=== PATIENT | male | born 1945 | race Caucasian/White ===

== ENCOUNTER 2017-01-28 08:27 | Emergency (ER) | payer MEDICARE ==
--- NOTE | 2017-01-28 09:44 | ER Document Report ---
HPI - HPI Pain Level: 4 Notes: Patient is a 71-year-old male who presents the ED complaining of left foot and left ankle pain 1 day without known injury. Patient states that he does have a history of gout and that this pain resembles that kind of feeling. He does take naproxen daily to help try to prevent his gout. He is allergic to allopurinol and colchicine as noted in his allergies. Patient states that the pain does not radiate. The pain is an ache and throb combined with an occasional sharp. Patient states that he does continue to have normal feeling and sensation in his feet. Patient states he still able to ambulate but does have to favor that left foot and ankle because of the pain. Patient has a history of hypertension, hypercholesterolemia, hypothyroidism, and is a former smoker. Patient states that he does have lower extremity edema which she is on a fluid pill for. Denies any diabetic history. Patient states his immunizations are up-to-date and that he does not do any other illicit drugs. Denies any fever, headache, URI, sore throat, chest pain, palpitations, syncope , cough, hemoptysis, wheeze, shortness of breath, dyspnea, abdominal pain, nausea/vomiting/diarrhea, dysuria, hematuria, calf pain, or rash. - ROS Notes: REVIEW OF SYSTEMS: CONSTITUTIONAL : Denies fever, chills, or sweats. Denies recent illness. EENT: Denies eye, ear, throat, or mouth pain or symptoms. Denies nasal or sinus congestion or discharge. Denies throat, tongue, or mouth swelling or difficulty swallowing. CARDIOVASCULAR: Denies chest pain. Denies palpitations or racing or irregular heart beat. Denies ankle edema. RESPIRATORY: Denies cough, cold, or chest congestion. Denies shortness of breath, difficulty breathing, or wheezing. GASTROINTESTINAL: Denies abdominal pain or distention. Denies nausea, vomiting , or diarrhea. Denies blood in vomitus, stools, or per rectum. Denies black, tarry stools. Denies constipation. GENITOURINARY: Denies difficulty urinating, painful urination, burning, frequency, blood in urine, or discharge. MUSCULOSKELETAL: see hpi SKIN: Denies rash, lesions or sores. NEUROLOGICAL: Denies confusion or altered mental status. Denies passing out or loss of consciousness. Denies dizziness or lightheadedness. Denies headache. Denies weakness or paralysis or loss of use of either side. Denies problems with gait or speech. Denies sensory loss, numbness, or tingling. Denies seizures. ALL OTHER SYSTEMS REVIEWED AND NEGATIVE. Dictation was performed using [employer] voice recognition software - DERM Skin Color: Normal Past Medical History - Social History Smoking Status: Never Smoker Chew tobacco use (# tins/day): No Frequency of alcohol use: Social Drug Abuse: None Family History: Reviewed & Not Pertinent - Past Medical History Cardiac Medical History: Reports: Hx Hypercholesterolemia, Hx Hypertension Endocrine Medical History: Reports: Hx Hypothyroidism Renal/ Medical History: Denies: Hx Peritoneal Dialysis GI Medical History: Reports: Hx Diverticulitis, Hx Gastroesophageal Reflux Disease, Hx Hiatal Hernia Musculoskeltal Medical History: Reports Hx Arthritis Psychiatric Medical History: Reports: Hx Depression Past Surgical History: Reports: Hx Abdominal Surgery - bowel resection, Hx Herniorrhaphy, Hx Orthopedic Surgery - right and left hand surgeries - Immunizations Immunizations up to date: Yes Hx Diphtheria, Pertussis, Tetanus Vaccination: Yes Vertical Provider Document - CONSTITUTIONAL Agree With Documented VS: Yes Notes: PHYSICAL EXAMINATION: GENERAL: Well-appearing, well-nourished and in no acute distress. HEAD: Atraumatic, normocephalic. EYES: Pupils equal round and reactive to light, extraocular movements intact, sclera anicteric, conjunctiva are normal. ENT: EAC clear b/l. TM's intact b/l without erythema, fluid, or perforation. Nares patent and without discharge. oropharynx clear without exudates. No tonsilar hypertrophy or erythema. Moist mucous membranes. No sinus tenderness. NECK: Normal range of motion, supple without lymphadenopathy LUNGS: Breath sounds clear to auscultation bilaterally and equal. No wheezes rales or rhonchi. HEART: Regular rate and rhythm without murmurs, rubs, gallops. ABDOMEN: Soft, nontender, nondistended abdomen. No guarding, no rebound. No masses appreciated. Normal bowel sounds present. No CVA tenderness bilaterally. Musculoskeletal: Lt foot: No ecchymosis, abrasion, laceration noted. No erythema when comparing to the rt foot/ankle. No obvious swelling noted. FROM to passive/active. Strength 5+/5. N/V intact. Trace-1+ pitting edema b/l. Pt has tenderness to palp to the anterior ankle/lat malleolus, MTP joint, and mild to the plantar foot to palpation. No abscess, discharge, streaks, or induration noted. Angel negative b/l. Extremities: No cyanosis, clubbing. Peripheral pulses 2+. Capillary refill less than 2 seconds. NEUROLOGICAL: Cranial nerves grossly intact. Normal speech, normal gait. Normal sensory, motor exams PSYCH: Normal mood, normal affect. SKIN: Warm, Dry, normal turgor, no rashes or lesions noted. See MSK exam as well. - INFECTION CONTROL TRAVEL OUTSIDE OF THE [place] IN LAST 30 DAYS: No - RESPIRATORY O2 Sat by Pulse Oximetry: 96 Course - Re-evaluation Re-evalutation: 01/28/17 10:55 Patient is an afebrile, well-hydrated, 71-year-old male who presents the ED complaining of left foot and ankle pain, suspect possible exacerbation of gout based on H&P today. X-ray was unremarkable for any acute fracture dislocation. Vitals are stable. PE otherwise unremarkable. Low suspicion for any septic arthritis, DVT, severe PAD, or systemic infection. I will give him a steroid tapering dose and he may begin as directed. I will give him a few tablets of tramadol to help with his discomfort. Conservative measures otherwise for symptoms. Advised close follow-up and recheck with his PCM in the next 2-3 days. Return to the ED with any worsening/concerning symptoms otherwise as reviewed in the discharge. Patient is in agreement. - Vital Signs Vital signs: Temp Pulse Resp BP Pulse Ox 98.0 F 71 16 124/67 96 01/28/17 08:35 01/28/17 08:35 01/28/17 08:35 01/28/17 08:35 01/28/17 08:35 Discharge - Discharge Clinical Impression: Foot pain, left Ankle pain, left Qualifiers: Chronicity: acute Qualified Code(s): M25.572 - Pain in left ankle and joints of left foot Condition: Stable Instructions: Ice & Elevation ([facility]) Additional Instructions: Rest, Ice, Compression, Elevation Take medications as directed Tylenol/ibuprofen as needed Light stretches daily Strength exercises as able Moist heat and massage may help F/u with your PCP in 2-3 days for a recheck* Consider consult(s) with Orthopedics for ongoing/worsening symptoms Return to the ED with any worsening symptoms and/or development of fever, headache, chest pain, palpitations, syncope, shortness of breath, trouble breathing, abdominal pain, n/v/d, calf pain, muscle weakness/paralysis, numbness /tingling, abscess, purulent discharge, red streaks, or other worsening symptoms that are concerning to you. Prescriptions: Prednisone [Deltasone 10 mg Tablet] 10 mg PO ASDIR PRN #21 tablet PRN Reason: Tramadol HCl 50 mg PO BID PRN #10 tablet PRN Reason: Referrals: BRITTANY CROSS MD [Primary Care Provider] - 01/30/17 [facility] [Provider Group] - Follow up as needed
--- NOTE | 2017-01-28 10:19 | RADIOLOGY REPORT (SQ) ---
EXAM DESCRIPTION: FOOT LEFT COMPLETE COMPLETED DATE/TIME: 01/28/2017 10:06 am REASON FOR STUDY: ankle and foot pain, h/o gout COMPARISON: 06/26/2015. NUMBER OF VIEWS: Three views. TECHNIQUE: AP, lateral and oblique without weight bearing radiographic images acquired of the left f oot. LIMITATIONS: None. FINDINGS: MINERALIZATION: Normal. BONES: No acute fracture or dislocation. No worrisome bone lesions. Plantar calcaneal spur. JOINTS: No erosions. No yanci-articular osteopenia. No chondrocalcinosis. SOFT TISSUES: No swelling. No calcifications. OTHER: No other significant finding. IMPRESSION: HEEL SPUR. NO OTHER SIGNIFICANT FINDING. TECHNICAL DOCUMENTATION: JOB ID: [id number] [employer]- All Rights Reserved
--- NOTE | 2017-01-28 10:20 | RADIOLOGY REPORT (SQ) ---
EXAM DESCRIPTION: ANKLE LEFT COMPLETE COMPLETED DATE/TIME: 01/28/2017 10:06 am REASON FOR STUDY: ankle and foot pain, h/o gout COMPARISON: None. NUMBER OF VIEWS: Three views. TECHNIQUE: AP, lateral, and oblique without weight bearing radiographic images acquired of the left ankle. LIMITATIONS: None. FINDINGS: MINERALIZATION: Normal. BONES: No acute fracture or dislocation. No worrisome bone lesions. No significant osteophytes. JOINTS: No effusions. SOFT TISSUES: Mild soft tissue swelling. No foreign body. OTHER: No other significant finding. IMPRESSION: MILD SOFT TISSUE SWELLING. NO SIGNIFICANT BONY FINDINGS. TECHNICAL DOCUMENTATION: JOB ID: [id number] [employer]- All Rights Reserved
[2017-01-28] MEDS ORDERED: OXYCODONE HCL IR 5 MG TABLET PO ONE (11:00)
[2017-01-28 11:43] VITALS: BP 125/59
== END 2017-01-28 11:42 | disposition home or self-care (01) ==
LOC: ER 08:27
DX: M25.572 Pain in left ankle and joints of left foot (principal)
CPT/HCPCS: 99283; 73610; 73630; A9270; 88305

== ENCOUNTER 2017-04-29 17:58 | Inpatient (IN) | payer MEDICARE ==
--- NOTE | 2017-04-29 20:12 | RADIOLOGY REPORT (SQ) ---
EXAM DESCRIPTION: CHEST SINGLE VIEW COMPLETED DATE/TIME: 04/29/2017 8:04 pm REASON FOR STUDY: resp difficulty COMPARISON: 03/26/2015 EXAM PARAMETERS: NUMBER OF VIEWS: One view. TECHNIQUE: Single frontal radiographic view of the chest acquired. RADIATION DOSE: NA LIMITATIONS: None. FINDINGS: LUNGS AND PLEURA: Mild chronic interstitial changes. No acute opacities. No effusions. MEDIASTINUM AND HILAR STRUCTURES: No masses. Contour normal. HEART AND VASCULAR STRUCTURES: Heart normal in size. Normal vasculature. BONES: No acute findings. HARDWARE: None in the chest. OTHER: No other significant finding. IMPRESSION: NO ACUTE RADIOGRAPHIC FINDING IN THE CHEST. TECHNICAL DOCUMENTATION: JOB ID: [id number]
[2017-04-29 20:18] LABS: APPEARANCE,URINE CLEAR; BILIRUBIN,URINE NEGATIVE (NEGATIVE); GLUCOSE, URINE NEGATIVE (NEGATIVE); KETONES,URINE NEGATIVE (NEGATIVE); LEUKOCYTE ESTERASE,URINE NEGATIVE (NEGATIVE); NITRITE,URINE NEGATIVE (NEGATIVE); PROTEIN,URINE NEGATIVE (NEGATIVE); URINE SPECIFIC GRAVITY 1.004; UROBILINOGEN,URINE NEGATIVE mg/dL (<2.0)
[2017-04-29 20:22] LABS: ABSOLUTE BASOPHILS # (AUTO) 0.1 10^3/uL (0.0-0.2); ABSOLUTE EOSINOPHILS # (AUTO) 0.3 10^3/uL (0.0-0.6); ABSOLUTE LYMPHOCYTES (AUTO) 1.2 10^3/uL (0.5-4.7); ABSOLUTE MONOCYTES (AUTO) 1.1 10^3/uL (0.1-1.4); ABSOLUTE NEUT (AUTO) 6.7 10^3/uL (1.7-8.2); BASOPHILS % (AUTO) 0.5 % (0-2); EOSINOPHILS % (AUTO) 3.1 % (0-6); HEMATOCRIT 35.9 % (37.9-51.0); HEMOGLOBIN 12.4 g/dL (13.5-17.0); HGB HCT DIFFERENCE 1.3; LYMPHOCYTES % (AUTO) 12.9 % (13-45); MEAN CORPUSCULAR HGB CONC 34.6 g/dL (32.0-36.0); MEAN CORPUSCULAR VOLUME 116 fl (80-97); MONOCYTES % (AUTO) 11.5 % (3-13); RED CELL DISTRIBUTION WIDTH 14.2 % (11.5-14.0); WHITE BLOOD COUNT 9.2 10^3/uL (4.0-10.5)
[2017-04-29 20:45] LABS: ALANINE AMINOTRANSFERASE 26 U/L (21-72); ALBUMIN 4.4 g/dL (3.5-5.0); ALKALINE PHOSPHATASE 106 U/L (38-126); ANION GAP 19 (5-19); ASPARTATE AMINO TRANSFERASE 33 U/L (17-59); BILIRUBIN,DIRECT 0.6 mg/dL (0.0-0.4); BILIRUBIN,TOTAL 0.7 mg/dL (0.2-1.3); BLOOD UREA NITROGEN 32 mg/dL (7-20); CALCIUM 9.6 mg/dL (8.4-10.2); CARBON DIOXIDE 28 mmol/L (22-30); CHLORIDE 96 mmol/L (98-107); CREATININE RESULT 1.77 mg/dL (0.52-1.25); GLUCOSE 90 mg/dL (75-110); POTASSIUM 3.2 mmol/L (3.6-5.0); SODIUM 142.5 mmol/L (137-145); TOTAL PROTEIN 8.2 g/dL (6.3-8.2)
[2017-04-29 20:54] LABS: TOXIC GRANULATION SLIGHT
[2017-04-29 20:55] LABS: ANISOCYTOSIS SLIGHT; POIKILOCYTOSIS SLIGHT; TEAR DROP CELLS SLIGHT
[2017-04-29 20:56] LABS: PLATELET CLUMPS PRESENT
--- NOTE | 2017-04-29 21:36 | ER Document Report ---
ED Medical Screen (RME) - General Chief Complaint: Shortness Of Breath Stated Complaint: SHORTNESS OF BREATH Time Seen by Provider: 04/29/17 21:31 Notes: 71-year-old male, chief complaint of worsening dyspnea on exertion, he states he was doing okay but today he can barely walk without getting short of breath. He denies cough, fever, chest pain. He states he is also now for the first time having trouble lying flat. He is on Lasix 40 mg twice a day for lower extremity swelling and he states he is compliant with this. He denies any knowledge of congestive heart failure history. He denies any other symptoms. TRAVEL OUTSIDE OF THE [place] IN LAST 30 DAYS: No - Related Data Allergies/Adverse Reactions: allopurinol Allergy (Verified 01/28/17 08:44) colchicine Allergy (Verified 01/28/17 08:49) Sulfa (Sulfonamide Antibiotics) Allergy (Verified 01/28/17 08:44) valdecoxib [From Bextra] Allergy (Verified 01/28/17 08:44) Past Medical History - Past Medical History Cardiac Medical History: Reports: Hx Hypercholesterolemia, Hx Hypertension Endocrine Medical History: Reports: Hx Hypothyroidism Renal/ Medical History: Denies: Hx Peritoneal Dialysis GI Medical History: Reports: Hx Diverticulitis, Hx Gastroesophageal Reflux Disease, Hx Hiatal Hernia Musculoskeltal Medical History: Reports Hx Arthritis Psychiatric Medical History: Reports: Hx Depression Past Surgical History: Reports: Hx Abdominal Surgery - bowel resection, Hx Herniorrhaphy, Hx Orthopedic Surgery - right and left hand surgeries - Immunizations Immunizations up to date: Yes Hx Diphtheria, Pertussis, Tetanus Vaccination: Yes Physical Exam - Vital signs Vitals: Temp Pulse BP Pulse Ox 97.7 F 64 134/78 H 95 04/29/17 09:04 04/29/17 09:04 04/29/17 09:04 04/29/17 09:04 - Respiratory Respiratory status: No: Respiratory distress, Labored, Tachypnea Breath sounds: Other - Soft rales heard in the mid to lower right lung, otherwise lungs clear Course - Re-evaluation Re-evalutation: Reported symptoms suggestive of developing orthopnea and dyspnea on exertion secondary to undiagnosed congestive heart failure. Workup pending. Patient is in no distress at this time and while he is sitting up he does not have tachypnea or any signs of distress. - Vital Signs Vital signs: Temp Pulse Resp BP Pulse Ox 97.7 F 64 134/78 H 95 04/29/17 09:04 04/29/17 09:04 04/29/17 09:04 04/29/17 09:04 - Laboratory Result Diagrams: 04/29/17 19:45 04/29/17 19:45 Laboratory results interpreted by me: 04/29/17 04/29/17 19:45 19:45 RBC 3.10 L Hgb 12.4 L Hct 35.9 L MCV 116 H MCH 40.0 H RDW 14.2 H Lymphocytes % 12.9 L Potassium 3.2 L Chloride 96 L BUN 32 H Creatinine 1.77 H Est GFR ( Amer) 46 L Est GFR (Non-Af Amer) 38 L Direct Bilirubin 0.6 H
[2017-04-29] MEDS ORDERED: POTASSIUM CHLORIDE 10 MEQ TABLET.SA PO ONE (22:14)
[2017-04-29] MEDS ORDERED: ASPIRIN 325 MG TABLET PO ONE (22:14)
[2017-04-29 22:33] LABS: MAGNESIUM 1.9 mg/dL (1.6-2.3)
[2017-04-29 22:47] LABS: CREATINE KINASE MB 3.32 ng/mL (<4.55); TROPONIN I 0.021 ng/mL
--- NOTE | 2017-04-29 23:17 | ER Document Report ---
ED General - General Chief Complaint: Shortness Of Breath Stated Complaint: SHORTNESS OF BREATH Time Seen by Provider: 04/29/17 21:31 Notes: 71-year-old male with heavy alcohol history presents with 3 weeks of shortness of breath worse when lying flat and exerting himself now severe and associated with leg swelling. No chest pressure palpitations or chest pain. No history of this. Stress test 5 years ago. No history of atrial fibrillation. TRAVEL OUTSIDE OF THE [place] IN LAST 30 DAYS: No - Related Data Allergies/Adverse Reactions: allopurinol Allergy (Verified 01/28/17 08:44) colchicine Allergy (Verified 01/28/17 08:49) Sulfa (Sulfonamide Antibiotics) Allergy (Verified 01/28/17 08:44) valdecoxib [From Bextra] Allergy (Verified 01/28/17 08:44) Past Medical History - Social History Smoking Status: Former Smoker Family History: Reviewed & Not Pertinent Patient has suicidal ideation: No Patient has homicidal ideation: No - Past Medical History Cardiac Medical History: Reports: Hx Hypercholesterolemia, Hx Hypertension Endocrine Medical History: Reports: Hx Hypothyroidism Renal/ Medical History: Denies: Hx Peritoneal Dialysis GI Medical History: Reports: Hx Diverticulitis, Hx Gastroesophageal Reflux Disease, Hx Hiatal Hernia Musculoskeltal Medical History: Reports Hx Arthritis Psychiatric Medical History: Reports: Hx Depression Past Surgical History: Reports: Hx Abdominal Surgery - bowel resection, Hx Herniorrhaphy, Hx Orthopedic Surgery - right and left hand surgeries - Immunizations Immunizations up to date: Yes Hx Diphtheria, Pertussis, Tetanus Vaccination: Yes Review of Systems - Review of Systems Notes: REVIEW OF SYSTEMS GEN: Denies fever, chills, weight loss ENT: Denies sore throat, nasal discharge, ear pain EYES: Denies blurry vision, eye pain, discharge CV: Denies chest pain, palpitations, edema RESP: Shortness of breath dyspnea on exertion orthopnea GI: Denies abdominal pain, nausea, vomiting, diarrhea MSK: Denies joint pain/swelling, e lateral leg edema SKIN: Denies rash, skin lesions LYMPH: Denies swollen glands/lymph nodes NEURO: Denies headache, focal weakness or numbness, dizziness PSYCH: Denies depression, suicidal or homicidal ideation PHYSICAL EXAMINATION General: No acute distress, well-nourished Head: Atraumatic, normocephalic ENT: Mouth normal, oropharynx moist, no exudates or tonsillar enlargement Eyes: Conjunctiva normal, pupils equal, lids normal Neck: No JVD, supple, no guarding CVS: Normal rate, regular rhythm, no murmurs Resp: No resp distress, equal and normal breath sounds bilaterally GI: Nondistended, soft, no tenderness to palpation, no rebound or guarding. Rectus diastases without tenderness.. Ext: No deformities, symmetric 2+ lower leg edema, normal range of motion in upper and lower ext Back: No CVA or midline TTP Skin: No rash, warm Lymphatic: No lymphadeopathy noted Neuro: Awake, alert. Face symmetric. GCS 15. Physical Exam - Vital signs Vitals: Temp Pulse BP Pulse Ox 97.7 F 64 134/78 H 95 04/29/17 09:04 04/29/17 09:04 04/29/17 09:04 04/29/17 09:04 Course - Re-evaluation Re-evalutation: 04/29/17 23:16 Patient presents with signs and symptoms of new onset congestive heart failure possibly in the setting of atrial fibrillation. Saturation and lung exam are normal the patient has edema. ECG shows either abnormal pacemaker versus atrial fib relation, very difficult to tell including with repeat ECG. Chest x-ray is read as normal, chronic interstitial changes but I think it looks samuel than before and this would fit with his clinical picture. His BNP is elevated but troponin is normal. I added on a TSH and will admit him. He was given aspirin but he refused 04/30/17 01:[address] Schmitz at about 12:45 AM. He would like a repeat troponin before admitting the patient. - Vital Signs Vital signs: Temp Pulse Resp BP Pulse Ox 97.7 F 64 13 126/84 H 97 04/29/17 09:04 04/29/17 09:04 04/30/17 02:15 04/30/17 02:01 04/30/17 02:15 - Laboratory Result Diagrams: 04/29/17 19:45 04/29/17 19:45 Laboratory results interpreted by me: 04/29/17 04/29/17 04/29/17 19:45 19:45 19:45 RBC 3.10 L Hgb 12.4 L Hct 35.9 L MCV 116 H MCH 40.0 H RDW 14.2 H Lymphocytes % 12.9 L Potassium 3.2 L Chloride 96 L BUN 32 H Creatinine 1.77 H Est GFR ( Amer) 46 L Est GFR (Non-Af Amer) 38 L Direct Bilirubin 0.6 H Creatine Kinase 214 H NT-Pro-B Natriuret Pep TSH 04/29/17 04/29/17 19:45 19:45 RBC Hgb Hct MCV MCH RDW Lymphocytes % Potassium Chloride BUN Creatinine Est GFR ( Amer) Est GFR (Non-Af Amer) Direct Bilirubin Creatine Kinase NT-Pro-B Natriuret Pep 1850 H TSH 17.10 H - Diagnostic Test Radiology reviewed: Image reviewed, Reports reviewed - EKG Interpretation by Me EKG shows normal: Sinus rhythm When compared to previous EKG there are: No significant change - Questionable atrial fibrillation versus abnormal pacemaker. Discharge - Discharge Clinical Impression: Congestive heart failure Qualifiers: Congestive heart failure type: combined Congestive heart failure chronicity: acute Qualified Code(s): I50.41 - Acute combined systolic (congestive) and diastolic (congestive) heart failure Condition: Good Disposition: ADMITTED INPATIENT Admitting Provider: Hospitalist Unit Admitted: Telemetry Referrals: BRITTANY CROSS MD [Primary Care Provider] - Follow up as needed
[2017-04-30] MEDS ORDERED: ACETAMINOPHEN 325 MG TABLET PO PRN (04:54)
[2017-04-30] MEDS ORDERED: PROMETHAZINE HCL 25 MG TABLET PO PRN (04:54)
[2017-04-30] MEDS ORDERED: THIAMINE HCL 100 MG TABLET PO ONE (06:15)
[2017-04-30] MEDS ORDERED: LORAZEPAM 1 MG TABLET PO PRN (07:36)
[2017-04-30] MEDS ORDERED: FUROSEMIDE INJ/PF 20 MG/2 ML SDV IV ONE (07:43)
[2017-04-30 07:52] LABS: ABSOLUTE BASOPHILS # (AUTO) 0.1 10^3/uL (0.0-0.2); ABSOLUTE EOSINOPHILS # (AUTO) 0.2 10^3/uL (0.0-0.6); ABSOLUTE NEUT (AUTO) 7.1 10^3/uL (1.7-8.2); BASOPHILS % (AUTO) 0.6 % (0-2); EOSINOPHILS % (AUTO) 2.2 % (0-6); HEMATOCRIT 33.9 % (37.9-51.0); HEMOGLOBIN 11.7 g/dL (13.5-17.0); HGB HCT DIFFERENCE 1.2; LYMPHOCYTES % (AUTO) 10.4 % (13-45); MEAN CORPUSCULAR HEMOGLOBIN 39.8 pg (27.0-33.4); MEAN CORPUSCULAR HGB CONC 34.5 g/dL (32.0-36.0); MEAN CORPUSCULAR VOLUME 115 fl (80-97); MONOCYTES % (AUTO) 10.9 % (3-13); RED BLOOD COUNT 2.95 10^6/uL (4.35-5.55); RED CELL DISTRIBUTION WIDTH 14.3 % (11.5-14.0); SEGMENTED NEUTROPHILS % (AUTO) 75.9 % (42-78); WHITE BLOOD COUNT 9.3 10^3/uL (4.0-10.5)
[2017-04-30 08:07] LABS: ALANINE AMINOTRANSFERASE 27 U/L (21-72); ALBUMIN 4.1 g/dL (3.5-5.0); ALKALINE PHOSPHATASE 107 U/L (38-126); ANION GAP 15 (5-19); ASPARTATE AMINO TRANSFERASE 30 U/L (17-59); BILIRUBIN,DIRECT 0.6 mg/dL (0.0-0.4); BILIRUBIN,TOTAL 1.1 mg/dL (0.2-1.3); BLOOD UREA NITROGEN 32 mg/dL (7-20); CALCIUM 9.7 mg/dL (8.4-10.2); CARBON DIOXIDE 31 mmol/L (22-30); CHLORIDE 98 mmol/L (98-107); CREATININE RESULT 1.66 mg/dL (0.52-1.25); GLUCOSE 112 mg/dL (75-110); POTASSIUM 3.4 mmol/L (3.6-5.0); SODIUM 144.3 mmol/L (137-145); TOTAL PROTEIN 7.6 g/dL (6.3-8.2)
[2017-04-30 08:08] LABS: CHOLESTEROL 135.04 mg/dL (0-200); Direct HDL 35 mg/dL (>40); TRIGLYCERIDES 113 mg/dL (<150)
[2017-04-30 08:13] LABS: ANISOCYTOSIS SLIGHT
--- NOTE | 2017-04-30 08:13 | EKG REPORT ---
SEVERITY:- ABNORMAL ECG - SINUS RHYTHM NONSPECIFIC INTRAVENTRICULAR CONDUCTION DELAY BORDERLINE LATERAL Q WAVES MINIMAL ST DEPRESSION, LATERAL LEADS : Confirmed by: Emiliano Guerrero MD 30-Apr-2017 08:12:14
--- NOTE | 2017-04-30 08:13 | EKG REPORT ---
SEVERITY:- ABNORMAL ECG - ATRIAL FIBRILLATION, V-RATE 67-71 NONSPECIFIC T ABNORMALITIES, LATERAL LEADS : Confirmed by: Emiliano Guerrero MD 30-Apr-2017 08:12:24
[2017-04-30 08:19] LABS: DIRECT LDL 85 mg/dL (<100)
--- NOTE | 2017-04-30 09:13 | PDOC H&P ---
History of Present Illness Admission Date/PCP: 04/30/17 07:36 BRITTANY CROSS MD Patient complains of: Short of breath History of Present Illness: ELEANOR STODDARD is a 71 year old male with underlying hypertension, hyperlipidemia, hypothyroidism, partial hearing loss, obstructive sleep apnea, and arthritis, who presents to the emergency room for evaluation of above complaint. Patient has been discussed with emergency room physician who evaluated the patient. He describes a 3 week history of intermittent slowly worsening shortness of breath, in particular much of any exertion. Worsens also with lying flat. Associated leg swelling, with the leg swelling actually having been present intermittently for the past several months. There is been no chest pain, fever or chills, nausea or vomiting. No history of myocardial infarction, congestive heart failure, atrial fibrillation, or atrial flutter. No history of pulmonary embolus or DVT. No recent long trip with prolonged inactivity, or unusual lower extremity swelling or tenderness. Negative nuclear stress study approximately 5 years ago. Dictation via voice recognition software. Laboratory results are listed in [employer] and are reviewed. X-ray summary results are listed below, with full report(s) reviewed. EKG 2reviewed and compared to prior tracing from October 19 of last year. Social history/personal habits: . Has children. 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 No tobacco use since 1978. No illicit drug use. A bottle of wine per day. Allergies/adverse reactions are listed in [employer] and are reviewed. Home medications initially autopopulated into [employer] may not accurately reflect patient's true medications, dosages, and/or frequencies. nuclear fuel enrichment technician to reconcile medications. Unfortunately, patient not certain of all medications/dosages/frequencies. REVIEW OF SYSTEMS: Constitutional: No fever or chills. Eyes: Wears glasses. ENT: No swallowing problems or complaints. Partial hearing loss. Pulmonary: See history and present illness. Cardiovascular: See history and present illness. Gastrointestinal: No current complaints, including nausea or vomiting. Skin: No current complaints, including rashes. Hematologic: Easy bruising. Neurologic: No current complaints, including numbness or tingling. Musculoskeletal: Joint pain from arthritis. Psychiatric: Denies anxiety or depression. Endocrine: No current complaints, including polyuria. Genitourinary: No current complaints, including dysuria. PHYSICAL EXAMINATION: Female printing press operator is present at his side; patient approves. 5 feet 10-1/2 inches tall. 118 kg. BMI 36.8 kg/m. Blood pressure 132/76. Pulse 66 and regular. 97% saturation on room air. Respirations are 13 and unlabored. Temperature 97.7. Somewhat obese otherwise well-developed male appearing perhaps a bit younger than his stated age. Pleasant awake alert and cooperative. No obvious distress other than somewhat anxious. Skin is warm and dry. No grossly obvious evidence of rash in areas of skin examined. No subcutaneous nodules palpated. ENT: Somewhat hard of hearing to normal conversation. Tongue midline on protrusion pink and slightly tacky. Eyes: No scleral icterus. Pupils equal and reactive to light at 4 mm. [place] conjunctivae. Neck is supple and nontender to gentle active range of motion and palpation. Midline trachea. No palpable thyroid nodule mass enlargement or tenderness. Lymphatic: No palpable cervical or clavicular nodes. Neck and lymphatic exams limited by patient body habitus. Psychiatric: Reasonable insight into acute and chronic medical issues. Oriented to time location and why here. Lungs: Auscultation reveals clear and equal breath sounds bilaterally. No use of accessory respiratory muscles. Cardiovascular: Heart regular rate and rhythm, without gallop murmur or rub. No carotid or abdominal aortic bruits. Moderate bilateral symmetric slightly pitting calf and ankle and pedal edema. Palpable dorsalis pedis pulses. Abdomen:soft obese nontender with positive bowel sounds. Unable to adequately evaluate abdomen for masses or organomegaly due to body habitus. Extremities: Feet are warm and dry. No calf tenderness to compression. Gentle manipulation of lower extremities fails to reveal any obvious evidence of injury or instability to knees hips or ankles. Neurologic: Moves upper extremities grossly normally. Patellar reflexes absent. Absent Babinski. Light touch is intact at feet. Dorsiflexion and plantarflexion of feet 5 / 5 and symmetric. Past Medical History Cardiac Medical History: Reports: Hyperlipidema, Hypertension Denies: Atrial Fibrillation, Congestive Heart Failure, Coronary Artery Disease, DVT, Myocardial Infarction, Pulmonary Embolism Pulmonary Medical History: Reports: Sleep Apnea - Uncertain settings on home CPAP Denies: Asthma, Chronic Obstructive Pulmonary Disease (COPD) EENT Medical History: Reports: Eyes - Glasses, Ears - Partial hearing loss Denies: Throat Neurological Medical History: Denies: Hemorrhagic CVA, Ischemic CVA, Multiple Sclerosis, Seizures Endocrine Medical History: Reports: Hypothyroidism Denies: Diabetes Mellitus Type 1, Diabetes Mellitus Type 2, Hyperthyroidism Renal/ Medical History: Reports: None GI Medical History: Reports: Diverticulitis - Status post segmental colectomy for same, Gastroesophageal Reflux Disease, Hiatal Hernia Denies: Cirrhosis, Peptic Ulcer Disease Musculoskeltal Medical History: Reports: Arthritis Skin Medical History: Reports: None Psychiatric Medical History: Reports: Alcohol Dependency Denies: Depression, General Anxiety Disorder, Substance Abuse, Tobacco Dependency Hematology: Reports: Other - Easy bruising Infectious Medical History: Denies: Hepatitis B, Hepatitis C Past Surgical History Past Surgical History: Reports: Herniorrhaphy, Orthopedic Surgery - right and left hand surgeries, Other - Segmental colectomy for diverticulitis Social History Information Source: Patient, Emergency Med Personnel, [facility] Records Lives with: Spouse/Significant other Smoking Status: Former Smoker Frequency of Alcohol Use: Heavy Hx Recreational Drug Use: No Drugs: None Hx Prescription Drug Abuse: No - Advance Directive Resuscitation Status: Full Code Surrogate healthcare decision maker:: Long-term female printing press operator Naomi Barrios Family History Family History: Reviewed & Not Pertinent Parental Family History Reviewed: Yes - Father of [place] at 49; mother of lung cancer Children Family History Reviewed: Yes - Healthy Sibling(s) Family History Reviewed.: Yes - Brother of lung cancer Medication/Allergy Home Medications: RX: Atorvastatin Calcium [Lipitor 20 mg Tablet] 20 mg PO DAILY 04/30/17 RX: Magnesium Oxide [Mag-Ox 400 mg Tablet] 400 mg PO BID 04/30/17 Aspirin [Aspirin 325 mg Tablet] 325 mg PO DAILY #30 tablet 05/01/17 RX: Atenolol [Tenormin 50 mg Tablet] 100 mg PO DAILY #60 tablet 05/01/17 RX: Folic Acid [Folvite 1 mg Tablet] 1 mg PO DAILY tablet 05/01/17 RX: Furosemide [Lasix 40 mg Tablet] 20 mg PO ASDIR #90 tablet 05/01/17 RX: Hydrocodone/Acetaminophen [[place] 7.5-325 mg Tablet] 1 tab PO Q6HP PRN tablet 05/01/17 RX: Levothyroxine Sodium [Synthroid 0.088 mg Tablet] 0.088 mg PO DAILY #30 tablet 05/01/17 RX: Levothyroxine Sodium [Synthroid 0.1 mg Tablet] 0.1 mg PO DAILY #30 tablet RX: Multivitamin [Tab-A-Lucy (Multiple Vitamin) Tablet] 1 tab PO DAILY tablet 05/01/17 RX: Potassium Chloride [Klor-Con 10 Meq Tablet.sa] 10 meq PO DAILY #30 tablet.sa 05/01/17 RX: Thiamine HCl [Thiamine 100 mg Tablet] 100 mg PO DAILY tablet 05/01/17 Allergies/Adverse Reactions: allopurinol Allergy (Verified 01/28/17 08:44) colchicine Allergy (Verified 01/28/17 08:49) Sulfa (Sulfonamide Antibiotics) Allergy (Verified 01/28/17 08:44) valdecoxib [From Bextra] Allergy (Verified 01/28/17 08:44) Physical Exam Vital Signs: Temp Pulse Resp BP Pulse Ox 98.1 F 59 L 18 130/73 H 97 04/30/17 08:18 04/30/17 08:18 04/30/17 08:18 04/30/17 08:18 04/30/17 08:18 Results Impressions: Chest X-Ray 04/29/17 19:20 IMPRESSION: NO ACUTE RADIOGRAPHIC FINDING IN THE CHEST. Assessment & Plan - Diagnosis (1) ARF (acute renal failure) Qualifiers: Acute renal failure type: unspecified Qualified Code(s): N17.9 - Acute kidney failure, unspecified Is this a current diagnosis for this admission?: Yes Plan: Follow-up chemistry. (2) Congestive heart failure Qualifiers: Congestive heart failure type: unspecified congestive heart failure type Congestive heart failure chronicity: unspecified congestive heart failure chronicity Qualified Code(s): I50.9 - Heart failure, unspecified Is this a current diagnosis for this admission?: Yes Plan: Suspect has been present for some time now with his history of intermittent leg swelling for several months. Patient will be admitted under CHF protocol. Serial troponins. Repeat EKG. Lipid panel. Cardiology consult. Echocardiogram. Patient is a full code. I have strongly encouraged patient not to get out of bed without notifying staff , to avoid a fall with injury. Knee high SCDs for DVT prophylaxis, along with subcutaneous heparin. Impression and plans were discussed with patient and female printing press operator, both of whom concur Time spent in evaluation and management of patient: 74 minutes (3) Hypokalemia Is this a current diagnosis for this admission?: Yes Plan: Potassium replacement with follow-up chemistry. (4) New onset a-fib Is this a current diagnosis for this admission?: Yes Plan: D-dimer. (5) Alcohol dependence Qualifiers: Substance use status: uncomplicated Qualified Code(s): F10.20 - Alcohol dependence, uncomplicated Is this a current diagnosis for this admission?: Yes Plan: Daily multivitamin, thiamine, and folic acid. Observe closely for signs of alcohol withdrawal; none at present. (6) HLD (hyperlipidemia) Qualifiers: Hyperlipidemia type: unspecified Qualified Code(s): E78.5 - Hyperlipidemia , unspecified Is this a current diagnosis for this admission?: Yes Plan: Resume home medications as appropriate once these have been determined and reviewed. (7) Hypothyroid Qualifiers: Hypothyroidism type: unspecified Qualified Code(s): E03.9 - Hypothyroidism , unspecified Is this a current diagnosis for this admission?: Yes Plan: Resume home medications as appropriate once these have been determined and reviewed. May need adjustment of dosage, or confirm that patient taking medication on empty stomach. (8) HEAVEN (obstructive sleep apnea) Is this a current diagnosis for this admission?: Yes Plan: Nightly CPAP - Time Time Spent: 50 to 70 Minutes Medications reviewed and adjusted accordingly: No - Patient uncertain medications. Anticipated discharge: Home Within: within 72 hours - Inpatient Certification Based on my medical assessment, after consideration of the patient's comorbidities, presenting symptoms, or acuity I expect that the services needed warrant INPATIENT care.: Yes I certify that my determination is in accordance with my understanding of Medicare's requirements for reasonable and necessary INPATIENT services [42 CFR 412.3e].: Yes Medical Necessity: Need Close Monitoring Due to Risk of Patient Decompensation, Need For Continuous Telemetry Monitoring, Risk of Complication if Not Cared For in Hospital Post Hospital Care: D/C or Transfer Summary
[2017-04-30] MEDS: DOCUSATE SODIUM 100 MG CAPSULE PO SCH (09:32)
[2017-04-30] MEDS: LEVOTHYROXINE SODIUM 0.1 MG TABLET PO SCH (09:33)
[2017-04-30] MEDS: FOLIC ACID 1 MG TABLET PO SCH (09:33)
[2017-04-30] MEDS: MULTIVITAMIN TABLET PO SCH (09:33)
[2017-04-30] MEDS: THIAMINE HCL 100 MG TABLET PO SCH (09:33)
[2017-04-30] MEDS: LEVOTHYROXINE SODIUM 0.088 MG TABLET PO SCH (09:34)
[2017-04-30] MEDS ORDERED: IPRATROPIUM/ALBUTEROL 0.5-2.5 MG/3 ML AMPUL NEB PRN (10:55)
--- NOTE | 2017-04-30 12:40 | XCELERA REPORT ---
[address] [address] Transthoracic Echocardiogram Report Name: ELEANOR STODDARD Age: 71 yrs Gender: Male : 1945 Patient Status: Inpatient Patient Location: [address] [place] [address] Study Date: 04/30/2017 10:04 AM Height: 70 in Weight: 260 lb BSA: 2.3 m2 Procedure: A complete two-dimensional transthoracic echocardiogram was performed (2D, M-mode, spectral and color flow Doppler). The study was technically difficult with many images being suboptimal in quality. Reason For Study: new afib/chf Ordering Physician: ORLANDO DIAZ Performed By: Edwin Rodrigues Interpretation Summary The left ventricular ejection fraction is normal. There is mild concentric left ventricular hypertrophy. LV diastolic function could not be adequately assessed. The left ventricle is grossly normal size. Wall motion cannot be accurately commented on, but no definite regional wall motion abnormalities noted. The right ventricle is mildly dilated. The right ventricular systolic function is normal. The left atrium is moderately dilated. The right atrium is mildly dilated. There is a mild to moderate amount of mitral regurgitation There is no mitral valve stenosis. There is no aortic valve stenosis No aortic regurgitation is present. There is a mild to moderate amount of tricuspid regurgitation There is mild to moderate pulmonary hypertension by echo Right ventricular systolic pressure is estimated to be elevated at 40- 50mmHg. The aortic root is not well visualized but is probably normal size. The inferior vena cava appeared normal and decreased > 50% with respiration (RAP 5-10 mmHg) There is no pericardial effusion. MMode/2D Measurements & Calculations RVDd: 3.1 cm LVIDd: 5.5 cm FS: 39.4 % Ao root diam: 3.6 cm IVSd: 1.2 cm LVIDs: 3.3 cm EDV(Teich): 147.6 ml LVPWd: 1.2 cm ESV(Teich): 45.3 ml Ao root area: 10.1 cm2 EF(Teich): 69.3 % Doppler Measurements & Calculations Ao V2 max: LV V1 max PG: PA V2 max: PI end-d sara: 169.6 cm/sec 4.5 mmHg 72.3 cm/sec 84.3 cm/sec Ao max PG: LV V1 max: PA max P.5 mmHg 106.0 cm/sec 2.1 mmHg TR max sara: 358.0 cm/sec TR max P.2 mmHg Left Ventricle The left ventricle is grossly normal size. There is mild concentric left ventricular hypertrophy. The left ventricular ejection fraction is normal. LV diastolic function could not be adequately assessed. Wall motion cannot be accurately commented on, but no definite regional wall motion abnormalities noted. Right Ventricle The right ventricle is mildly dilated. The right ventricular systolic function is normal. Atria The right atrium is mildly dilated. The left atrium is moderately dilated. Interarterial septum not well visualized and not well dopplered. Cannot comment on ASD/PFO presence. Mitral Valve The mitral valve is grossly normal. There is no mitral valve stenosis. There is a mild to moderate amount of mitral regurgitation. Aortic Valve The aortic valve is grossly normal. There is no aortic valve stenosis. No aortic regurgitation is present. Tricuspid Valve The tricuspid valve is not well visualized, but is grossly normal. There is no tricuspid stenosis. There is a mild to moderate amount of tricuspid regurgitation. There is mild to moderate pulmonary hypertension by echo. Right ventricular systolic pressure is estimated to be elevated at 40- 50mmHg. Pulmonic Valve The pulmonic valve is not well visualized. Great Vessels The aortic root is not well visualized but is probably normal size. The inferior vena cava appeared normal and decreased > 50% with respiration (RAP 5-10 mmHg). Effusions There is no pericardial effusion. : ORLANDO DIAZ > Vick Zavala
[2017-04-30] MEDS ORDERED: FUROSEMIDE 40 MG TABLET PO PRN (13:19)
[2017-04-30] MEDS ORDERED: HYDROCODONE/ACETAMINOPHEN 7.5-325 MG TABLET PO PRN (13:19)
[2017-04-30] MEDS ORDERED: CHLORTHALIDONE 25 MG TABLET PO ONE (14:00)
[2017-04-30] MEDS ORDERED: ATENOLOL 50 MG TABLET PO ONE (14:00)
[2017-04-30] MEDS ORDERED: MAGNESIUM OXIDE 400 MG TABLET PO ONE (14:00)
[2017-04-30] MEDS ORDERED: ATORVASTATIN CALCIUM 20 MG TABLET PO ONE (14:00)
[2017-04-30] MEDS ORDERED: NAPROXEN 250 MG TABLET PO ONE (14:00)
[2017-04-30] MEDS: HYDROCODONE/ACETAMINOPHEN 7.5-325 MG TABLET PO PRN (15:07)
[2017-04-30 15:20] LABS: PROTHROMBIN TIME 14.7 SEC (11.4-15.4)
[2017-04-30 15:21] LABS: PARTIAL THROMBOPLASTIN TIME 34.7 SEC (23.5-35.8)
--- NOTE | 2017-04-30 15:26 | RADIOLOGY REPORT (SQ) ---
EXAM DESCRIPTION: NM LUNG VENT/PERF SCAN COMPLETED DATE/TIME: 04/30/2017 3:03 pm REASON FOR STUDY: Dyspnea. elevated d-dimer COMPARISON: Chest radiograph RADIONUCLIDE AND DOSE: 5.34 millicuries TC-99m MAA Intravenous 32.2 millicuries TC-99m DTPA Inhaled aerosol TECHNIQUE: 2 views of the lungs acquired post ventilation of DTPA aerosol. Eight matching views of the lungs acquired following injection of MAA. LIMITATIONS: None. FINDINGS: VENTILATION: Symmetric and homogeneous distribution of DTPA aerosol during ventilatory pha se. No significant areas of photopenia. PERFUSION: Perfusion images with normal homogenous activity and no wedge-shaped or segmental defects. No ventilation-perfusion mismatches. OTHER: No other significant finding. IMPRESSION: NORMAL VENTILATION-PERFUSION LUNG SCAN. NEGATIVE FOR PULMONARY EMBOLI. TECHNICAL DOCUMENTATION: JOB ID: [id number] [employer]- All Rights Reserved
--- NOTE | 2017-04-30 16:03 | PDOC PROGRESS REPORT ---
Subjective Progress Note for:: 04/30/17 Subjective:: Pt is seen on morning rounds shortly after arrival to his room from the ED. He is resting in bed comfortably with family present. He reports that he has had a gradual increase in dyspnea over the last 4-5 months with a sharp increase in severity of symptoms approximately three weeks ago. He reports that he decided to be seen in the ED last night due to not being able to lye flat r/t orthopnea. He does report an increase in BLE edema. He spoke with his PCM yesterday and was instructed to increase his lasix to BID dosing. He denies MARQUEZ, dizziness, CP, abd pain, n/v/d. Review of symptoms is otherwise negative. Physical Exam Vital Signs: Temp Pulse Resp BP Pulse Ox 98.1 F 59 L 18 130/73 H 97 04/30/17 08:18 04/30/17 08:18 04/30/17 08:18 04/30/17 08:18 04/30/17 08:18 General appearance: PRESENT: no acute distress, obese, well-developed, well- nourished Head exam: PRESENT: atraumatic, normocephalic Eye exam: PRESENT: conjunctiva pink, EOMI, PERRLA. ABSENT: scleral icterus Ear exam: PRESENT: normal external ear exam Mouth exam: PRESENT: moist, tongue midline Neck exam: ABSENT: carotid bruit, JVD, lymphadenopathy, thyromegaly Respiratory exam: PRESENT: clear to auscultation sigifredo, symmetrical, unlabored, wheezes - Slight expiratory wheeze to LLL.. ABSENT: rales, rhonchi Cardiovascular exam: PRESENT: RRR, +S1, +S2. ABSENT: diastolic murmur, rubs, systolic murmur Pulses: PRESENT: normal dorsalis pedis pul Vascular exam: PRESENT: normal capillary refill GI/Abdominal exam: PRESENT: normal bowel sounds, soft. ABSENT: distended, guarding, mass, organolmegaly, rebound, tenderness Rectal exam: PRESENT: deferred Extremities exam: PRESENT: full ROM, +2 edema - Pitting edema BLE. ABSENT: calf tenderness, clubbing Musculoskeletal exam: PRESENT: ambulatory Neurological exam: PRESENT: alert, awake, oriented to person, oriented to place , oriented to time, oriented to situation, CN II-XII grossly intact. ABSENT: motor sensory deficit Psychiatric exam: PRESENT: appropriate affect, normal mood. ABSENT: homicidal ideation, suicidal ideation Skin exam: PRESENT: dry, intact, warm. ABSENT: cyanosis, rash Results Impressions: Chest X-Ray 04/29/17 19:20 IMPRESSION: NO ACUTE RADIOGRAPHIC FINDING IN THE CHEST. Assessment & Plan - Diagnosis (1) ARF (acute renal failure) Qualifiers: Acute renal failure type: unspecified Qualified Code(s): N17.9 - Acute kidney failure, unspecified Is this a current diagnosis for this admission?: Yes Plan: Creatinin 1.66, no previous results available. ARF vs CKD; will monitor. 1- Encourage PO fluids. 2- Hold nephrotoxic medications 3- Monitor labs (2) Congestive heart failure Qualifiers: Congestive heart failure type: unspecified congestive heart failure type Congestive heart failure chronicity: unspecified congestive heart failure chronicity Qualified Code(s): I50.9 - Heart failure, unspecified Is this a current diagnosis for this admission?: Yes Plan: Heart failure with preserved function. Echo complete, serial troponin reassuring. Will continue with diuresis. 1- Appreciate Cardiology consultation 2- Continue IV lasix BID 3- Continue BB (atenolol) (3) Hypothyroid Qualifiers: Hypothyroidism type: unspecified Qualified Code(s): E03.9 - Hypothyroidism , unspecified Is this a current diagnosis for this admission?: Yes Plan: Pt unaware of previous hypothyroid diagnosis. Will start on levothyroxine. (4) Alcohol dependence Qualifiers: Substance use status: uncomplicated Qualified Code(s): F10.20 - Alcohol dependence, uncomplicated Is this a current diagnosis for this admission?: Yes Plan: Pt reports 1 bottle of wine daily. 1- Daily multivitamin, thiamine, and folic acid 2- Monitor closely for s/sx of withdrawal; prn ativan (5) HLD (hyperlipidemia) Qualifiers: Hyperlipidemia type: unspecified Qualified Code(s): E78.5 - Hyperlipidemia , unspecified Is this a current diagnosis for this admission?: Yes Plan: Continue Atorvastatin (6) HEAVEN (obstructive sleep apnea) Is this a current diagnosis for this admission?: Yes Plan: CPAP qHS (7) Hypokalemia Is this a current diagnosis for this admission?: Yes Plan: Potassium replacement provided; will follow. (8) New onset a-fib Is this a current diagnosis for this admission?: Yes Plan: Pt rhythm unaware; does not recall having been told he has a-fib. Chronic vs new -onset a.fib 1- Appreciate Cardiology consultation 2- Echocardiogram completed 3- Rate controlled at present; continue atenolol - Time Time Spent with patient: 25-34 minutes Medications reviewed and adjusted accordingly: Yes Anticipated discharge: Home Within: within 72 hours
[2017-04-30] MEDS: MAGNESIUM OXIDE 400 MG TABLET PO SCH (17:18)
[2017-04-30] MEDS ORDERED: NAPROXEN PO SCH (18:00)
[2017-04-30] MEDS ORDERED: NAPROXEN 250 MG TABLET PO SCH (18:00)
--- NOTE | 2017-04-30 20:26 | PDOC CONSULTATION ---
Consultation Consult Date: 04/30/17 Attending physician:: ORLANDO DIAZ Consult reason:: Atrial fibrillation History of Present Illness Admission Date/PCP: 04/30/17 07:36 BRITTANY CROSS MD Patient complains of: Fatigue and shortness of breath History of Present Illness: ELEANOR STODDARD is a 71 year old male with underlying hypertension, hyperlipidemia, hypothyroidism, partial hearing loss, obstructive sleep apnea, and arthritis, who presents to the emergency room for evaluation of above complaint. Patient has been discussed with emergency room physician who evaluated the patient. He describes a 3 week history of intermittent slowly worsening shortness of breath, in particular much of any exertion. Worsens also with lying flat. Associated leg swelling, with the leg swelling actually having been present intermittently for the past several months. There is been no chest pain, fever or chills, nausea or vomiting. No history of myocardial infarction, congestive heart failure, atrial fibrillation, or atrial flutter. No history of pulmonary embolus or DVT. No recent long trip with prolonged inactivity, or unusual lower extremity swelling or tenderness. Negative nuclear stress study approximately 5 years ago. This history was confirmed and supplemented. On questioning patient denied any chest pain. He denied any prior history of strokes or myocardial infarction or congestive heart failure. Patient's symptoms have been gradually progressive over the last 3 weeks. Past Medical History Cardiac Medical History: Reports: Hyperlipidema, Hypertension Denies: Atrial Fibrillation, Congestive Heart Failure, Coronary Artery Disease, DVT, Myocardial Infarction, Pulmonary Embolism Pulmonary Medical History: Reports: Sleep Apnea - Uncertain settings on home CPAP Denies: Asthma, Chronic Obstructive Pulmonary Disease (COPD) EENT Medical History: Reports: Eyes - Glasses, Ears - Partial hearing loss, Other - Easy bruising Denies: Throat Neurological Medical History: Denies: Hemorrhagic CVA, Ischemic CVA, Multiple Sclerosis, Seizures Endocrine Medical History: Reports: Hypothyroidism Denies: Diabetes Mellitus Type 1, Diabetes Mellitus Type 2, Hyperthyroidism Renal/ Medical History: Reports: None GI Medical History: Reports: Diverticulitis - Status post segmental colectomy for same, Gastroesophageal Reflux Disease, Hiatal Hernia Denies: Cirrhosis, Peptic Ulcer Disease Musculoskeltal Medical History: Reports: Arthritis Skin Medical History: Reports: None Psychiatric Medical History: Reports: Alcohol Dependency Denies: Depression, General Anxiety Disorder, Substance Abuse, Tobacco Dependency Hematology: Reports: Other - Easy bruising Infectious Medical History: Denies: Hepatitis B, Hepatitis C Past Surgical History Past Surgical History: Reports: Herniorrhaphy, Orthopedic Surgery - right and left hand surgeries, Other - Segmental colectomy for diverticulitis Social History Information Source: Patient Lives with: Spouse/Significant other Smoking Status: Former Smoker Frequency of Alcohol Use: Heavy Hx Recreational Drug Use: No Drugs: None Hx Prescription Drug Abuse: No - Advance Directive Resuscitation Status: Full Code Family History Family History: Hypertension Parental Family History Reviewed: Yes Children Family History Reviewed: Yes Sibling(s) Family History Reviewed.: Yes Medication/Allergy Home Medications: RX: Atorvastatin Calcium [Lipitor 20 mg Tablet] 20 mg PO DAILY 04/30/17 RX: Magnesium Oxide [Mag-Ox 400 mg Tablet] 400 mg PO BID 04/30/17 Aspirin [Aspirin 325 mg Tablet] 325 mg PO DAILY #30 tablet 05/01/17 RX: Atenolol [Tenormin 50 mg Tablet] 100 mg PO DAILY #60 tablet 05/01/17 RX: Folic Acid [Folvite 1 mg Tablet] 1 mg PO DAILY tablet 05/01/17 RX: Furosemide [Lasix 40 mg Tablet] 20 mg PO ASDIR #90 tablet 05/01/17 RX: Hydrocodone/Acetaminophen [Brent 7.5-325 mg Tablet] 1 tab PO Q6HP PRN tablet 05/01/17 RX: Levothyroxine Sodium [Synthroid 0.088 mg Tablet] 0.088 mg PO DAILY #30 tablet 05/01/17 RX: Levothyroxine Sodium [Synthroid 0.1 mg Tablet] 0.1 mg PO DAILY #30 tablet RX: Multivitamin [Tab-A-Lucy (Multiple Vitamin) Tablet] 1 tab PO DAILY tablet 05/01/17 RX: Potassium Chloride [Klor-Con 10 Meq Tablet.sa] 10 meq PO DAILY #30 tablet.sa 05/01/17 RX: Thiamine HCl [Thiamine 100 mg Tablet] 100 mg PO DAILY tablet 05/01/17 RX: Prednisone [Deltasone 20 mg Tablet] 3 tab PO DAILY 7 Days tablet 05/05/17 Allergies/Adverse Reactions: allopurinol Allergy (Verified 01/28/17 08:44) colchicine Allergy (Verified 01/28/17 08:49) Sulfa (Sulfonamide Antibiotics) Allergy (Verified 01/28/17 08:44) valdecoxib [From Bextra] Allergy (Verified 01/28/17 08:44) Review of Systems Review of Systems: Please see history of present illness and past medical history as wall. Constitutional: No fever or chills reported. Head : No recent chronic headaches, recent head injury. Eyes: No recent eye pain, diplopia, redness, discharge, acute visual changes. Partial hearing loss noted Ears: No recent chronic ear pain, partial chronic hearing loss, no ear discharge. Oral cavity: No recent ulcerations, bleeding, oral cavity discomfort. Neck: No recent acute neck pain reported. Hematologic: No recent easy bruising or bleeding or hematologic malignancy reported. Lymphatic: No recent lymphatic malignancy, chronic lymphadenopathy reported yet Cardiovascular system review: See history of present illness. Respiratory system review: No recent chronic cough, hemoptysis, blood clots in the lungs reported. Mild Shortness of breath on exertion Gastrointestinal system review: Negative for any recent acute or chronic abdominal pain, hematemesis, melena, recent change in bowel habits. Genitourinary system review: No recent acute or chronic hematuria, flank pain, UTI etc. reported. Skin system review: Negative for any recent abnormal bruising, no rash, no pruritus reported. Neurologic: No prior history of strokes, mini strokes, seizure disorder. Psychologic: No history of major psychosis or major depression reported. Musculoskeletal: Minor aches and pains reported. No acute joint swelling reported. Some arthritis reported Endocrine: No recent polyuria, polydipsia, recent heat or cold intolerance. Physical Exam Vital Signs: Temp Pulse Resp BP Pulse Ox 98 F 63 16 128/76 H 96 04/30/17 13:58 04/30/17 16:05 04/30/17 16:05 04/30/17 13:58 04/30/17 16:05 Intake & Output 04/29/17 04/30/17 05/01/17 06:59 06:59 06:59 Intake Total 363 Balance 363 Exam: GENERAL: well-nourished and in no acute distress. Alert and oriented x3 HEAD: Atraumatic, normocephalic. EYES: Pupils equal round and reactive to light, extraocular movements intact, sclera anicteric, conjunctiva are normal. ENT: TMs normal, nares patent, oropharynx clear without exudates. Moist mucous membranes. No oral ulcerations or bleeding gums noted NECK: supple without lymphadenopathy. Trachea is central. No cervical or axillary lymphadenopathy noted. Carotids are 2+, JVD WNL LUNGS: Respiration seems nonlabored, no significant accessory muscle action noted. Breath sounds clear to auscultation bilaterally and equal noted. No wheezes rales or rhonchi noted. No significant dullness noted on percussion. CHEST: Palpation of the chest wall shows no significant chest wall tenderness. No other significant abnormalities noted. 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 ABDOMEN: Soft, no significant tenderness appreciated, normoactive bowel sounds. No guarding, no rebound. No rigidity noted . No masses appreciated. EXTREMITIES: Pedal pulses are 1-2+, no calf tenderness noted. No clubbing or cyanosis.1+ pedal edema noted NEUROLOGICAL: Focused neurological exam showed no significant neurologic deficit. Normal speech, no focal weakness appreciated. PSYCH: Normal mood, normal affect. Judgment and insight within normal limits. SKIN: No significant ecchymosis, rash, ulcerations or signs of pruritus noted. MUSCULOSKELETAL EXAM: No significant joint swelling noted. Results Laboratory Results: 04/30/17 13:54 Troponin I 0.026 EKG Comments: Atrial fibrillation heart rate seems reasonably well controlled, minor nonspecific ST segment changes noted. Impressions: Chest X-Ray 04/29/17 19:20 IMPRESSION: NO ACUTE RADIOGRAPHIC FINDING IN THE CHEST. Lung Scan-VQ NM 04/30/17 00:00 IMPRESSION: NORMAL VENTILATION-PERFUSION LUNG SCAN. NEGATIVE FOR PULMONARY EMBOLI. Assessment & Plan - Diagnosis (1) New onset a-fib Is this a current diagnosis for this admission?: Yes (2) Congestive heart failure Qualifiers: Congestive heart failure type: unspecified congestive heart failure type Congestive heart failure chronicity: unspecified congestive heart failure chronicity Qualified Code(s): I50.9 - Heart failure, unspecified Is this a current diagnosis for this admission?: Yes (3) HLD (hyperlipidemia) Qualifiers: Hyperlipidemia type: unspecified Qualified Code(s): E78.5 - Hyperlipidemia , unspecified Is this a current diagnosis for this admission?: Yes (4) HEAVEN (obstructive sleep apnea) Is this a current diagnosis for this admission?: Yes (5) Kidney disease Is this a current diagnosis for this admission?: Yes - Notes Notes: Atrial fibrillation: Exact duration not clear. At this point will recommend rate control and chronic anticoagulation. Congestive heart failure: Currently unspecified. Possibly precipitated by fluid overload in setting of atrial fibrillation. Recommend diuretic therapy. Further adjustment of medical regimen after 2D echo results. Hyperlipidemia: Recommend statin therapy. Obstructive sleep apnea: Recommend nightly's positive pressure airway therapy. Kidney disease: Unspecified. Continue to monitor patient. - Time Time Spent: 30 to 50 Minutes - CODE STATUS was discussed, patient remains full code. Surrogate decision-maker not identified by the patient. Multiple medical problems were addressed. More than 50% of the time spent coordinating care, discussing management plans with involved caregivers. Management plans discussed with involved personnels. Medical decision making was of moderate to high complexity, patient's has multiple comorbidities. Medications reviewed and adjusted accordingly: Yes
[2017-04-30] MEDS: FUROSEMIDE INJ/PF 40 MG/4 ML SDV IV SCH (21:04)
[2017-05-01] MEDS: HYDROCODONE/ACETAMINOPHEN 7.5-325 MG TABLET PO PRN (06:32)
[2017-05-01 07:38] LABS: ANION GAP 15 (5-19); BLOOD UREA NITROGEN 30 mg/dL (7-20); CALCIUM 9.8 mg/dL (8.4-10.2); CARBON DIOXIDE 31 mmol/L (22-30); CHLORIDE 97 mmol/L (98-107); CREATININE RESULT 1.59 mg/dL (0.52-1.25); GLUCOSE 104 mg/dL (75-110); POTASSIUM 3.2 mmol/L (3.6-5.0); SODIUM 142.9 mmol/L (137-145)
[2017-05-01] MEDS ORDERED: ENOXAPARIN SODIUM INJ 40 MG/0.4 ML DISP.SYRIN SUBCUT SCH (10:00)
[2017-05-01] MEDS ORDERED: ATENOLOL 50 MG TABLET PO SCH (10:00)
[2017-05-01] MEDS ORDERED: ATENOLOL PO SCH (10:00)
[2017-05-01] MEDS ORDERED: CHLORTHALIDONE PO SCH (10:00)
[2017-05-01] MEDS ORDERED: POTASSIUM CHLORIDE 10 MEQ TABLET.SA PO SCH (10:00)
[2017-05-01] MEDS ORDERED: ATORVASTATIN CALCIUM 20 MG TABLET PO SCH ×2 (10:00)
[2017-05-01] MEDS ORDERED: [UNRECOGNIZED DRUG - OTHER] PO SCH (10:00)
[2017-05-01] MEDS ORDERED: CHLORTHALIDONE 25 MG TABLET PO SCH (10:00)
[2017-05-01] MEDS: LEVOTHYROXINE SODIUM 0.1 MG TABLET PO SCH (10:40)
[2017-05-01] MEDS: THIAMINE HCL 100 MG TABLET PO SCH (10:40)
[2017-05-01] MEDS: DOCUSATE SODIUM 100 MG CAPSULE PO SCH (10:40)
[2017-05-01] MEDS: FOLIC ACID 1 MG TABLET PO SCH (10:42)
[2017-05-01] MEDS: LEVOTHYROXINE SODIUM 0.088 MG TABLET PO SCH (10:42)
[2017-05-01] MEDS: MAGNESIUM OXIDE 400 MG TABLET PO SCH (10:42)
[2017-05-01] MEDS: MULTIVITAMIN TABLET PO SCH (10:42)
[2017-05-01] MEDS: FUROSEMIDE INJ/PF 40 MG/4 ML SDV IV SCH (10:43)
--- NOTE | 2017-05-01 11:55 | PDOC DISCHARGE SUMMARY ---
General - Admit/Disc Date/PCP Admission Date/Primary Care Provider: 04/30/17 07:36 BRITTANY CROSS MD Discharge Date: 05/01/17 - Discharge Diagnosis (1) ARF (acute renal failure) Is this a current diagnosis for this admission?: Yes Summary: Improved; likely a component of chronic renal deficiency. Creatinine did trend down with management of CHF exacerbation. Discussed kidney function with pt and s/o; should be monitored as outpatient. (2) Congestive heart failure Is this a current diagnosis for this admission?: Yes Summary: Pt with CHF exacerbation; successfully diuresed with IV Lasix. Wt down 4 kg. Serial troponins were reassuring. D-dimer was elevated; follow up V/Q scan negative for PE. Echocardiogram demonstrated mild left ventricle hypertrophy, mild RV dilation, moderate LA dilation, mild RA dilation, and mild to moderate pulmonary hypertension. Preserved ejection fraction. Symptomatically, the pt is much improved with resolution of his orthopnea and BLE edema. (3) Hypothyroid Is this a current diagnosis for this admission?: Yes Summary: TSH 17.1 Pt's family member believes that he has been off of his levothyroxin for nearly a year, stating that it was discontinued following discharge for OSH. Medication resumed. (4) Alcohol dependence Is this a current diagnosis for this admission?: Yes Summary: Patient admitted to heavy alcohol use; stating that he has decreased over the past year to 1 bottle of wine nightly. Extensive discussion had with patient and his significant other with regard to alcohol complicating his medical conditions and potentially leading to worsening liver and kidney function. Emphasized continued EtOH reduction with goal of complete sobriety. Patient did not experience any withdrawal symptoms while admitted. (5) HLD (hyperlipidemia) Is this a current diagnosis for this admission?: Yes (6) HEAVEN (obstructive sleep apnea) Is this a current diagnosis for this admission?: Yes (7) Hypokalemia Is this a current diagnosis for this admission?: Yes Summary: Replete. Likely secondary to furosemide diuresis; will discharge home on p.o. potassium supplementation. (8) New onset a-fib Is this a current diagnosis for this admission?: Yes Summary: Patient with atrial fibrillation of an unknown duration. Cardiac workup as above with cardiology consultation and recommendations for rate control and chronic anticoagulation. Patient is currently prescribed atenolol 100 mg daily. His heart rate has is in the 50s-60s. Will recommend to continue beta-julián therapy. As patient has a recent history of a life-threatening GI bleed in December 2015; DOACs were not started at this time. He will be sent home with a recommendation for a daily aspirin. - Additional Information Resuscitation Status: Full Code Discharge Diet: Cardiac Discharge Activity: Activity As Tolerated, Balance Activity w/Rest, Weigh Daily Home Medications: Atorvastatin Calcium [Lipitor 20 mg Tablet] 20 mg PO DAILY 04/30/17 Magnesium Oxide [Mag-Ox 400 mg Tablet] 400 mg PO BID 04/30/17 Aspirin [Aspirin 325 mg Tablet] 325 mg PO DAILY #30 tablet 05/01/17 Atenolol [Tenormin 50 mg Tablet] 100 mg PO DAILY #60 tablet 05/01/17 Folic Acid [Folvite 1 mg Tablet] 1 mg PO DAILY tablet 05/01/17 Furosemide [Lasix 40 mg Tablet] 20 mg PO ASDIR #90 tablet 05/01/17 Hydrocodone/Acetaminophen [Gleason 7.5-325 mg Tablet] 1 tab PO Q6HP PRN tablet Levothyroxine Sodium [Synthroid 0.088 mg Tablet] 0.088 mg PO DAILY #30 tablet Levothyroxine Sodium [Synthroid 0.1 mg Tablet] 0.1 mg PO DAILY #30 tablet Multivitamin [Tab-A-Lucy (Multiple Vitamin) Tablet] 1 tab PO DAILY tablet 05/01 Potassium Chloride [Klor-Con 10 Meq Tablet.sa] 10 meq PO DAILY #30 tablet.sa 06/07 Thiamine HCl [Thiamine 100 mg Tablet] 100 mg PO DAILY tablet 05/01/17 History of Present Illness History of Present Illness: ELEANOR STODDARD is a 71 year old male with underlying hypertension, hyperlipidemia, hypothyroidism, partial hearing loss, obstructive sleep apnea, and arthritis, who presents to the emergency room for evaluation of above complaint. Patient describes a three-week history of intermittent slowly worsening shortness of breath, in particular much of any exertion. Worsens also with lying flat. Associated leg swelling, with the leg swelling actually having been present intermittently for the past several months. There is no chest pain, fevers or chills, nausea or vomiting. No history of myocardial infarction, congestive heart failure, atrial fibrillation, or atrial flutter. No history of pulmonary embolus or DVT. No recent long trip with prolonged inactivity, or unusual lower extremity swelling or tenderness. Hospital Course Hospital Course: Patient was admitted to the [facility] under CHF protocol. Serial troponins. Repeat EKG. Lipid panel. Cardiology consult. Echocardiogram. D-dimer was elevated, however, subsequent VQ scan was negative for pulmonary embolism. He was diuresed with IV furosemide; demonstrating a 4 kg weight loss over 2 days and resolution of his dyspnea on exertion, orthopnea, and bilateral lower extremity edema. Kidney function improved (Creat 1.77-->1.59) with resolution of CHF exacerbation ; there is likely a component of underlying chronic kidney disease. On day of discharge, patient states that he is symptom-free, and anxious to be discharged home. Physical Exam Vital Signs: Temp Pulse Resp BP Pulse Ox 98.1 F 60 17 136/74 H 98 05/01/17 07:28 05/01/17 07:28 05/01/17 07:28 05/01/17 07:28 05/01/17 07:28 Intake & Output 04/30/17 05/01/17 05/02/17 06:59 06:59 06:59 Intake Total 838 Balance 838 Weight 114.8 kg General appearance: PRESENT: no acute distress, hard of hearing, obese, well- developed, well-nourished Head exam: PRESENT: atraumatic, normocephalic Eye exam: PRESENT: conjunctiva pink, EOMI, PERRLA. ABSENT: scleral icterus Ear exam: PRESENT: normal external ear exam Mouth exam: PRESENT: moist, tongue midline Neck exam: ABSENT: carotid bruit, JVD, lymphadenopathy, thyromegaly Respiratory exam: PRESENT: clear to auscultation sigifredo, symmetrical, unlabored. ABSENT: rales, rhonchi, wheezes Cardiovascular exam: PRESENT: irregular rhythm. ABSENT: diastolic murmur, rubs , systolic murmur, tachycardia Pulses: PRESENT: normal dorsalis pedis pul Vascular exam: PRESENT: normal capillary refill GI/Abdominal exam: PRESENT: normal bowel sounds, soft. ABSENT: distended, guarding, mass, organolmegaly, rebound, tenderness Rectal exam: PRESENT: deferred Extremities exam: PRESENT: full ROM, other - BLE trace, non-pitting, edema. ABSENT: calf tenderness, clubbing, pedal edema Musculoskeletal exam: PRESENT: ambulatory, full ROM Neurological exam: PRESENT: alert, awake, oriented to person, oriented to place , oriented to time, oriented to situation, CN II-XII grossly intact. ABSENT: motor sensory deficit Psychiatric exam: PRESENT: appropriate affect, normal mood. ABSENT: homicidal ideation, suicidal ideation Skin exam: PRESENT: dry, intact, warm. ABSENT: cyanosis, rash Results Laboratory Results: 05/01/17 06:38 05/01/17 06:38 Sodium 142.9 Potassium 3.2 L Chloride 97 L Carbon Dioxide 31 H Anion Gap 15 BUN 30 H Creatinine 1.59 H Est GFR ( Amer) 52 L Est GFR (Non-Af Amer) 43 L Glucose 104 Calcium 9.8 04/30/17 05/01/17 13:54 06:38 Troponin I 0.026 NT-Pro-B Natriuret Pep 1450 H Impressions: Chest X-Ray 04/29/17 19:20 IMPRESSION: NO ACUTE RADIOGRAPHIC FINDING IN THE CHEST. Lung Scan-VQ NM 04/30/17 00:00 IMPRESSION: NORMAL VENTILATION-PERFUSION LUNG SCAN. NEGATIVE FOR PULMONARY EMBOLI. Qualifiers PATEINT BEING DISCHARGED WITH ANY OF THE FOLLOWING DIAGNOSIS?: Heart Failure HF Pt being discharged on ACEI for LVEF less than 40%?: No Reason(s) for not prescribing ACEI:: Medical Contraindication, Not indicated - Preserved EF HF Pt being discharged on ARBS for LVEF less than 40%?: No Reason(s) for not prescribing ARBS:: Not indicated - Preserved EF HF Pt with Afib discharged with Warfarin?: No Reason(s) for not prescribing Warfarin:: Medical Contraindication - Recent life- threatening GI bleed HF Pt discharged on evidence-based Beta Julián:: Yes
[2017-05-01 12:22] VITALS: BP 128/76
[2017-05-01] MEDS ORDERED: POTASSIUM CHLORIDE 10 MEQ TABLET.SA PO ONE (12:30)
[2017-05-01] MEDS ORDERED: NYSTATIN TOPICAL POWDER 15 GM TP SCH (18:00)
--- NOTE | 2017-05-01 19:41 | PDOC PROGRESS REPORT ---
Subjective Progress Note for:: 05/01/17 Subjective:: Patient seems to be doing better with significant improvement. Dyspnea and pedal edema has improved. Patient is actually asking to be discharged. Patient was seen on morning rounds. Pt is denying any chest arm or neck discomfort. Patient denying any PND, orthopnea. Patient denied any sustained palpitations, dizziness, syncope, near syncope. Patient denying any fever chills. Patient denying any other significant discomfort. Patient is maintaining atrial fibrillation with controlled ventricular response. Review of systems: Rest review of systems negative. Medications: Medications have been reviewed. Physical Exam Vital Signs: Temp Pulse Resp BP Pulse Ox 98.1 F 60 16 128/76 H 95 05/01/17 12:19 05/01/17 12:19 05/01/17 12:19 05/01/17 12:19 05/01/17 12:19 Intake & Output 04/30/17 05/01/17 05/02/17 06:59 06:59 06:59 Intake Total 838 Balance 838 Weight 114.8 kg Exam: GENERAL: well-nourished and in no acute distress. Alert and oriented x3 HEAD: Atraumatic, normocephalic. EYES: Pupils equal round and reactive to light, extraocular movements intact, sclera anicteric, conjunctiva are normal. ENT: TMs normal, nares patent, oropharynx clear without exudates. Moist mucous membranes. No oral ulcerations or bleeding gums noted NECK: supple without lymphadenopathy. Trachea is central. No cervical or axillary lymphadenopathy noted. Carotids are 2+, JVD WNL LUNGS: Respiration seems nonlabored, no significant accessory muscle action noted. Breath sounds clear to auscultation bilaterally and equal noted. No wheezes rales or rhonchi noted. No significant dullness noted on percussion. CHEST: Palpation of the chest wall shows no significant chest wall tenderness. No other significant abnormalities noted. 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 ABDOMEN: Soft, no significant tenderness appreciated, normoactive bowel sounds. No guarding, no rebound. No rigidity noted . No masses appreciated. EXTREMITIES: Pedal pulses are 1-2+, no calf tenderness noted. No clubbing or cyanosis.1+ pedal edema noted NEUROLOGICAL: Focused neurological exam showed no significant neurologic deficit. Normal speech, no focal weakness appreciated. PSYCH: Normal mood, normal affect. Judgment and insight within normal limits. SKIN: No significant ecchymosis, rash, ulcerations or signs of pruritus noted. MUSCULOSKELETAL EXAM: No significant joint swelling noted. Results Laboratory Results: 05/01/17 06:38 05/01/17 06:38 Sodium 142.9 Potassium 3.2 L Chloride 97 L Carbon Dioxide 31 H Anion Gap 15 BUN 30 H Creatinine 1.59 H Est GFR ( Amer) 52 L Est GFR (Non-Af Amer) 43 L Glucose 104 Calcium 9.8 04/30/17 05/01/17 13:54 06:38 Troponin I 0.026 NT-Pro-B Natriuret Pep 1450 H EKG Comments: Telemetry strips reviewed. It shows atrial fibrillation with controlled ventricular response. Impressions: Chest X-Ray 04/29/17 19:20 IMPRESSION: NO ACUTE RADIOGRAPHIC FINDING IN THE CHEST. Lung Scan-VQ NM 04/30/17 00:00 IMPRESSION: NORMAL VENTILATION-PERFUSION LUNG SCAN. NEGATIVE FOR PULMONARY EMBOLI. Assessment & Plan - Diagnosis (1) New onset a-fib Is this a current diagnosis for this admission?: Yes (2) Congestive heart failure Qualifiers: Congestive heart failure type: unspecified congestive heart failure type Congestive heart failure chronicity: unspecified congestive heart failure chronicity Qualified Code(s): I50.9 - Heart failure, unspecified Is this a current diagnosis for this admission?: Yes (3) HLD (hyperlipidemia) Qualifiers: Hyperlipidemia type: unspecified Qualified Code(s): E78.5 - Hyperlipidemia , unspecified Is this a current diagnosis for this admission?: Yes (4) HEAVEN (obstructive sleep apnea) Is this a current diagnosis for this admission?: Yes (5) Kidney disease Is this a current diagnosis for this admission?: Yes - Notes Notes: Atrial fibrillation: Exact duration not clear. At this point will recommend rate control and chronic anticoagulation. Patient can follow-up with me for this condition if he wishes. Congestive heart failure: Currently unspecified. Possibly precipitated by fluid overload in setting of atrial fibrillation. Recommend diuretic therapy. 2D echo results were reviewed with the patient. It shows normal LVEF with diastolic dysfunction, no significant stenotic or valvular regurgitations noted. Hyperlipidemia: Recommend statin therapy. Obstructive sleep apnea: Recommend nightly's positive pressure airway therapy. Kidney disease: Unspecified. Continue to monitor patient. Discussed importance of management of sleep apnea, weight loss etc. Patient's in the room. Will be happy to follow patients in the office. - Time Time with patient: 15-25 minutes - CODE STATUS was discussed, patient remains full code. Surrogate decision-maker unchanged. Multiple medical problems were addressed. More than 50% of the time spent coordinating care, discussing management plans with involved caregivers. Management plans discussed with involved personnels. Medical decision making was of moderate to high complexity , patient's has multiple comorbidities. Medications reviewed and adjusted accordingly: Yes
== END 2017-05-01 12:55 | disposition home or self-care (01) | DRG 292 ==
LOC: ER 17:58 → EH 04-30 02:46 → UNDOADMIN 04-30 02:46 → EH 04-30 06:52 → 4W 04-30 06:52
PROVIDERS: ADMIT Family Medicine; ATTEND Family Medicine
DX: I11.0 Hypertensive heart disease with heart failure (principal); N17.9 Acute kidney failure, unspecified; I50.9 Heart failure, unspecified; I48.91 Unspecified atrial fibrillation; E87.6 Hypokalemia; E78.00 Pure hypercholesterolemia, unspecified; E03.9 Hypothyroidism, unspecified; G47.33 Obstructive sleep apnea (adult) (pediatric); F10.20 Alcohol dependence, uncomplicated; T50.1X1A Poisoning by loop [high-ceiling] diuretics, accidental (unintentional), initial encounter; Y92.009 Unspecified place in unspecified non-institutional (private) residence as the place of occurrence of the external cause; Y90.9 Presence of alcohol in blood, level not specified
CPT/HCPCS: 36415; 71010; 78582; 80048; 80053; 80061; 81001; 82550; 82553; 83735; 83880; 84443; 84484; 85025; 85379; 85610; 85730; 93005; 93010; 93306; 99285; A9540; A9567; J1650; J1940; J3490; Q9969

== ENCOUNTER 2017-05-05 05:18 | Emergency (ER) | payer MEDICARE ==
[2017-05-05 05:26] VITALS: BP 145/56
[2017-05-05] MEDS ORDERED: HYDROCODONE/ACETAMINOPHEN 5-325 MG 6 TAB/DSPK PO PRN (05:53)
[2017-05-05] MEDS ORDERED: PREDNISONE 20 MG TABLET PO ONE (05:53)
--- NOTE | 2017-05-05 05:59 | ER Document Report ---
ED General - General Chief Complaint: Hand Swelling Stated Complaint: RIGHT HAND SWOLLEN Time Seen by Provider: 05/05/17 05:43 Notes: Patient presents with 2 days of right hand with associated severe, constant, throbbing pain. Patient denies any trauma to the area. Moving the hand worsens the pain. Nothing improves the pain. States this feels similar to when he had gout in the past although he has not had his hand on prior occasions. Patient does continue to use alcohol heavily. He has not seen his primary care doctor regarding today's concerns. He denies any spreading redness from the area, fever or constitutional symptoms. Symptoms have been worsening since onset. TRAVEL OUTSIDE OF THE [place] IN LAST 30 DAYS: No - Related Data Allergies/Adverse Reactions: allopurinol Allergy (Verified 01/28/17 08:44) colchicine Allergy (Verified 01/28/17 08:49) Sulfa (Sulfonamide Antibiotics) Allergy (Verified 01/28/17 08:44) valdecoxib [From Bextra] Allergy (Verified 01/28/17 08:44) Past Medical History - General Information source: Patient - Social History Smoking Status: Former Smoker Frequency of alcohol use: Heavy Drug Abuse: None Family History: Reviewed & Not Pertinent Patient has suicidal ideation: No Patient has homicidal ideation: No - Past Medical History Cardiac Medical History: Reports: Hx Hypercholesterolemia, Hx Hypertension Denies: Hx Atrial Fibrillation, Hx Congestive Heart Failure, Hx Coronary Artery Disease, Hx DVT, Hx Heart Attack, Hx Pulmonary Embolism Pulmonary Medical History: Reports: Hx Sleep Apnea - Uncertain settings on home CPAP Denies: Hx Asthma, Hx COPD Neurological Medical History: Denies: Hx Seizures Endocrine Medical History: Reports: Hx Hypothyroidism. Denies: Hx Diabetes Mellitus Type 1, Hx Diabetes Mellitus Type 2, Hx Hyperthyroidism Renal/ Medical History: Denies: Hx Peritoneal Dialysis GI Medical History: Reports: Hx Diverticulitis - Status post segmental colectomy for same, Hx Gastroesophageal Reflux Disease, Hx Hiatal Hernia. Denies: Hx Cirrhosis Musculoskeltal Medical History: Reports Hx Arthritis Psychiatric Medical History: Denies: Hx Depression Past Surgical History: Reports: Hx Abdominal Surgery - bowel resection, Hx Herniorrhaphy, Hx Orthopedic Surgery - right and left hand surgeries, Other - Segmental colectomy for diverticulitis - Immunizations Immunizations up to date: Yes Hx Diphtheria, Pertussis, Tetanus Vaccination: Yes Hx Pneumococcal Vaccination: 01/01/17 Review of Systems - Review of Systems Notes: Constitutional: Negative for fever. HENT: Negative for sore throat. Eyes: Negative for visual changes. Cardiovascular: Negative for chest pain. Respiratory: Negative for shortness of breath. Gastrointestinal: Negative for abdominal pain, vomiting or diarrhea. Genitourinary: Negative for dysuria. Musculoskeletal: Positive for right hand pain Skin: Negative for rash. Neurological: Negative for headaches, weakness or numbness. 10 point ROS negative except as marked above and in HPI. Physical Exam - Vital signs Vitals: Temp Pulse Resp BP Pulse Ox 98.3 F 69 16 145/56 H 98 05/05/17 05:24 05/05/17 05:24 05/05/17 05:24 05/05/17 05:24 05/05/17 05:24 Interpretation: Normal Notes: PHYSICAL EXAMINATION: GENERAL: Well-appearing, well-nourished and in no acute distress. HEAD: Atraumatic, normocephalic. EYES: sclera anicteric, conjunctiva are normal. ENT: Moist mucous membranes. NECK: Normal range of motion LUNGS: Normal work of breathing HEART: 2+ radial pulses bilaterally EXTREMITIES: Diffuse right hand swelling, exquisite pain on palpation of any area of the right hand. Mild warmth to palpation. NEUROLOGICAL: No focal neurological deficits. Moves all extremities spontaneously and on command. PSYCH: Normal mood, normal affect. SKIN: Warm, Dry, normal turgor, no rashes or lesions noted. Course - Re-evaluation Re-evalutation: 05/05/17 05:57 Presentation is most consistent with an acute gout arthritis of the right hand. X-ray without any evidence of acute injury. Patient denies any trauma to the area. Given patient's extensive allergies, he will be started on prednisone for 7 days. History and exam is not consistent with an acute cellulitis, abscess, or traumatic injury. At this time will discharge with return precautions and follow-up recommendations. Verbal discharge instructions given a the bedside and opportunity for questions given. Medication warnings reviewed. Patient is in agreement with this plan and has verbalized understanding of return precautions and the need for primary care follow-up in the next 24-72 hours. - Vital Signs Vital signs: Temp Pulse Resp BP Pulse Ox 98.3 F 69 16 145/56 H 98 05/05/17 05:24 05/05/17 05:24 05/05/17 05:24 05/05/17 05:24 05/05/17 05:24 - Diagnostic Test Radiology reviewed: Image reviewed, Reports reviewed Discharge - Discharge Clinical Impression: Gout, arthritis Condition: Good Disposition: HOME, SELF-CARE Additional Instructions: Please take the steroids as prescribed. Take the [place] to been sent home with as needed for pain. Follow-up with your primary care doctor at your earliest ability. Return for worsening pain, fever, spreading redness from the hand, or any other symptoms that are worrisome to you. Prescriptions: Prednisone [Deltasone 20 mg Tablet] 3 tab PO DAILY 7 Days tablet
--- NOTE | 2017-05-05 06:04 | RADIOLOGY REPORT (SQ) ---
EXAM DESCRIPTION: HAND RIGHT 3 VIEWS COMPLETED DATE/TIME: 05/05/2017 5:40 am REASON FOR STUDY: right hand swelling COMPARISON: None. EXAM PARAMETERS: NUMBER OF VIEWS: Three views. TECHNIQUE: AP, lateral and oblique radiographic images acquired of the right hand. LIMITATIONS: None. FINDINGS: MINERALIZATION: Normal. BONES: Postsurgical changes PIP joint seconds digit DIP joint 5th digit. Extensive degenerative hdz ges of the PIP and DIP joints. JOINTS: No effusions. SOFT TISSUES: No soft tissue swelling. No foreign body. OTHER: No other significant finding. IMPRESSION: Degenerative and postsurgical changes. No acute fracture appear TECHNICAL DOCUMENTATION: JOB ID: [id number] 1987 [employer]- All Rights Reserved
== END 2017-05-05 06:18 | disposition home or self-care (01) ==
LOC: ER 05:18
DX: M10.9 Gout, unspecified (principal); M19.90 Unspecified osteoarthritis, unspecified site; M79.89 Other specified soft tissue disorders; Z87.891 Personal history of nicotine dependence
CPT/HCPCS: 99283; 73130; A9270 ×2; J7512

== ENCOUNTER 2017-05-18 09:15 | Emergency (ER) | payer MEDICARE ==
--- NOTE | 2017-05-18 09:25 | ER Document Report ---
ED Medical Screen (RME) - General Chief Complaint: Foot Pain Stated Complaint: RIGHT FOOT PAIN Time Seen by Provider: 05/18/17 09:21 Mode of Arrival: Ambulatory Information source: Patient TRAVEL OUTSIDE OF THE [place] IN LAST 30 DAYS: No - HPI Patient complains to provider of: Right foot pain Notes: 05/18/17 09:24 Patient is a 71-year-old male presenting to the emergency room today complaining of pain in his right foot that has been going on for the past 2 weeks he denies any specific injury or trauma, he does report a history of gout but states the symptoms are different he does not believe it could be gout, he has been on steroids for the past 2 weeks as he was previously seen here for possible gout of the right hand, prednisone is not helping his symptoms at all - Related Data Allergies/Adverse Reactions: allopurinol Allergy (Verified 01/28/17 08:44) colchicine Allergy (Verified 01/28/17 08:49) Sulfa (Sulfonamide Antibiotics) Allergy (Verified 01/28/17 08:44) valdecoxib [From Bextra] Allergy (Verified 01/28/17 08:44) Past Medical History - Past Medical History Cardiac Medical History: Reports: Hx Hypercholesterolemia, Hx Hypertension Denies: Hx Atrial Fibrillation, Hx Congestive Heart Failure, Hx Coronary Artery Disease, Hx DVT, Hx Heart Attack, Hx Pulmonary Embolism Pulmonary Medical History: Reports: Hx Sleep Apnea - Uncertain settings on home CPAP Denies: Hx Asthma, Hx COPD Neurological Medical History: Denies: Hx Seizures Endocrine Medical History: Reports: Hx Hypothyroidism. Denies: Hx Diabetes Mellitus Type 1, Hx Diabetes Mellitus Type 2, Hx Hyperthyroidism Renal/ Medical History: Denies: Hx Peritoneal Dialysis GI Medical History: Reports: Hx Diverticulitis - Status post segmental colectomy for same, Hx Gastroesophageal Reflux Disease, Hx Hiatal Hernia. Denies: Hx Cirrhosis Musculoskeltal Medical History: Reports Hx Arthritis Psychiatric Medical History: Denies: Hx Depression Past Surgical History: Reports: Hx Abdominal Surgery - bowel resection, Hx Herniorrhaphy, Hx Orthopedic Surgery - right and left hand surgeries, Other - Segmental colectomy for diverticulitis - Immunizations Immunizations up to date: Yes Hx Diphtheria, Pertussis, Tetanus Vaccination: Yes History of Influenza Vaccine for 04/2017 - 09/2017 Season: Yes Influenza Administration Date for 04/2017 - 09/2017 Season: 04/21/17
--- NOTE | 2017-05-18 10:04 | ER Document Report ---
ED Extremity Problem, Lower - General Chief Complaint: Foot Pain Stated Complaint: RIGHT FOOT PAIN Time Seen by Provider: 05/18/17 09:21 Mode of Arrival: Ambulatory Information source: Patient TRAVEL OUTSIDE OF THE [place] IN LAST 30 DAYS: No - HPI Patient complains to provider of: Pain Location: Foot - RIGHT Occurred: Other - 2 WEEKS Onset/Duration: Gradual Quality of pain: Sharp Severity: Moderate Context: Other - NO INJURY OR INCIDENT - Related Data Allergies/Adverse Reactions: allopurinol Allergy (Verified 05/18/17 09:25) colchicine Allergy (Verified 05/18/17 09:25) Sulfa (Sulfonamide Antibiotics) Allergy (Verified 05/18/17 09:25) valdecoxib [From Bextra] Allergy (Verified 05/18/17 09:25) Past Medical History - General Information source: Patient - Social History Smoking Status: Former Smoker Chew tobacco use (# tins/day): No Frequency of alcohol use: None Drug Abuse: None Lives with: Family Family History: Reviewed & Not Pertinent Patient has suicidal ideation: No Patient has homicidal ideation: No - Past Medical History Cardiac Medical History: Reports: Hx Hypercholesterolemia, Hx Hypertension Denies: Hx Atrial Fibrillation, Hx Congestive Heart Failure, Hx Coronary Artery Disease, Hx DVT, Hx Heart Attack, Hx Pulmonary Embolism Pulmonary Medical History: Reports: Hx Sleep Apnea - Uncertain settings on home CPAP Denies: Hx Asthma, Hx COPD Neurological Medical History: Denies: Hx Seizures Endocrine Medical History: Reports: Hx Hypothyroidism. Denies: Hx Diabetes Mellitus Type 1, Hx Diabetes Mellitus Type 2, Hx Hyperthyroidism Renal/ Medical History: Denies: Hx Peritoneal Dialysis GI Medical History: Reports: Hx Diverticulitis - Status post segmental colectomy for same, Hx Gastroesophageal Reflux Disease, Hx Hiatal Hernia. Denies: Hx Cirrhosis Musculoskeltal Medical History: Reports Hx Arthritis, Reports Hx Gout Psychiatric Medical History: Denies: Hx Depression Past Surgical History: Reports: Hx Abdominal Surgery - bowel resection, Hx Herniorrhaphy, Hx Orthopedic Surgery - right and left hand surgeries, Other - Segmental colectomy for diverticulitis - Immunizations Immunizations up to date: Yes Hx Diphtheria, Pertussis, Tetanus Vaccination: Yes Hx Pneumococcal Vaccination: 07/22/16 Physical Exam - Vital signs Vitals: Temp Pulse Resp BP Pulse Ox 98.7 F 67 16 150/68 H 98 05/18/17 09:17 05/18/17 09:17 05/18/17 09:17 05/18/17 09:17 05/18/17 09:17 Interpretation: Hypertensive. No: Tachycardic, Tachypneic, Febrile - General General appearance: Appears well, Alert In distress: None - HEENT Head: Normocephalic Eyes: Normal Conjunctiva: Normal Ears: Normal Nasal: Normal Mouth/Lips: Normal Mucous membranes: Normal - Respiratory Respiratory status: No respiratory distress - Cardiovascular Rhythm: Irregularly irregular Heart sounds: Normal auscultation Murmur: No - Abdominal Inspection: Normal Distension: No distension Bowel sounds: Normal - Extremities General upper extremity: Normal inspection General lower extremity: Normal inspection Foot: Tender - 1st MTP JOINT, NO UNUSUAL REDNESS OR WARMTH - Neurological Neuro grossly intact: Yes Cognition: Normal Orientation: AAOx4 - Psychological Associated symptoms: Normal affect, Normal mood - Skin Skin Temperature: Warm Skin Moisture: Dry Skin Color: Normal Skin Turgor: Elastic Course - Vital Signs Vital signs: Temp Pulse Resp BP Pulse Ox 98.7 F 67 16 150/68 H 98 05/18/17 09:17 05/18/17 09:17 05/18/17 09:17 05/18/17 09:17 05/18/17 09:17 - Laboratory Result Diagrams: 05/18/17 09:45 05/18/17 09:45 Laboratory results interpreted by me: 05/18/17 05/18/17 05/18/17 09:45 09:45 09:45 WBC 12.6 H RBC 3.20 L Hgb 12.6 L Hct 36.6 L MCV 115 H MCH 39.5 H RDW 14.2 H Seg Neutrophils % 80.6 H Lymphocytes % 8.4 L Absolute Neutrophils 10.2 H ESR 96 H BUN 26 H Creatinine 1.35 H Est GFR (Non-Af Amer) 52 L Glucose 112 H Uric Acid 9.7 H Discharge - Discharge Clinical Impression: Acute gouty arthritis Condition: Stable Disposition: HOME, SELF-CARE Instructions: Gout Diet ([facility]), Gout ([facility]), Oral Narcotic Medication ([facility]), Corticosteroid Medication ([facility]) Additional Instructions: REST, DRINK PLENTY OF FLUIDS. KEEP RIGHT FOOT ELEVATED MUCH POSSIBLE. MEDS DIRECTED. FOLLOW DIETARY RESTRICTIONS FOR PREVENTION OF GOUT. IN ADDITION, TRY TO AVOID HIGH-FRUCTOSE CORN SYRUP MUCH POSSIBLE. FOLLOW UP WITH DR. CROSS, CALL SATURDAY FOR APPOINTMENT. RETURN TO E.R. IF PROBLEMS, ANY TIME. Prescriptions: Hydrocodone/Acetaminophen [[place] 5-325 mg Tablet] 1 tab PO Q4HP PRN #10 tablet PRN Reason: For Pain Febuxostat [Uloric 40 mg Tablet] 40 mg PO DAILY #10 tablet Prednisone 20 mg PO TID #14 tablet Referrals: BRITTANY CROSS MD [Primary Care Provider] - Follow up in 3-5 days
[2017-05-18 10:07] LABS: ABSOLUTE BASOPHILS # (AUTO) 0.1 10^3/uL (0.0-0.2); ABSOLUTE EOSINOPHILS # (AUTO) 0.1 10^3/uL (0.0-0.6); ABSOLUTE LYMPHOCYTES (AUTO) 1.1 10^3/uL (0.5-4.7); ABSOLUTE MONOCYTES (AUTO) 1.2 10^3/uL (0.1-1.4); ABSOLUTE NEUT (AUTO) 10.2 10^3/uL (1.7-8.2); BASOPHILS % (AUTO) 0.5 % (0-2); EOSINOPHILS % (AUTO) 0.8 % (0-6); HEMATOCRIT 36.6 % (37.9-51.0); HEMOGLOBIN 12.6 g/dL (13.5-17.0); HGB HCT DIFFERENCE 1.2; LYMPHOCYTES % (AUTO) 8.4 % (13-45); MEAN CORPUSCULAR HEMOGLOBIN 39.5 pg (27.0-33.4); MEAN CORPUSCULAR HGB CONC 34.5 g/dL (32.0-36.0); MEAN CORPUSCULAR VOLUME 115 fl (80-97); MONOCYTES % (AUTO) 9.7 % (3-13); RED CELL DISTRIBUTION WIDTH 14.2 % (11.5-14.0); SEGMENTED NEUTROPHILS % (AUTO) 80.6 % (42-78); WHITE BLOOD COUNT 12.6 10^3/uL (4.0-10.5)
[2017-05-18 10:19] LABS: ANION GAP 15 (5-19); BLOOD UREA NITROGEN 26 mg/dL (7-20); CALCIUM 9.5 mg/dL (8.4-10.2); CARBON DIOXIDE 28 mmol/L (22-30); CHLORIDE 99 mmol/L (98-107); CREATININE RESULT 1.35 mg/dL (0.52-1.25); GLUCOSE 112 mg/dL (75-110); POTASSIUM 3.9 mmol/L (3.6-5.0); SODIUM 141.9 mmol/L (137-145); URIC ACID 9.7 mg/dL (3.5-8.5)
[2017-05-18 10:23] LABS: ANISOCYTOSIS SLIGHT; TOXIC GRANULATION SLIGHT
[2017-05-18 10:25] LABS: PLATELET CLUMPS PRESENT
--- NOTE | 2017-05-18 10:34 | RADIOLOGY REPORT (SQ) ---
EXAM DESCRIPTION: FOOT RIGHT COMPLETE COMPLETED DATE/TIME: 05/18/2017 10:08 am REASON FOR STUDY: pain COMPARISON: None. NUMBER OF VIEWS: Three views. TECHNIQUE: AP, lateral and oblique radiographic images acquired of the right foot. LIMITATIONS: None. FINDINGS: MINERALIZATION: Normal. BONES: No acute fracture or dislocation. No worrisome bone lesions. JOINTS: No effusions. SOFT TISSUES: No soft tissue swelling. No foreign body. OTHER: No other significant finding. IMPRESSION: NEGATIVE STUDY OF THE RIGHT FOOT. NO RADIOGRAPHIC EVIDENCE OF ACUTE INJURY. TECHNICAL DOCUMENTATION: JOB ID: [id number] [employer]- All Rights Reserved
[2017-05-18 12:25] VITALS: BP 130/82
--- NOTE | 2017-05-18 13:39 | EKG REPORT ---
SEVERITY:- ABNORMAL ECG - SINUS RHYTHM MULTIFORM VENTRICULAR PREMATURE COMPLEXES MINIMAL ST DEPRESSION, LATERAL LEADS BORDERLINE PROLONGED QT INTERVAL : Confirmed by: Vick Zavala 18-May-2017 13:39:21
== END 2017-05-18 12:22 | disposition home or self-care (01) ==
LOC: ER 09:15
DX: M10.9 Gout, unspecified (principal); M79.671 Pain in right foot; Z87.891 Personal history of nicotine dependence
CPT/HCPCS: 36415; 80048; 84550; 85025; 85652; 93005; 93010; 99284

== ENCOUNTER 2017-06-01 13:47 | Emergency (ER) | payer MEDICARE ==
[2017-06-01 13:54] VITALS: BP 158/72
[2017-06-01] MEDS ORDERED: METHYLPREDNISOLONE INJ 125 MG/2 ML SDV IM ONE (14:09)
[2017-06-01] MEDS ORDERED: KETOROLAC TROMETHAMINE INJ/PF 30 MG/1 ML SDV IM ONE (14:09)
--- NOTE | 2017-06-01 14:16 | ER Document Report ---
HPI - HPI Pain Level: 4 Notes: Patient is a 71-year-old male who presents ED complaining of bilateral foot pain 3 days. Patient states that he was evaluated a couple weeks ago for a gouty flare and was sent home on prednisone. Patient states that he is not sure if it fully went away with the treatment. Patient states that he has pain in the plantar aspect of each foot during first morning step and throughout the day. Patient states that he also has pain near his MTP joints bilaterally. He has not noticed any obvious redness, red streaks, infection, or abscess. Patient has not been evaluated by orthopedics or podiatry or physical therapy. Patient denies any recent illness. No other concerns or complaints at this time. Patient denies any injury. Denies any headache, fever, URI, sore throat , chest pain, palpitations, syncope, cough, shortness of breath, wheeze, dyspnea , abdominal pain, nausea/vomiting/diarrhea, urinary retention, dysuria, hematuria, back pain, loss of control of bowel or bladder, numbness/tingling, saddle anesthesia, muscle paralysis/weakness, or rash. - ROS Notes: REVIEW OF SYSTEMS: CONSTITUTIONAL : Denies fever, chills, or sweats. Denies recent illness. EENT: Denies eye, ear, throat, or mouth pain or symptoms. Denies nasal or sinus congestion or discharge. Denies throat, tongue, or mouth swelling or difficulty swallowing. CARDIOVASCULAR: Denies chest pain. Denies palpitations or racing or irregular heart beat. Denies ankle edema. RESPIRATORY: Denies cough, cold, or chest congestion. Denies shortness of breath, difficulty breathing, or wheezing. GASTROINTESTINAL: Denies abdominal pain or distention. Denies nausea, vomiting , or diarrhea. Denies blood in vomitus, stools, or per rectum. Denies black, tarry stools. Denies constipation. GENITOURINARY: Denies difficulty urinating, painful urination, burning, frequency, blood in urine, or discharge. MUSCULOSKELETAL: see hpi SKIN: Denies rash, lesions or sores. NEUROLOGICAL: Denies confusion or altered mental status. Denies passing out or loss of consciousness. Denies dizziness or lightheadedness. Denies headache. Denies weakness or paralysis or loss of use of either side. Denies problems with gait or speech. Denies sensory loss, numbness, or tingling. ALL OTHER SYSTEMS REVIEWED AND NEGATIVE. Dictation was performed using [employer] voice recognition software - DERM Skin Color: Normal Past Medical History - Social History Smoking Status: Never Smoker Family History: Reviewed & Not Pertinent Patient has suicidal ideation: No Patient has homicidal ideation: No - Past Medical History Cardiac Medical History: Reports: Hx Hypercholesterolemia, Hx Hypertension Denies: Hx Atrial Fibrillation, Hx Congestive Heart Failure, Hx Coronary Artery Disease, Hx DVT, Hx Heart Attack, Hx Pulmonary Embolism Pulmonary Medical History: Reports: Hx Sleep Apnea - Uncertain settings on home CPAP Denies: Hx Asthma, Hx COPD Neurological Medical History: Denies: Hx Seizures Endocrine Medical History: Reports: Hx Hypothyroidism. Denies: Hx Diabetes Mellitus Type 1, Hx Diabetes Mellitus Type 2, Hx Hyperthyroidism Renal/ Medical History: Denies: Hx Peritoneal Dialysis GI Medical History: Reports: Hx Diverticulitis - Status post segmental colectomy for same, Hx Gastroesophageal Reflux Disease, Hx Hiatal Hernia. Denies: Hx Cirrhosis Musculoskeltal Medical History: Reports Hx Arthritis, Reports Hx Gout Psychiatric Medical History: Denies: Hx Depression Past Surgical History: Reports: Hx Abdominal Surgery - bowel resection, Hx Herniorrhaphy, Hx Orthopedic Surgery - right and left hand surgeries, Other - Segmental colectomy for diverticulitis - Immunizations Immunizations up to date: Yes Hx Diphtheria, Pertussis, Tetanus Vaccination: Yes Hx Pneumococcal Vaccination: 07/22/16 Vertical Provider Document - CONSTITUTIONAL Agree With Documented VS: Yes Notes: PHYSICAL EXAMINATION: GENERAL: Well-appearing, well-nourished and in no acute distress. LUNGS: Breath sounds clear to auscultation bilaterally and equal. No wheezes rales or rhonchi. HEART: Regular rate and rhythm without murmurs, rubs, gallops. ABDOMEN: Soft, nontender, nondistended abdomen. No guarding, no rebound. No masses appreciated. Normal bowel sounds present. No CVA tenderness bilaterally. Musculoskeletal: Feet b/l: FROM to passive/active. Strength 5+/5. N/V intact. + tenderness to the plantar fascia b/l and the rt MTP joint. No obvious erythema, red streaks, ecchymosis, or deformity. Pt is able to ambulate >4 steps. No calf tenderness or malleolar tenderness. No other bony tenderness appreciated. Extremities: 1+ pitting edema b/l. Peripheral pulses 2+. Capillary refill less than 3 seconds. NEUROLOGICAL: Normal speech, ataxic gait. Normal sensory, motor exams PSYCH: Normal mood, normal affect. SKIN: Warm, Dry, normal turgor, no rashes or lesions noted. - INFECTION CONTROL TRAVEL OUTSIDE OF THE [place] IN LAST 30 DAYS: No - RESPIRATORY O2 Sat by Pulse Oximetry: 98 Course - Re-evaluation Re-evalutation: 06/01/17 14:15 Patient is an afebrile, well-hydrated, 71-year-old male who presents the ED with bilateral foot pain, suspect plantar fasciitis and possible gouty flare. Vitals are stable. PE is otherwise unremarkable for any neurovascular compromise, obvious tendon/ligament rupture, obvious fracture or dislocation. No imaging warranted today based on H&P and [place] ankle rules. I will give him Solu-Medrol 125 mg IM today along with Toradol 30 mg IM. I will send him home with a prescription for a steroid taper. Conservative measures for symptoms. Exercises reviewed for plantar fasciitis. Advised patient to call orthopedics on Saturday and schedule follow-up for further evaluation and management. Consider physical therapy. Recheck with your PCM next week as well. Return to the ED with any worsening/concerning symptoms otherwise as reviewed in discharge. Patient is in agreement. - Vital Signs Vital signs: Temp Pulse Resp BP Pulse Ox 97.8 F 64 16 158/72 H 98 06/01/17 13:51 06/01/17 13:51 06/01/17 13:51 06/01/17 13:51 06/01/17 13:51 Discharge - Discharge Clinical Impression: Plantar fasciitis, bilateral Gout flare Qualifiers: Gout site: foot Gout etiology: unspecified cause Laterality: unspecified laterality Qualified Code(s): M10.9 - Gout, unspecified Condition: Stable Disposition: HOME, SELF-CARE Instructions: Gout ([facility]), Gout Diet ([facility]), Plantar Fasciitis or Heel Spur ([facility]) , Steroid Medication, Steroid Medication Injection, Exercises for the Foot Muscles ([facility]) Additional Instructions: Healthy gout diet Rest, Ice, Compression, Elevation Tylenol/ibuprofen as needed Light stretches daily Strength exercises as able Moist heat and massage may help F/u with your PCP in 3-5 days for a recheck Call orthopedics and set up an appointment for further evaluation and management Consider consult(s) with podiatry/physical therapy for ongoing/worsening symptoms Return to the ED with any worsening symptoms and/or development of fever, headache, chest pain, palpitations, syncope, shortness of breath, trouble breathing, abdominal pain, n/v/d, muscle weakness/paralysis, numbness/tingling, swelling, redness, or other worsening symptoms that are concerning to you. Prescriptions: Diclofenac Sodium [Voltaren] 4 gm TP QID PRN #100 gel..gm. PRN Reason: Prednisone [Deltasone 10 mg Tablet] 10 mg PO ASDIR PRN #21 tablet PRN Reason: Forms: Elevated Blood Pressure Referrals: [facility] [Provider Group] - Follow up in 1 week BRITTANY CROSS MD [[facility]] - Follow up in 3-5 days
== END 2017-06-01 14:39 | disposition home or self-care (01) ==
LOC: ER 13:47
DX: M72.2 Plantar fascial fibromatosis (principal); M10.9 Gout, unspecified; M79.671 Pain in right foot; M79.672 Pain in left foot; R26.0 Ataxic gait; I10 Essential (primary) hypertension
CPT/HCPCS: 99283; 96372; J2930; J1885

== ENCOUNTER 2017-06-12 06:02 | Emergency (ER) | payer MEDICARE ==
[2017-06-12 06:27] VITALS: BP 139/66
--- NOTE | 2017-06-12 07:48 | ER Document Report ---
ED Extremity Problem, Lower - General Mode of Arrival: Ambulatory Information source: Patient TRAVEL OUTSIDE OF THE [place] IN LAST 30 DAYS: No <MINNA FONG - Last Filed: 06/12/17 08:08> <DELISA SZYMANSKI - Last Filed: 06/12/17 09:41> - General Chief Complaint: Foot Pain Stated Complaint: FOOT PAIN Time Seen by Provider: 06/12/17 07:34 Notes: Patient is a 71-year-old male that presents to the emergency department today with complaints of right foot pain. Patient states he "cannot walk" because of pain which began last night. Patient has a history of gout and plantar fasciitis. Patient was put in a plantar fascia boot by ortho, Dr. Eastman recently. Patient is on Uloric for gout. (MINNA FONG) - Related Data Allergies/Adverse Reactions: allopurinol Allergy (Verified 06/01/17 13:51) colchicine Allergy (Verified 06/01/17 13:51) Sulfa (Sulfonamide Antibiotics) Allergy (Verified 06/01/17 13:51) valdecoxib [From Bextra] Allergy (Verified 06/01/17 13:51) Past Medical History - General Information source: Patient - Social History Smoking Status: Former Smoker Cigarette use (# per day): No Chew tobacco use (# tins/day): No Frequency of alcohol use: Heavy Drug Abuse: None Lives with: Family Family History: Reviewed & Not Pertinent Patient has suicidal ideation: No Patient has homicidal ideation: No - Past Medical History Cardiac Medical History: Reports: Hx Atrial Fibrillation - Blood thinners stopped secondary to "bleeding through bowel", Hx Hypercholesterolemia, Hx Hypertension Pulmonary Medical History: Reports: Hx Sleep Apnea - Uncertain settings on home CPAP Endocrine Medical History: Reports: Hx Hypothyroidism GI Medical History: Reports: Hx Diverticulitis - Status post segmental colectomy for same., Hx Gastroesophageal Reflux Disease, Hx Hiatal Hernia Musculoskeltal Medical History: Reports Hx Arthritis, Reports Hx Gout Past Surgical History: Reports: Hx Abdominal Surgery - bowel resection, Hx Herniorrhaphy, Hx Orthopedic Surgery - right and left hand surgeries, Other - Segmental colectomy for diverticulitis - Immunizations Immunizations up to date: Yes Hx Diphtheria, Pertussis, Tetanus Vaccination: Yes Hx Pneumococcal Vaccination: 07/22/16 <MINNA FONG - Last Filed: 06/12/17 08:08> Review of Systems - Review of Systems Constitutional: No symptoms reported EENT: No symptoms reported Cardiovascular: No symptoms reported Respiratory: No symptoms reported Gastrointestinal: No symptoms reported Genitourinary: No symptoms reported Male Genitourinary: No symptoms reported Musculoskeletal: See HPI, Other - right foot pain Skin: No symptoms reported Hematologic/Lymphatic: No symptoms reported Neurological/Psychological: No symptoms reported -: Yes All other systems reviewed and negative <HETALMINNA - Last Filed: 06/12/17 08:08> Physical Exam <HETALMINNA - Last Filed: 06/12/17 08:08> <DELISA SZYMANSKI - Last Filed: 06/12/17 09:41> - Vital signs Vitals: Temp Pulse Resp BP Pulse Ox 98 F 70 16 139/66 H 95 06/12/17 06:26 06/12/17 06:26 06/12/17 06:26 06/12/17 06:26 06/12/17 06:26 - Notes Notes: Physical Exam: General: Alert, appears well. HEENT: Normocephalic. Atraumatic. PERRL. Extraocular movements intact. Oropharynx clear. Neck: Supple. Non-tender. Respiratory: No respiratory distress. Clear and equal breath sounds bilaterally. Cardiovascular: Irregularly irregular, normal rate. Abdominal: Obese. Non-tender. No distension. Normal Bowel Sounds. Back: Non-tender. No deformity or step off. Extremities: Moves all four extremities. Upper extremities: Normal inspection. Normal ROM. Lower extremities: Tenderness with palpation over lateral plantar surface on the right foot, toes were hyper extended and patient had pain with palpation of the plantar fascia on the right. No MTP tenderness with palpation. Right ankle is larger than right consistent with arthritic changes, ankle is non-tender. Neurological: Normal cognition. AAOx4. Normal speech. Psychological: Normal affect. Normal Mood. Skin: Warm. Dry. Normal color. (MINNA FONG) Course - Laboratory Result Diagrams: 06/12/17 08:23 06/12/17 08:05 <DELISA SZYMANSKI - Last Filed: 06/12/17 09:41> - Vital Signs Vital signs: Temp Pulse Resp BP Pulse Ox 98 F 70 16 139/66 H 95 06/12/17 06:26 06/12/17 06:26 06/12/17 06:26 06/12/17 06:26 06/12/17 06:26 - Laboratory Laboratory results interpreted by me: 06/12/17 06/12/17 08:05 08:23 RBC 3.45 L Hgb 13.4 L MCV 111 H D MCH 39.0 H Plt Count 133 L Seg Neutrophils % 84.2 H Lymphocytes % 6.1 L Absolute Neutrophils 8.7 H Potassium 3.4 L Creatinine 1.29 H Est GFR (Non-Af Amer) 55 L Total Bilirubin 2.0 H Direct Bilirubin 0.6 H C-Reactive Protein 27.4 H Discharge <MINNA FONG - Last Filed: 06/12/17 08:08> <DELISA SZYMANSKI - Last Filed: 06/12/17 09:41> - Discharge Clinical Impression: Plantar fasciitis of right foot Condition: Stable Disposition: HOME, SELF-CARE Additional Instructions: Plantar Fasciitis or Heel Spur Plantar fasciitis is an inflammation of a ligament on the underside of the foot. It can be caused by injury, overuse such as running, or poorly fitting shoes. There may be a bone spur on the heel if inflammation has persisted a long time. Plantar fasciitis is treated with stretching exercises and antiinflammatory medicine. More severe cases may require injection of cortisone. It may take several weeks to get better. If nothing gives relief, an operation to remove the heel spur may help. Call or return if there is redness, increasing pain, swelling, fever, or any other new symptoms. //////////////////////////////////////////////////////////////////////////////// //////////////////////////////////////////////////////////////////////////////// ///////////////// You seem to be experiencing a flareup of your plantar fasciitis. Take the pain medications as prescribed if needed. Stay off of the foot for a few days and stop using the nighttime plantar fasciitis brace for a few days. Follow-up with your primary care doctor or with your orthopedic surgeon if not improving enough to use the brace to stretch the plantar fascia in a few days. RETURN TO THE EMERGENCY ROOM IF ANY NEW OR WORSENING SYMPTOMS. Prescriptions: Hydrocodone/Acetaminophen [Hydrocodon-Acetaminophen 5-325] 1 each PO ASDIR PRN # 15 tablet PRN Reason: Referrals: BRITTANY CROSS MD [Primary Care Provider] - Follow up as needed Scribe Attestation: 06/12/17 09:41 I personally performed the services described in the documentation, reviewed and edited the documentation which was dictated to the scribe in my presence, and it accurately records my words and actions. (DELISA SZYMANSKI) Scribe Documentation - Scribe Written by Art:: Art Bazan, 06/12/2017 0811 acting as scribe for :: Mindy <MINNA FONG - Last Filed: 06/12/17 08:08>
[2017-06-12] MEDS ORDERED: OXYCODONE-ACETAMINOPHEN 5-325 MG TABLET PO ONE (07:51)
[2017-06-12 08:39] LABS: ABSOLUTE LYMPHOCYTES (AUTO) 0.6 10^3/uL (0.5-4.7); ABSOLUTE NEUT (AUTO) 8.7 10^3/uL (1.7-8.2); BASOPHILS % (AUTO) 0.2 % (0-2); EOSINOPHILS % (AUTO) 0.2 % (0-6); HEMATOCRIT 38.3 % (37.9-51.0); HEMOGLOBIN 13.4 g/dL (13.5-17.0); HGB HCT DIFFERENCE 1.9; LYMPHOCYTES % (AUTO) 6.1 % (13-45); MONOCYTES % (AUTO) 9.3 % (3-13); RED BLOOD COUNT 3.45 10^6/uL (4.35-5.55); RED CELL DISTRIBUTION WIDTH 13.4 % (11.5-14.0); SEGMENTED NEUTROPHILS % (AUTO) 84.2 % (42-78); WHITE BLOOD COUNT 10.3 10^3/uL (4.0-10.5)
[2017-06-12 08:42] LABS: MEAN CORPUSCULAR VOLUME 111 fl (80-97)
[2017-06-12 08:44] LABS: ALANINE AMINOTRANSFERASE 48 U/L (21-72); ALBUMIN 4.3 g/dL (3.5-5.0); ALKALINE PHOSPHATASE 93 U/L (38-126); ANION GAP 13 (5-19); ASPARTATE AMINO TRANSFERASE 27 U/L (17-59); BILIRUBIN,DIRECT 0.6 mg/dL (0.0-0.4); BLOOD UREA NITROGEN 19 mg/dL (7-20); C-REACTIVE PROTEIN 27.4 mg/L (<10.0); CALCIUM 9.1 mg/dL (8.4-10.2); CARBON DIOXIDE 28 mmol/L (22-30); CHLORIDE 99 mmol/L (98-107); CREATININE RESULT 1.29 mg/dL (0.52-1.25); GLUCOSE 100 mg/dL (75-110); POTASSIUM 3.4 mmol/L (3.6-5.0); SODIUM 139.6 mmol/L (137-145); TOTAL PROTEIN 7.7 g/dL (6.3-8.2); URIC ACID 6.5 mg/dL (3.5-8.5)
[2017-06-12 09:09] LABS: TOXIC GRANULATION 1+
[2017-06-12 10:13] LABS: PROTHROMBIN TIME 14.9 SEC (11.4-15.4)
== END 2017-06-12 10:10 | disposition home or self-care (01) ==
LOC: ER 06:02
DX: M72.2 Plantar fascial fibromatosis (principal); M79.671 Pain in right foot
CPT/HCPCS: 99283; 36415; 84550; 85025; 85610; 86140; 80053; A9270

== ENCOUNTER → 2017-09-24 | Outpatient (CLI) | payer MEDICARE ==
[2017-09-24 09:44] LABS: ABSOLUTE EOSINOPHILS # (AUTO) 0.1 10^3/uL (0.0-0.6); ABSOLUTE LYMPHOCYTES (AUTO) 0.8 10^3/uL (0.5-4.7); ABSOLUTE MONOCYTES (AUTO) 0.9 10^3/uL (0.1-1.4); ABSOLUTE NEUT (AUTO) 5.9 10^3/uL (1.7-8.2); BASOPHILS % (AUTO) 0.6 % (0-2); EOSINOPHILS % (AUTO) 1.8 % (0-6); HEMATOCRIT 33.1 % (37.9-51.0); HEMOGLOBIN 11.1 g/dL (13.5-17.0); LYMPHOCYTES % (AUTO) 10.3 % (13-45); MEAN CORPUSCULAR HEMOGLOBIN 34.2 pg (27.0-33.4); MEAN CORPUSCULAR HGB CONC 33.6 g/dL (32.0-36.0); MEAN CORPUSCULAR VOLUME 102 fl (80-97); MONOCYTES % (AUTO) 11.5 % (3-13); PLATELET COUNT 291 10^3/uL (150-450); RED BLOOD COUNT 3.25 10^6/uL (4.35-5.55); RED CELL DISTRIBUTION WIDTH 14.3 % (11.5-14.0); SEGMENTED NEUTROPHILS % (AUTO) 75.8 % (42-78); TOTAL CELLS COUNTED % (AUTO) 100 %; WHITE BLOOD COUNT 7.8 10^3/uL (4.0-10.5)
[2017-09-24 10:21] LABS: ANION GAP 13 (5-19); BLOOD UREA NITROGEN 17 mg/dL (7-20); CARBON DIOXIDE 24 mmol/L (22-30); CHLORIDE 107 mmol/L (98-107); GLUCOSE 105 mg/dL (75-110); POTASSIUM 4.8 mmol/L (3.6-5.0); SODIUM 143.7 mmol/L (137-145)
[2017-09-24 10:31] LABS: CALCIUM 9.6 mg/dL (8.4-10.2)
== END ==
LOC: LAB 09:26
PROVIDERS: ATTEND Internal Medicine Cardiovascular Disease
DX: R06.00 Dyspnea, unspecified (principal)
CPT/HCPCS: 36415; 80048; 85025

== ENCOUNTER 2018-03-23 12:24 | Emergency (ER) | payer OTHER, MEDICARE ==
[2018-03-23 14:27] LABS: ABSOLUTE EOSINOPHILS # (AUTO) 0.1 10^3/uL (0.0-0.6); ABSOLUTE LYMPHOCYTES (AUTO) 1.2 10^3/uL (0.5-4.7); ABSOLUTE NEUT (AUTO) 8.1 10^3/uL (1.7-8.2); BASOPHILS % (AUTO) 0.4 % (0-2); HEMATOCRIT 30.1 % (37.9-51.0); HEMOGLOBIN 10.1 g/dL (13.5-17.0); LYMPHOCYTES % (AUTO) 11.4 % (13-45); MEAN CORPUSCULAR HEMOGLOBIN 35.4 pg (27.0-33.4); MEAN CORPUSCULAR HGB CONC 33.7 g/dL (32.0-36.0); MEAN CORPUSCULAR VOLUME 105 fl (80-97); MONOCYTES % (AUTO) 9.4 % (3-13); PLATELET COUNT 280 10^3/uL (150-450); RED BLOOD COUNT 2.86 10^6/uL (4.35-5.55); RED CELL DISTRIBUTION WIDTH 15.8 % (11.5-14.0); SEGMENTED NEUTROPHILS % (AUTO) 77.8 % (42-78); TOTAL CELLS COUNTED % (AUTO) 100 %; WHITE BLOOD COUNT 10.4 10^3/uL (4.0-10.5)
[2018-03-23 14:34] LABS: PROTHROMBIN TIME 26.4 SEC (11.4-15.4)
[2018-03-23 14:35] LABS: PARTIAL THROMBOPLASTIN TIME 42.1 SEC (23.5-35.8)
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
[2018-03-23 14:44] LABS: ANION GAP 14 (5-19); BLOOD UREA NITROGEN 12 mg/dL (7-20); CALCIUM 8.4 mg/dL (8.4-10.2); CARBON DIOXIDE 27 mmol/L (22-30); CHLORIDE 103 mmol/L (98-107); GLUCOSE 92 mg/dL (75-110); POTASSIUM 3.9 mmol/L (3.6-5.0); SODIUM 143.7 mmol/L (137-145)
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
[2018-03-23] MEDS ORDERED: LIDOCAINE 5% (700 MG) TRANSDERMAL ADH..PATCH TP ONE (15:08)
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
[2018-03-23 15:21] VITALS: BP 135/71
== END 2018-03-23 15:19 | disposition home or self-care (01) ==
LOC: ER 12:24
DX: S16.1XXA Strain of muscle, fascia and tendon at neck level, initial encounter (principal); M54.2 Cervicalgia; M25.512 Pain in left shoulder; V43.52XA Car driver injured in collision with other type car in traffic accident, initial encounter; I48.91 Unspecified atrial fibrillation; Z79.01 Long term (current) use of anticoagulants; I10 Essential (primary) hypertension; Z87.891 Personal history of nicotine dependence; Z88.8 Allergy status to other drugs, medicaments and biological substances; Z88.2 Allergy status to sulfonamides
CPT/HCPCS: 36415; 70450; 72125; 80048; 85025; 85610; 85730; 99285

== ENCOUNTER 2018-03-28 11:50 | Emergency (ER) | payer OTHER, MEDICARE ==
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
[2018-03-28 14:24] VITALS: BP 138/71
== END 2018-03-28 14:42 | disposition home or self-care (01) ==
LOC: ER 11:50
DX: S16.1XXA Strain of muscle, fascia and tendon at neck level, initial encounter (principal); M54.2 Cervicalgia; M25.512 Pain in left shoulder; V49.9XXA Car occupant (driver) (passenger) injured in unspecified traffic accident, initial encounter; I10 Essential (primary) hypertension; Z88.8 Allergy status to other drugs, medicaments and biological substances; Z88.2 Allergy status to sulfonamides; Z87.891 Personal history of nicotine dependence
CPT/HCPCS: 99283

== ENCOUNTER 2018-05-05 05:14 | Emergency (ER) | payer MEDICARE ==
--- NOTE | 2018-05-05 07:16 | ER Document Report ---
ED Neck/Back Problem - General Chief Complaint: Back Pain Stated Complaint: BACK PAIN Time Seen by Provider: 05/05/18 06:08 Notes: 72-year-old male with a 40-year history of chronic back pain presents to the ER complaining of back pain. The patient denies any groin numbness. Denies any bowel or bladder problems. Denies lower extremity weakness or numbness. Denies any inability to walk he is seeing a neurosurgeon on and off for this over the years. They state that he will likely need fusion that his discs are very degenerative. The patient has episodes where his pain comes and goes. He is not in pain management. The patient denies any other complaints no chest pain or shortness of breath no abdominal pain. No nausea vomiting diarrhea. He denies any falls or trauma. Describes pain as aching similar to a character of prior pain rates it as severe TRAVEL OUTSIDE OF THE [place] IN LAST 30 DAYS: No - Related Data Allergies/Adverse Reactions: allopurinol Allergy (Verified 05/05/18 06:14) colchicine Allergy (Verified 05/05/18 06:14) Sulfa (Sulfonamide Antibiotics) Allergy (Verified 05/05/18 06:14) valdecoxib [From Bextra] Allergy (Verified 05/05/18 06:14) Past Medical History - Social History Smoking Status: Unknown if Ever Smoked Family History: Reviewed & Not Pertinent Patient has suicidal ideation: No Patient has homicidal ideation: No - Past Medical History Cardiac Medical History: Reports: Hx Atrial Fibrillation - Blood thinners stopped secondary to "bleeding through bowel", Hx Hypercholesterolemia, Hx Hypertension Denies: Hx Congestive Heart Failure, Hx Coronary Artery Disease, Hx DVT, Hx Heart Attack, Hx Pulmonary Embolism Pulmonary Medical History: Reports: Hx Sleep Apnea - Uncertain settings on home CPAP Denies: Hx Asthma, Hx COPD Neurological Medical History: Denies: Hx Seizures Endocrine Medical History: Reports: Hx Hypothyroidism. Denies: Hx Diabetes Mellitus Type 1, Hx Diabetes Mellitus Type 2, Hx Hyperthyroidism Renal/ Medical History: Denies: Hx Peritoneal Dialysis GI Medical History: Reports: Hx Diverticulitis - Status post segmental colectomy for same., Hx Gastroesophageal Reflux Disease, Hx Hiatal Hernia. Denies: Hx Cirrhosis Musculoskeletal Medical History: Reports Hx Arthritis, Reports Hx Gout Psychiatric Medical History: Denies: Hx Depression Past Surgical History: Reports: Hx Abdominal Surgery - bowel resection, Hx Herniorrhaphy, Hx Orthopedic Surgery - right and left hand surgeries, Other - Segmental colectomy for diverticulitis - Immunizations Immunizations up to date: Yes Hx Diphtheria, Pertussis, Tetanus Vaccination: Yes Hx Pneumococcal Vaccination: 07/22/16 Review of Systems - Review of Systems Musculoskeletal: Back pain. denies: Gout, Joint pain Neurological/Psychological: denies: Headaches -: Yes All other systems reviewed and negative Physical Exam - Vital signs Vitals: Temp Pulse Resp BP Pulse Ox 98.3 F 84 19 121/69 96 05/05/18 05:22 05/05/18 05:22 05/05/18 05:22 05/05/18 05:22 05/05/18 05:22 - Notes Notes: GENERAL_APPEARANCE: well_nourished, alert, cooperative, no_acute_distress, no_ obvious_discomfort. VITALS: reviewed, see vital signs table. HEAD: no_swelling\\tenderness on the head. EYES: PERRL, EOMI, conjunctiva_clear. NOSE: no_nasal_discharge. MOUTH: (-)decreased moisture. THROAT: no_tonsilar_inflammation, no_airway_obstruction. no_lymphadenopathy NECK: supple, no_neck_tenderness, (-)thyromegaly. BACK: L4-L5 right paraspinal_back_tenderness. CHEST_WALL: no_chest_tenderness. LUNGS: no_wheezing, no_rales, no_rhonchi, (-)accessory muscle use, good air exchange bilateral. HEART: normal_rate, normal_rhythm, normal_S1, normal_S2, (-)S3, (-)S4, no_ murmur, no_rub. ABDOMEN: normal_BS, soft, no_abd_tenderness, (-)guarding, (-)rebound, no_ organomegaly, no_abd_masses. EXTREMITIES: strength 5/5 in all_extremities, good pulses in all_extremities, no_swelling\\tenderness in the extremities, no_edema. SKIN: warm, dry, good_color, no_rash. MENTAL_STATUS: speech_clear, oriented_X_3, normal_affect, responds_ appropriately to questions. NEURO: Neg Motor or Sensory Deficits on exam, CN 2-12 intact, DTR 2+ symmetric x 4, No cerbellar signs Course - Re-evaluation Re-evalutation: 05/05/18 07:14 The patient has no saddle paresthesias, no bowel bladder dysfunction. No weakness no foot drop. My suspicion for cauda equina syndrome is low he has been having this over the last 40 years this is his typical exacerbation. I explained to him that as he gets older he will likely have more more of these exacerbations. He should look into pain management or coming up with a plan for this. Otherwise he is neurologically intact I will prescribe him some Henry for home and have him follow-up with his neurosurgeon. We will give him a steroid taper also. - Vital Signs Vital signs: Temp Pulse Resp BP Pulse Ox 98.3 F 84 19 121/69 96 05/05/18 05:22 05/05/18 05:22 05/05/18 05:22 05/05/18 05:22 05/05/18 05:22 Discharge - Discharge Clinical Impression: Back pain Qualifiers: Back pain location: low back pain Chronicity: acute Back pain laterality: right Sciatica presence: without sciatica Qualified Code(s): M54.5 - Low back pain Condition: Good Disposition: HOME, SELF-CARE Instructions: Low Back Pain ([facility]) Additional Instructions: Please follow-up with your neurosurgeon for further care Prescriptions: Hydrocodone/Acetaminophen [Henry 5-325 mg Tablet] 1 tab PO Q6H PRN #20 tablet PRN Reason: Pain Scale Of 5 Methylprednisolone [Medrol 4 Mg Tablet] See Protocol PO DAILY #1 pkg
[2018-05-05 07:43] VITALS: BP 115/74
== END 2018-05-05 07:43 | disposition home or self-care (01) ==
LOC: ER 05:14
DX: G89.29 Other chronic pain (principal); M54.5 Low back pain; I48.91 Unspecified atrial fibrillation; E78.00 Pure hypercholesterolemia, unspecified; I10 Essential (primary) hypertension; E03.9 Hypothyroidism, unspecified; Z88.2 Allergy status to sulfonamides
CPT/HCPCS: 99283

== ENCOUNTER → 2018-05-09 | Outpatient (CLI) | payer MEDICARE ==
--- NOTE | 2018-05-09 15:39 | RADIOLOGY REPORT (SQ) ---
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 TECHNIQUE: Sagittal and Axial imaging includes T1, T2, STIR and gradient echo sequences. Coronal T2/ HASTE imaging. LIMITATIONS: Motion. FINDINGS: VISUALIZED UPPER ABDOMEN: Large cyst lower pole left kidney. SEGMENTATION: No transitional anatomy. The lowest well-developed disc space is labeled L5-S1. ALIGNMENT: Anatomic. VERTEBRAE: Intact. BONE MARROW: Normal. No marrow replacement or reactive changes. DISC SIGNAL: Desiccation multiple levels. POSTERIOR ELEMENTS: Generally intact. No pars defect evident. HARDWARE: None in the spine. CORD AND CONUS: Normal in size and signal intensity. Conus at the appropriate level. SOFT TISSUES: No aortic aneurysm seen. No bulky retroperitoneal adenopathy or mass. No paraspinal mas s or fluid. L1-L2: Posterior disc bulge. No significant stenosis. L2-L3: Mild spinal stenosis due to disc osteophyte complex. Mild neural foraminal narrowing bilatera lly. L3-L4: Mild spinal stenosis due to disc osteophyte complex and facet arthropathy. Mild neural forami nal narrowing bilaterally. L4-L5: Mild spinal stenosis. Moderate neural foraminal narrowing bilaterally. L5-S1: Disc bulge and facet arthropathy. Moderate right and mild left neural foraminal narrowing. LOWER THORACIC: Incompletely imaged. No stenosis seen. SACRUM: Visualized upper sacrum intact. OTHER: No other significant findings. IMPRESSION: Spondylosis and facet arthropathy. Mild spinal stenosis at multiple levels. TECHNICAL DOCUMENTATION: JOB ID: [id number] 1,2,3 [employer]- All Rights Reserved Reading location - IP/workstation name: [email or web address]
== END ==
LOC: RAD 12:20
PROVIDERS: ATTEND Internal Medicine
DX: M51.06 Intervertebral disc disorders with myelopathy, lumbar region (principal)
CPT/HCPCS: 72148

== ENCOUNTER → 2018-07-21 | Outpatient (CLI) | payer MEDICARE ==
--- NOTE | 2018-07-21 15:46 | RADIOLOGY REPORT (SQ) ---
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 TECHNIQUE: CT scan of the abdomen performed without intravenous contrast and with oral contrast. Im ages reviewed with lung, soft tissue, and bone windows. Reconstructed coronal and sagittal MPR image s reviewed. All images stored on PACS. All CT scanners at this facility use dose modulation, iterative reconstruction, and/or weight based d osing when appropriate to reduce radiation dose to as low as reasonably achievable (ALARA). [facility]: Dose Right [facility]: CareDose [facility]: Dose Right [facility]: Teradose 4D [facility]: Smart [employer] Medical RADIATION DOSE: CT Rad equipment meets quality standard of care and radiation dose reduction techniq ues were employed. CTDIvol: 17.2 mGy. DLP: 694 mGy-cm.mGy. LIMITATIONS: None. FINDINGS: LOWER CHEST: No significant findings. No nodules or infiltrates. LIVER: Evaluation limited by lack of IV contrast. Overall length 19.6 cm. Minimal nodular contour. No identified significant masses. SPLEEN: Evaluation limited by lack of IV contrast. Normal size with maximum length of 11 cm. No cris ntified significant masses. ADRENAL GLANDS: No identified significant masses. PANCREAS: No masses. No peripancreatic inflammatory changes. GALLBLADDER: No identified stones by CT criteria. No inflammatory changes to suggest cholecystitis. RIGHT KIDNEY AND URETER: Stable cortical cysts. No suspicious masses. Assessment limited by lack of IV contrast. No significant calcifications. No hydronephrosis or hydroureter. LEFT KIDNEY AND URETER: Stable cortical cysts. No suspicious masses. Assessment limited by lack of I V contrast. No significant calcifications. No hydronephrosis or hydroureter. AORTA AND RETROPERITONEUM: No aneurysm. No retroperitoneal masses or adenopathy. BOWEL AND PERITONEAL CAVITY: No obvious masses or inflammatory changes. No free fluid. APPENDIX: Not visualized. ABDOMINAL WALL: No abdominal wall hernias. BONES: No significant findings. OTHER: No other significant finding. IMPRESSION: 1. MILD HEPATOMEGALY. MINIMAL NODULAR CONTOUR. NO FOCAL LESIONS. 2. STABLE CORTICAL CYSTS IN THE KIDNEYS. 3. NO OTHER SIGNIFICANT OR ACUTE ABDOMINAL PROCESS. TECHNICAL DOCUMENTATION: JOB ID: [id number] Quality ID # [id number]: Final reports with documentation of one or more dose reduction techniques (e.g., Au tomated exposure control, adjustment of the mA and/or kV according to patient size, use of iterative reconstruction technique) 2010 [employer]- All Rights Reserved Reading location - IP/workstation name: [email or web address]
== END ==
LOC: RAD 13:30
PROVIDERS: ATTEND Internal Medicine Gastroenterology
DX: I86.4 Gastric varices (principal); N28.1 Cyst of kidney, acquired; R94.5 Abnormal results of liver function studies; R16.0 Hepatomegaly, not elsewhere classified
CPT/HCPCS: 74150; 82565

== ENCOUNTER 2018-08-19 17:25 | Inpatient (IN) | payer MEDICARE ==
--- NOTE | 2018-08-19 19:15 | ER Document Report ---
ED Medical Screen (RME) - General Chief Complaint: Shortness Of Breath Stated Complaint: SHORTNESS OF BREATH,LEG SWELLING Time Seen by Provider: 08/19/18 18:34 Primary Care Provider: DANIKA DEE MD [Primary Care Provider] - Follow up as needed TRAVEL OUTSIDE OF THE [place] IN LAST 30 DAYS: No - HPI Patient complains to provider of: Shortness of breath, dyspnea on exertion, lower extremity - Related Data Allergies/Adverse Reactions: allopurinol Allergy (Verified 05/05/18 06:14) colchicine Allergy (Verified 05/05/18 06:14) Sulfa (Sulfonamide Antibiotics) Allergy (Verified 05/05/18 06:14) valdecoxib [From Bextra] Allergy (Verified 05/05/18 06:14) Past Medical History - Social History Chew tobacco use (# tins/day): No Frequency of alcohol use: None Drug Abuse: None - Past Medical History Cardiac Medical History: Reports: Hx Atrial Fibrillation, Hx Congestive Heart Failure, Hx Hypercholesterolemia, Hx Hypertension Denies: Hx Coronary Artery Disease, Hx DVT, Hx Heart Attack, Hx Pulmonary Embolism Pulmonary Medical History: Reports: Hx Sleep Apnea - Uncertain settings on home CPAP Denies: Hx Asthma, Hx COPD Neurological Medical History: Denies: Hx Seizures Endocrine Medical History: Reports: Hx Hypothyroidism. Denies: Hx Diabetes Mellitus Type 1, Hx Diabetes Mellitus Type 2, Hx Hyperthyroidism Renal/ Medical History: Denies: Hx Peritoneal Dialysis GI Medical History: Reports: Hx Diverticulitis - Status post segmental colectomy for same., Hx Gastroesophageal Reflux Disease, Hx Hiatal Hernia. Denies: Hx Cirrhosis Musculoskeltal Medical History: Reports Hx Arthritis, Reports Hx Gout Psychiatric Medical History: Denies: Hx Depression Past Surgical History: Reports: Hx Abdominal Surgery - bowel resection, Hx Herniorrhaphy, Hx Orthopedic Surgery - right and left hand surgeries, Other - Segmental colectomy for diverticulitis - Immunizations Immunizations up to date: Yes Hx Diphtheria, Pertussis, Tetanus Vaccination: Yes History of Influenza Vaccine for 04/2017 - 09/2017 Season: Yes Influenza Administration Date for 04/2017 - 09/2017 Season: 04/21/17 Physical Exam - Vital signs Vitals: Temp Pulse Resp BP Pulse Ox 97.7 F 62 18 103/52 L 96 08/19/18 17:32 08/19/18 17:32 08/19/18 17:32 08/19/18 17:32 08/19/18 17:32 Course - Vital Signs Vital signs: Temp Pulse Resp BP Pulse Ox 97.7 F 62 18 103/52 L 96 08/19/18 17:32 08/19/18 17:32 08/19/18 17:32 08/19/18 17:32 08/19/18 17:32 Doctor's Discharge - Discharge Referrals: DANIKA DEE MD [Primary Care Provider] - Follow up as needed
[2018-08-19] MEDS ORDERED: FUROSEMIDE INJ/PF 40 MG/4 ML SDV IV ONE (20:38)
--- NOTE | 2018-08-19 21:25 | RADIOLOGY REPORT (SQ) ---
XR CHEST 1 VIEW HISTORY: Cough. Shortness of breath. COMPARISON: 04/29/2017 FINDINGS: There is mildly enlarged heart size. No large pleural effusions or pneumothorax. There is atelectasis at the left lung base. No acute osseous findings identified. IMPRESSION: No evidence of acute cardiopulmonary disease.
[2018-08-19 21:27] LABS: ABSOLUTE BASOPHILS # (AUTO) 0.1 10^3/uL (0.0-0.2); ABSOLUTE EOSINOPHILS # (AUTO) 0.1 10^3/uL (0.0-0.6); ABSOLUTE LYMPHOCYTES (AUTO) 1.2 10^3/uL (0.5-4.7); ABSOLUTE MONOCYTES (AUTO) 0.9 10^3/uL (0.1-1.4); ABSOLUTE NEUT (AUTO) 7.2 10^3/uL (1.7-8.2); BASOPHILS % (AUTO) 0.7 % (0-2); EOSINOPHILS % (AUTO) 1.2 % (0-6); LYMPHOCYTES % (AUTO) 12.6 % (13-45); MEAN CORPUSCULAR HEMOGLOBIN 30.6 pg (27.0-33.4); MEAN CORPUSCULAR HGB CONC 32.9 g/dL (32.0-36.0); MEAN CORPUSCULAR VOLUME 93 fl (80-97); MONOCYTES % (AUTO) 9.7 % (3-13); PLATELET COUNT 283 10^3/uL (150-450); RED BLOOD COUNT 2.58 10^6/uL (4.35-5.55); RED CELL DISTRIBUTION WIDTH 19.9 % (11.5-14.0); SEGMENTED NEUTROPHILS % (AUTO) 75.8 % (42-78); TOTAL CELLS COUNTED % (AUTO) 100 %; WHITE BLOOD COUNT 9.5 10^3/uL (4.0-10.5)
[2018-08-19 21:28] LABS: BLOOD UREA NITROGEN 40 mg/dL (7-20); CALCIUM 8.9 mg/dL (8.4-10.2); GLUCOSE 87 mg/dL (75-110)
[2018-08-19 21:29] LABS: ANION GAP 15 (5-19); CARBON DIOXIDE 25 mmol/L (22-30); CHLORIDE 96 mmol/L (98-107); POTASSIUM 4.4 mmol/L (3.6-5.0)
[2018-08-19 21:38] LABS: HEMOGLOBIN 7.9 g/dL (13.5-17.0)
[2018-08-19 21:54] LABS: TROPONIN I 0.013 ng/mL
--- NOTE | 2018-08-19 23:20 | ER Document Report ---
ED General - General Chief Complaint: Shortness Of Breath Stated Complaint: SHORTNESS OF BREATH,LEG SWELLING Time Seen by Provider: 08/19/18 18:34 TRAVEL OUTSIDE OF THE [place] IN LAST 30 DAYS: No - HPI Patient complains to provider of: Shortness of breath Onset: Other - 73-year-old gentleman the presents for evaluation of worsening fatigue and shortness of breath over the last 3 days as well as 3 episodes of syncope in today with a near syncopal episode, he is noted to have heart failure by his and is currently on T consent as well as Lasix 80 mg twice daily but he has had worsening swelling over the last week it is now unable to move any reasonable distance without becoming very very short of breath. Has never had anything like this in the past this bad, nothing makes it better, movement makes it worse. He underwent a colonoscopy 2 weeks prior which was normal. - Related Data Allergies/Adverse Reactions: allopurinol Allergy (Verified 05/05/18 06:14) colchicine Allergy (Verified 05/05/18 06:14) Sulfa (Sulfonamide Antibiotics) Allergy (Verified 05/05/18 06:14) valdecoxib [From Bextra] Allergy (Verified 05/05/18 06:14) Past Medical History - General Information source: Patient, Relative - Social History Smoking Status: Former Smoker Chew tobacco use (# tins/day): No Frequency of alcohol use: None Drug Abuse: None Family History: Reviewed & Not Pertinent Patient has suicidal ideation: No Patient has homicidal ideation: No - Past Medical History Cardiac Medical History: Reports: Hx Atrial Fibrillation, Hx Congestive Heart Failure, Hx Hypercholesterolemia, Hx Hypertension Denies: Hx Coronary Artery Disease, Hx DVT, Hx Heart Attack, Hx Pulmonary Embolism Pulmonary Medical History: Reports: Hx Sleep Apnea - Uncertain settings on home CPAP Denies: Hx Asthma, Hx COPD Neurological Medical History: Denies: Hx Seizures Endocrine Medical History: Reports: Hx Hypothyroidism. Denies: Hx Diabetes Mellitus Type 1, Hx Diabetes Mellitus Type 2, Hx Hyperthyroidism Renal/ Medical History: Denies: Hx Peritoneal Dialysis GI Medical History: Reports: Hx Diverticulitis - Status post segmental colectomy for same., Hx Gastroesophageal Reflux Disease, Hx Hiatal Hernia. Denies: Hx Cirrhosis Musculoskeletal Medical History: Reports Hx Arthritis, Reports Hx Gout Psychiatric Medical History: Denies: Hx Depression Past Surgical History: Reports: Hx Abdominal Surgery - bowel resection, Hx Herniorrhaphy, Hx Orthopedic Surgery - right and left hand surgeries, Other - Segmental colectomy for diverticulitis - Immunizations Immunizations up to date: Yes Hx Diphtheria, Pertussis, Tetanus Vaccination: Yes Hx Pneumococcal Vaccination: 07/22/16 Review of Systems - Review of Systems -: Yes All other systems reviewed and negative Physical Exam - Vital signs Vitals: Temp Pulse Resp BP Pulse Ox 97.7 F 62 18 103/52 L 96 08/19/18 17:32 08/19/18 17:32 08/19/18 17:32 08/19/18 17:32 08/19/18 17:32 - General General appearance: Alert In distress: Mild - HEENT Head: Normocephalic, Atraumatic Eyes: Normal Pupils: PERRL - Respiratory Respiratory status: No respiratory distress Chest status: Nontender Breath sounds: Normal Chest palpation: Normal - Cardiovascular Rhythm: Regular Heart sounds: Normal auscultation Murmur: No - Abdominal Inspection: Normal Distension: No distension Bowel sounds: Normal Tenderness: Nontender Organomegaly: No organomegaly - Back Back: Normal, Nontender - Extremities General upper extremity: Normal inspection, Nontender, Normal color, Normal ROM, Normal temperature General lower extremity: Edema - +3 pitting edema. No: Angel's sign - Neurological Neuro grossly intact: Yes Cognition: Normal Orientation: AAOx4 [place] Coma Scale Eye Opening: Spontaneous [place] Coma Scale Verbal: Oriented [place] Coma Scale Motor: Obeys Commands [place] Coma Scale Total: 15 Speech: Normal Motor strength normal: LUE, RUE, LLE, RLE Sensory: Normal - Psychological Associated symptoms: Normal affect, Normal mood Course - Re-evaluation Re-evalutation: 73-year-old gentleman who has heart failure presenting for leg swelling and fatigue over the last several days as well as episodes of syncope. On exam he is got profound edema in the lower extremities. We will obtain broad workup including troponin EKG cardiac monitoring BNP CBC CMP. Patient's troponin is unremarkable his BNP is in conjunction with his clinical fluid overloaded markedly elevated. His CBC shows a diminished H&H from previous likely a delusional issue, his CMP is notable for new onset renal failure. He was given 40 mg of IV Lasix in an attempt to initiate diuresis of his swollen extremities, he was able to produce only a small volume of urine. I am concerned that this gentleman now is a new onset renal failure failing his diuresis with decompensated heart failure underlying his episodes of syncope. This gentleman will likely require admission to the hospital, spoke to the on- call hospitalist Dr. Cecil Diamond who agrees to admit this patient to the [facility]. - Vital Signs Vital signs: Temp Pulse Resp BP Pulse Ox 97.7 F 108 H 20 124/59 L 98 08/20/18 01:27 08/20/18 02:00 08/20/18 01:27 08/20/18 01:27 08/20/18 01:27 - Laboratory Result Diagrams: 08/19/18 19:52 08/19/18 19:52 Laboratory results interpreted by me: 08/19/18 08/19/18 08/19/18 19:52 19:52 19:52 RBC 2.58 L Hgb 7.9 L Hct 24.0 L RDW 19.9 H Lymphocytes % 12.6 L Absolute Retic PT Sodium 136.0 L Chloride 96 L BUN 40 H Creatinine 2.94 H Est GFR ( Amer) 26 L Est GFR (Non-Af Amer) 21 L Iron Ferritin NT-Pro-B Natriuret Pep 4460 H 08/19/18 08/19/18 08/19/18 19:52 19:52 19:52 RBC Hgb Hct RDW Lymphocytes % Absolute Retic 0.027 L PT 24.2 H Sodium Chloride BUN Creatinine Est GFR ( Amer) Est GFR (Non-Af Amer) Iron 27.8 L Ferritin 15.20 L NT-Pro-B Natriuret Pep Discharge - Discharge Clinical Impression: Congestive heart failure Qualifiers: Heart failure type: unspecified Heart failure chronicity: unspecified Qualified Code(s): I50.9 - Heart failure, unspecified Anemia Qualifiers: Anemia type: unspecified type Qualified Code(s): D64.9 - Anemia, unspecified Edema Qualifiers: Edema type: unspecified Qualified Code(s): R60.9 - Edema, unspecified Renal failure Qualifiers: Renal failure chronicity: unspecified chronicity Qualified Code(s): N19 - Unspecified kidney failure Condition: Stable Disposition: ADMITTED INPATIENT Admitting Provider: Hospitalist Unit Admitted: [facility]
[2018-08-19 23:29] LABS: INTERNATIONAL RATION (INR) 2.06; PROTHROMBIN TIME 24.2 SEC (11.4-15.4)
[2018-08-19] MEDS ORDERED: MAGNESIUM HYDROXIDE SUSP 30 ML UDCUP PO PRN (23:55)
[2018-08-20 00:19] LABS: ABSOLUTE RETICS # 0.027 10^6/uL (0.028-0.122); RETICULOCYTE COUNT (AUTO) 1.06 % (0.66-2.85)
[2018-08-20 00:30] LABS: CREATINE KINASE 70 U/L (55-170); IRON(TIBC) 27.8 ug/dL (49-181)
[2018-08-20 00:46] LABS: APPEARANCE,URINE CLOUDY; BILIRUBIN,URINE NEGATIVE (NEGATIVE); COLOR,URINE YELLOW; GLUCOSE, URINE NEGATIVE (NEGATIVE); KETONES,URINE NEGATIVE (NEGATIVE); LEUKOCYTE ESTERASE,URINE MODERATE (NEGATIVE); NITRITE,URINE NEGATIVE (NEGATIVE); PROTEIN,URINE 30 mg/dL (NEGATIVE); URINE SPECIFIC GRAVITY 1.015; UROBILINOGEN,URINE NEGATIVE mg/dL (<2.0)
[2018-08-20] MEDS ORDERED: POTASSIUM CHLORIDE 10 MEQ CAPSULE.ER PO ONE (01:00)
[2018-08-20 01:39] LABS: FOLATE > 20.00 ng/mL (>2.76)
[2018-08-20 03:04] LABS: CREATINE KINASE MB 0.8 ng/mL (<4.55); TROPONIN I 0.015 ng/mL
--- NOTE | 2018-08-20 06:32 | PDOC H&P ---
History of Present Illness Admission Date/PCP: 08/19/18 23:28 DANIKA DEE MD Patient complains of: Leg swelling History of Present Illness: ELEANOR STODDARD is a 73 year old male with a past medical history of atrial fibrillation, sleep apnea, congestive heart failure, hypothyroidism, diverticulitis status post segmental colectomy and alcohol dependence. He pre sents with 3 episodes of syncope over the last 3 days occurring upon standing. He denies palpitations, shortness of breath or chest pain. He denies recent changes medication regiment in the emergency room he is found to have hypotension, presumed acute renal failure, microcytic anemia, prolonged QT interval and referred to the hospitalist for admission. Past Medical History Cardiac Medical History: Reports: Atrial Fibrillation, Congestive Heart Failure, Hyperlipidema, Hypertension Denies: Coronary Artery Disease, DVT, Myocardial Infarction, Pulmonary Embolism Pulmonary Medical History: Reports: Sleep Apnea - Uncertain settings on home CPAP Denies: Asthma, Chronic Obstructive Pulmonary Disease (COPD) Neurological Medical History: Denies: Seizures Endocrine Medical History: Reports: Hypothyroidism Denies: Diabetes Mellitus Type 1, Diabetes Mellitus Type 2, Hyperthyroidism GI Medical History: Reports: Diverticulitis - Status post segmental colectomy for same., Gastroesophageal Reflux Disease, Hiatal Hernia Denies: Cirrhosis Musculoskeltal Medical History: Reports: Arthritis, Gout Psychiatric Medical History: Denies: Depression Past Surgical History Past Surgical History: Reports: Herniorrhaphy, Orthopedic Surgery - right and left hand surgeries, Other - Segmental colectomy for diverticulitis Social History Information Source: Patient, Relative Lives with: Spouse/Significant other Smoking Status: Former Smoker Frequency of Alcohol Use: Heavy Amount of Alcoholic Beverages Per Day: 1 bottle of wine per day Hx Recreational Drug Use: No Drugs: None Hx Prescription Drug Abuse: No - Advance Directive Resuscitation Status: Full Code Family History Family History: Hypertension Parental Family History Reviewed: Yes Children Family History Reviewed: Yes Sibling(s) Family History Reviewed.: Yes Medication/Allergy Home Medications: Atorvastatin Calcium [Lipitor 20 mg Tablet] 20 mg PO DAILY 04/30/17 Magnesium Oxide [Mag-Ox 400 mg Tablet] 400 mg PO BID 04/30/17 Aspirin [Aspirin 325 mg Tablet] 325 mg PO DAILY #30 tablet 05/01/17 Atenolol [Tenormin 50 mg Tablet] 100 mg PO DAILY #60 tablet 05/01/17 Folic Acid [Folvite 1 mg Tablet] 1 mg PO DAILY tablet 05/01/17 Furosemide [Lasix 40 mg Tablet] 20 mg PO ASDIR #90 tablet 05/01/17 Hydrocodone/Acetaminophen [[place] 7.5-325 mg Tablet] 1 tab PO Q6HP PRN tablet 05/01/17 Levothyroxine Sodium [Synthroid 0.088 mg Tablet] 0.088 mg PO DAILY #30 tablet 05/01/17 Levothyroxine Sodium [Synthroid 0.1 mg Tablet] 0.1 mg PO DAILY #30 tablet 05/01/17 Multivitamin [Tab-A-Lucy (Multiple Vitamin) Tablet] 1 tab PO DAILY tablet 05/01/17 Potassium Chloride [Klor-Con 10 Meq Capsule ER] 10 meq PO DAILY #30 tablet.sa 05/01/17 Thiamine HCl [Thiamine 100 mg Tablet] 100 mg PO DAILY tablet 05/01/17 Prednisone [Deltasone 20 mg Tablet] 3 tab PO DAILY 7 Days tablet 05/05/17 Febuxostat [Uloric 40 mg Tablet] 40 mg PO DAILY #10 tablet 05/18/17 Hydrocodone/Acetaminophen [[place] 5-325 mg Tablet] 1 tab PO Q4HP PRN #10 tablet 05/18/17 Prednisone 20 mg PO TID #14 tablet 05/18/17 Diclofenac Sodium [Voltaren] 4 gm TP QID PRN #100 gel..gm. 06/01/17 Prednisone [Deltasone 10 mg Tablet] 10 mg PO ASDIR PRN #21 tablet 06/01/17 Hydrocodone/Acetaminophen [Hydrocodon-Acetaminophen 5-325] 1 each PO ASDIR PRN #15 tablet 06/12/17 Cyclobenzaprine HCl [Flexeril 5 mg Tablet] 5 mg PO TID #15 tablet 03/28/18 Hydrocodone/Acetaminophen [[place] 5-325 mg Tablet] 1 tab PO Q6H PRN #20 tablet 05/05/18 Methylprednisolone [Medrol 4 Mg Tablet] See Protocol PO DAILY #1 pkg 05/05/18 Allergies/Adverse Reactions: allopurinol Allergy (Verified 05/05/18 06:14) colchicine Allergy (Verified 05/05/18 06:14) Sulfa (Sulfonamide Antibiotics) Allergy (Verified 05/05/18 06:14) valdecoxib [From Bextra] Allergy (Verified 05/05/18 06:14) Review of Systems Constitutional: PRESENT: as per HPI, fatigue, weakness, weight gain Eyes: ABSENT: visual disturbances Ears: ABSENT: hearing changes Cardiovascular: PRESENT: as per HPI, edema, orthropnea. ABSENT: chest pain, dyspnea on exertion, palpitations Respiratory: PRESENT: as per HPI, cough - Clear sputum. ABSENT: hemoptysis Gastrointestinal: ABSENT: abdominal pain, constipation, diarrhea, hematemesis, hematochezia, nausea, vomiting Genitourinary: ABSENT: dysuria, hematuria Musculoskeletal: ABSENT: joint swelling Integumentary: ABSENT: rash, wounds Neurological: ABSENT: abnormal gait, abnormal speech, confusion, dizziness, focal weakness, syncope Psychiatric: ABSENT: anxiety, depression, homidical ideation, suicidal ideation Endocrine: ABSENT: cold intolerance, heat intolerance, polydipsia, polyuria Hematologic/Lymphatic: ABSENT: easy bleeding, easy bruising Physical Exam Vital Signs: Temp Pulse Resp BP Pulse Ox 97.9 F 56 L 18 120/55 L 96 08/20/18 04:28 08/20/18 04:28 08/20/18 04:28 08/20/18 04:28 08/20/18 04:28 Intake & Output 08/18/18 08/19/18 08/20/18 11:59 11:59 11:59 Output Total 100 Balance -100 Weight 112 kg General appearance: PRESENT: mild distress, morbidly obese Head exam: PRESENT: atraumatic, normocephalic Eye exam: PRESENT: conjunctiva pink, EOMI, PERRLA. ABSENT: scleral icterus Ear exam: PRESENT: normal external ear exam Mouth exam: PRESENT: moist, tongue midline Neck exam: ABSENT: carotid bruit, JVD, lymphadenopathy, thyromegaly Respiratory exam: PRESENT: clear to auscultation sigifredo, crackles. ABSENT: rales, rhonchi, wheezes Cardiovascular exam: PRESENT: RRR, +S2. ABSENT: diastolic murmur, rubs, systolic murmur Pulses: PRESENT: normal dorsalis pedis pul Vascular exam: PRESENT: normal capillary refill GI/Abdominal exam: PRESENT: normal bowel sounds, soft. ABSENT: distended, guarding, mass, organolmegaly, rebound, tenderness Rectal exam: PRESENT: deferred Extremities exam: PRESENT: pedal edema, +2 edema. ABSENT: calf tenderness, clubbing Neurological exam: PRESENT: alert, awake, oriented to person, oriented to place, oriented to time, oriented to situation, CN II-XII grossly intact. ABSENT: motor sensory deficit Psychiatric exam: PRESENT: appropriate affect, normal mood. ABSENT: homicidal ideation, suicidal ideation Skin exam: PRESENT: dry, intact, warm. ABSENT: cyanosis, rash Results Laboratory Results: 08/19/18 19:52 08/19/18 19:52 08/19/18 08/19/18 08/19/18 19:52 19:52 19:52 WBC 9.5 RBC 2.58 L Hgb 7.9 L Hct 24.0 L MCV 93 MCH 30.6 MCHC 32.9 RDW 19.9 H Plt Count 283 Seg Neutrophils % 75.8 Lymphocytes % 12.6 L Monocytes % 9.7 Eosinophils % 1.2 Basophils % 0.7 Absolute Neutrophils 7.2 Absolute Lymphocytes 1.2 Absolute Monocytes 0.9 Absolute Eosinophils 0.1 Absolute Basophils 0.1 Retic Count (auto) Absolute Retic Sodium 136.0 L Potassium 4.4 Chloride 96 L Carbon Dioxide 25 Anion Gap 15 BUN 40 H Creatinine 2.94 H Est GFR ( Amer) 26 L Est GFR (Non-Af Amer) 21 L Glucose 87 Calcium 8.9 Iron 27.8 L TIBC 413 % Saturation 7 Ferritin 15.20 L Vitamin B12 294.0 Folate > 20.00 TSH Urine Color Urine Appearance Urine pH Ur Specific [place] Urine Protein Urine Glucose (UA) Urine Ketones Urine Blood Urine Nitrite Ur Leukocyte Esterase Urine WBC (Auto) Urine RBC (Auto) 08/19/18 08/19/18 08/20/18 19:52 19:52 00:26 WBC RBC Hgb Hct MCV MCH MCHC RDW Plt Count Seg Neutrophils % Lymphocytes % Monocytes % Eosinophils % Basophils % Absolute Neutrophils Absolute Lymphocytes Absolute Monocytes Absolute Eosinophils Absolute Basophils Retic Count (auto) 1.06 Absolute Retic 0.027 L Sodium Potassium Chloride Carbon Dioxide Anion Gap BUN Creatinine Est GFR ( Amer) Est GFR (Non-Af Amer) Glucose Calcium Iron TIBC % Saturation Ferritin Vitamin B12 Folate TSH 3.67 Urine Color YELLOW Urine Appearance CLOUDY Urine pH 5.0 Ur Specific [place] 1.015 Urine Protein 30 H Urine Glucose (UA) NEGATIVE Urine Ketones NEGATIVE Urine Blood NEGATIVE Urine Nitrite NEGATIVE Ur Leukocyte Esterase MODERATE H Urine WBC (Auto) >182 Urine RBC (Auto) 1 08/19/18 08/19/18 08/20/18 19:52 19:52 02:18 Creatine Kinase 70 CK-MB (CK-2) 0.80 Troponin I 0.013 0.015 NT-Pro-B Natriuret Pep 4460 H Impressions: Chest X-Ray 08/19/18 20:38 IMPRESSION: No evidence of acute cardiopulmonary disease. Assessment & Plan - Diagnosis (1) Anemia Qualifiers: Anemia type: iron deficiency Qualified Code(s): D64.9 - Anemia, unspecified Is this a current diagnosis for this admission?: Yes Plan: Undoubtedly contributing to his presentation, 2 units of packed red blood cells, follow-up CBC and occult stool (2) Congestive heart failure Qualifiers: Heart failure type: unspecified Heart failure chronicity: unspecified Qualified Code(s): I50.9 - Heart failure, unspecified Is this a current diagnosis for this admission?: Yes Plan: Suspected new significant reduced cardiac output, obtain prior echo with Dr. Sorto, BiPAP initiated, follow-up cardiac enzymes and TSH (3) Renal failure Qualifiers: Renal failure chronicity: unspecified chronicity Qualified Code(s): N19 - Unspecified kidney failure Is this a current diagnosis for this admission?: Yes Plan: Appears prerenal with reduced cardiac output. Avoid nephrotoxic meds and doses follow-up chemistry - Time Time Spent: 50 to 70 Minutes - Inpatient Certification Medical Necessity: Need Close Monitoring Due to Risk of Patient Decompensation
[2018-08-20] MEDS ORDERED: NORMAL SALINE 250 ML IV PRN ×2 (06:33)
[2018-08-20 07:37] LABS: ABSOLUTE BASOPHILS # (AUTO) 0.1 10^3/uL (0.0-0.2); ABSOLUTE EOSINOPHILS # (AUTO) 0.1 10^3/uL (0.0-0.6); ABSOLUTE LYMPHOCYTES (AUTO) 0.9 10^3/uL (0.5-4.7); ABSOLUTE MONOCYTES (AUTO) 0.8 10^3/uL (0.1-1.4); ABSOLUTE NEUT (AUTO) 5.7 10^3/uL (1.7-8.2); BASOPHILS % (AUTO) 0.7 % (0-2); HEMATOCRIT 22.9 % (37.9-51.0); LYMPHOCYTES % (AUTO) 11.5 % (13-45); MEAN CORPUSCULAR HEMOGLOBIN 29.3 pg (27.0-33.4); MEAN CORPUSCULAR HGB CONC 32.2 g/dL (32.0-36.0); MEAN CORPUSCULAR VOLUME 91 fl (80-97); PLATELET COUNT 241 10^3/uL (150-450); RED BLOOD COUNT 2.51 10^6/uL (4.35-5.55); RED CELL DISTRIBUTION WIDTH 19.9 % (11.5-14.0); SEGMENTED NEUTROPHILS % (AUTO) 75.8 % (42-78); TOTAL CELLS COUNTED % (AUTO) 100 %; WHITE BLOOD COUNT 7.5 10^3/uL (4.0-10.5)
[2018-08-20 07:45] LABS: ANION GAP 12 (5-19); BLOOD UREA NITROGEN 42 mg/dL (7-20); CALCIUM 9.1 mg/dL (8.4-10.2); CARBON DIOXIDE 26 mmol/L (22-30); CHLORIDE 98 mmol/L (98-107); CREATINE KINASE 56 U/L (55-170); GLUCOSE 104 mg/dL (75-110); HEMOGLOBIN 7.4 g/dL (13.5-17.0); POTASSIUM 4.5 mmol/L (3.6-5.0); SODIUM 136.4 mmol/L (137-145)
[2018-08-20 07:57] LABS: CREATINE KINASE MB 0.77 ng/mL (<4.55); TROPONIN I 0.013 ng/mL
--- NOTE | 2018-08-20 07:59 | EKG REPORT ---
SEVERITY:- ABNORMAL ECG - ATRIAL FIBRILLATION LOW VOLTAGE IN FRONTAL LEADS BORDERLINE PROLONGED QT INTERVAL : Confirmed by: Emiliano Guerrero MD 20-Aug-2018 07:58:48
--- NOTE | 2018-08-20 07:59 | EKG REPORT ---
SEVERITY:- ABNORMAL ECG - ATRIAL FIBRILLATION, V-RATE 59-68 PROLONGED QT INTERVAL : Confirmed by: Emiliano Guerrero MD 20-Aug-2018 07:59:00
[2018-08-20] MEDS ORDERED: FUROSEMIDE INJ/PF 40 MG/4 ML SDV IV SCH (10:00)
[2018-08-20] MEDS: POTASSIUM CHLORIDE 10 MEQ CAPSULE.ER PO SCH ×2 (10:22→22:22)
[2018-08-20] MEDS: THIAMINE HCL 100 MG TABLET PO SCH (10:25)
[2018-08-20] MEDS: DOCUSATE SODIUM 100 MG CAPSULE PO SCH (10:27)
[2018-08-20] MEDS: FOLIC ACID 1 MG TABLET PO SCH (10:27)
[2018-08-20] MEDS: NITROGLYCERIN 5 MG (0.2 MG/HR) PATCH.TD24 TD SCH (11:53)
[2018-08-20] MEDS: IRON POLYSACCHARIDES COMPLEX 150 MG CAPSULE PO SCH (13:40)
[2018-08-20] MEDS ORDERED: LORAZEPAM INJ 2 MG/1 ML VIAL IV PRN (14:42)
[2018-08-20] MEDS ORDERED: FUROSEMIDE INJ/PF 20 MG/2 ML SDV IV ONE (15:00)
[2018-08-20 15:54] LABS: CREATINE KINASE MB 0.74 ng/mL (<4.55); TROPONIN I 0.013 ng/mL
[2018-08-20] MEDS ORDERED: PEG 3350/NA SULF,BICARB,CL/KCL 4000 ML PO ONE (20:30)
[2018-08-20 22:53] LABS: HEMATOCRIT 29.6 % (37.9-51.0); MEAN CORPUSCULAR HEMOGLOBIN 30.3 pg (27.0-33.4); MEAN CORPUSCULAR HGB CONC 32.8 g/dL (32.0-36.0); MEAN CORPUSCULAR VOLUME 93 fl (80-97); PLATELET COUNT 249 10^3/uL (150-450); RED CELL DISTRIBUTION WIDTH 18.4 % (11.5-14.0); WHITE BLOOD COUNT 8.4 10^3/uL (4.0-10.5)
[2018-08-20 22:55] LABS: HEMOGLOBIN 9.7 g/dL (13.5-17.0)
--- NOTE | 2018-08-20 22:58 | XCELERA REPORT ---
[address] [address] Transthoracic Echocardiogram Report Name: ELEANOR STODDARD Age: 73 yrs Gender: Male : 1945 Patient Status: Inpatient Patient Location: [facility]^A Study Date: 08/20/2018 09:21 AM Height: 71 in Weight: 240 lb BSA: 2.3 m2 Procedure: A two-dimensional transthoracic echocardiogram with color flow and Doppler was performed. Study Quality: Fair. Reason For Study: s4 History: CHF /EDEMA / MURMUR. Ordering Physician: CHENG MARTINEZ Performed By: Nika Roman Interpretation Summary The left ventricle is normal in size. There is mild concentric left ventricular hypertrophy. LV EF is > than 65% The left ventricular ejection fraction is preserved. The left ventricular wall motion is normal. There is no thrombus. There is no ventricular septal defect visualized. The right atrium is mild to moderately dilated. The left atrium is moderately dilated. The interatrial septum is intact with no evidence for an atrial septal defect. There is no evidence of mitral valve prolapse. There is no vegetation seen on the mitral valve. There is no mitral valve stenosis. There is a mild amount of mitral regurgitation There is no aortic valvular vegetation. There is no aortic valve stenosis There is no LVOT obstruction. No aortic regurgitation is present. There is no tricuspid stenosis. There is a moderate amount of tricuspid regurgitation There is servere pulmonary hypertension by echo RVSP is 72 to 77 mm of Hg , with RA mean of 15 to 20. There is no pulmonic valvular regurgitation. There is no pulmonic valvular stenosis. The aortic root is normal size. The inferior vena cava appeared dilated and decreased < 50% with respiration (RAP 15-20 mmHg) There is no pericardial effusion. MMode/2D Measurements & Calculations RVDd: 3.6 cm LVIDd: 5.9 cm FS: 39.2 % Ao root diam: 3.2 cm IVSd: 1.2 cm LVIDs: 3.6 cm EDV(Teich): 176.0 ml Ao root area: 8.3 cm2 LVPWd: 1.2 cm ESV(Teich): 54.9 ml LA dimension: 5.4 cm EF(Teich): 68.8 % Doppler Measurements & Calculations MV E max sara: MV P1/2t max sara: Ao V2 max: LV V1 max P.1 cm/sec 105.1 cm/sec 139.1 cm/sec 5.1 mmHg MV A max sara: MV P1/2t: 57.8 msec Ao max P.7 mmHgLV V1 max: 30.1 cm/sec MVA(P1/2t): 3.8 cm2 112.5 cm/sec MV E/A: 3.5 MV dec slope: 532.7 cm/sec2 MV dec time: 0.21 sec PA V2 max: TR max sara: MV P1/2t-pr_phl: 81.9 cm/sec 374.6 cm/sec 57.8 msec PA max P.7 mmHgTR max P.1 mmHg Left Ventricle The left ventricle is normal in size. There is mild concentric left ventricular hypertrophy. LV EF is > than 65%. The left ventricular ejection fraction is preserved. LV diastolic function could not be adequately assessed due to atrial fibrilation. The left ventricular wall motion is normal. There is no thrombus. There is no ventricular septal defect visualized. Right Ventricle The right ventricle is mildly dilated. The right ventricular systolic function is normal. Atria The right atrium is mild to moderately dilated. The left atrium is moderately dilated. The interatrial septum is intact with no evidence for an atrial septal defect. There is no Doppler evidence for an interatrial shunt. Mitral Valve There is mild mitral annular calcification. There is no evidence of mitral valve prolapse. There is no vegetation seen on the mitral valve. There is no mitral valve stenosis. There is a mild amount of mitral regurgitation. Aortic Valve There is no aortic valvular vegetation. There is no aortic valve stenosis. There is no LVOT obstruction. No aortic regurgitation is present. Tricuspid Valve There is no tricuspid stenosis. There is a moderate amount of tricuspid regurgitation. There is servere pulmonary hypertension by echo. RVSP is 72 to 77 mm of Hg , with RA mean of 15 to 20. Pulmonic Valve There is no pulmonic valvular stenosis. There is no pulmonic valvular regurgitation. Great Vessels The aortic root is normal size. The inferior vena cava appeared dilated and decreased < 50% with respiration (RAP 15-20 mmHg). Effusions There is no pericardial effusion. : CHENG MARTINEZ > Dasha Saravia
--- NOTE | 2018-08-21 | PDOC CONSULTATION ---
Consultation Consult Date: 08/20/18 Consult reason:: LOWER GI BLEED History of Present Illness Admission Date/PCP: 08/19/18 23:28 DANIKA DEE MD Patient complains of: syncopal episodes History of Present Illness: ELEANOR STODDARD is a 73 year old male with history of A Fib on coumadin was noted to have passing spells. Hb noted 7.4 and being transfused right now. Just noted to have + stool hemoccult. Last dose of coumadin 2 days ago and Pt is 24 sec and INR 2.06 today. Will schedule colonoscopy with Dr Almaguer tomorrow. Past Medical History Cardiac Medical History: Reports: Atrial Fibrillation, Congestive Heart Failure, Hyperlipidema, Hypertension Denies: Coronary Artery Disease, DVT, Myocardial Infarction, Pulmonary Embolism Pulmonary Medical History: Reports: Sleep Apnea - Uncertain settings on home CPAP Denies: Asthma, Chronic Obstructive Pulmonary Disease (COPD) Neurological Medical History: Denies: Seizures Endocrine Medical History: Reports: Hypothyroidism Denies: Diabetes Mellitus Type 1, Diabetes Mellitus Type 2, Hyperthyroidism GI Medical History: Reports: Diverticulitis - Status post segmental colectomy for same., Gastroesophageal Reflux Disease, Hiatal Hernia Denies: Cirrhosis Musculoskeltal Medical History: Reports: Arthritis, Gout Psychiatric Medical History: Denies: Depression Past Surgical History Past Surgical History: Reports: Herniorrhaphy, Orthopedic Surgery - right and left hand surgeries, Other - Segmental colectomy for diverticulitis Social History Lives with: Spouse/Significant other Smoking Status: Former Smoker Frequency of Alcohol Use: Heavy Hx Recreational Drug Use: No Drugs: None Hx Prescription Drug Abuse: No - Advance Directive Resuscitation Status: Full Code Family History Family History: Hypertension Parental Family History Reviewed: Yes Children Family History Reviewed: No Sibling(s) Family History Reviewed.: No Medication/Allergy Home Medications: Atenolol [Tenormin 50 mg Tablet] 100 mg PO DAILY 08/20/18 Atorvastatin Calcium [Lipitor 20 mg Tablet] 20 mg PO DAILY 08/20/18 Diphenoxylate HCl/Atropine [Lomotil Tablet] 1 each PO TIDP PRN 08/20/18 Dofetilide [Tikosyn] 250 mcg PO BID 08/20/18 Folic Acid [Folvite 1 mg Tablet] 1 mg PO DAILY 08/20/18 Furosemide [Lasix 40 mg Tablet] 80 mg PO BID 08/20/18 Hydrocodone/Acetaminophen [[place] 5-325 mg Tablet] 1 tab PO Q6HP PRN 08/20/18 Levothyroxine Sodium [Synthroid] 125 mcg PO Q6AM 08/20/18 Magnesium Oxide [Magnesium] 400 mg PO DAILY 08/20/18 Methocarbamol [Robaxin 750 mg Tablet] 750 mg PO TID 08/20/18 Metolazone [Zaroxolyn 2.5 Mg Tablet] 2.5 mg PO DAILY 08/20/18 Omeprazole Magnesium [Prilosec Otc] 20 mg PO DAILY 08/20/18 Potassium Chloride 20 meq PO DAILY 08/20/18 Vitamin B Complex [Vitamin B-100 Complex] 100 mg PO DAILY 08/20/18 Warfarin Sodium [Coumadin 1 mg Tablet] 3.5 mg PO DAILY 08/20/18 Allergies/Adverse Reactions: allopurinol Allergy (Verified 05/05/18 06:14) colchicine Allergy (Verified 05/05/18 06:14) Sulfa (Sulfonamide Antibiotics) Allergy (Verified 05/05/18 06:14) valdecoxib [From Bextra] Allergy (Verified 05/05/18 06:14) Review of Systems Constitutional: PRESENT: other - no fever/chills Eyes: PRESENT: other - no visual/hearing changes Cardiovascular: PRESENT: other - no chest pains/cough Gastrointestinal: PRESENT: diarrhea, other - no abdominal pains Genitourinary: PRESENT: other - no dysuria Neurological: PRESENT: syncope Physical Exam Vital Signs: Temp Pulse Resp BP Pulse Ox 97.5 F 63 16 129/59 H 97 08/20/18 20:45 08/20/18 20:45 08/20/18 20:45 08/20/18 20:45 08/20/18 20:45 Intake & Output 08/19/18 08/20/18 08/21/18 06:59 06:59 06:59 Intake Total 1068 Output Total 100 200 Balance -100 868 Weight 112 kg General appearance: PRESENT: no acute distress Head exam: PRESENT: atraumatic Eye exam: PRESENT: conjunctiva pink Mouth exam: PRESENT: moist Neck exam: PRESENT: full ROM Respiratory exam: PRESENT: clear to auscultation sigifredo Cardiovascular exam: PRESENT: RRR Pulses: PRESENT: normal radial pulses Vascular exam: PRESENT: normal capillary refill GI/Abdominal exam: PRESENT: soft - non tender Rectal exam: PRESENT: deferred Extremities exam: PRESENT: full ROM, pedal edema Musculoskeletal exam: PRESENT: ambulatory Neurological exam: PRESENT: alert, oriented to person, oriented to place, oriented to time, oriented to situation Skin exam: PRESENT: normal color, warm Results Laboratory Results: 08/20/18 22:35 08/20/18 07:10 08/19/18 08/19/18 08/19/18 19:52 19:52 19:52 WBC RBC Hgb Hct MCV MCH MCHC RDW Plt Count Seg Neutrophils % Lymphocytes % Monocytes % Eosinophils % Basophils % Absolute Neutrophils Absolute Lymphocytes Absolute Monocytes Absolute Eosinophils Absolute Basophils Retic Count (auto) 1.06 Absolute Retic 0.027 L Sodium Potassium Chloride Carbon Dioxide Anion Gap BUN Creatinine Est GFR ( Amer) Est GFR (Non-Af Amer) Glucose Calcium Iron 27.8 L TIBC 413 % Saturation 7 Ferritin 15.20 L Vitamin B12 294.0 Folate > 20.00 TSH 3.67 Urine Color Urine Appearance Urine pH Ur Specific [place] Urine Protein Urine Glucose (UA) Urine Ketones Urine Blood Urine Nitrite Ur Leukocyte Esterase Urine WBC (Auto) Urine RBC (Auto) Stool Occult Blood Blood Type Antibody Screen 08/20/18 08/20/18 08/20/18 00:26 06:50 07:10 WBC RBC Hgb Hct MCV MCH MCHC RDW Plt Count Seg Neutrophils % Lymphocytes % Monocytes % Eosinophils % Basophils % Absolute Neutrophils Absolute Lymphocytes Absolute Monocytes Absolute Eosinophils Absolute Basophils Retic Count (auto) Absolute Retic Sodium 136.4 L Potassium 4.5 Chloride 98 Carbon Dioxide 26 Anion Gap 12 BUN 42 H Creatinine 2.86 H Est GFR ( Amer) 26 L Est GFR (Non-Af Amer) 22 L Glucose 104 Calcium 9.1 Iron TIBC % Saturation Ferritin Vitamin B12 Folate TSH Urine Color YELLOW Urine Appearance CLOUDY Urine pH 5.0 Ur Specific [place] 1.015 Urine Protein 30 H Urine Glucose (UA) NEGATIVE Urine Ketones NEGATIVE Urine Blood NEGATIVE Urine Nitrite NEGATIVE Ur Leukocyte Esterase MODERATE H Urine WBC (Auto) >182 Urine RBC (Auto) 1 Stool Occult Blood POSITIVE Blood Type Antibody Screen 08/20/18 08/20/18 08/20/18 07:10 07:10 22:35 WBC 7.5 8.4 RBC 2.51 L 3.20 L Hgb 7.4 L 9.7 L D Hct 22.9 L 29.6 L MCV 91 93 MCH 29.3 30.3 MCHC 32.2 32.8 RDW 19.9 H 18.4 H Plt Count 241 249 Seg Neutrophils % 75.8 Lymphocytes % 11.5 L Monocytes % 11.0 Eosinophils % 1.0 Basophils % 0.7 Absolute Neutrophils 5.7 Absolute Lymphocytes 0.9 Absolute Monocytes 0.8 Absolute Eosinophils 0.1 Absolute Basophils 0.1 Retic Count (auto) Absolute Retic Sodium Potassium Chloride Carbon Dioxide Anion Gap BUN Creatinine Est GFR ( Amer) Est GFR (Non-Af Amer) Glucose Calcium Iron TIBC % Saturation Ferritin Vitamin B12 Folate TSH Urine Color Urine Appearance Urine pH Ur Specific [place] Urine Protein Urine Glucose (UA) Urine Ketones Urine Blood Urine Nitrite Ur Leukocyte Esterase Urine WBC (Auto) Urine RBC (Auto) Stool Occult Blood Blood Type O POSITIVE Antibody Screen NEGATIVE 08/19/18 08/19/18 08/20/18 19:52 19:52 02:18 Creatine Kinase 70 CK-MB (CK-2) 0.80 Troponin I 0.013 0.015 NT-Pro-B Natriuret Pep 4460 H 08/20/18 08/20/18 08/20/18 07:10 07:10 14:50 Creatine Kinase 56 62 CK-MB (CK-2) 0.77 Troponin I 0.013 NT-Pro-B Natriuret Pep 08/20/18 14:50 Creatine Kinase CK-MB (CK-2) 0.74 Troponin I 0.013 NT-Pro-B Natriuret Pep Impressions: Chest X-Ray 08/19/18 20:38 IMPRESSION: No evidence of acute cardiopulmonary disease. Assessment & Plan - Diagnosis (1) Lower GI bleed Is this a current diagnosis for this admission?: Yes (2) Warfarin-induced coagulopathy Is this a current diagnosis for this admission?: Yes - Time Time Spent: 30 to 50 Minutes - Inpatient Certification Medical Necessity: Need Close Monitoring Due to Risk of Patient Decompensation, Need For IV Fluids, Need for Surgery, Risk of Complication if Not Cared For in Hospital - Plan Summary Plan Summary: Bowel prep for colonoscopy y Dr Almaguer tomorrow Recheck PT/INR in am and if INR >1.5 may need FFP
[2018-08-21 05:30] LABS: ABSOLUTE BASOPHILS # (AUTO) 0.1 10^3/uL (0.0-0.2); ABSOLUTE EOSINOPHILS # (AUTO) 0.1 10^3/uL (0.0-0.6); ABSOLUTE LYMPHOCYTES (AUTO) 0.8 10^3/uL (0.5-4.7); ABSOLUTE MONOCYTES (AUTO) 0.8 10^3/uL (0.1-1.4); BASOPHILS % (AUTO) 0.8 % (0-2); EOSINOPHILS % (AUTO) 0.8 % (0-6); HEMATOCRIT 28.9 % (37.9-51.0); HEMOGLOBIN 9.6 g/dL (13.5-17.0); LYMPHOCYTES % (AUTO) 10.4 % (13-45); MEAN CORPUSCULAR HEMOGLOBIN 30.3 pg (27.0-33.4); MEAN CORPUSCULAR HGB CONC 33.1 g/dL (32.0-36.0); MEAN CORPUSCULAR VOLUME 91 fl (80-97); MONOCYTES % (AUTO) 10.3 % (3-13); PLATELET COUNT 219 10^3/uL (150-450); RED BLOOD COUNT 3.16 10^6/uL (4.35-5.55); RED CELL DISTRIBUTION WIDTH 18.3 % (11.5-14.0); SEGMENTED NEUTROPHILS % (AUTO) 77.7 % (42-78); TOTAL CELLS COUNTED % (AUTO) 100 %; WHITE BLOOD COUNT 7.7 10^3/uL (4.0-10.5)
[2018-08-21 05:34] LABS: INTERNATIONAL RATION (INR) 1.55; PROTHROMBIN TIME 19.3 SEC (11.4-15.4)
[2018-08-21 06:02] LABS: ALANINE AMINOTRANSFERASE 16 U/L (21-72); ALBUMIN 3.9 g/dL (3.5-5.0); ALKALINE PHOSPHATASE 143 U/L (38-126); ANION GAP 13 (5-19); ASPARTATE AMINO TRANSFERASE 25 U/L (17-59); BILIRUBIN,DIRECT 0.6 mg/dL (0.0-0.4); BILIRUBIN,TOTAL 1.5 mg/dL (0.2-1.3); BLOOD UREA NITROGEN 41 mg/dL (7-20); CALCIUM 9.1 mg/dL (8.4-10.2); CARBON DIOXIDE 26 mmol/L (22-30); CHLORIDE 100 mmol/L (98-107); GLUCOSE 87 mg/dL (75-110); POTASSIUM 4.5 mmol/L (3.6-5.0); SODIUM 139.4 mmol/L (137-145); TOTAL PROTEIN 7.4 g/dL (6.3-8.2)
[2018-08-21] MEDS ORDERED: NORMAL SALINE 250 ML IV PRN (08:15)
[2018-08-21] MEDS ORDERED: FUROSEMIDE INJ/PF 40 MG/4 ML SDV IV ONE (08:17)
[2018-08-21] MEDS ORDERED: ONDANSETRON HCL INJ/PF 4 MG/2 ML SDV ONE (09:29)
[2018-08-21] MEDS ORDERED: DIPHENHYDRAMINE HCL 50 MG/ML VIAL ONE (09:29)
[2018-08-21] MEDS ORDERED: FLUMAZENIL INJ 0.5 MG/5 ML VIAL ONE (09:30)
[2018-08-21] MEDS ORDERED: GLUCAGON,HUMAN RECOMB 1 MG INJ ONE (09:30)
[2018-08-21] MEDS ORDERED: NALOXONE HCL INJ/PF 0.4 MG/1 ML SDV ONE (09:30)
[2018-08-21] MEDS ORDERED: EPINEPHRINE INJ 1 MG/10 ML DISP.SYRIN ONE (09:30)
[2018-08-21] MEDS ORDERED: FUROSEMIDE INJ/PF 40 MG/4 ML SDV ONE (10:14)
--- NOTE | 2018-08-21 10:38 | PDOC PROGRESS REPORT ---
Subjective Progress Note for:: 08/21/18 Subjective:: No acute events overnight. Patient is complaining of chronic patient is complaining of chronic persistent cough and dyspnea on exertion. He denies any chest pain, any bright blood per rectum. Denies any fever, vomiting, abdominal pain or any urinary symptoms. Patient is scheduled to have an upper and lower GI endoscopy by surgery today. Status post 2 PRBC transfusion since admission hemoglobin today is 9.6 up from 7.9 on admission. Coumadin was held and his INR is 1.55 today. WBC 7.7, creatinine 2.48 down from 2.86 from admission. Troponins less than 0.015. Normotensive, afebrile, saturating 99% on room air. Reason For Visit: LEG SWELLING,HEART FAILURE,ARF,LONG QT,ANEMIA Physical Exam Vital Signs: Temp Pulse Resp BP Pulse Ox 97.2 F 62 16 116/69 99 08/21/18 10:05 08/21/18 10:05 08/21/18 10:05 08/21/18 10:05 08/21/18 10:05 Intake & Output 08/20/18 08/21/18 08/22/18 06:59 06:59 06:59 Intake Total 1968 0 Output Total 100 200 Balance -100 1768 0 Weight 112 kg 113.5 kg General appearance: PRESENT: no acute distress, well-developed, well-nourished Head exam: PRESENT: atraumatic, normocephalic Neck exam: ABSENT: carotid bruit, JVD, lymphadenopathy, thyromegaly Respiratory exam: PRESENT: clear to auscultation sigifredo. ABSENT: rales, rhonchi, wheezes Cardiovascular exam: PRESENT: irregular rhythm. ABSENT: diastolic murmur, rubs, systolic murmur GI/Abdominal exam: PRESENT: normal bowel sounds, soft. ABSENT: distended, guarding, mass, organolmegaly, rebound, tenderness Extremities exam: PRESENT: +1 edema Neurological exam: PRESENT: alert, awake, oriented to person, oriented to place, oriented to time, oriented to situation, CN II-XII grossly intact. ABSENT: motor sensory deficit Skin exam: PRESENT: dry, intact, warm. ABSENT: cyanosis, rash Results Laboratory Results: 08/21/18 04:07 08/21/18 04:07 08/20/18 08/20/18 08/21/18 07:10 22:35 04:07 WBC 8.4 7.7 RBC 3.20 L 3.16 L Hgb 9.7 L D 9.6 L Hct 29.6 L 28.9 L MCV 93 91 MCH 30.3 30.3 MCHC 32.8 33.1 RDW 18.4 H 18.3 H Plt Count 249 219 Seg Neutrophils % 77.7 Lymphocytes % 10.4 L Monocytes % 10.3 Eosinophils % 0.8 Basophils % 0.8 Absolute Neutrophils 6.0 Absolute Lymphocytes 0.8 Absolute Monocytes 0.8 Absolute Eosinophils 0.1 Absolute Basophils 0.1 Sodium Potassium Chloride Carbon Dioxide Anion Gap BUN Creatinine Est GFR ( Amer) Est GFR (Non-Af Amer) Glucose Calcium Magnesium Total Bilirubin AST ALT Alkaline Phosphatase Total Protein Albumin Blood Type O POSITIVE Antibody Screen NEGATIVE 08/21/18 04:07 WBC RBC Hgb Hct MCV MCH MCHC RDW Plt Count Seg Neutrophils % Lymphocytes % Monocytes % Eosinophils % Basophils % Absolute Neutrophils Absolute Lymphocytes Absolute Monocytes Absolute Eosinophils Absolute Basophils Sodium 139.4 Potassium 4.5 Chloride 100 Carbon Dioxide 26 Anion Gap 13 BUN 41 H Creatinine 2.48 H Est GFR ( Amer) 31 L Est GFR (Non-Af Amer) 26 L Glucose 87 Calcium 9.1 Magnesium 2.0 Total Bilirubin 1.5 H AST 25 ALT 16 L Alkaline Phosphatase 143 H Total Protein 7.4 Albumin 3.9 Blood Type Antibody Screen 08/19/18 08/19/18 08/20/18 19:52 19:52 02:18 Creatine Kinase 70 CK-MB (CK-2) 0.80 Troponin I 0.013 0.015 NT-Pro-B Natriuret Pep 4460 H 08/20/18 08/20/18 08/20/18 07:10 07:10 14:50 Creatine Kinase 56 62 CK-MB (CK-2) 0.77 Troponin I 0.013 NT-Pro-B Natriuret Pep 08/20/18 14:50 Creatine Kinase CK-MB (CK-2) 0.74 Troponin I 0.013 NT-Pro-B Natriuret Pep Impressions: Chest X-Ray 08/19/18 20:38 IMPRESSION: No evidence of acute cardiopulmonary disease. Assessment & Plan - Diagnosis (1) GI bleed Is this a current diagnosis for this admission?: Yes Plan: History of diverticulitis status post segmental colectomy. Reports are normal colonoscopy several weeks ago as outpatient. His GI bleed could be secondary to history of diverticulitis coupled with coagulopathy caused by Coumadin that he is taking for his A. fib. Status post 2 PRBC transfusion since admission. H&H is stable. Scheduled for upper and lower GI endoscopy. Hold Coumadin. Avoid NSAIDs. Monitor H&H. Follow-up upper and lower GI endoscopy results. (2) Anemia Qualifiers: Anemia type: iron deficiency Is this a current diagnosis for this admission?: Yes Plan: Most likely due to GI bleed. Vitamin B12 folic acid within normal limits. Restart home meds. Continue iron supplements. (3) Acute on chronic kidney failure Qualifiers: Acute renal failure type: with acute renal cortical necrosis Is this a current diagnosis for this admission?: Yes Plan: Likely prerenal. Improving. Her volume status and electrolytes. Avoid nephrotoxic meds. Repeat CMP tomorrow. If does not improve will consult n ephrology. (4) Congestive heart failure Qualifiers: Heart failure type: unspecified Heart failure chronicity: unspecified Qualified Code(s): I50.9 - Heart failure, unspecified Is this a current diagnosis for this admission?: No Plan: Monitor volume status, cardiac diet. Restart home meds once appropriate. 2D echo on 08/20/2018 left ejection fraction more than 65%, severe pulmonary hypertension. (5) Atrial fibrillation Is this a current diagnosis for this admission?: Yes Plan: Hold atenolol and dofetilide owing to the QT prolongation and several episodes of syncope prior to admission. Hold Coumadin due to GI bleed. Risk and benefit of continuing anticoagulation was discussed with family and patient. Likely due to dofetilide cardiology consulted. Continue telemetry if not rate controlled will start on Cardizem drip. Follow-up cardiology recommendations. (6) Prolonged QT interval Is this a current diagnosis for this admission?: Yes Plan: Likely due to dofetilide for A. fib. Cardiology consulted. Follow recommendations. (7) Alcohol dependence Qualifiers: Substance use status: uncomplicated Qualified Code(s): F10.20 - Alcohol dependence, uncomplicated Is this a current diagnosis for this admission?: No Plan: Started on as needed benzos. Continue p.o. thiamine and folic acid. Monitor for signs of withdrawal. (8) Hypothyroid Qualifiers: Hypothyroidism type: unspecified Qualified Code(s): E03.9 - Hypothyroidism, unspecified Is this a current diagnosis for this admission?: No Plan: Hypothyroidism. TSH 3.67. Start home meds. (9) HEAVEN (obstructive sleep apnea) Is this a current diagnosis for this admission?: No Plan: Nocturnal CPAP. (10) UTI (urinary tract infection) Is this a current diagnosis for this admission?: Yes Plan: Likely E. coli. Will start on levofloxacin. Follow-up urine culture.
[2018-08-21] MEDS: MIDAZOLAM 2 MG/2 ML INJ ONE ×3 (11:05→11:24)
[2018-08-21] MEDS: FENTANYL CITRATE INJ/PF 100 MCG/2 ML AMPUL ONE ×2 (11:07→11:13)
[2018-08-21] MEDS ORDERED: LEVOFLOXACIN 500 MG TABLET PO SCH (11:15)
--- NOTE | 2018-08-21 11:46 | Operative Report ---
Operative Report DATE OF SURGERY: 08/21/18 PREOPERATIVE DIAGNOSIS: 1. Blood loss anemia. 2. History of alcohol abuse. 3. History of segmental colon resection POSTOPERATIVE DIAGNOSIS: Same with. 1. Residual left-sided colonic diverticulum. 2. Internal hemorrhoids. 3. Postoperative evidence of right colectomy. 4. No evidence of bleeding or clot identified. OPERATION: Total colonoscopy to cecum with photodocumentation SURGEON: CECELIA ALCANTARA ANESTHESIA: Moderate Sedation TISSUE REMOVED OR ALTERED: None COMPLICATIONS: None ESTIMATED BLOOD LOSS: Scant INTRAOPERATIVE FINDINGS: See below PROCEDURE: Obtaining informed consent the patient was taken from the preoperative holding area to the main endoscopy suite where monitoring devices were attached to the patient. Plan and surgical timeout were conducted The patient was placed in the left lateral decubitus position with knees to chest. A perianal examination was performed. There was no visible or palpable anorectal pathology. Sphincter tone was felt to be normal. Internal hemorrhoids appreciated The flexible adult colonoscope was advanced through the anal rectal canal, all the way to the cecum. There were scattered diverticulosis of the left colon. Visualization of the terminal portion of the colon suggested an anastomotic connection between the ileum and the colon. Multiple photos taken. There was no true cecal anatomy and no appendiceal orifice. This was a fair study on fair [place] prepped bowel. There was a significant amount of residual green and yellow stool particulate ; The colonoscope was withdrawn slowly and methodically checked and the mucosa carefully. There was no evidence of obvious tumor, stricture, bleeding or polyp. Again mucosal evaluation limited due to residual stool. The scope was slowly withdrawn through the anal rectal canal. Complete visualization of the rectum was achieved with photodocumentation. Internal hemorrhoids noted. The scope was withdrawn to the patient's anus. The patient tolerated the procedure well and was taken to the recovery area in stable condition. Per surveillance guidelines, patient be appropriate candidate for follow-up colonoscopy in 5-7 years.
[2018-08-21] MEDS ORDERED: POTASSIUM CHLORIDE 10 MEQ CAPSULE.ER PO ONE (15:12)
[2018-08-21] MEDS: POTASSIUM CHLORIDE 10 MEQ CAPSULE.ER PO SCH (15:14)
[2018-08-21] MEDS: NITROGLYCERIN 5 MG (0.2 MG/HR) PATCH.TD24 TD SCH (15:14)
[2018-08-21] MEDS: THIAMINE HCL 100 MG TABLET PO SCH (15:14)
[2018-08-21] MEDS: IRON POLYSACCHARIDES COMPLEX 150 MG CAPSULE PO SCH (15:14)
[2018-08-21] MEDS: FOLIC ACID 1 MG TABLET PO SCH (15:14)
[2018-08-21] MEDS: GUAIFENESIN/CODEINE PHOS 100-10 MG/ 5 ML UDC PO SCH ×3 (15:14→18:21)
[2018-08-21] MEDS: DOCUSATE SODIUM 100 MG CAPSULE PO SCH (15:15)
[2018-08-21] MEDS: CEFTRIAXONE 1 GM/D5W RTU 1 GM/50 ML RTUPB IV SCH (16:46)
[2018-08-22 05:36] LABS: ABSOLUTE EOSINOPHILS # (AUTO) 0.1 10^3/uL (0.0-0.6); ABSOLUTE LYMPHOCYTES (AUTO) 0.9 10^3/uL (0.5-4.7); ABSOLUTE MONOCYTES (AUTO) 0.8 10^3/uL (0.1-1.4); ABSOLUTE NEUT (AUTO) 5.7 10^3/uL (1.7-8.2); BASOPHILS % (AUTO) 0.6 % (0-2); EOSINOPHILS % (AUTO) 1.5 % (0-6); HEMATOCRIT 26.6 % (37.9-51.0); HEMOGLOBIN 8.7 g/dL (13.5-17.0); LYMPHOCYTES % (AUTO) 12.1 % (13-45); MEAN CORPUSCULAR HEMOGLOBIN 30.3 pg (27.0-33.4); MEAN CORPUSCULAR HGB CONC 32.5 g/dL (32.0-36.0); MEAN CORPUSCULAR VOLUME 93 fl (80-97); MONOCYTES % (AUTO) 10.4 % (3-13); PLATELET COUNT 203 10^3/uL (150-450); RED BLOOD COUNT 2.86 10^6/uL (4.35-5.55); RED CELL DISTRIBUTION WIDTH 18.3 % (11.5-14.0); SEGMENTED NEUTROPHILS % (AUTO) 75.4 % (42-78); TOTAL CELLS COUNTED % (AUTO) 100 %; WHITE BLOOD COUNT 7.6 10^3/uL (4.0-10.5)
[2018-08-22 05:37] LABS: INTERNATIONAL RATION (INR) 1.33; PROTHROMBIN TIME 17.1 SEC (11.4-15.4)
[2018-08-22 05:57] LABS: ALANINE AMINOTRANSFERASE 25 U/L (21-72); ALBUMIN 3.5 g/dL (3.5-5.0); ALKALINE PHOSPHATASE 129 U/L (38-126); ANION GAP 10 (5-19); ASPARTATE AMINO TRANSFERASE 22 U/L (17-59); BILIRUBIN,DIRECT 0.3 mg/dL (0.0-0.4); BILIRUBIN,TOTAL 0.8 mg/dL (0.2-1.3); BLOOD UREA NITROGEN 38 mg/dL (7-20); CARBON DIOXIDE 28 mmol/L (22-30); CHLORIDE 101 mmol/L (98-107); GLUCOSE 91 mg/dL (75-110); POTASSIUM 4.2 mmol/L (3.6-5.0); SODIUM 139.1 mmol/L (137-145); TOTAL PROTEIN 6.8 g/dL (6.3-8.2)
--- NOTE | 2018-08-22 07:59 | EKG REPORT ---
SEVERITY:- ABNORMAL ECG - ATRIAL FIB. BORDERLINE LEFT AXIS DEVIATION PVC VS ABERRENT CONDUCTION : Confirmed by: Emiliano Guerrero MD 22-Aug-2018 07:58:57
[2018-08-22] MEDS: IRON POLYSACCHARIDES COMPLEX 150 MG CAPSULE PO SCH (10:10)
[2018-08-22] MEDS: GUAIFENESIN/CODEINE PHOS 100-10 MG/ 5 ML UDC PO SCH ×3 (10:10→17:14)
[2018-08-22] MEDS: FOLIC ACID 1 MG TABLET PO SCH (10:10)
[2018-08-22] MEDS: THIAMINE HCL 100 MG TABLET PO SCH (10:10)
[2018-08-22] MEDS: DOCUSATE SODIUM 100 MG CAPSULE PO SCH (10:16)
[2018-08-22] MEDS: CEFTRIAXONE 1 GM/D5W RTU 1 GM/50 ML RTUPB IV SCH (10:20)
[2018-08-22] MEDS: NITROGLYCERIN 5 MG (0.2 MG/HR) PATCH.TD24 TD SCH ×2 (10:32→22:16)
--- NOTE | 2018-08-22 10:58 | PDOC PROGRESS REPORT ---
Subjective Progress Note for:: 08/22/18 Subjective:: states he was not happy with his colonoscopy- states he was awake and it hurt. states he will never had another colonoscopy again. denies chest pain, SOB, abdominal pain, n/v or dizziness at this time. spoke with family in room- tells me he had EGD/ colonoscopy 3 weeks ago- outside the hospital with GI- states showed esophageal varices and diverticulosis. he did not get EGD today today. Reason For Visit: LEG SWELLING,HEART FAILURE,ARF,LONG QT,ANEMIA Physical Exam Vital Signs: Temp Pulse Resp BP Pulse Ox 97.7 F 78 12 115/68 93 08/22/18 07:29 08/22/18 07:29 08/22/18 07:29 08/22/18 07:29 08/22/18 07:29 Intake & Output 08/21/18 08/22/18 08/23/18 06:59 06:59 06:59 Intake Total 1968 2085 Output Total 200 1200 Balance 1768 885 Weight 250 lb 3.594 oz 251 lb 8.759 oz General appearance: PRESENT: no acute distress Head exam: PRESENT: atraumatic, normocephalic Eye exam: PRESENT: EOMI. ABSENT: conjunctival injection, scleral icterus Ear exam: PRESENT: normal external ear exam Mouth exam: PRESENT: moist, tongue midline Neck exam: ABSENT: tracheal deviation Respiratory exam: PRESENT: decreased breath sounds - bilaterally at the bases, symmetrical Cardiovascular exam: PRESENT: +S1, +S2 Pulses: PRESENT: +1 pedal pulses bilateral GI/Abdominal exam: PRESENT: normal bowel sounds, soft. ABSENT: tenderness Extremities exam: PRESENT: other - 3+ pedal edema with 2+ at the paz bilaterally Neurological exam: PRESENT: alert, awake, oriented to person, oriented to place, oriented to time, oriented to situation, CN II-XII grossly intact Skin exam: PRESENT: dry, warm Results Laboratory Results: 08/22/18 04:19 08/22/18 04:19 08/20/18 08/22/18 08/22/18 07:10 04: 04:19 WBC 7.6 RBC 2.86 L Hgb 8.7 L Hct 26.6 L MCV 93 MCH 30.3 MCHC 32.5 RDW 18.3 H Plt Count 203 Seg Neutrophils % 75.4 Lymphocytes % 12.1 L Monocytes % 10.4 Eosinophils % 1.5 Basophils % 0.6 Absolute Neutrophils 5.7 Absolute Lymphocytes 0.9 Absolute Monocytes 0.8 Absolute Eosinophils 0.1 Absolute Basophils 0.0 Sodium 139.1 Potassium 4.2 Chloride 101 Carbon Dioxide 28 Anion Gap 10 BUN 38 H Creatinine 2.14 H Est GFR ( Amer) 37 L Est GFR (Non-Af Amer) 30 L Glucose 91 Calcium 9.0 Magnesium 1.9 Total Bilirubin 0.8 AST 22 ALT 25 Alkaline Phosphatase 129 H Total Protein 6.8 Albumin 3.5 Blood Type O POSITIVE Antibody Screen NEGATIVE 08/19/18 08/19/18 08/20/18 19:52 19:52 02:18 Creatine Kinase 70 CK-MB (CK-2) 0.80 Troponin I 0.013 0.015 NT-Pro-B Natriuret Pep 4460 H 08/20/18 08/20/18 08/20/18 07:10 07:10 14:50 Creatine Kinase 56 62 CK-MB (CK-2) 0.77 Troponin I 0.013 NT-Pro-B Natriuret Pep 08/20/18 14:50 Creatine Kinase CK-MB (CK-2) 0.74 Troponin I 0.013 NT-Pro-B Natriuret Pep Impressions: Chest X-Ray 08/19/18 20:38 IMPRESSION: No evidence of acute cardiopulmonary disease. Assessment & Plan - Diagnosis (1) Diastolic CHF Is this a current diagnosis for this admission?: Yes (2) Acute on chronic kidney failure Qualifiers: Acute renal failure type: with acute renal cortical necrosis Is this a current diagnosis for this admission?: Yes (3) Atrial fibrillation Is this a current diagnosis for this admission?: Yes (4) GI bleed Is this a current diagnosis for this admission?: Yes (5) Prolonged QT interval Is this a current diagnosis for this admission?: Yes (6) UTI (urinary tract infection) Is this a current diagnosis for this admission?: Yes (7) Alcohol dependence Qualifiers: Substance use status: uncomplicated Qualified Code(s): F10.20 - Alcohol dependence, uncomplicated Is this a current diagnosis for this admission?: No (8) Hypothyroid Qualifiers: Hypothyroidism type: unspecified Qualified Code(s): E03.9 - Hypothyroidism, unspecified Is this a current diagnosis for this admission?: No (9) HEAVEN (obstructive sleep apnea) Is this a current diagnosis for this admission?: No - Plan Summary Plan Summary: UTI- on rocephin- UCx pending Diastolic HF- on lasix 80mg BID at home- was held- will restart lasix as he has 3+ LE edema GI bleed- s/p 2u pRBCs- Hb >8. repeat serial H/H and trend. Colonoscopy done shows no acute bleed. EGD not done today. he had EGD/Colonoscopy 3 weeks ago per family/patient- on EGD found to have esophageal varices- likely the cause of his anemia and GI bleed. long history of alcohol dependence- drinks 1liter wine daily- i have counseled him on cessation. last drink 5 days ago. not in withdrawl at this time. HTN- anti- HTN meds on hold since BP appropriate- will restart when necessary. Hypothyroid- restarted thyroid med HLD- restarted statin alcohol dependence- ?cirrhosis- not sure- family/patient states he has cirrhosis- mild elevation of ALK phos. will check ammonia in AM and LFTS. will get RUQ. c/w lasix- may need aldactone. c/w folic acid and thiamine.
--- NOTE | 2018-08-22 12:21 | RADIOLOGY REPORT (SQ) ---
EXAM DESCRIPTION: U/S ABDOMEN LIMITED W/O DOP COMPLETED DATE/TIME: 08/22/2018 12:02 pm REASON FOR STUDY: r/o cirrhosis COMPARISON: CT abdomen pelvis dated 07/21/2018 TECHNIQUE: Dynamic and static grayscale images acquired of the abdomen and recorded on PACS. Edieo grazyna selected color Doppler and spectral images recorded. LIMITATIONS: None. FINDINGS: PANCREAS: Obscured by overlying bowel gas. LIVER: The liver demonstrates heterogeneous echotexture. The liver is nodular in contour. LIVER VASCULATURE: Normal directional flow of the main portal vein and hepatic veins. GALLBLADDER: There is a small amount of pericholecystic fluid. No stones. ULTRASOUND-DETECTED MARROQUIN'S SIGN: Negative. INTRAHEPATIC DUCTS AND COMMON DUCT: CBD and intrahepatic ducts normal caliber. No filling defects. INFERIOR VENA CAVA: Not visualized. AORTA: Proximal aorta is normal in caliber. Mid and distal aorta are obscured by overlying bowel gas . Recent CT of the abdomen demonstrates atherosclerotic change no aneurysmal dilatation. RIGHT KIDNEY: Normal size. Normal echogenicity. No solid or suspicious masses. No hydronephrosis. No calcifications. PERITONEAL AND RIGHT PLEURAL SPACE: No ascites or effusions. OTHER: No other significant findings. IMPRESSION: Limited study due to overlying bowel gas. Liver demonstrates heterogeneous echogenicity with nodular contour. No focal masses. There is a small amount of pericholecystic fluid which is n onspecific. Negative sonographic Marroquin's sign. TECHNICAL DOCUMENTATION: JOB ID: [id number] [employer]- All Rights Reserved Reading location - IP/workstation name: [email or web address]
[2018-08-22 16:05] LABS: ABSOLUTE EOSINOPHILS # (AUTO) 0.1 10^3/uL (0.0-0.6); ABSOLUTE LYMPHOCYTES (AUTO) 0.7 10^3/uL (0.5-4.7); ABSOLUTE MONOCYTES (AUTO) 0.9 10^3/uL (0.1-1.4); BASOPHILS % (AUTO) 0.4 % (0-2); EOSINOPHILS % (AUTO) 0.8 % (0-6); HEMATOCRIT 27.9 % (37.9-51.0); HEMOGLOBIN 9.1 g/dL (13.5-17.0); LYMPHOCYTES % (AUTO) 8.5 % (13-45); MEAN CORPUSCULAR HEMOGLOBIN 30.5 pg (27.0-33.4); MEAN CORPUSCULAR HGB CONC 32.7 g/dL (32.0-36.0); MEAN CORPUSCULAR VOLUME 93 fl (80-97); MONOCYTES % (AUTO) 9.7 % (3-13); PLATELET COUNT 214 10^3/uL (150-450); RED CELL DISTRIBUTION WIDTH 18.6 % (11.5-14.0); SEGMENTED NEUTROPHILS % (AUTO) 80.6 % (42-78); TOTAL CELLS COUNTED % (AUTO) 100 %; WHITE BLOOD COUNT 8.7 10^3/uL (4.0-10.5)
[2018-08-22] MEDS: FUROSEMIDE 40 MG TABLET PO SCH (17:14)
[2018-08-22] MEDS: ATORVASTATIN CALCIUM 20 MG TABLET PO SCH (21:33)
[2018-08-23] MEDS: ACETAMINOPHEN 325 MG TABLET PO PRN (04:57)
[2018-08-23 05:18] LABS: INTERNATIONAL RATION (INR) 1.18; PROTHROMBIN TIME 15.6 SEC (11.4-15.4)
[2018-08-23] MEDS ORDERED: (PENDING PHARMACY ID) (Levothyroxine Sodium [Synthroid] 125 MCG) PO SCH (06:00)
[2018-08-23] MEDS: LEVOTHYROXINE SODIUM 0.1 MG TABLET PO SCH (06:17)
[2018-08-23] MEDS: LEVOTHYROXINE SODIUM 0.025 MG TABLET PO SCH (06:17)
[2018-08-23] MEDS: LANSOPRAZOLE 15 MG TAB.RAP.DR PO SCH (06:17)
[2018-08-23 08:32] LABS: ANION GAP 9 (5-19); BLOOD UREA NITROGEN 33 mg/dL (7-20); CALCIUM 9.1 mg/dL (8.4-10.2); CARBON DIOXIDE 29 mmol/L (22-30); CHLORIDE 101 mmol/L (98-107); GLUCOSE 107 mg/dL (75-110); POTASSIUM 4.2 mmol/L (3.6-5.0); SODIUM 138.8 mmol/L (137-145)
[2018-08-23] MEDS: POTASSIUM CHLORIDE 10 MEQ CAPSULE.ER PO SCH (09:59)
[2018-08-23] MEDS ORDERED: (PENDING PHARMACY ID) (Magnesium Oxide [Magnesium] 400 MG) PO SCH (10:00)
[2018-08-23] MEDS: MAGNESIUM OXIDE 400 MG TABLET PO SCH (10:00)
[2018-08-23] MEDS: FUROSEMIDE 40 MG TABLET PO SCH ×2 (10:00→17:07)
[2018-08-23] MEDS: FOLIC ACID 1 MG TABLET PO SCH (10:00)
[2018-08-23] MEDS: IRON POLYSACCHARIDES COMPLEX 150 MG CAPSULE PO SCH (10:00)
[2018-08-23] MEDS: THIAMINE HCL 100 MG TABLET PO SCH (10:00)
[2018-08-23] MEDS: DOCUSATE SODIUM 100 MG CAPSULE PO SCH (10:04)
[2018-08-23] MEDS: CEFTRIAXONE 1 GM/D5W RTU 1 GM/50 ML RTUPB IV SCH (10:06)
[2018-08-23] MEDS: GUAIFENESIN/CODEINE PHOS 100-10 MG/ 5 ML UDC PO SCH ×3 (10:49→17:07)
--- NOTE | 2018-08-23 12:03 | PDOC PROGRESS REPORT ---
Subjective Progress Note for:: 08/23/18 Subjective:: c/o right shoulder pain- no trauma or injury- states it started last night- states his arm is swollen - he has pain of the right shoulder when he moves his shoulder. denies chest pain, sob, abdominal pain, n/v or dizziness. Reason For Visit: LEG SWELLING,HEART FAILURE,ARF,LONG QT,ANEMIA Physical Exam Vital Signs: Temp Pulse Resp BP Pulse Ox 97.8 F 69 16 118/69 96 08/23/18 07:17 08/23/18 07:17 08/23/18 11:05 08/23/18 07:17 08/23/18 11:05 Intake & Output 08/22/18 08/23/18 08/24/18 06:59 06:59 06:59 Intake Total 2085 1137 50 Output Total 1200 1145 Balance 885 -8 50 Weight 251 lb 8.759 oz 257 lb 0.944 oz General appearance: PRESENT: no acute distress Head exam: PRESENT: atraumatic, normocephalic Eye exam: PRESENT: EOMI. ABSENT: conjunctival injection, scleral icterus Ear exam: PRESENT: normal external ear exam Mouth exam: PRESENT: moist, tongue midline Neck exam: ABSENT: tracheal deviation Respiratory exam: PRESENT: decreased breath sounds - at the bases mostly, symmetrical Cardiovascular exam: PRESENT: +S1, +S2 Pulses: PRESENT: +2 pedal pulses bilateral GI/Abdominal exam: PRESENT: normal bowel sounds, soft. ABSENT: tenderness Extremities exam: PRESENT: pedal edema - improving Musculoskeletal exam: PRESENT: tenderness - right shoulder- bicep tendon TTP- decreased ROM Neurological exam: PRESENT: alert, awake, oriented to person, oriented to place, oriented to time, CN II-XII grossly intact Skin exam: PRESENT: dry, warm Results Laboratory Results: 08/22/18 15:50 08/23/18 05:01 08/22/18 08/23/18 08/23/18 15:50 05:01 05:01 WBC 8.7 RBC 3.00 L Hgb 9.1 L Hct 27.9 L MCV 93 MCH 30.5 MCHC 32.7 RDW 18.6 H Plt Count 214 Seg Neutrophils % 80.6 H Lymphocytes % 8.5 L Monocytes % 9.7 Eosinophils % 0.8 Basophils % 0.4 Absolute Neutrophils 7.0 Absolute Lymphocytes 0.7 Absolute Monocytes 0.9 Absolute Eosinophils 0.1 Absolute Basophils 0.0 Sodium 138.8 Potassium 4.2 Chloride 101 Carbon Dioxide 29 Anion Gap 9 BUN 33 H Creatinine 1.85 H Est GFR ( Amer) 44 L Est GFR (Non-Af Amer) 36 L Glucose 107 Calcium 9.1 Magnesium 1.8 Ammonia 11.9 08/19/18 08/19/18 08/20/18 19:52 19:52 02:18 Creatine Kinase 70 CK-MB (CK-2) 0.80 Troponin I 0.013 0.015 NT-Pro-B Natriuret Pep 4460 H 08/20/18 08/20/18 08/20/18 07:10 07:10 14:50 Creatine Kinase 56 62 CK-MB (CK-2) 0.77 Troponin I 0.013 NT-Pro-B Natriuret Pep 08/20/18 14:50 Creatine Kinase CK-MB (CK-2) 0.74 Troponin I 0.013 NT-Pro-B Natriuret Pep Impressions: Chest X-Ray 08/19/18 20:38 IMPRESSION: No evidence of acute cardiopulmonary disease. Abdomen Ultrasound 08/22/18 00:00 IMPRESSION: Limited study due to overlying bowel gas. Liver demonstrates heterogeneous echogenicity with nodular contour. No focal masses. There is a small amount of pericholecystic fluid which is nonspecific. Negative sonographic Marroquin's sign. Assessment & Plan - Diagnosis (1) Diastolic CHF Is this a current diagnosis for this admission?: Yes (2) Acute on chronic kidney failure Qualifiers: Acute renal failure type: with acute renal cortical necrosis Is this a current diagnosis for this admission?: Yes (3) Atrial fibrillation Is this a current diagnosis for this admission?: Yes (4) GI bleed Is this a current diagnosis for this admission?: Yes (5) Prolonged QT interval Is this a current diagnosis for this admission?: Yes (6) UTI (urinary tract infection) Is this a current diagnosis for this admission?: Yes (7) Alcohol dependence Qualifiers: Substance use status: uncomplicated Qualified Code(s): F10.20 - Alcohol dependence, uncomplicated Is this a current diagnosis for this admission?: No (8) Hypothyroid Qualifiers: Hypothyroidism type: unspecified Qualified Code(s): E03.9 - Hypothyroidism, unspecified Is this a current diagnosis for this admission?: No (9) HEAVEN (obstructive sleep apnea) Is this a current diagnosis for this admission?: No (10) Shoulder pain, right Qualifiers: Chronicity: acute Qualified Code(s): M25.511 - Pain in right shoulder Is this a current diagnosis for this admission?: Yes - Plan Summary Plan Summary: UTI- on rocephin day 3- UCx still pending. will d/c abx when cultures available. right shoulder pain- started last night- no falls but per nursing he has fallen at home a few times prior to admission. overnight he also had swelling of R arm - better this morning. will get xray and U/S right UE to r/o DVT Diastolic HF- on lasix 80mg BID - edema is improving. EF >60% so likely diastolic failure. also combination of cirrhosis. Acute on CKD- likely pre renal- Cr now 1.8- improving- baseline difficult to tell but likely ~1.4. GI bleed- s/p 2u pRBCs and 2u plasma- stable- will check CBC this morning- no signs of active bleeding at this time. Colonoscopy done during this admission shows no acute bleed. EGD not done. he had EGD/Colonoscopy 3 weeks ago per family/patient- on EGD found to have esophageal varices- likely the cause of his anemia and GI bleed. long history of alcohol dependence- drinks 1liter wine daily- i have counseled him on cessation. last drink a week ago. not in wi thdrawl at this time. HTN- anti- HTN meds on hold since BP appropriate- will restart when necessary. Hypothyroid- restarted thyroid med HLD- restarted statin alcohol dependence- ?cirrhosis- not sure- family/patient states he has cirrhosis- mild elevation of ALK phos. Ammonia WNL. RUQ shows nodular liver heterogenous echogenecity. c/w lasix- may need aldactone. c/w folic acid and thiamine.
[2018-08-23 12:28] LABS: ABSOLUTE BASOPHILS # (AUTO) 0.1 10^3/uL (0.0-0.2); ABSOLUTE EOSINOPHILS # (AUTO) 0.1 10^3/uL (0.0-0.6); ABSOLUTE LYMPHOCYTES (AUTO) 0.8 10^3/uL (0.5-4.7); ABSOLUTE MONOCYTES (AUTO) 0.9 10^3/uL (0.1-1.4); ABSOLUTE NEUT (AUTO) 6.3 10^3/uL (1.7-8.2); BASOPHILS % (AUTO) 0.7 % (0-2); EOSINOPHILS % (AUTO) 0.8 % (0-6); HEMATOCRIT 28.2 % (37.9-51.0); LYMPHOCYTES % (AUTO) 9.6 % (13-45); MEAN CORPUSCULAR HEMOGLOBIN 29.9 pg (27.0-33.4); MEAN CORPUSCULAR VOLUME 93 fl (80-97); MONOCYTES % (AUTO) 11.4 % (3-13); PLATELET COUNT 218 10^3/uL (150-450); RED BLOOD COUNT 3.03 10^6/uL (4.35-5.55); RED CELL DISTRIBUTION WIDTH 18.8 % (11.5-14.0); SEGMENTED NEUTROPHILS % (AUTO) 77.5 % (42-78); TOTAL CELLS COUNTED % (AUTO) 100 %; WHITE BLOOD COUNT 8.1 10^3/uL (4.0-10.5)
--- NOTE | 2018-08-23 14:31 | RADIOLOGY REPORT (SQ) ---
EXAM DESCRIPTION: SHOULDER RIGHT 2 OR MORE VIEWS COMPLETED DATE/TIME: 08/23/2018 1:19 pm REASON FOR STUDY: right shoulder pain- h/o falls COMPARISON: None. NUMBER OF VIEWS: Three views. TECHNIQUE: Internal rotation, external rotation, and Y view images acquired of the right shoulder. LIMITATIONS: None. FINDINGS: MINERALIZATION: Normal. BONES: No acute fracture or dislocation. No worrisome bone lesions. JOINTS: No dislocation. VISUALIZED LUNGS AND RIBS: No pneumothorax. No rib fracture. SOFT TISSUES: No radiopaque foreign body. OTHER: No other significant finding. IMPRESSION: NEGATIVE STUDY OF THE RIGHT SHOULDER. NO RADIOGRAPHIC EVIDENCE OF ACUTE INJURY. TECHNICAL DOCUMENTATION: JOB ID: [id number] [employer]- All Rights Reserved Reading location - IP/workstation name: [email or web address]
--- NOTE | 2018-08-23 18:06 | XCELERA REPORT ---
[address] [address] Upper Extremity Venous Evaluation Name: ELEANOR STODDARD Age: 73 yrs Gender: Male : 1945 Patient Status: Inpatient Patient Location: [address] [place], [place] [id number] Study Date: 08/23/2018 01:25 PM Procedure: Unilateral duplex scan of the right upper extremity veins was performed, including responses to compression and other maneuvers. Reason For Study: right uppper arm swelling Ordering Physician: SARAH BETH VILLASEÑOR Performed By: Lukas Boothe Right Side Venous Evaluation Normal vessel filling wall to wall, compression and augmentation as well as Colour flow down to the forearm veins. Interpretation Summary No duplex evidence of DVT or obstruction in the right upper extremity. : SARAH BETH VILLASEÑOR > Velasquez Fletcher
[2018-08-23] MEDS: ATORVASTATIN CALCIUM 20 MG TABLET PO SCH (21:40)
[2018-08-23] MEDS: NITROGLYCERIN 5 MG (0.2 MG/HR) PATCH.TD24 TD SCH (21:40)
[2018-08-24] MEDS: LANSOPRAZOLE 15 MG TAB.RAP.DR PO SCH (05:38)
[2018-08-24] MEDS: LEVOTHYROXINE SODIUM 0.025 MG TABLET PO SCH (05:38)
[2018-08-24] MEDS: LEVOTHYROXINE SODIUM 0.1 MG TABLET PO SCH (05:38)
[2018-08-24] MEDS: MAGNESIUM OXIDE 400 MG TABLET PO SCH (10:14)
[2018-08-24] MEDS: DOCUSATE SODIUM 100 MG CAPSULE PO SCH (10:14)
[2018-08-24] MEDS: GUAIFENESIN/CODEINE PHOS 100-10 MG/ 5 ML UDC PO SCH ×3 (10:14→17:37)
[2018-08-24] MEDS: THIAMINE HCL 100 MG TABLET PO SCH (10:14)
[2018-08-24] MEDS: POTASSIUM CHLORIDE 10 MEQ CAPSULE.ER PO SCH (10:14)
[2018-08-24] MEDS: FOLIC ACID 1 MG TABLET PO SCH (10:14)
[2018-08-24] MEDS: IRON POLYSACCHARIDES COMPLEX 150 MG CAPSULE PO SCH (10:14)
[2018-08-24] MEDS: FUROSEMIDE 40 MG TABLET PO SCH ×2 (10:15→17:37)
[2018-08-24] MEDS: CEFTRIAXONE 1 GM/D5W RTU 1 GM/50 ML RTUPB IV SCH (10:23)
[2018-08-24] MEDS ORDERED: ATENOLOL 50 MG TABLET PO SCH (11:00)
[2018-08-24 11:51] LABS: INTERNATIONAL RATION (INR) 1.23; PROTHROMBIN TIME 16.1 SEC (11.4-15.4)
--- NOTE | 2018-08-24 17:51 | EKG REPORT ---
SEVERITY:- ABNORMAL ECG - ATRIAL FIBRILLATION MULTIPLE PREMATURE COMPLEXES, VENT NONSPECIFIC ST-T CHANGES : Confirmed by: Emiliano Guerrero MD 24-Aug-2018 17:50:24
--- NOTE | 2018-08-24 17:56 | PDOC PROGRESS REPORT ---
Subjective Progress Note for:: 08/24/18 Subjective:: Saw patient this morning on rounds. He wants to know what the plan is for him to discharge. I had a long discussion with him and his significant other in the room regarding anticoagulation and his GI bleed. Please see assessment and plan for further discussion. he also tells me that his shoulder pain has improved is no longer hurting as much. Reason For Visit: LEG SWELLING,HEART FAILURE,ARF,LONG QT,ANEMIA Physical Exam Vital Signs: Temp Pulse Resp BP Pulse Ox 97.7 F 64 18 140/77 H 100 08/24/18 16:36 08/24/18 16:36 08/24/18 16:37 08/24/18 16:36 08/24/18 16:37 Intake & Output 08/23/18 08/24/18 08/25/18 06:59 06:59 06:59 Intake Total 1137 1003 914 Output Total 1145 2050 200 Balance -8 -1047 714 Weight 257 lb 0.944 oz 257 lb 11.526 oz General appearance: PRESENT: no acute distress Head exam: PRESENT: atraumatic, normocephalic Eye exam: PRESENT: EOMI. ABSENT: conjunctival injection, scleral icterus Ear exam: PRESENT: normal external ear exam Mouth exam: PRESENT: moist, tongue midline Neck exam: ABSENT: tracheal deviation Respiratory exam: PRESENT: clear to auscultation sigifredo, symmetrical Cardiovascular exam: PRESENT: +S1, +S2 Pulses: PRESENT: +2 pedal pulses bilateral Extremities exam: PRESENT: +1 edema - Up to his paz and mostly pedal Neurological exam: PRESENT: alert, awake, oriented to person, oriented to place, oriented to time, oriented to situation, CN II-XII grossly intact Skin exam: PRESENT: dry, warm Results Laboratory Results: 08/23/18 05:01 08/23/18 05:01 08/22/18 01:35 Clean Catch Midstream Urine Culture - Final Group B Beta Streptococcus 08/19/18 08/19/18 08/20/18 19:52 19:52 02:18 Creatine Kinase 70 CK-MB (CK-2) 0.80 Troponin I 0.013 0.015 NT-Pro-B Natriuret Pep 4460 H 08/20/18 08/20/18 08/20/18 07:10 07:10 14:50 Creatine Kinase 56 62 CK-MB (CK-2) 0.77 Troponin I 0.013 NT-Pro-B Natriuret Pep 08/20/18 14:50 Creatine Kinase CK-MB (CK-2) 0.74 Troponin I 0.013 NT-Pro-B Natriuret Pep Impressions: Chest X-Ray 08/19/18 20:38 IMPRESSION: No evidence of acute cardiopulmonary disease. Abdomen Ultrasound 08/22/18 00:00 IMPRESSION: Limited study due to overlying bowel gas. Liver demonstrates heterogeneous echogenicity with nodular contour. No focal masses. There is a small amount of pericholecystic fluid which is nonspecific. Negative sonographic Marroquin's sign. Shoulder X-Ray 08/23/18 00:00 IMPRESSION: NEGATIVE STUDY OF THE RIGHT SHOULDER. NO RADIOGRAPHIC EVIDENCE OF ACUTE INJURY. Assessment & Plan - Diagnosis (1) Diastolic CHF Is this a current diagnosis for this admission?: Yes (2) Acute on chronic kidney failure Qualifiers: Acute renal failure type: with acute renal cortical necrosis Is this a current diagnosis for this admission?: Yes (3) Atrial fibrillation Is this a current diagnosis for this admission?: Yes (4) GI bleed Is this a current diagnosis for this admission?: Yes (5) Prolonged QT interval Is this a current diagnosis for this admission?: Yes (6) UTI (urinary tract infection) Is this a current diagnosis for this admission?: Yes (7) Alcohol dependence Qualifiers: Substance use status: uncomplicated Qualified Code(s): F10.20 - Alcohol dependence, uncomplicated Is this a current diagnosis for this admission?: No (8) Hypothyroid Qualifiers: Hypothyroidism type: unspecified Qualified Code(s): E03.9 - Hypothyroidism, unspecified Is this a current diagnosis for this admission?: No (9) HEAVEN (obstructive sleep apnea) Is this a current diagnosis for this admission?: No (10) Shoulder pain, right Qualifiers: Chronicity: acute Qualified Code(s): M25.511 - Pain in right shoulder Is this a current diagnosis for this admission?: Yes - Plan Summary Plan Summary: UTI--UCx shows group B strep -will d/c abx -he had 3 days of Rocephin right shoulder pain-resolved - no falls but per nursing he has fallen at home a few times prior to admission. overnight he also had swelling of R arm - X-ray and ultrasounds negative Diastolic HF- on lasix 80mg BID - edema is improving. EF >60% so likely diastolic failure. also combination of cirrhosis. Acute on CKD- likely pre renal- Cr - improving- baseline difficult to tell but likely ~1.4. GI bleed- s/p 2u pRBCs and 2u plasma- stable- will check CBC this morning- no signs of active bleeding at this time. Colonoscopy done during this admission shows no acute bleed. EGD not done. he had EGD/Colonoscopy 3 weeks ago per family/patient- on EGD found to have esophageal varices- likely the cause of his anemia and GI bleed. long history of alcohol dependence- drinks 1liter wine daily- i have counseled him on cessation. last drink a week ago. not in withdrawl at this time. Atrial fibrillation-his home meds were held upon admission due to low blood pressure and GI bleed. I have restarted his atenolol but only at 50 mg instead of 100 mg that he is at home. At home he is on Coumadin and here we have held due to GI bleed and he is received transfusions. I had a long long discussion with patient and significant other in the room regarding atrial fibrillation and the risk of stroke versus esophageal varices and GI bleed. After long discussi on patient would like to talk to cardiology and hence I have consulted to come speak with the patient about anticoagulation. 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 He is subtherapeutic as his INR yesterday was 1.1. He understands that he is running a risk of stroke and he accepts and verbalizes that. His Tigas and is still on hold due to prolonged QTC and I have asked for his recommendation regarding this. HTN-see plan above for atrial fibrillation-I started him on atenolol 50 mg. Hypothyroid- restarted thyroid med HLD- restarted statin alcohol dependence- ?cirrhosis- not sure- family/patient states he has cirrhosis- mild elevation of ALK phos. Ammonia WNL. RUQ shows nodular liver heterogenous echogenecity. c/w lasix- may need aldactone. c/w folic acid and thiamine.
[2018-08-24] MEDS: ATORVASTATIN CALCIUM 20 MG TABLET PO SCH (21:39)
[2018-08-24] MEDS: NITROGLYCERIN 5 MG (0.2 MG/HR) PATCH.TD24 TD SCH (21:39)
[2018-08-25] MEDS: ACETAMINOPHEN 325 MG TABLET PO PRN ×3 (00:15→15:39)
[2018-08-25] MEDS: LANSOPRAZOLE 15 MG TAB.RAP.DR PO SCH (05:31)
[2018-08-25] MEDS: LEVOTHYROXINE SODIUM 0.1 MG TABLET PO SCH (05:31)
[2018-08-25] MEDS: LEVOTHYROXINE SODIUM 0.025 MG TABLET PO SCH (05:31)
[2018-08-25] MEDS: THIAMINE HCL 100 MG TABLET PO SCH (10:12)
[2018-08-25] MEDS: FUROSEMIDE 40 MG TABLET PO SCH ×2 (10:12→17:23)
[2018-08-25] MEDS: MAGNESIUM OXIDE 400 MG TABLET PO SCH (10:13)
[2018-08-25] MEDS: DOCUSATE SODIUM 100 MG CAPSULE PO SCH (10:33)
[2018-08-25] MEDS: POTASSIUM CHLORIDE 10 MEQ CAPSULE.ER PO SCH (10:33)
[2018-08-25] MEDS: IRON POLYSACCHARIDES COMPLEX 150 MG CAPSULE PO SCH (10:34)
[2018-08-25] MEDS: FOLIC ACID 1 MG TABLET PO SCH (10:34)
[2018-08-25] MEDS: GUAIFENESIN/CODEINE PHOS 100-10 MG/ 5 ML UDC PO SCH ×3 (10:36→17:23)
--- NOTE | 2018-08-25 11:45 | PDOC PROGRESS REPORT ---
Subjective Progress Note for:: 08/25/18 Subjective:: saw patient this morning- he's feeling fine but states his right feet is hurting- states its near his Achilles that is hurting. denies trauma. wants to check if he has gout. otherwise he feels fine- he spoke with Dr Melendez and warfarin will be held Reason For Visit: LEG SWELLING,HEART FAILURE,ARF,LONG QT,ANEMIA Physical Exam Vital Signs: Temp Pulse Resp BP Pulse Ox 97.2 F 49 L 15 118/60 98 08/25/18 07:24 08/25/18 07:24 08/25/18 07:24 08/25/18 07:24 08/25/18 08:00 Intake & Output 08/24/18 08/25/18 08/26/18 06:59 06:59 06:59 Intake Total 1003 1154 Output Total 2050 725 Balance -1047 429 Weight 257 lb 11.526 oz 257 lb 0.944 oz General appearance: PRESENT: no acute distress Head exam: PRESENT: atraumatic, normocephalic Eye exam: PRESENT: EOMI. ABSENT: conjunctival injection, scleral icterus Ear exam: PRESENT: normal external ear exam Mouth exam: PRESENT: moist, tongue midline Neck exam: ABSENT: tracheal deviation Respiratory exam: PRESENT: clear to auscultation sigifredo, symmetrical Cardiovascular exam: PRESENT: +S1, +S2 Pulses: PRESENT: +1 pedal pulses bilateral GI/Abdominal exam: PRESENT: normal bowel sounds, soft. ABSENT: tenderness Extremities exam: PRESENT: tenderness - right LE- tenderness of the achilles- good ROM of the ankle- nontender ankle- pulses intact, +1 edema - b/l lower extremity Neurological exam: PRESENT: alert, awake, oriented to person, oriented to place, oriented to time, CN II-XII grossly intact Skin exam: PRESENT: dry, warm Results Laboratory Results: 08/23/18 05:01 08/23/18 05:01 08/25/18 10:00 Uric Acid 12.1 H 08/19/18 08/19/18 08/20/18 19:52 19:52 02:18 Creatine Kinase 70 CK-MB (CK-2) 0.80 Troponin I 0.013 0.015 NT-Pro-B Natriuret Pep 4460 H 08/20/18 08/20/18 08/20/18 07:10 07:10 14:50 Creatine Kinase 56 62 CK-MB (CK-2) 0.77 Troponin I 0.013 NT-Pro-B Natriuret Pep 08/20/18 14:50 Creatine Kinase CK-MB (CK-2) 0.74 Troponin I 0.013 NT-Pro-B Natriuret Pep Impressions: Chest X-Ray 08/19/18 20:38 IMPRESSION: No evidence of acute cardiopulmonary disease. Abdomen Ultrasound 08/22/18 00:00 IMPRESSION: Limited study due to overlying bowel gas. Liver demonstrates heterogeneous echogenicity with nodular contour. No focal masses. There is a small amount of pericholecystic fluid which is nonspecific. Negative sonographic Marroquin's sign. Shoulder X-Ray 08/23/18 00:00 IMPRESSION: NEGATIVE STUDY OF THE RIGHT SHOULDER. NO RADIOGRAPHIC EVIDENCE OF ACUTE INJURY. Assessment & Plan - Diagnosis (1) Diastolic CHF Is this a current diagnosis for this admission?: Yes (2) Acute on chronic kidney failure Qualifiers: Acute renal failure type: with acute renal cortical necrosis Is this a current diagnosis for this admission?: Yes (3) Atrial fibrillation Is this a current diagnosis for this admission?: Yes (4) GI bleed Is this a current diagnosis for this admission?: Yes (5) Prolonged QT interval Is this a current diagnosis for this admission?: Yes (6) UTI (urinary tract infection) Is this a current diagnosis for this admission?: Yes (7) Alcohol dependence Qualifiers: Substance use status: uncomplicated Qualified Code(s): F10.20 - Alcohol dependence, uncomplicated Is this a current diagnosis for this admission?: No (8) Hypothyroid Qualifiers: Hypothyroidism type: unspecified Qualified Code(s): E03.9 - Hypothyroidism, unspecified Is this a current diagnosis for this admission?: Yes (9) HEAVEN (obstructive sleep apnea) Is this a current diagnosis for this admission?: Yes (10) Shoulder pain, right Qualifiers: Chronicity: acute Qualified Code(s): M25.511 - Pain in right shoulder Is this a current diagnosis for this admission?: Yes (11) Right Achilles tendinitis Is this a current diagnosis for this admission?: Yes - Plan Summary Plan Summary: UTI--UCx shows group B strep -completed 3 days of Rocephin right shoulder pain-resolved - no falls but per nursing he has fallen at home a few times prior to admission. overnight he also had swelling of R arm - X-ray and ultrasounds negative Diastolic HF- on lasix 80mg BID - edema is improving. EF >60% so likely diastolic failure. also combination of cirrhosis. Acute on CKD- likely pre renal- Cr - improving- baseline difficult to tell but likely ~1.4. will check BMP in AM GI bleed- s/p 2u pRBCs and 2u plasma- stable- will check CBC this morning- no signs of active bleeding at this time. Colonoscopy done during this admission shows no acute bleed. EGD not done. he had EGD/Colonoscopy 3 weeks ago per family/patient- on EGD found to have esophageal varices- likely the cause of his anemia and GI bleed. long history of alcohol dependence- drinks 1liter wine daily- i have counseled him on cessation. last drink a week ago. not in withdrawl at this time. Atrial fibrillation-his home meds were held upon admission due to low blood pressure and GI bleed. I have restarted his atenolol but only at 50 mg instead of 100 mg that he is at home- BP is better but HR is on the low side in the 50s- and some high 40s today. At home he is on Coumadin and here we have held due to GI bleed and he is received transfusions. Cardiology consulted and per patient recommends holding AC due to high risk of GI bleed . patient and family agrees to this plan. we have also held his Tikosyn here- he's to discuss with Cardiology today about that. he's back in sinus rhythm. he understands the risk of stroke and even as he's not on AC at this time. HTN-see plan above for atrial fibrillation-I started him on atenolol 50 mg. Hypothyroid- restarted thyroid med HLD- restarted statin alcohol dependence- ?cirrhosis- not sure- family/patient states he has cirrhosis- mild elevation of ALK phos. Ammonia WNL. RUQ shows nodular liver heterogenous echogenecity. c/w lasix- may need aldactone. c/w folic acid and thiamine. disposition- likely can be d/c in AM after discussion with Cardiology today
[2018-08-25 12:16] LABS: ANION GAP 11 (5-19); BLOOD UREA NITROGEN 23 mg/dL (7-20); CALCIUM 9.1 mg/dL (8.4-10.2); CARBON DIOXIDE 29 mmol/L (22-30); CHLORIDE 101 mmol/L (98-107); GLUCOSE 139 mg/dL (75-110); POTASSIUM 4.1 mmol/L (3.6-5.0); SODIUM 140.6 mmol/L (137-145)
--- NOTE | 2018-08-25 15:45 | Progress Note ---
Provider Note Provider Note: gout- uric acid elevated- will start him on prednisone 40mg daily for 5 days. other treatment options are limited due to ELROY
[2018-08-25] MEDS: DOFETILIDE 125 MCG CAPSULE PO SCH ×2 (17:23→21:23)
--- NOTE | 2018-08-25 18:22 | EKG REPORT ---
SEVERITY:- ABNORMAL ECG - ATRIAL FIBRILLATION VENTRICULAR PREMATURE COMPLEX NONSPECIFIC T ABNORMALITIES, LATERAL LEADS : Confirmed by: Vick Zavala 25-Aug-2018 18:21:42
--- NOTE | 2018-08-25 20:36 | PDOC CONSULTATION ---
Consultation-Blank Consultation: CARDIOLOGY CONSULTATION by Dr. Dasha Cox on 08/25/2018. REASON FOR CONSULTATION: To discuss with the patient risks and benefits of whether the patient needs to be in anticoagulation or not. Selected Entries 08/25/18 08/25/18 08/25/18 11:00 11:19 11:51 Temperature 97.5 F Temperature Oral Source Pulse Rate 54 L Heart Rate ( 71 Monitors) Respiratory 18 19 Rate Blood Pressure 119/62 Blood Pressure 81 Mean BP Location Left Arm BP Position Sitting O2 Sat by Pulse 96 99 Oximetry Fraction of 32 Inspired Oxygen (FIO2) Oxygen Flow 3.00 Rate Oxygen Delivery Room Air Method 08/25/18 08/25/18 10:00 12:07 Sodium 140.6 Potassium 4.1 Chloride 101 Carbon Dioxide 29 Anion Gap 11 BUN 23 H Creatinine 1.69 H Est GFR (Non-Af Amer) 40 L Glucose 139 H Uric Acid 12.1 H Calcium 9.1 Home Meds Table Atenolol [Tenormin 50 mg Tablet] 100 mg PO DAILY 08/20/18 Atorvastatin Calcium [Lipitor 20 mg Tablet] 20 mg PO DAILY 08/20/18 Diphenoxylate HCl/Atropine [Lomotil 2.5-0.025 mg Tablet] 1 each PO TIDP PRN 08/20/18 Dofetilide [Tikosyn] 250 mcg PO BID 08/20/18 Folic Acid [Folvite 1 mg Tablet] 1 mg PO DAILY 08/20/18 Furosemide [Lasix 40 mg Tablet] 80 mg PO BID 08/20/18 Hydrocodone/Acetaminophen [Hopkins 5-325 mg Tablet] 1 tab PO Q6HP PRN 08/20/18 Levothyroxine Sodium [Synthroid] 125 mcg PO Q6AM 08/20/18 Magnesium Oxide [Magnesium] 400 mg PO DAILY 08/20/18 Methocarbamol [Robaxin 750 mg Tablet] 750 mg PO TID 08/20/18 Metolazone [Zaroxolyn 2.5 mg Tablet] 2.5 mg PO DAILY 08/20/18 Omeprazole Magnesium [Prilosec Otc] 20 mg PO DAILY 08/20/18 Potassium Chloride 20 meq PO DAILY 08/20/18 Vitamin B Complex [Vitamin B-100 Complex] 100 mg PO DAILY 08/20/18 Warfarin Sodium [Coumadin 1 mg Tablet] 3.5 mg PO DAILY 08/20/18 08/19/18 23:55 Acetaminophen [Tylenol 325 mg Tablet] 650 mg PO Q4HP PRN Magnesium Hydroxide [Milk of Magnesia 30 ml Udcup] 30 ml PO HSP PRN 08/20/18 06:00 Normal Saline [Saline Flush 2.5 ml Monoject Prefil Syrin] 2.5 ml IV Q8 08/20/18 10:00 Docusate Sodium [Colace 100 mg Capsule] 100 mg PO DAILY Folic Acid [Folvite 1 mg Tablet] 1 mg PO DAILY Iron Polysaccharides Complex [Nu-Iron 150 Capsule] 150 mg PO DAILY Thiamine HCl [Thiamine 100 mg Tablet] 100 mg PO DAILY 08/20/18 14:42 Lorazepam [Ativan Inj 2 mg/1 ml Vial] 5 mg IV Q4HP PRN 08/21/18 09:29 Diphenhydramine HCl [Benadryl Inj 50 mg/1 ml Vial] 50 mg .ROUTE .STK-MED ONE Ondansetron HCl/Pf [Zofran Inj/Pf 4 mg/2 ml Sdv] 4 mg .ROUTE .STK-MED ONE 08/21/18 09:30 Epinephrine [Epinephrine Inj 1 mg/10 ml Disp.syrin] 1 mg .ROUTE .STK-MED ONE Flumazenil [Romazicon Inj 0.5 mg/5 ml Vial] 0.5 mg .ROUTE .STK-MED ONE Glucagon,Human Recombinant [Glucagen Inj 1 mg Vial] 1 mg .ROUTE .STK-MED ONE Naloxone HCl [Narcan Inj/Pf 0.4 mg/1 ml Sdv] 0.4 mg .ROUTE .STK-MED ONE 08/21/18 10:00 Guaifenesin/Codeine Phos [Robitussin-AC Liquid 5 ml Udcup] 5 ml PO TID 08/22/18 18:00 Furosemide [Lasix 40 mg Tablet] 80 mg PO BID 08/22/18 22:00 Atorvastatin Calcium [Lipitor 20 mg Tablet] 20 mg PO QHS Nitroglycerin [Nitro-Dur 5 mg (0.2 mg/Hr) Transdermal Patch] 1 each TD QHS 08/23/18 06:00 Lansoprazole [Prevacid 15 mg Odt Tablet] 15 mg PO Q6AM Levothyroxine Sodium [Synthroid 0.025 mg Tablet] 0.025 mg PO Q6AM Levothyroxine Sodium [Synthroid 0.1 mg Tablet] 0.1 mg PO Q6AM 08/23/18 10:00 Magnesium Oxide [Mag-Ox 400 mg Tablet] 400 mg PO DAILY Potassium Chloride [Klor-Con 10 Meq Capsule ER] 20 meq PO DAILY 08/25/18 18:00 Dofetilide [Tikosyn 125 Mcg Capsule] 125 mcg PO Q12
[2018-08-25] MEDS: ATORVASTATIN CALCIUM 20 MG TABLET PO SCH (21:23)
[2018-08-25] MEDS: NITROGLYCERIN 5 MG (0.2 MG/HR) PATCH.TD24 TD SCH (21:23)
[2018-08-26] MEDS: LEVOTHYROXINE SODIUM 0.1 MG TABLET PO SCH (05:16)
[2018-08-26] MEDS: LEVOTHYROXINE SODIUM 0.025 MG TABLET PO SCH (05:16)
[2018-08-26] MEDS: LANSOPRAZOLE 15 MG TAB.RAP.DR PO SCH (05:16)
[2018-08-26] MEDS: GUAIFENESIN/CODEINE PHOS 100-10 MG/ 5 ML UDC PO SCH ×3 (09:46→17:29)
[2018-08-26] MEDS: POTASSIUM CHLORIDE 10 MEQ CAPSULE.ER PO SCH (09:47)
[2018-08-26] MEDS: FUROSEMIDE 40 MG TABLET PO SCH ×2 (09:47→17:29)
[2018-08-26] MEDS: FOLIC ACID 1 MG TABLET PO SCH (09:47)
[2018-08-26] MEDS: MAGNESIUM OXIDE 400 MG TABLET PO SCH (09:48)
[2018-08-26] MEDS: DOCUSATE SODIUM 100 MG CAPSULE PO SCH (09:48)
[2018-08-26] MEDS: THIAMINE HCL 100 MG TABLET PO SCH (09:48)
[2018-08-26] MEDS: IRON POLYSACCHARIDES COMPLEX 150 MG CAPSULE PO SCH (09:48)
[2018-08-26] MEDS: DOFETILIDE 125 MCG CAPSULE PO SCH (09:49)
[2018-08-26] MEDS: ATENOLOL 50 MG TABLET PO SCH (13:24)
[2018-08-26] MEDS: ATORVASTATIN CALCIUM 20 MG TABLET PO SCH (21:16)
[2018-08-26] MEDS: PREDNISONE 20 MG TABLET PO SCH (21:16)
[2018-08-26] MEDS: NITROGLYCERIN 5 MG (0.2 MG/HR) PATCH.TD24 TD SCH (21:16)
--- NOTE | 2018-08-26 21:35 | PDOC PROGRESS REPORT ---
Subjective Progress Note for:: 08/26/18 Subjective:: Patient is having increased pain in both heels but especially the right Achilles tendon. He still reports dark stools Reason For Visit: Acute GI bleed Atrial fibrillation Acute kidney injury Acute gout Physical Exam Vital Signs: Temp Pulse Resp BP Pulse Ox 97.7 F 79 16 128/61 H 96 08/26/18 20:09 08/26/18 20:10 08/26/18 19:42 08/26/18 19:42 08/26/18 19:42 Intake & Output 08/25/18 08/26/18 08/27/18 06:59 06:59 06:59 Intake Total 1154 50 Output Total 725 1225 055 Balance 429 -1225 -425 Weight 116.6 kg 114.7 kg General appearance: PRESENT: no acute distress, obese - BMI 35.3, well-developed Head exam: PRESENT: normocephalic Eye exam: PRESENT: conjunctiva pale. ABSENT: scleral icterus Ear exam: PRESENT: normal external ear exam Mouth exam: PRESENT: moist Respiratory exam: PRESENT: clear to auscultation sigifredo, rales, rhonchi, symmetrical, unlabored, wheezes. ABSENT: accessory muscle use Cardiovascular exam: PRESENT: irregular rhythm GI/Abdominal exam: PRESENT: normal bowel sounds, soft. ABSENT: guarding, tenderness Rectal exam: PRESENT: deferred Extremities exam: PRESENT: pedal edema Neurological exam: PRESENT: alert, awake, oriented to person, oriented to place, oriented to time, oriented to situation, CN II-XII grossly intact Psychiatric exam: PRESENT: appropriate affect, normal mood. ABSENT: agitated, anxious Focused psych exam: ABSENT: restlessness Results Laboratory Results: 08/23/18 05:01 08/25/18 12:07 08/19/18 08/19/18 08/20/18 19:52 19:52 02:18 Creatine Kinase 70 CK-MB (CK-2) 0.80 Troponin I 0.013 0.015 NT-Pro-B Natriuret Pep 4460 H 08/20/18 08/20/18 08/20/18 07:10 07:10 14:50 Creatine Kinase 56 62 CK-MB (CK-2) 0.77 Troponin I 0.013 NT-Pro-B Natriuret Pep 08/20/18 14:50 Creatine Kinase CK-MB (CK-2) 0.74 Troponin I 0.013 NT-Pro-B Natriuret Pep Impressions: Chest X-Ray 08/19/18 20:38 IMPRESSION: No evidence of acute cardiopulmonary disease. Abdomen Ultrasound 08/22/18 00:00 IMPRESSION: Limited study due to overlying bowel gas. Liver demonstrates heterogeneous echogenicity with nodular contour. No focal masses. There is a small amount of pericholecystic fluid which is nonspecific. Negative sonographic Marroquin's sign. Shoulder X-Ray 08/23/18 00:00 IMPRESSION: NEGATIVE STUDY OF THE RIGHT SHOULDER. NO RADIOGRAPHIC EVIDENCE OF ACUTE INJURY. Assessment & Plan - Diagnosis (1) Esophageal varices with bleeding Qualifiers: Esophageal varices type: secondary Qualified Code(s): I85.11 - Secondary esophageal varices with bleeding Is this a current diagnosis for this admission?: Yes Plan: The patient was recently discovered to have esophageal varices during outpatient endoscopy. Evidently there is a component of cirrhosis as well. These are most likely related to history of alcohol use. There does not appear to be any active bleeding. Despite his atrial fibrillation the patient must remain off of anticoagulation at this time. He continued to check stools for occult blood. Will meld try and maintain good blood pressure control. (2) Atrial fibrillation Qualifiers: Atrial fibrillation type: unspecified Qualified Code(s): I48.91 - Unspecified atrial fibrillation Is this a current diagnosis for this admission?: Yes Plan: The patient did not receive any benefit with Tikosyn over treatment with his atenolol. He is therefore back on his atenolol. We will continue to monitor for rate control. No anticoagulation as noted above. Please also see cardiology note. (3) Acute on chronic kidney failure Qualifiers: Acute renal failure type: with acute renal cortical necrosis Chronic kidney disease stage: unspecified stage Qualified Code(s): N17.1 - Acute kidney failure with acute cortical necrosis; N18.9 - Chronic kidney disease, unspecified Is this a current diagnosis for this admission?: Yes Plan: Serum creatinine continues to improve. We will continue to monitor. (4) Diastolic CHF Qualifiers: Heart failure chronicity: acute on chronic Qualified Code(s): I50.33 - Acute on chronic diastolic (congestive) heart failure Is this a current diagnosis for this admission?: Yes Plan: Continue furosemide 80 mg twice daily. Ejection fraction is preserved at gr eater than 60%. His cirrhosis is also contributing to his edema. (5) Right Achilles tendinitis Is this a current diagnosis for this admission?: Yes Plan: His uric acid was elevated at 12.1. He does complain of pain in his heels but the most focal localization of pain is the right Achilles tendon. He has been started on prednisone. Physical therapy will be seeing him again tomorrow to see if he is able to ambulate. The family's preferences home with home health physical therapy. Because of his chronic renal failure and his allergic reaction to allopurinol and colchicine treatment options are quite limited. (6) Alcohol dependence Qualifiers: Substance use status: uncomplicated Qualified Code(s): F10.20 - Alcohol dependence, uncomplicated Is this a current diagnosis for this admission?: No Plan: Continue to encourage abstinence. (7) Hypothyroid Qualifiers: Hypothyroidism type: unspecified Qualified Code(s): E03.9 - Hypothyroidism, unspecified Is this a current diagnosis for this admission?: Yes Plan: Continue levothyroxine (8) HEAVEN (obstructive sleep apnea) Is this a current diagnosis for this admission?: Yes Plan: Continue CPAP (9) Shoulder pain, right Qualifiers: Chronicity: acute Qualified Code(s): M25.511 - Pain in right shoulder Is this a current diagnosis for this admission?: Yes Plan: Resolved (10) Acute cystitis Qualifiers: Hematuria presence: without hematuria Qualified Code(s): N30.00 - Acute cystitis without hematuria Is this a current diagnosis for this admission?: Yes Plan: Group B Streptococcus Vesely treated with antibiotic therapy. Cystitis resolved. - Time Time Spent with patient: 25-34 minutes Medications reviewed and adjusted accordingly: Yes Anticipated discharge: Home with Homehealth
--- NOTE | 2018-08-26 21:43 | EKG REPORT ---
SEVERITY:- ABNORMAL ECG - ATRIAL FIBRILLATION LOW VOLTAGE IN FRONTAL LEADS : Confirmed by: Vick Zavala 26-Aug-2018 21:42:44
--- NOTE | 2018-08-26 22:05 | Progress Note ---
Provider Note Provider Note: CARDIOLOGY PROGRESS NOTE by Dr. Dasha Saravia on 08/26/2018. SUBJECTIVE: The patient states with the steroids his ankle pain is slightly improved but he still has significant pain. Although his uric acid came up to 12.1, which is elevated. The patient seems to have more bilateral Achilles tendinitis rather than a gout flareup. He denies he denies any chest pain or discomfort. There is no PND or orthopnea. There is no recurrence of GI bleed. He remains in atrial fibrillation. There is no TIA CVA symptoms. There is no pedal edema. There is no cough or wheezing. PHYSICAL EXAMINATION: The patient is mild to moderately obese. He is in no acute distress except for pain in the Achilles tendon on both legs. He is well- groomed. Selected Entries 08/26/18 11:07 Temperature 97.6 F Temperature Oral Source Pulse Rate 74 Respiratory 20 Rate Blood Pressure 139/80 H Blood Pressure 99 Mean BP Location Left Arm BP Position Sitting O2 Sat by Pulse 100 Oximetry Oxygen Delivery Room Air Method HEAD: Is atraumatic normocephalic. EYES: Pupils equal round regular react to light accommodation. Extraocular movements are normal. There is no clinical pallor. There is no scleral icterus. EARS: External auditory canals clear. There is tympanic memories are intact. NOSE: There is no inflammation of the nasal mucous membrane. There is no nasal polyps. MOUTH: Mucous membranes of mouth are moist. Tongue is moist. There is no ulcers. There is no bleeding from the gums. THROAT: There is no redness of the oropharynx. There is no exudates. SKIN: There is no skin rashes or skin lesions. There is no particular ecchymosis. NECK: Is supple. There is no JVD. Carotids are equal there is no bruit. There is no lymphadenopathy. There is no goiter. There is no accessory muscle respiration use. Trachea is central. LUNGS: It is clear to auscultation percussion without any rhonchi rales or wheezing. HEART: S1-S2 is heard S1 is of variable intensity. There is no S3 gallop. There is no S4 gallop. There is systolic murmur left sternal border and the apex. There is no rub. ABDOMEN: Is soft. There is no hepatosplenomegaly. There is no ascites. There is no tender areas masses. Bowel sounds well heard. EXTREMITIES: Femorals are slightly diminished. There is no femoral bruits. Leg pulses are slightly diminished. There is no pedal edema.. There is no DVT or cellulitis. There is no calf tenderness. There is no sinus or clubbing. There is localized redness and tenderness in both the Achilles tendons. 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 PSYCHIATRIC: The patient judgment and insight are intact his affect is normal.: Chest X-Ray 08/19/18 20:38 IMPRESSION: No evidence of acute cardiopulmonary disease. Abdomen Ultrasound 08/22/18 00:00 IMPRESSION: Limited study due to overlying bowel gas. Liver demonstrates heterogeneous echogenicity with nodular contour. No focal masses. There is a small amount of pericholecystic fluid which is nonspecific. Negative sonographic Marroquin's sign. Shoulder X-Ray 08/23/18 00:00 IMPRESSION: NEGATIVE STUDY OF THE RIGHT SHOULDER. NO RADIOGRAPHIC EVIDENCE OF ACUTE INJURY. IMPRESSION/RECOMMENDATION: 1. Recurrence of atrial fibrillation. Note the patient was given decreasing yesterday. The patient continued to be in atrial fibrillation. Hence will discontinue the patient's Tikosyn and start the patient on atenolol 25 mg p.o. daily and increase as tolerated. As mentioned earlier the patient's HASBLED gi Dr. Glover that is Ves a risk of bleeding of the patient of greater than 10%. His risk of CVA. Is about 5%. Hence the patient's risk of bleeding outweighs the benefits of stroke prophylaxis. And the patient is not a candidate for anticoag ulation. Will discuss with Dr. Glover, and expressive music therapist, to see if the patient be a candidate for "watchman procedure". This will be done as an outpatient. This has been discussed yesterday with the patient's . I have again did rediscuss this with the patient. Also discussed with the attending physician on the case. 2. Anemia most likely secondary to GI bleed. 3. Most likely the patient has cirrhosis of liver with esophageal varices. 4. Right-sided diverticular: This is another site for bleeding complication. 5. Abnormal liver function tests. 6. Chronic kidney disease stage III 7 history of hypertension. 5. Elevated serum uric acid level in a patient with history of gout. At present the patient's bilateral ankle pain is due to bilateral Achilles tendinitis rather than gout obstructive sleep apnea intolerant to CPAP. Recommend orthopedic consult to see if the painful areas of the tendon can be injected with Xylocaine/steroids, for symptom relief. 6. Hyperlipidemia MEDICATIONS reviewed. Medications adjusted. Management plan discussed with the attending physician of case 40 minutes spent on this patient with more than 50% time spent in direct patient care. Note the patient is a full code. His is his surrogate healthcare decision maker. Medical decision making is of high complexity, due to the exploring of the benefits versus risks of the patient being on or not being on anticoagulation. Will sign off. Medical team is for the patient to see a cutter hot knife in [facility] for possible watchman procedure.
[2018-08-27] MEDS: LEVOTHYROXINE SODIUM 0.1 MG TABLET PO SCH (05:16)
[2018-08-27] MEDS: LEVOTHYROXINE SODIUM 0.025 MG TABLET PO SCH (05:16)
[2018-08-27] MEDS: LANSOPRAZOLE 15 MG TAB.RAP.DR PO SCH (05:16)
[2018-08-27] MEDS: ATENOLOL 50 MG TABLET PO SCH (09:34)
[2018-08-27] MEDS: THIAMINE HCL 100 MG TABLET PO SCH (09:34)
[2018-08-27] MEDS: DOCUSATE SODIUM 100 MG CAPSULE PO SCH (09:35)
[2018-08-27] MEDS: GUAIFENESIN/CODEINE PHOS 100-10 MG/ 5 ML UDC PO SCH ×3 (09:35→17:17)
[2018-08-27] MEDS: IRON POLYSACCHARIDES COMPLEX 150 MG CAPSULE PO SCH (09:35)
[2018-08-27] MEDS: PREDNISONE 20 MG TABLET PO SCH (09:35)
[2018-08-27] MEDS: FOLIC ACID 1 MG TABLET PO SCH (09:35)
[2018-08-27] MEDS: MAGNESIUM OXIDE 400 MG TABLET PO SCH (09:35)
[2018-08-27] MEDS: POTASSIUM CHLORIDE 10 MEQ CAPSULE.ER PO SCH (09:35)
[2018-08-27] MEDS: FUROSEMIDE 40 MG TABLET PO SCH ×2 (09:35→17:17)
--- NOTE | 2018-08-27 20:03 | PDOC PROGRESS REPORT ---
Subjective Progress Note for:: 08/27/18 Subjective:: Right Achilles tendon feels much better. He was ambulating in the hallway with physical therapy. Reason For Visit: LEG SWELLING,HEART FAILURE,ARF,LONG QT,ANEMIA, atrial fibrillation Physical Exam Vital Signs: Temp Pulse Resp BP Pulse Ox 97.6 F 51 L 16 115/79 95 08/27/18 15:24 08/27/18 15:24 08/27/18 15:24 08/27/18 15:24 08/27/18 15:24 Intake & Output 08/26/18 08/27/18 08/28/18 06:59 06:59 06:59 Intake Total 50 831 Output Total 1225 1250 450 Balance -1225 -1200 381 Weight 114.7 kg 111.1 kg General appearance: PRESENT: no acute distress, cooperative Head exam: PRESENT: normocephalic Respiratory exam: PRESENT: clear to auscultation sigifredo. ABSENT: accessory muscle use, crackles, rales, rhonchi, wheezes Cardiovascular exam: PRESENT: irregular rhythm, systolic murmur - 2/6 murmur intermittently heard GI/Abdominal exam: PRESENT: distended - Slightly, normal bowel sounds, soft. ABSENT: tenderness Extremities exam: PRESENT: +1 edema Neurological exam: PRESENT: alert, awake, oriented to person, oriented to place, oriented to situation Psychiatric exam: PRESENT: appropriate affect, normal mood. ABSENT: agitated, anxious Focused psych exam: ABSENT: restlessness Results Laboratory Results: 08/23/18 05:01 08/25/18 12:07 08/19/18 08/19/18 08/20/18 19:52 19:52 02:18 Creatine Kinase 70 CK-MB (CK-2) 0.80 Troponin I 0.013 0.015 NT-Pro-B Natriuret Pep 4460 H 08/20/18 08/20/18 08/20/18 07:10 07:10 14:50 Creatine Kinase 56 62 CK-MB (CK-2) 0.77 Troponin I 0.013 NT-Pro-B Natriuret Pep 08/20/18 14:50 Creatine Kinase CK-MB (CK-2) 0.74 Troponin I 0.013 NT-Pro-B Natriuret Pep Impressions: Chest X-Ray 08/19/18 20:38 IMPRESSION: No evidence of acute cardiopulmonary disease. Abdomen Ultrasound 08/22/18 00:00 IMPRESSION: Limited study due to overlying bowel gas. Liver demonstrates heterogeneous echogenicity with nodular contour. No focal masses. There is a small amount of pericholecystic fluid which is nonspecific. Negative sonographic Marroquin's sign. Shoulder X-Ray 08/23/18 00:00 IMPRESSION: NEGATIVE STUDY OF THE RIGHT SHOULDER. NO RADIOGRAPHIC EVIDENCE OF ACUTE INJURY. Assessment & Plan - Diagnosis (1) Esophageal varices with bleeding Qualifiers: Esophageal varices type: secondary Qualified Code(s): I85.11 - Secondary esophageal varices with bleeding Is this a current diagnosis for this admission?: Yes Plan: We will continue to monitor hemoglobin. I explained to the patient and his that keeping his blood pressure low as well as avoiding straining to try and keep the pressures in the varices low will help. There is always a risk of rebleeding. He is currently not on anticoagulation. He will follow up with his recruitment intern post discharge. (2) Atrial fibrillation Qualifiers: Atrial fibrillation type: unspecified Qualified Code(s): I48.91 - Unspecified atrial fibrillation Is this a current diagnosis for this admission?: Yes Plan: Good rate control with atenolol. If he tends toward bradycardia we may need to reduce the dose. No anticoagulation due to GI bleed. (3) Acute on chronic kidney failure Qualifiers: Acute renal failure type: with acute renal cortical necrosis Chronic kidney disease stage: unspecified stage Qualified Code(s): N17.1 - Acute kidney failure with acute cortical necrosis; N18.9 - Chronic kidney disease, unspecified Is this a current diagnosis for this admission?: Yes Plan: Continues to improve. Recheck chemistries tomorrow. (4) Diastolic CHF Qualifiers: Heart failure chronicity: acute on chronic Qualified Code(s): I50.33 - Acute on chronic diastolic (congestive) heart failure Is this a current diagnosis for this admission?: Yes (5) Right Achilles tendinitis Is this a current diagnosis for this admission?: Yes Plan: Much improved on prednisone. I will decrease the dose to 20 mg. (6) Alcohol dependence Qualifiers: Substance use status: uncomplicated Qualified Code(s): F10.20 - Alcohol dependence, uncomplicated Is this a current diagnosis for this admission?: No (7) Hypothyroid Qualifiers: Hypothyroidism type: unspecified Qualified Code(s): E03.9 - Hypothyroidism, unspecified Is this a current diagnosis for this admission?: Yes (8) HEAVEN (obstructive sleep apnea) Is this a current diagnosis for this admission?: Yes (9) Shoulder pain, right Qualifiers: Chronicity: acute Qualified Code(s): M25.511 - Pain in right shoulder Is this a current diagnosis for this admission?: Yes (10) Acute cystitis Qualifiers: Hematuria presence: without hematuria Qualified Code(s): N30.00 - Acute cystitis without hematuria Is this a current diagnosis for this admission?: Yes - Time Time Spent with patient: 25-34 minutes Medications reviewed and adjusted accordingly: Yes Anticipated discharge: Home with Homehealth
[2018-08-27] MEDS: ATORVASTATIN CALCIUM 20 MG TABLET PO SCH (21:42)
[2018-08-27] MEDS: NITROGLYCERIN 5 MG (0.2 MG/HR) PATCH.TD24 TD SCH (21:42)
[2018-08-28] MEDS: LEVOTHYROXINE SODIUM 0.025 MG TABLET PO SCH (05:14)
[2018-08-28] MEDS: LANSOPRAZOLE 15 MG TAB.RAP.DR PO SCH (05:14)
[2018-08-28] MEDS: LEVOTHYROXINE SODIUM 0.1 MG TABLET PO SCH (05:14)
[2018-08-28 06:09] LABS: HEMATOCRIT 25.6 % (37.9-51.0); HEMOGLOBIN 8.5 g/dL (13.5-17.0); MEAN CORPUSCULAR HEMOGLOBIN 30.8 pg (27.0-33.4); MEAN CORPUSCULAR HGB CONC 33.3 g/dL (32.0-36.0); MEAN CORPUSCULAR VOLUME 92 fl (80-97); PLATELET COUNT 223 10^3/uL (150-450); RED BLOOD COUNT 2.77 10^6/uL (4.35-5.55); RED CELL DISTRIBUTION WIDTH 19.4 % (11.5-14.0)
[2018-08-28 06:35] LABS: ALANINE AMINOTRANSFERASE 24 U/L (21-72); ALBUMIN 3.3 g/dL (3.5-5.0); ALKALINE PHOSPHATASE 166 U/L (38-126); ANION GAP 10 (5-19); ASPARTATE AMINO TRANSFERASE 32 U/L (17-59); BILIRUBIN,DIRECT 0.4 mg/dL (0.0-0.4); BILIRUBIN,TOTAL 0.7 mg/dL (0.2-1.3); BLOOD UREA NITROGEN 32 mg/dL (7-20); CALCIUM 9.2 mg/dL (8.4-10.2); CARBON DIOXIDE 28 mmol/L (22-30); CHLORIDE 102 mmol/L (98-107); GLUCOSE 118 mg/dL (75-110); POTASSIUM 4.2 mmol/L (3.6-5.0); SODIUM 140.4 mmol/L (137-145); TOTAL PROTEIN 6.6 g/dL (6.3-8.2)
[2018-08-28] MEDS: FUROSEMIDE 40 MG TABLET PO SCH (09:51)
[2018-08-28] MEDS: THIAMINE HCL 100 MG TABLET PO SCH (09:51)
[2018-08-28] MEDS: POTASSIUM CHLORIDE 10 MEQ CAPSULE.ER PO SCH (09:51)
[2018-08-28] MEDS: FOLIC ACID 1 MG TABLET PO SCH (09:52)
[2018-08-28] MEDS: ATENOLOL 50 MG TABLET PO SCH (09:52)
[2018-08-28] MEDS: DOCUSATE SODIUM 100 MG CAPSULE PO SCH (09:52)
[2018-08-28] MEDS: IRON POLYSACCHARIDES COMPLEX 150 MG CAPSULE PO SCH (09:52)
[2018-08-28] MEDS: MAGNESIUM OXIDE 400 MG TABLET PO SCH (09:52)
[2018-08-28] MEDS: GUAIFENESIN/CODEINE PHOS 100-10 MG/ 5 ML UDC PO SCH ×2 (09:52→13:25)
[2018-08-28] MEDS ORDERED: PREDNISONE 20 MG TABLET PO SCH (10:00)
[2018-08-28 15:01] VITALS: BP 129/74
--- NOTE | 2018-08-29 18:57 | PDOC DISCHARGE SUMMARY ---
General - Admit/Disc Date/PCP Admission Date/Primary Care Provider: 08/19/18 23:28 DANIKA DEE MD Discharge Date: 08/28/18 - Discharge Diagnosis (1) Esophageal varices with bleeding Is this a current diagnosis for this admission?: Yes Summary: No further evidence of bleeding. Follow-up with gastroenterology. Blood thinners are too high of a risk at this time. The risk of bleeding outweighs the benefits of anticoagulation with his atrial fibrillation. (2) Atrial fibrillation Is this a current diagnosis for this admission?: Yes Summary: Currently stable on this medication regimen. This is significantly less medicine than prior to this admission. Continue on the current regimen and follow-up with cardiology. (3) Acute on chronic kidney failure Is this a current diagnosis for this admission?: Yes Summary: Greatly improved. Appears to be back to his baseline. Follow-up with primary care. I will defer referral to nephrology to his primary care provider. (4) Diastolic CHF Is this a current diagnosis for this admission?: Yes Summary: Continue current medications including the furosemide 80 mg twice daily. He has no longer on Zaroxolyn due to his hypotension he is currently not on an JUNIOR inhibitor or angiotensin receptor julián. Depending on how his pressure evolves these medicines can be added by his client executive as an outpatient. (5) Right Achilles tendinitis Is this a current diagnosis for this admission?: Yes Summary: Significantly improved on prednisone. Prednisone taper as an outpatient per the prescription. (6) Alcohol dependence Is this a current diagnosis for this admission?: Yes Summary: Sustained from alcohol use considering the underlying cirrhosis and esophageal varices. (7) Hypothyroid Is this a current diagnosis for this admission?: Yes Summary: Continue current levothyroxine dose. (8) HEAVEN (obstructive sleep apnea) Is this a current diagnosis for this admission?: Yes Summary: Continue CPAP at night. (9) Shoulder pain, right Is this a current diagnosis for this admission?: Yes Summary: Resolved (10) Acute cystitis Is this a current diagnosis for this admission?: Yes Summary: Resolved with antibiotic therapy - Additional Information Resuscitation Status: Full Code Discharge Diet: Cardiac, Diabetic Discharge Activity: Activity As Tolerated, Balance Activity w/Rest, Weigh Daily, Other Prescriptions: Atenolol [Tenormin 50 mg Tablet] 25 mg PO DAILY 30 Days #15 tablet Iron Polysaccharides Complex [Nu-Iron 150 Capsule] 150 mg PO DAILY 30 Days #30 capsule Nitroglycerin [Nitro-Dur 5 mg (0.2 mg/Hr) Transdermal Patch] 1 each TD QHS 30 Days #30 patch.[email or web address] Prednisone [Deltasone 5 mg Tablet] 5 mg PO DAILY 20 Days #20 tablet Home Medications: Atorvastatin Calcium [Lipitor 20 mg Tablet] 20 mg PO DAILY 08/20/18 Folic Acid [Folvite 1 mg Tablet] 1 mg PO DAILY 08/20/18 Furosemide [Lasix 40 mg Tablet] 80 mg PO BID 08/20/18 Hydrocodone/Acetaminophen [Felton 5-325 mg Tablet] 1 tab PO Q6HP PRN 08/20/18 Levothyroxine Sodium [Synthroid] 125 mcg PO Q6AM 08/20/18 Magnesium Oxide [Magnesium] 400 mg PO DAILY 08/20/18 Methocarbamol [Robaxin 750 mg Tablet] 750 mg PO TID 08/20/18 Omeprazole Magnesium [Prilosec Otc] 20 mg PO DAILY 08/20/18 Potassium Chloride 20 meq PO DAILY 08/20/18 Vitamin B Complex [Vitamin B-100 Complex] 100 mg PO DAILY 08/20/18 Acetaminophen [Tylenol 325 mg Tablet] 650 mg PO Q4HP PRN tablet 08/28/18 Atenolol [Tenormin 50 mg Tablet] 25 mg PO DAILY 30 Days #15 tablet 08/28/18 Docusate Sodium [Colace 100 mg Capsule] 100 mg PO DAILY capsule 08/28/18 Folic Acid [Folvite 1 mg Tablet] 1 mg PO DAILY tablet 08/28/18 Iron Polysaccharides Complex [Nu-Iron 150 Capsule] 150 mg PO DAILY 30 Days #30 capsule 08/28/18 Nitroglycerin [Nitro-Dur 5 mg (0.2 mg/Hr) Transdermal Patch] 1 each TD QHS 30 Days #30 patch.td24 08/28/18 Prednisone [Deltasone 5 mg Tablet] 5 mg PO DAILY 20 Days #20 tablet 08/28/18 History of Present Illness Patient complains of: Increased shortness of breath with significant swelling in his lower extremities. History of Present Illness: ELEANOR STODDARD is a 73 year old male who presented with slowly progressive shortness of breath, lightheadedness and leg swelling. Physical Exam Vital Signs: Temp Pulse Resp BP Pulse Ox 97.3 F 65 12 132/63 H 95 08/28/18 07:37 08/28/18 07:37 08/28/18 07:37 08/28/18 07:37 08/28/18 12:14 Intake & Output 08/27/18 08/28/18 08/29/18 06:59 06:59 06:59 Intake Total 50 1318 Output Total 1250 600 Balance -1200 718 Weight 111.1 kg 114.9 kg General appearance: PRESENT: no acute distress Respiratory exam: PRESENT: clear to auscultation sigifredo, rales, rhonchi, wheezes Cardiovascular exam: PRESENT: RRR, +S1, +S2 GI/Abdominal exam: PRESENT: normal bowel sounds, soft. ABSENT: tenderness Extremities exam: PRESENT: other - No right Achilles tendon tenderness. ABSENT: calf tenderness Neurological exam: PRESENT: alert, awake, oriented to person, oriented to place, oriented to time, oriented to situation Psychiatric exam: PRESENT: normal mood Results Laboratory Results: 08/28/18 05:39 08/28/18 05:39 08/28/18 08/28/18 05:39 05:39 WBC 10.0 RBC 2.77 L Hgb 8.5 L Hct 25.6 L MCV 92 MCH 30.8 MCHC 33.3 RDW 19.4 H Plt Count 223 Sodium 140.4 Potassium 4.2 Chloride 102 Carbon Dioxide 28 Anion Gap 10 BUN 32 H Creatinine 1.68 H Est GFR ( Amer) 49 L Est GFR (Non-Af Amer) 40 L Glucose 118 H Calcium 9.2 Total Bilirubin 0.7 AST 32 ALT 24 Alkaline Phosphatase 166 H Total Protein 6.6 Albumin 3.3 L 08/19/18 08/19/18 08/20/18 19:52 19:52 02:18 Creatine Kinase 70 CK-MB (CK-2) 0.80 Troponin I 0.013 0.015 NT-Pro-B Natriuret Pep 4460 H 08/20/18 08/20/18 08/20/18 07:10 07:10 14:50 Creatine Kinase 56 62 CK-MB (CK-2) 0.77 Troponin I 0.013 NT-Pro-B Natriuret Pep 08/20/18 14:50 Creatine Kinase CK-MB (CK-2) 0.74 Troponin I 0.013 NT-Pro-B Natriuret Pep Impressions: Chest X-Ray 08/19/18 20:38 IMPRESSION: No evidence of acute cardiopulmonary disease. Abdomen Ultrasound 08/22/18 00:00 IMPRESSION: Limited study due to overlying bowel gas. Liver demonstrates heterogeneous echogenicity with nodular contour. No focal masses. There is a small amount of pericholecystic fluid which is nonspecific. Negative sonographic Marroquin's sign. Shoulder X-Ray 08/23/18 00:00 IMPRESSION: NEGATIVE STUDY OF THE RIGHT SHOULDER. NO RADIOGRAPHIC EVIDENCE OF ACUTE INJURY. Qualifiers - * PATIENT BEING DISCHARGED WITH ANY OF THE FOLLOWING DIAGNOSIS: Heart Failure HF Pt being discharged on ACEI for LVEF less than 40%?: No Reason(s) for not prescribing ACEI:: Not indicated HF Pt being discharged on ARBS for LVEF less than 40%?: No Reason(s) for not prescribing ARBS:: Medical Contraindication - Hypotension HF Pt with Afib discharged with Warfarin?: No Reason(s) for not prescribing Warfarin:: Medical Contraindication HF Pt discharged on evidence-based Beta Julián:: No Reason(s) for not prescribing evidence-based Beta Julián:: Medical Contraindication - Already on beta-julián for esophageal varices Plan Discharge Plan: Home with home health Follow-up appointments with primary care, gastroenterology and cardiology Time Spent: Greater than 30 Minutes
== END 2018-08-28 16:45 | disposition home health service (06) | DRG 432 ==
LOC: ER 17:25 → EH 23:28 → 3N 08-20 01:11
PROVIDERS: ADMIT Internal Medicine; ATTEND Internal Medicine
PROC: 30233N1 Transfusion of Nonautologous Red Blood Cells into Peripheral Vein, Percutaneous Approach (ICD-10-PCS; 2018-08-20)
PROC: 30233K1 Transfusion of Nonautologous Frozen Plasma into Peripheral Vein, Percutaneous Approach (ICD-10-PCS; 2018-08-21)
PROC: 0DJD8ZZ Inspection of Lower Intestinal Tract, Via Natural or Artificial Opening Endoscopic (ICD-10-PCS; principal; 2018-08-21 10:30)
PROC: 5A09357 Assistance with Respiratory Ventilation, Less than 24 Consecutive Hours, Continuous Positive Airway Pressure (ICD-10-PCS; 2018-08-25)
DX: K74.60 Unspecified cirrhosis of liver (principal); I85.11 Secondary esophageal varices with bleeding; N17.1 Acute kidney failure with acute cortical necrosis; I50.33 Acute on chronic diastolic (congestive) heart failure; K57.92 Diverticulitis of intestine, part unspecified, without perforation or abscess without bleeding; I13.0 Hypertensive heart and chronic kidney disease with heart failure and stage 1 through stage 4 chronic kidney disease, or unspecified chronic kidney disease; D68.32 Hemorrhagic disorder due to extrinsic circulating anticoagulants; N30.00 Acute cystitis without hematuria; I48.91 Unspecified atrial fibrillation; I45.81 Long QT syndrome; E66.01 Morbid (severe) obesity due to excess calories; N18.3 Chronic kidney disease, stage 3 (moderate); D50.0 Iron deficiency anemia secondary to blood loss (chronic); G47.30 Sleep apnea, unspecified; K57.30 Diverticulosis of large intestine without perforation or abscess without bleeding; E03.9 Hypothyroidism, unspecified; K21.9 Gastro-esophageal reflux disease without esophagitis; M19.90 Unspecified osteoarthritis, unspecified site; M10.9 Gout, unspecified; K44.9 Diaphragmatic hernia without obstruction or gangrene; K64.8 Other hemorrhoids; F10.20 Alcohol dependence, uncomplicated; M76.61 Achilles tendinitis, right leg; M25.511 Pain in right shoulder; B95.1 Streptococcus, group B, as the cause of diseases classified elsewhere; E78.5 Hyperlipidemia, unspecified; Z88.2 Allergy status to sulfonamides; Z88.8 Allergy status to other drugs, medicaments and biological substances; Z71.41 Alcohol abuse counseling and surveillance of alcoholic; Z68.35 Body mass index [BMI] 35.0-35.9, adult; Z87.891 Personal history of nicotine dependence; Z90.49 Acquired absence of other specified parts of digestive tract; Z82.49 Family history of ischemic heart disease and other diseases of the circulatory system; Z79.82 Long term (current) use of aspirin; Z79.52 Long term (current) use of systemic steroids
CPT/HCPCS: 36415; 36430; 45378; 71045; 76705; 80048; 80053; 81001; 82140; 82272; 82550; 82553; 82607; 82728; 82746; 83540; 83550; 83735; 83880; 84443; 84484; 84550; 85025; 85027; 85045; 85610; 86850; 86900; 86901; 86920; 87086; 87088; 93005; 93010; 93306; 93971; 94660; 96374; 99285; J0171; J0696; J1200; J1610; J1940; J2250; J2310; J2405; J3010; J3490; J7512; P9016; P9017

== ENCOUNTER 2018-08-31 21:02 | Emergency (ER) | payer MEDICARE ==
[2018-08-31] MEDS ORDERED: MAG HYDROX/AL HYDROX/SIMETH SUSP 30 ML UDCUP PO ONE (21:40)
[2018-08-31] MEDS ORDERED: METOCLOPRAMIDE HCL ORAL SOLN 10 MG/10 ML UDCUP PO ONE (21:40)
[2018-08-31] MEDS ORDERED: LIDOCAINE 2% VISCOUS SOLN 20 ML UDCUP PO ONE (21:41)
[2018-08-31] MEDS ORDERED: LIDOCAINE 2% INJ-PF (20 MG/ML) 10 ML AMPUL NEB ONE (21:59)
[2018-08-31] MEDS ORDERED: KETOROLAC TROMETHAMINE INJ/PF 30 MG/1 ML SDV IV ONE (22:15)
[2018-08-31] MEDS ORDERED: FENTANYL CITRATE INJ/PF 100 MCG/2 ML AMPUL IV PRN (22:15)
--- NOTE | 2018-08-31 22:19 | ER Document Report ---
ED General - General Chief Complaint: Foreign Body Stated Complaint: ESOPHAGEAL OBSTRUCTION/NAUSEA/VOMITING Time Seen by Provider: 08/31/18 21:32 Primary Care Provider: DANIKA DEE MD [Primary Care Provider] - Follow up as needed Notes: Patient is a 73-year-old male with past medical history of atrial fibrillation, hypertension, presents with complaints of throat discomfort after feeling like he choked on a turkey sandwich earlier today. To be clear the patient states that at no point was having difficulty breathing only that he felt like something was stuck in his esophagus. States that since that time he has had a throbbing, constant discomfort in the throat. Nothing has improved or worsen the discomfort. He does however state that swallowing is possible but quite uncomfortable. He is not having any trouble handling his oral secretions. Denies any breath of any kind. No history of similar in the past. Denies any hematemesis. Did have one episode of vomiting prior to arrival. TRAVEL OUTSIDE OF THE [place] IN LAST 30 DAYS: No - Related Data Allergies/Adverse Reactions: allopurinol Allergy (Verified 08/31/18 21:14) colchicine Allergy (Verified 08/31/18 21:14) Sulfa (Sulfonamide Antibiotics) Allergy (Verified 08/31/18 21:14) valdecoxib [From Bextra] Allergy (Verified 08/31/18 21:14) Past Medical History - General Information source: Patient - Social History Smoking Status: Former Smoker Frequency of alcohol use: Occasional Drug Abuse: None Family History: Hypertension Patient has suicidal ideation: No Patient has homicidal ideation: No - Past Medical History Cardiac Medical History: Reports: Hx Atrial Fibrillation, Hx Congestive Heart Failure, Hx Hypercholesterolemia, Hx Hypertension Denies: Hx Coronary Artery Disease, Hx DVT, Hx Heart Attack, Hx Pulmonary Embolism Pulmonary Medical History: Reports: Hx Sleep Apnea - Uncertain settings on home CPAP Denies: Hx Asthma, Hx COPD Neurological Medical History: Denies: Hx Seizures Endocrine Medical History: Reports: Hx Hypothyroidism. Denies: Hx Diabetes Mellitus Type 1, Hx Diabetes Mellitus Type 2, Hx Hyperthyroidism Renal/ Medical History: Denies: Hx Peritoneal Dialysis GI Medical History: Reports: Hx Diverticulitis - Status post segmental colectomy for same., Hx Gastroesophageal Reflux Disease, Hx Hiatal Hernia. Denies: Hx Cirrhosis Musculoskeletal Medical History: Reports Hx Arthritis, Reports Hx Gout Psychiatric Medical History: Denies: Hx Depression Past Surgical History: Reports: Hx Abdominal Surgery - bowel resection, Hx Herniorrhaphy, Hx Orthopedic Surgery - right and left hand surgeries, Other - Segmental colectomy for diverticulitis - Immunizations Immunizations up to date: Yes Hx Diphtheria, Pertussis, Tetanus Vaccination: Yes Hx Pneumococcal Vaccination: 07/22/16 Review of Systems - Review of Systems Notes: Constitutional: Negative for fever. HENT: Positive for throat pain Eyes: Negative for visual changes. Cardiovascular: Negative for chest pain. Respiratory: Negative for shortness of breath. Gastrointestinal: Negative for abdominal pain, vomiting or diarrhea. Genitourinary: Negative for dysuria. Musculoskeletal: Negative for back pain. Skin: Negative for rash. Neurological: Negative for headaches, weakness or numbness. 10 point ROS negative except as marked above and in HPI. Physical Exam - Vital signs Vitals: Temp Pulse Resp BP Pulse Ox 97.7 F 64 22 H 142/93 H 99 08/31/18 21:02 08/31/18 21:02 08/31/18 21:02 08/31/18 21:02 08/31/18 21:02 Interpretation: Normal Notes: PHYSICAL EXAMINATION: GENERAL: Appears moderately uncomfortable but in no acute distress HEAD: Atraumatic, normocephalic. EYES: Pupils equal round and reactive to light, extraocular movements intact, sclera anicteric, conjunctiva are normal. ENT: nares patent, oropharynx clear without exudates. Moist mucous membranes. NECK: Normal range of motion, supple without lymphadenopathy, no stridor LUNGS: Breath sounds clear to auscultation bilaterally and equal. No wheezes rales or rhonchi. HEART: Regular rate and rhythm without murmurs ABDOMEN: Soft, nontender, normoactive bowel sounds. No guarding, no rebound. No masses appreciated. EXTREMITIES: Normal range of motion, no pitting or edema. No cyanosis. NEUROLOGICAL: No focal neurological deficits. Moves all extremities spontaneously and on command. PSYCH: Normal mood, normal affect. SKIN: Warm, Dry, normal turgor, no rashes or lesions noted. Course - Re-evaluation Re-evalutation: 08/31/18 22:18 Patient presents with concerns of a possible retained esophageal foreign body although this seems quite improbable in the context of the patient is able to swallow without any real difficulty. He drank with water and a GI cocktail, no vomiting or spitting up. No suspicion for tracheal foreign body given absence of any respiratory distress, no stridor, vitals within normal limits. Will provide lidocaine nebulizer, small dose of fentanyl given ongoing discomfort after GI cocktail. Will obtain a soft tissue neck x-ray and reassess. 08/31/18 23:36 Soft tissue neck x-ray unremarkable without evidence of perforation or free air. Patient feels completely better at this time. He did drink water in front of me without any difficulty. Has had complete resolution of discomfort. At this time will discharge with return precautions and follow-up recommendations. Verbal discharge instructions given a the bedside and opportunity for questions given. Medication warnings reviewed. Patient is in agreement with this plan and has verbalized understanding of return precautions and the need for primary care follow-up in the next 24-72 hours. - Vital Signs Vital signs: Temp Pulse Resp BP Pulse Ox 98.8 F 64 17 142/93 H 100 08/31/18 21:05 08/31/18 21:02 08/31/18 21:08 08/31/18 21:08 08/31/18 21:08 Discharge - Discharge Clinical Impression: Foreign body sensation in throat, Throat pain Condition: Good Disposition: HOME, SELF-CARE Additional Instructions: Please avoid steak, chicken, pork, any firm meat which would be a high risk substance for getting stuck in your esophagus. Please do discussed with . we do when you see him next week regarding tonight's episode. I would encourage a soft diet for the next 24-48 hours including things like pudding, yogurt, Jell-O and soup. Return to the emergency department immediately if you began having persistent vomiting, vomit blood, have inability to swallow, pass out, have severe pain in your throat or neck, or have any other symptoms that are new or concerning to you. Referrals: DANIKA DEE MD [Primary Care Provider] - Follow up as needed
--- NOTE | 2018-08-31 23:01 | RADIOLOGY REPORT (SQ) ---
EXAM DESCRIPTION: XR NECK SOFT TISSUE COMPLETED DATE/TME: 08/31/2018 22:14 CLINICAL HISTORY: 73 years, Male, Foreign body sensation COMPARISON: None. NUMBER OF VIEWS: 2 TECHNIQUE: Frontal and lateral views of the neck using soft tissue technique LIMITATIONS: None. FINDINGS: Osteopenia. The epiglottis and aryepiglottic folds are normal. Negative for radiopaque foreign body. Prevertebral soft tissues are normal. Airway is patent. Vascular calcifications. IMPRESSION: Osteopenia. Vascular calcifications. The airway is patent copyright 2010 [employer]- All Rights Reserved
[2018-08-31 23:52] VITALS: BP 131/80
== END 2018-08-31 23:50 | disposition home or self-care (01) ==
LOC: ER 21:02
DX: R09.89 Other specified symptoms and signs involving the circulatory and respiratory systems (principal); R07.0 Pain in throat; R11.2 Nausea with vomiting, unspecified; I10 Essential (primary) hypertension; Z88.8 Allergy status to other drugs, medicaments and biological substances; Z88.2 Allergy status to sulfonamides; Z87.891 Personal history of nicotine dependence
CPT/HCPCS: 94640; 99283; 96374; 70360; J3490 ×2; J1885; A9270

== ENCOUNTER 2018-09-11 07:23 | Emergency (ER) | payer MEDICARE ==
[2018-09-11 10:25] LABS: HEMATOCRIT 32.6 % (37.9-51.0); HEMOGLOBIN 10.6 g/dL (13.5-17.0); MEAN CORPUSCULAR HEMOGLOBIN 30.1 pg (27.0-33.4); MEAN CORPUSCULAR HGB CONC 32.5 g/dL (32.0-36.0); MEAN CORPUSCULAR VOLUME 93 fl (80-97); PLATELET COUNT 355 10^3/uL (150-450); RED BLOOD COUNT 3.51 10^6/uL (4.35-5.55); RED CELL DISTRIBUTION WIDTH 19.7 % (11.5-14.0); WHITE BLOOD COUNT 13.5 10^3/uL (4.0-10.5)
[2018-09-11 10:39] LABS: INTERNATIONAL RATION (INR) 1.21; PROTHROMBIN TIME 15.9 SEC (11.4-15.4)
[2018-09-11 10:40] LABS: PARTIAL THROMBOPLASTIN TIME 37.9 SEC (23.5-35.8)
[2018-09-11 10:51] LABS: ABSOLUTE LYMPHOCYTES# (MANUAL) 0.8 10^3/uL (0.5-4.7); ABSOLUTE MONOCYTES # (MANUAL) 0.7 10^3/uL (0.1-1.4); BASOPHILS % (MANUAL) 0 % (0-2); EOSINOPHILS % (MANUAL) 0 % (0-6); LYMPHOCYTES % (MANUAL) 6 % (13-45); MONOCYTES % (MANUAL) 5 % (3-13); SEGMENTED NEUTROPHILS % (MAN) 89 % (42-78); TOTAL CELLS COUNTED 100
[2018-09-11 10:52] LABS: ANISOCYTOSIS 2+; HYPOCHROMASIA 1+; PLATELET COMMENT ADEQUATE; PLATELET LARGE PRESENT; TOXIC GRANULATION 2+
[2018-09-11 10:56] LABS: ALANINE AMINOTRANSFERASE 26 U/L (21-72); ALBUMIN 4.1 g/dL (3.5-5.0); ALKALINE PHOSPHATASE 161 U/L (38-126); ANION GAP 14 (5-19); ASPARTATE AMINO TRANSFERASE 26 U/L (17-59); BILIRUBIN,DIRECT 0.9 mg/dL (0.0-0.4); BILIRUBIN,TOTAL 2.6 mg/dL (0.2-1.3); BLOOD UREA NITROGEN 15 mg/dL (7-20); CALCIUM 9.5 mg/dL (8.4-10.2); CARBON DIOXIDE 24 mmol/L (22-30); CHLORIDE 100 mmol/L (98-107); GLUCOSE 108 mg/dL (75-110); POTASSIUM 4.5 mmol/L (3.6-5.0); SODIUM 137.5 mmol/L (137-145); TOTAL PROTEIN 7.5 g/dL (6.3-8.2)
[2018-09-11] MEDS ORDERED: MORPHINE SULFATE 10 MG/ML INJ IV ONE ×2 (11:40→13:45)
--- NOTE | 2018-09-11 11:44 | ER Document Report ---
ED General - General Chief Complaint: Arm Pain Stated Complaint: RIGHT ARM PAIN Time Seen by Provider: 09/11/18 08:48 Primary Care Provider: BRITTANY CROSS MD [Primary Care Provider] - Follow up as needed Notes: Patient is a 73-year-old male who presents emergency department with a chief complaint of right upper extremity pain and swelling. He states that his symptoms started yesterday and possibly gotten worse. Last month his Coumadin was discontinued. He has not seen his primary care provider in regards to this issue. He denies and denies any fever, shortness of breath, or weakness. He does state that he does have some pain to the area that is a throbbing pain. Pain does not radiate. He also does notice some redness to the area. He has an extensive history of diverticulitis, history of heart ablation, hypertension, hyperlipidemia. He does also state that he has a little bit of pain to the bot baylee of his left foot near his heel, but he has spurs to the area and sees a sailor in regards to this issue. He states that pain feels the same as normal. TRAVEL OUTSIDE OF THE [place] IN LAST 30 DAYS: No - Related Data Allergies/Adverse Reactions: allopurinol Allergy (Verified 09/11/18 07:25) colchicine Allergy (Verified 09/11/18 07:25) Sulfa (Sulfonamide Antibiotics) Allergy (Verified 09/11/18 07:25) valdecoxib [From Bextra] Allergy (Verified 09/11/18 07:25) Past Medical History - Social History Smoking Status: Former Smoker Family History: Hypertension Patient has suicidal ideation: No Patient has homicidal ideation: No - Past Medical History Cardiac Medical History: Reports: Hx Atrial Fibrillation, Hx Congestive Heart Failure, Hx Hypercholesterolemia, Hx Hypertension Denies: Hx Coronary Artery Disease, Hx DVT, Hx Heart Attack, Hx Pulmonary Embolism Pulmonary Medical History: Reports: Hx Sleep Apnea - Uncertain settings on home CPAP Denies: Hx Asthma, Hx COPD Neurological Medical History: Denies: Hx Seizures Endocrine Medical History: Reports: Hx Hypothyroidism. Denies: Hx Diabetes Mellitus Type 1, Hx Diabetes Mellitus Type 2, Hx Hyperthyroidism Renal/ Medical History: Denies: Hx Peritoneal Dialysis GI Medical History: Reports: Hx Diverticulitis - Status post segmental colectomy for same., Hx Gastroesophageal Reflux Disease, Hx Hiatal Hernia. Denies: Hx Cirrhosis Musculoskeletal Medical History: Reports Hx Arthritis, Reports Hx Gout Psychiatric Medical History: Denies: Hx Depression Past Surgical History: Reports: Hx Abdominal Surgery - bowel resection, Hx Herniorrhaphy, Hx Orthopedic Surgery - right and left hand surgeries, Other - Segmental colectomy for diverticulitis - Immunizations Immunizations up to date: Yes Hx Diphtheria, Pertussis, Tetanus Vaccination: Yes Hx Pneumococcal Vaccination: 07/22/16 Review of Systems - Review of Systems Notes: REVIEW OF SYSTEMS: CONSTITUTIONAL : Denies recent illness. Denies recent unintentional weight loss. Denies fever, chills, or sweats. EENT: Denies eye, ear, throat, or mouth pain, discharge, or symptoms. Denies nasal or sinus congestion. CARDIOVASCULAR: Denies chest pain. RESPIRATORY: Denies shortness of breath, cough, congestion, difficulty breathing, or wheezing. GASTROINTESTINAL: Denies nausea, vomiting, and diarrhea. Denies abdominal pain. Denies constipation. GENITOURINARY: Denies difficulty urinating, burning, blood in urine, urgency or frequency. MUSCULOSKELETAL: See HPI SKIN: Denies rash, itchiness, or lesions HEMATOLOGIC : Denies easy bruising or bleeding. LYMPHATIC: Denies swollen, painful, enlarged glands. NEUROLOGICAL: Denies no numbness or tingling denies weakness. Denies headache. Denies altered mental status. Denies alteration in speech. PSYCHIATRIC: Denies stress, anxiety, alteration in sleep patterns, or depression. All other systems reviewed and negative. Physical Exam - Vital signs Vitals: Temp Pulse Resp BP Pulse Ox 99.4 F 80 18 136/76 H 95 09/11/18 07:32 09/11/18 07:32 09/11/18 07:32 09/11/18 07:32 09/11/18 07:32 - Notes Notes: PHYSICAL EXAMINATION: GENERAL: Appears well, healthy, well-nourished, no acute distress. HEAD: Normocephalic, atraumatic. EYES: PERRL, conjunctiva normal, all extraocular movements intact, sclera nonicteric ENT: Moist mucous membranes. NECK: Supple, no noticeable swelling, redness, rash. Normal range of motion. LUNGS: Equal breath sounds bilaterally and clear to auscultation. No wheezes rales or rhonchi. CARDIOVASCULAR: S1-S2, regular rate, regular rhythm. Radial pulses 2+, normal. ABDOMEN: Normoactive bowel sounds. Soft, nontender, no guarding, no rebound tenderness, and no masses palpated. EXTREMITIES: Edema noted to right upper extremity. Normal pulses. NEUROLOGICAL: Moves all extremities upon command. Strength 5/5 in all extremities. PSYCH: Normal mood, normal affect. SKIN: Warm, dry. Patient's right arm is warmer than the left. Course - Re-evaluation Re-evalutation: 09/11/18 09:32 Based off the patient's physical exam and history, I am concerned for a blood clot in his right upper arm. Venous Doppler studies will be done. Differential diagnosis includes cellulitis, deep vein thrombosis, upper extremity fracture. 09/11/18 11:41 Patient's venous Doppler studies are negative per the hydraulic controls technician. Although the venous Dopplers are negative, there could be a subclavian vein thrombosis in that area, the patient will be sent for a CTA of the chest to rule out any thrombi in his subclavian vein. 09/11/18 14:41 The patient's CTA is negative. The patient's x-ray of his hand and forearm are negative for any acute processes going on at this time. Due to him having multiple negative image studies, patient's exam is most consistent with cellulitis. He will be started on Keflex. He will have strict follow-up precautions. Verbal discharge instructions were given to the patient. They verbalized understanding. They are stable for discharge. - Vital Signs Vital signs: Temp Pulse Resp BP Pulse Ox 97.6 F 79 18 154/86 H 99 09/11/18 14:57 09/11/18 14:57 09/11/18 14:57 09/11/18 14:57 09/11/18 14:57 - Laboratory Result Diagrams: 09/11/18 09:50 09/11/18 09:50 Laboratory results interpreted by me: 09/11/18 09/11/18 09/11/18 09:50 09:50 09:50 WBC 13.5 H RBC 3.51 L Hgb 10.6 L Hct 32.6 L RDW 19.7 H Seg Neuts % (Manual) 89 H Lymphocytes % (Manual) 6 L Abs Neuts (Manual) 12.0 H PT 15.9 H APTT 37.9 H Creatinine 1.52 H Est GFR ( Amer) 55 L Est GFR (Non-Af Amer) 45 L Total Bilirubin 2.6 H Direct Bilirubin 0.9 H Alkaline Phosphatase 161 H - EKG Interpretation by Me Additional EKG results interpreted by me: 09/11/18 12:46 Atrial fibrillation. Rate 75. QRS 94; QT 392; QTC 438. No ST elevations or depressions. Discharge - Discharge Clinical Impression: Cellulitis Qualifiers: Site of cellulitis: extremity Site of cellulitis of extremity: upper extremity Laterality: right Qualified Code(s): L03.113 - Cellulitis of right upper limb Condition: Stable Disposition: HOME, SELF-CARE Additional Instructions: You were seen today in the emergency department for right hand and arm pain and left foot pain. Your images are normal. There are some chronic changes in your bones. Your exam is most consistent with cellulitis. You have been given antibiotics. Make sure you take all your antibiotics as prescribed. Please follow-up with your primary care provider in 3-4 days. You may take Tylenol as needed for your pain. If you develop shortness of breath, difficulty breathing, or have any symptoms that are worrisome to you, please return to the emergency department. Prescriptions: Cephalexin Monohydrate [Keflex 500 mg Capsule] 500 mg PO Q6H 7 Days capsule Referrals: BRITTANY CROSS MD [Primary Care Provider] - Follow up as needed
--- NOTE | 2018-09-11 13:24 | RADIOLOGY REPORT (SQ) ---
EXAM DESCRIPTION: VENOUS UNILATERAL UPPER COMPLETED DATE/TIME: 09/11/2018 12:52 pm REASON FOR STUDY: RUE swelling COMPARISON: None. TECHNIQUE: Dynamic and static marie scale and color images acquired of the right arm venous system. S elected spectral images acquired with additional compression and augmentation maneuvers. The contrala teral subclavian vein and internal jugular vein were also imaged. Images stored on PACS. LIMITATIONS: None. FINDINGS: INTERNAL JUGULAR VEIN: Normal phasicity, compression, augmentation. No visualized echogeni c material on marie scale. No defects on color images. Comparison opposite side normal. SUBCLAVIAN VEIN: Normal compression, augmentation. No visualized echogenic material on marie scale. No defects on color images. AXILLARY VEIN: Normal compression, augmentation. No visualized echogenic material on marie scale. No d efects on color images. BRACHIAL VEIN: Normal compression, augmentation. No visualized echogenic material on marie scale. No d efects on color images. BASILIC VEIN: Normal compression, augmentation. No visualized echogenic material on marie scale. No de fects on color images. CEPHALIC VEIN: Normal compression, augmentation. No visualized echogenic material on marie scale. No d efects on color images. OTHER: No other significant finding. CONTRALATERAL SUBCLAVIAN VEIN AND INTERNAL JUGULAR VEIN: Normal phasicity, compression and augmentation. No visualized echogenic material on marie scale. No de fects on color images. IMPRESSION: NO EVIDENCE DVT OR SVT IN THE RIGHT ARM. TECHNICAL DOCUMENTATION: JOB ID: [id number] [employer]- All Rights Reserved Reading location - IP/workstation name: [email or web address]
--- NOTE | 2018-09-11 13:31 | RADIOLOGY REPORT (SQ) ---
EXAM DESCRIPTION: CTA CHEST COMPLETED DATE/TIME: 09/11/2018 12:40 pm REASON FOR STUDY: eval clot; swelling RUE COMPARISON: None. TECHNIQUE: CT scan of the chest performed using helical scanning technique with dynamic intravenous contrast injection. Images reviewed with lung, soft tissue and bone windows. Reconstructed coronal and sagittal MPR images reviewed. Additional 3 dimensional post-processing performed to develop Maximal Intensity Projection images (OK P). All images stored on PACS. All CT scanners at this facility use dose modulation, iterative reconstruction, and/or weight based d osing when appropriate to reduce radiation dose to as low as reasonably achievable (ALARA). [facility]: Dose Right [facility]: CareDose [facility]: Dose Right [facility]: Teradose 4D [facility]: [employer] CONTRAST TYPE AND DOSE: contrast/concentration: Isovue 350.00 mg/ml; Total Contrast Delivered: 85.0 ml; Total Saline Delivered: 80.0 ml Contrast bolus optimized for the pulmonary arteries. Not diagnostic for the aorta. RENAL FUNCTION: BUN 15 creatinine 1.5 RADIATION DOSE: CT Rad equipment meets quality standard of care and radiation dose reduction techniq ues were employed. CTDIvol: 26.0 - 39.7 mGy. DLP: 1130 mGy-cm. . LIMITATIONS: None. FINDINGS: LUNGS AND PLEURA: Diffuse interlobular septal thickening. No consolidation or effusions. AORTA AND GREAT VESSELS: No aneurysm. Contrast bolus not optimized for the aorta. HEART: Cardiomegaly. Dilated right and left atrium. No pericardial effusion. Moderate to marked cor onary artery calcifications. PULMONARY ARTERIES: No emboli visualized in the main pulmonary arteries or the segmental branches. HILAR AND MEDIASTINAL STRUCTURES: No identified masses or abnormal nodes. HARDWARE: None in the chest. UPPER ABDOMEN: No significant findings. Limited exam. THYROID AND OTHER SOFT TISSUES: No masses. No adenopathy. BONES: Nothing acute. 3D MIPS: Confirm above findings. OTHER: No other significant finding. IMPRESSION: No PE. COMMENT: Quality ID # [id number]: Final reports with documentation of one or more dose reduction techniques (e.g., Automated exposure control, adjustment of the mA and/or kV according to patient size, use of iterative reconstruction technique) TECHNICAL DOCUMENTATION: JOB ID: [id number] [employer]- All Rights Reserved Reading location - IP/workstation name: [email or web address]
--- NOTE | 2018-09-11 14:25 | RADIOLOGY REPORT (SQ) ---
EXAM DESCRIPTION: FOREARM RIGHT COMPLETED DATE/TIME: 09/11/2018 2:16 pm REASON FOR STUDY: swelling COMPARISON: None. NUMBER OF VIEWS: Two views. TECHNIQUE: Two radiographic images acquired of the right forearm, including elbow and wrist in at le ast one projection. LIMITATIONS: None. FINDINGS: MINERALIZATION: Osteopenia. BONES: No acute fracture. Small osteophyte off of the olecranon process of the ulna. SOFT TISSUES: Soft tissue swelling. OTHER: No other significant finding. IMPRESSION: 1. Soft tissue swelling. 2. No acute osseous findings. 3. Additional findings as above. TECHNICAL DOCUMENTATION: JOB ID: [id number] [employer]- All Rights Reserved Reading location - IP/workstation name: [email or web address]
--- NOTE | 2018-09-11 14:31 | RADIOLOGY REPORT (SQ) ---
EXAM DESCRIPTION: HAND RIGHT 3 VIEWS COMPLETED DATE/TIME: 09/11/2018 2:16 pm REASON FOR STUDY: swelling COMPARISON: 05/05/2017 EXAM PARAMETERS: NUMBER OF VIEWS: Three views. TECHNIQUE: AP, lateral and oblique radiographic images acquired of the right hand. LIMITATIONS: None. FINDINGS: MINERALIZATION: Mild osteopenia. BONES: Post surgical changes at the proximal interphalangeal of the second digit and distal interpha langeal joint of the fifth digit with bony fusion. No radiographic evidence of loosening or infectio n. Interval progression of extensive degenerative changes at the interphalangeal joints of the digit s with soft tissue swelling. Mild narrowing at the metacarpophalangeal joints, particularly the four th with slight interval progression. A few scattered erosive changes. JOINTS: See above disscussion. SOFT TISSUES: Soft tissue swelling. No foreign body. OTHER: No other significant finding. IMPRESSION: 1. Since the previous examination dated 05/05/2017, interval progression of degenerativ e changes involving the interphalangeal joints of the digits. Stable post surgical changes. 2. Soft tissue swelling, new finding. TECHNICAL DOCUMENTATION: JOB ID: [id number]- All Rights Reserved Reading location - IP/workstation name: [email or web address]
[2018-09-11 15:00] VITALS: BP 154/86
--- NOTE | 2018-09-11 17:52 | EKG REPORT ---
SEVERITY:- ABNORMAL ECG - ATRIAL FIBRILLATION VENTRICULAR PREMATURE COMPLEX BORDERLINE LEFT AXIS DEVIATION : Confirmed by: Emiliano Guerrero MD 11-Sep-2018 17:51:22
== END 2018-09-11 14:57 | disposition home or self-care (01) ==
LOC: ER 07:23
DX: L03.113 Cellulitis of right upper limb (principal); M79.672 Pain in left foot; M77.52 Other enthesopathy of left foot and ankle; Z87.891 Personal history of nicotine dependence; I48.91 Unspecified atrial fibrillation; Z98.890 Other specified postprocedural states
CPT/HCPCS: 93005; 96376; 99284; 96374; 36415; 85025; 85610; 85730; 80053; 93971; 73090; 73130; 71275; 93010; J2270

== ENCOUNTER 2018-09-21 08:57 | Emergency (ER) | payer MEDICARE ==
[2018-09-21 09:03] VITALS: BP 144/91
[2018-09-21] MEDS ORDERED: OXYCODONE-ACETAMINOPHEN 5-325 MG TABLET PO ONE (09:34)
[2018-09-21] MEDS ORDERED: PREDNISONE 20 MG TABLET PO ONE (09:34)
--- NOTE | 2018-09-21 09:37 | ER Document Report ---
Addendum entered and electronically signed by ODALYS CADE NP 09/21/18 10:18: Course - Re-evaluation Re-evalutation: 09/21/18 10:12 Patient in the discharge office is telling registration staff that he cannot take steroid medication because of cirrhosis of the liver. Upon inquiry as to why he cannot take steroids, patient states that he cannot take them because they do not do anything for his pain relief. Patient advised that management is limited because of his underlying medical history in addition to the fact that he is already taking narcotic medication. Patient advised that we will add on a topical pain relief instead of the steroids and patient is encouraged to follow- up with his primary doctor tomorrow morning to discuss pain relief options. - Vital Signs Vital signs: Temp Pulse Resp BP Pulse Ox 97.5 F 69 20 144/91 H 100 09/21/18 09:01 09/21/18 09:01 09/21/18 09:01 09/21/18 09:01 09/21/18 09:01 Discharge - Discharge Clinical Impression: Arthritis Hand pain Qualifiers: Laterality: bilateral Qualified Code(s): M79.641 - Pain in right hand Condition: Stable Disposition: HOME, SELF-CARE Instructions: Arthritis ([facility]) Additional Instructions: Return immediately for any new or worsening symptoms Followup with your primary care provider, call tomorrow to make a followup appointment Take your pain medication that you have as prescribed at home Prescriptions: Capsaicin [Arthritis Pain Relief] 1 applic TP TID PRN #42.5 cream..g. PRN Reason: Referrals: BRITTANY CROSS MD [Primary Care Provider] - Follow up tomorrow Original Note: HPI - HPI Patient complains to provider of: hand pain Time Seen by Provider: 09/21/18 09:28 Onset: Other - 4 days Onset/Duration: Persistent Quality of pain: Achy Pain Level: 4 Context: Patient complains of bilateral hand and wrist pain for the past 4 days. Patient denies any injury or fever. Patient reports that he has arthritis and has had numerous surgeries on bilateral hands due to the arthritis. Patient states he is taking his pain medication that he has at home without any relief of his symptoms. Associated Symptoms: Other - Bilateral hand and wrist pain. denies: Fever Exacerbated by: Movement Relieved by: Denies Similar symptoms previously: Yes Recently seen / treated by doctor: No - ROS ROS below otherwise negative: Yes Systems Reviewed and Negative: Yes All other systems reviewed and negative - CONSTITUTIONAL Constitutional: DENIES: Fever, Chills - GASTROINTESTINAL Gastrointestinal: DENIES: Nausea - MUSCULOSKELETAL Musculoskeletal: REPORTS: Extremity pain - DERM Skin Color: Normal Skin Problems: None Past Medical History - General Information source: Patient - Social History Smoking Status: Never Smoker Chew tobacco use (# tins/day): No Frequency of alcohol use: Occasional Drug Abuse: None Lives with: Spouse/Significant other Family History: Hypertension Patient has suicidal ideation: No Patient has homicidal ideation: No - Past Medical History Cardiac Medical History: Reports: Hx Atrial Fibrillation, Hx Congestive Heart Failure, Hx Hypercholesterolemia, Hx Hypertension Pulmonary Medical History: Reports: Hx Sleep Apnea - Uncertain settings on home CPAP Neurological Medical History: Denies: Hx Seizures Endocrine Medical History: Reports: Hx Hypothyroidism Renal/ Medical History: Denies: Hx Peritoneal Dialysis GI Medical History: Reports: Hx Diverticulitis - Status post segmental colectomy for same., Hx Gastroesophageal Reflux Disease, Hx Hiatal Hernia Musculoskeletal Medical History: Reports Hx Arthritis, Reports Hx Gout Psychiatric Medical History: Denies: Hx Depression Past Surgical History: Reports: Hx Abdominal Surgery - bowel resection, Hx Herniorrhaphy, Hx Orthopedic Surgery - right and left hand surgeries, Other - Segmental colectomy for diverticulitis - Immunizations Immunizations up to date: Yes Hx Diphtheria, Pertussis, Tetanus Vaccination: Yes Hx Pneumococcal Vaccination: 07/22/16 Vertical Provider Document - CONSTITUTIONAL Agree With Documented VS: Yes Exam Limitations: No Limitations General Appearance: WD/WN, No Apparent Distress - INFECTION CONTROL TRAVEL OUTSIDE OF THE [place] IN LAST 30 DAYS: No - HEENT HEENT: Atraumatic, Normocephalic - NECK Neck: Normal Inspection, Supple - RESPIRATORY Respiratory: Breath Sounds Normal, No Respiratory Distress - CARDIOVASCULAR Cardiovascular: Regular Rate, Regular Rhythm Pulses: Normal: Radial - BACK Back: Normal Inspection - MUSCULOSKELETAL/EXTREMETIES Musculoskeletal/Extremeties: Tender - Tenderness to bilateral wrists with 1+ edema, normal skin color and temperature overlying joint. Pt with chronic arthritic changes to the small joints of hands bilaterally Notes: Range of motion limited due to tenderness - NEURO Level of Consciousness: Awake, Alert, Appropriate - DERM Integumentary: Warm, Dry Course - Re-evaluation Re-evalutation: 09/21/18 09:35 Patient has current prescription for hydrocodone. Patient states that he was out and then states that he only had a few tablets left. Review of controlled substance database demonstrates that patient had prescription for 30-day supply filled on 08/29/2018 and he should still have medications left. Patient encouraged to take his pain medicine and that we will add a short course of steroids with this and that he should call his doctor first thing tomorrow morning to discuss his pain control. No concern for septic arthritis. No concern for any fracture or dislocation. Patient with good cap refill and good pulses bilaterally. - Vital Signs Vital signs: Temp Pulse Resp BP Pulse Ox 97.5 F 69 20 144/91 H 100 09/21/18 09:01 09/21/18 09:01 09/21/18 09:01 09/21/18 09:01 09/21/18 09:01 Discharge - Discharge Clinical Impression: Arthritis Hand pain Qualifiers: Laterality: bilateral Qualified Code(s): M79.641 - Pain in right hand Condition: Stable Disposition: HOME, SELF-CARE Instructions: Arthritis ([facility]), Steroid Medication Additional Instructions: Return immediately for any new or worsening symptoms Followup with your primary care provider, call tomorrow to make a followup appointment Take your pain medication that you have as prescribed at home Prescriptions: Prednisone [Deltasone 20 mg Tablet] 2 tab PO DAILY 4 Days tablet Referrals: BRITTANY CROSS MD [[facility]] - Follow up tomorrow
== END 2018-09-21 09:50 | disposition home or self-care (01) ==
LOC: ER 08:57
DX: M19.041 Primary osteoarthritis, right hand (principal); M19.042 Primary osteoarthritis, left hand; M79.641 Pain in right hand; M79.642 Pain in left hand; M25.531 Pain in right wrist; M25.532 Pain in left wrist; I10 Essential (primary) hypertension; Z79.891 Long term (current) use of opiate analgesic
CPT/HCPCS: 99283; A9270 ×2; J7512

== ENCOUNTER 2018-12-11 11:15 | Emergency (ER) | payer MEDICARE ==
--- NOTE | 2018-12-11 11:37 | ER Document Report ---
ED Medical Screen (RME) - General Chief Complaint: Post Surgical Bleeding Stated Complaint: PAIN AT IMPLANT SITE/GROIN AREA Time Seen by Provider: 12/11/18 11:31 Mode of Arrival: Ambulatory Information source: Patient Notes: Patient presents status post placement of a watchman device on 12/09/2018. Patient has some swelling and ecchymosis to the right groin area at the site of the insertion. No active bleeding. Patient's states that this has started to change in appearance and get worse notably today. Patient denies any abdominal pain chest pain lightheadedness or dizziness. Patient does have a significant history of cirrhosis esophageal varices, hypertension hyperlipidemia, CHF. Patient was converted from taking Coumadin and is presently on Eliquis twice a day in addition to baby aspirin. I have greeted and performed a rapid initial assessment of this patient. A comprehensive ED assessment and evaluation of the patient, analysis of test results and completion of the medical decision making process will be conducted by additional ED providers. TRAVEL OUTSIDE OF THE [place] IN LAST 30 DAYS: No - Related Data Allergies/Adverse Reactions: allopurinol Allergy (Verified 12/11/18 11:27) colchicine Allergy (Verified 12/11/18 11:27) Sulfa (Sulfonamide Antibiotics) Allergy (Verified 12/11/18 11:27) valdecoxib [From Bextra] Allergy (Verified 12/11/18 11:27) Past Medical History - Past Medical History Cardiac Medical History: Reports: Hx Atrial Fibrillation, Hx Congestive Heart Failure, Hx Hypercholesterolemia, Hx Hypertension Denies: Hx Coronary Artery Disease, Hx DVT, Hx Heart Attack, Hx Pulmonary Embolism Pulmonary Medical History: Reports: Hx Sleep Apnea - Uncertain settings on home CPAP Denies: Hx Asthma, Hx COPD Neurological Medical History: Denies: Hx Seizures Endocrine Medical History: Reports: Hx Hypothyroidism. Denies: Hx Diabetes Mellitus Type 1, Hx Diabetes Mellitus Type 2, Hx Hyperthyroidism Renal/ Medical History: Denies: Hx Peritoneal Dialysis GI Medical History: Reports: Hx Diverticulitis - Status post segmental colectomy for same., Hx Gastroesophageal Reflux Disease, Hx Hiatal Hernia. Denies: Hx Cirrhosis Musculoskeltal Medical History: Reports Hx Arthritis, Reports Hx Gout Psychiatric Medical History: Denies: Hx Depression Past Surgical History: Reports: Hx Abdominal Surgery - bowel resection, Hx Herniorrhaphy, Hx Orthopedic Surgery - right and left hand surgeries, Other - Segmental colectomy for diverticulitis - Immunizations Immunizations up to date: Yes Hx Diphtheria, Pertussis, Tetanus Vaccination: Yes History of Influenza Vaccine for 04/2017 - 09/2017 Season: Yes Influenza Administration Date for 04/2017 - 09/2017 Season: 04/21/17 Physical Exam - Vital signs Vitals: Temp Pulse Resp BP Pulse Ox 97.9 F 63 18 136/85 H 99 12/11/18 11:21 12/11/18 11:21 12/11/18 11:21 12/11/18 11:21 12/11/18 11:21 - General Notes: Right groin mildly swollen and ecchymotic, no obvious bleeding Course - Vital Signs Vital signs: Temp Pulse Resp BP Pulse Ox 97.9 F 63 18 136/85 H 99 12/11/18 11:21 12/11/18 11:21 12/11/18 11:21 12/11/18 11:21 12/11/18 11:21
[2018-12-11 12:08] LABS: ABSOLUTE BASOPHILS # (AUTO) 0.1 10^3/uL (0.0-0.2); ABSOLUTE EOSINOPHILS # (AUTO) 0.1 10^3/uL (0.0-0.6); ABSOLUTE LYMPHOCYTES (AUTO) 1.2 10^3/uL (0.5-4.7); ABSOLUTE NEUT (AUTO) 7.2 10^3/uL (1.7-8.2); BASOPHILS % (AUTO) 0.7 % (0-2); EOSINOPHILS % (AUTO) 1.5 % (0-6); HEMATOCRIT 39.1 % (37.9-51.0); HEMOGLOBIN 13.1 g/dL (13.5-17.0); LYMPHOCYTES % (AUTO) 12.7 % (13-45); MEAN CORPUSCULAR HGB CONC 33.6 g/dL (32.0-36.0); MEAN CORPUSCULAR VOLUME 101 fl (80-97); MONOCYTES % (AUTO) 10.5 % (3-13); PLATELET COUNT 219 10^3/uL (150-450); RED BLOOD COUNT 3.86 10^6/uL (4.35-5.55); RED CELL DISTRIBUTION WIDTH 17.7 % (11.5-14.0); SEGMENTED NEUTROPHILS % (AUTO) 74.6 % (42-78); TOTAL CELLS COUNTED % (AUTO) 100 %; WHITE BLOOD COUNT 9.7 10^3/uL (4.0-10.5)
[2018-12-11 12:11] LABS: APPEARANCE,URINE CLEAR; BILIRUBIN,URINE NEGATIVE (NEGATIVE); COLOR,URINE STRAW; GLUCOSE, URINE NEGATIVE (NEGATIVE); KETONES,URINE NEGATIVE (NEGATIVE); LEUKOCYTE ESTERASE,URINE NEGATIVE (NEGATIVE); NITRITE,URINE NEGATIVE (NEGATIVE); PROTEIN,URINE NEGATIVE (NEGATIVE); URINE SPECIFIC GRAVITY 1.009; UROBILINOGEN,URINE NEGATIVE mg/dL (<2.0)
[2018-12-11 12:12] LABS: INTERNATIONAL RATION (INR) 1.24; PROTHROMBIN TIME 16.2 SEC (11.4-15.4)
[2018-12-11 12:13] LABS: PARTIAL THROMBOPLASTIN TIME 35.6 SEC (23.5-35.8)
[2018-12-11 12:32] LABS: ALANINE AMINOTRANSFERASE 16 U/L (21-72); ALKALINE PHOSPHATASE 91 U/L (38-126); ANION GAP 13 (5-19); ASPARTATE AMINO TRANSFERASE 23 U/L (17-59); BILIRUBIN,DIRECT 0.3 mg/dL (0.0-0.4); BILIRUBIN,TOTAL 0.4 mg/dL (0.2-1.3); BLOOD UREA NITROGEN 40 mg/dL (7-20); CALCIUM 9.8 mg/dL (8.4-10.2); CARBON DIOXIDE 26 mmol/L (22-30); CHLORIDE 100 mmol/L (98-107); GLUCOSE 104 mg/dL (75-110); POTASSIUM 3.9 mmol/L (3.6-5.0); SODIUM 138.6 mmol/L (137-145); TOTAL PROTEIN 7.4 g/dL (6.3-8.2)
--- NOTE | 2018-12-11 16:48 | RADIOLOGY REPORT (SQ) ---
EXAM DESCRIPTION: ARTERIAL LOWER EXTREM UNILAT COMPLETED DATE/TIME: 12/11/2018 4:37 pm REASON FOR STUDY: right, eval for pseudoaneurysm COMPARISON: None. TECHNIQUE: Dynamic and static marie scale and color images acquired of the arteries and veins at the site of the vascular access. Additional spectral images recorded. FINDINGS: SITE: Right groin ARTERIES: Normal directional flow. Multiphasic waveforms. No thrombosis or significant stenosis. VEINS: Normal compression. No thrombus. PSEUDOANEURYSM/FISTULA: No. SIZE AND DESCRIPTION: Not applicable. HEMATOMA: No. SIZE: Not applicable. IMPRESSION: No pseudoaneurysm or fistula. TECHNICAL DOCUMENTATION: JOB ID: [id number] [employer]- All Rights Reserved Reading location - IP/workstation name: [email or web address]
--- NOTE | 2018-12-11 17:21 | ER Document Report ---
ED General - General Chief Complaint: Post Surgical Bleeding Stated Complaint: PAIN AT IMPLANT SITE/GROIN AREA Time Seen by Provider: 12/11/18 11:31 Primary Care Provider: BRITTANY CROSS MD [Primary Care Provider] - Follow up as needed Mode of Arrival: Ambulatory TRAVEL OUTSIDE OF THE [place] IN LAST 30 DAYS: No - HPI Notes: Patient is a 73-year-old male with a history of multiple medical problems including esophageal varices, atrial fibrillation, who presents to the emergency department for evaluation of bleeding in the right groin area. He had a watchman procedure done on December 09. He was sent home, started on Eliquis. Last night patient's noted that he had extensive bruising in the groin area. The patient really had not noticed it. He denies any pain. He said no chest pain, no dizziness. Patient's became concerned that she has a relative who had sick significant blood loss from a bleed in that area, who they present to the ED for further evaluation. He has been taking his medications as prescribed, he has no other acute complaints or concerns. - Related Data Allergies/Adverse Reactions: allopurinol Allergy (Verified 12/11/18 11:27) colchicine Allergy (Verified 12/11/18 11:27) Sulfa (Sulfonamide Antibiotics) Allergy (Verified 12/11/18 11:27) valdecoxib [From Bextra] Allergy (Verified 12/11/18 11:27) Past Medical History - General Information source: Patient, Relative - Social History Smoking Status: Former Smoker Chew tobacco use (# tins/day): No Frequency of alcohol use: None Drug Abuse: None Family History: Hypertension Patient has suicidal ideation: No Patient has homicidal ideation: No - Past Medical History Cardiac Medical History: Reports: Hx Atrial Fibrillation, Hx Congestive Heart Failure, Hx Hypercholesterolemia, Hx Hypertension Denies: Hx Coronary Artery Disease, Hx DVT, Hx Heart Attack, Hx Pulmonary Embolism Pulmonary Medical History: Reports: Hx Sleep Apnea - Uncertain settings on home CPAP Denies: Hx Asthma, Hx COPD Neurological Medical History: Denies: Hx Seizures Endocrine Medical History: Reports: Hx Hypothyroidism. Denies: Hx Diabetes Mellitus Type 1, Hx Diabetes Mellitus Type 2, Hx Hyperthyroidism Renal/ Medical History: Denies: Hx Peritoneal Dialysis GI Medical History: Reports: Hx Diverticulitis - Status post segmental colectomy for same., Hx Gastroesophageal Reflux Disease, Hx Hiatal Hernia, Other - Esophageal varices. Denies: Hx Cirrhosis Musculoskeletal Medical History: Reports Hx Arthritis, Reports Hx Gout Psychiatric Medical History: Denies: Hx Depression Past Surgical History: Reports: Hx Abdominal Surgery - bowel resection, Hx Cardiac Surgery - watchmans procedure, Hx Herniorrhaphy, Hx Orthopedic Surgery - right and left hand surgeries, Other - Segmental colectomy for diverticulitis - Immunizations Immunizations up to date: Yes Hx Diphtheria, Pertussis, Tetanus Vaccination: Yes Hx Pneumococcal Vaccination: 07/22/16 Review of Systems - Review of Systems Constitutional: No symptoms reported EENT: No symptoms reported Cardiovascular: No symptoms reported Respiratory: No symptoms reported Gastrointestinal: No symptoms reported Genitourinary: No symptoms reported Musculoskeletal: No symptoms reported Skin: No symptoms reported Hematologic/Lymphatic: See HPI Neurological/Psychological: No symptoms reported Physical Exam - Vital signs Vitals: Temp Pulse Resp BP Pulse Ox 97.9 F 63 18 136/85 H 99 12/11/18 11:21 12/11/18 11:21 12/11/18 11:21 12/11/18 11:21 12/11/18 11:21 - Notes Notes: Vital signs reviewed, please refer to chart. Head is normocephalic, atraumatic. Pupils equal round, reactive to light. Neck is supple without meningismus. Heart is regular rate and rhythm. Lungs are clear to auscultation bilaterally. Abdomen is soft, nontender, normoactive bowel sounds throughout. Examination of the right groin yields approximately 2 x 8 cm ecchymosis both above and below the inguinal fold. No palpable pseudoaneurysm. Femoral pulse, posterior tibial pulse 2+. Extremities without cyanosis, clubbing. Posterior calves are nontender. Peripheral pulses are equal. Skin is warm and dry. Patient is awake, alert, neurological exam is nonfocal. Course - Re-evaluation Re-evalutation: 12/11/18 17:19 Patient presents emergency department for evaluation. He had initial laboratory investigations as ordered through triage. His hemoglobin is found to be 13.1. My only additional concern was the possible is of a pseudoaneurysm in this patient just recently had femoral artery cannulation. Arterial Doppler was ordered and found to be negative. Patient remained stable. I spoke with Dr. Saravia he will follow-up with them next week. The importance of continuing to take the Eliquis as prescribed was stressed. Patient and voiced understanding. They are to keep an eye on the site, return with any worsening or new symptoms. - Vital Signs Vital signs: Temp Pulse Resp BP Pulse Ox 97.9 F 63 18 136/85 H 99 12/11/18 11:21 12/11/18 11:21 12/11/18 11:21 12/11/18 11:21 12/11/18 11:21 - Laboratory Result Diagrams: 12/11/18 11:48 12/11/18 11:48 Laboratory results interpreted by me: 12/11/18 12/11/18 12/11/18 11:48 11:48 11:48 RBC 3.86 L Hgb 13.1 L MCV 101 H MCH 34.0 H RDW 17.7 H Lymphocytes % 12.7 L PT 16.2 H BUN 40 H Creatinine 1.65 H Est GFR ( Amer) 50 L Est GFR (Non-Af Amer) 41 L ALT 16 L Ammonia 12/11/18 11:48 RBC Hgb MCV MCH RDW Lymphocytes % PT BUN Creatinine Est GFR ( Amer) Est GFR (Non-Af Amer) ALT Ammonia < 8.7 L - Diagnostic Test Radiology reviewed: Reports reviewed Radiology results interpreted by me: 12/11/18 17:21 Extremity Arterial Study 12/11/18 15:36 IMPRESSION: No pseudoaneurysm or fistula. Discharge - Discharge Clinical Impression: Postprocedural hematoma Condition: Stable Disposition: HOME, SELF-CARE Instructions: Hematoma ([facility]) Additional Instructions: To need to take your medications as prescribed. Follow-up with Dr. Saravia next week. Return to the emergency department with worsening or new concerning symptoms of any sort. Referrals: BRITTANY CROSS MD [Primary Care Provider] - Follow up as needed
[2018-12-11 18:09] VITALS: BP 121/81
== END 2018-12-11 18:07 | disposition home or self-care (01) ==
LOC: ER 11:15
DX: L76.32 Postprocedural hematoma of skin and subcutaneous tissue following other procedure (principal); Z98.890 Other specified postprocedural states; Z87.891 Personal history of nicotine dependence; I48.91 Unspecified atrial fibrillation; I50.9 Heart failure, unspecified; I11.0 Hypertensive heart disease with heart failure
CPT/HCPCS: 36415; 80053; 81001; 82140; 85025; 85610; 85730; 86850; 86900; 86901; 93926; 99284

== ENCOUNTER → 2019-06-24 | Outpatient (CLI) | payer MEDICARE ==
[2019-06-24 16:54] LABS: ANION GAP 13 (5-19); BLOOD UREA NITROGEN 34 mg/dL (7-20); CARBON DIOXIDE 22 mmol/L (22-30); CHLORIDE 100 mmol/L (98-107); GLUCOSE 112 mg/dL (75-110); POTASSIUM 4.5 mmol/L (3.6-5.0)
== END ==
LOC: OD 16:01
PROVIDERS: ATTEND Specialist
DX: I48.20 Chronic atrial fibrillation, unspecified (principal); I12.9 Hypertensive chronic kidney disease with stage 1 through stage 4 chronic kidney disease, or unspecified chronic kidney disease; N18.9 Chronic kidney disease, unspecified; E78.49 Other hyperlipidemia; I27.20 Pulmonary hypertension, unspecified; Z95.0 Presence of cardiac pacemaker; R06.00 Dyspnea, unspecified; Z79.899 Other long term (current) drug therapy; E78.5 Hyperlipidemia, unspecified
CPT/HCPCS: 36415; 80051; 82565; 82947; 83735; 84520

== ENCOUNTER 2019-06-30 19:15 | Inpatient (IN) | payer MEDICARE ==
--- NOTE | 2019-06-30 19:53 | ER Document Report ---
ED Medical Screen (RME) - General Chief Complaint: Shortness Of Breath Stated Complaint: Breathing Difficulty Time Seen by Provider: 06/30/19 19:37 Primary Care Provider: PASQUALE GOETZ MD [Primary Care Provider] - Follow up as needed Mode of Arrival: Ambulatory Information source: Patient TRAVEL OUTSIDE OF THE [place] IN LAST 30 DAYS: No - HPI Notes: 06/30/19 19:49 73 yr old male with a medical history of cirrhosis, esophageal varices, hypertension, hyperlipidemia, CHF, pacemaker placement presents the ED with shortness of breath and ankle swelling. Patient doubled up on his Lasix and spironolactone but his symptoms are becoming progressively worse. 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 Denies any fevers or chills, any chest pain. Patient is on anticoagulants. Eating and drinking has diminished. Dyspnea on exertion. Denies fevers, chills, chest pain,palpitations, shortness of breath, dyspnea, nausea, vomiting, diarrhea, abdominal pain, hematuria,blurred vision, double vision, loss of vision, speech changes, LH, dizziness, syncope, headaches. I have greeted and performed a rapid initial assessment of this patient. A comprehensive ED assessment and evaluation of the patient, analysis of test results and completion of the medical decision making process will be conducted by additional ED providers. PHYSICAL EXAMINATION: GENERAL: Well-appearing, well-nourished and in no acute distress. HEAD: Atraumatic, normocephalic. EYES: Pupils equal round extraocular movements intact, conjunctiva are normal. ENT: Nares patent NECK: Normal range of motion LUNGS: No respiratory distress Musculoskeletal: Normal range of motion NEUROLOGICAL: Normal speech, normal gait. PSYCH: Normal mood, normal affect. SKIN: Warm, Dry, normal turgor, no rashes or lesions noted. Bilateral pedal edema +2 - Related Data Allergies/Adverse Reactions: allopurinol Allergy (Verified 06/30/19 19:32) colchicine Allergy (Verified 06/30/19 19:32) Sulfa (Sulfonamide Antibiotics) Allergy (Verified 06/30/19 19:32) valdecoxib [From Bextra] Allergy (Verified 06/30/19 19:32) Home Medications: Lipitor 20mg. Colace. Vitamins. Lasix 40mg. [place]. synthroid. Magnesium oxide. Nitro patch every night. Propanolol 10mg BID. Spironolactone 100mg. Losartan 25mg BID. Aspirin 81mg once daily. Clopidogrel 75mg once daily Past Medical History - Past Medical History Cardiac Medical History: Reports: Hx Atrial Fibrillation, Hx Congestive Heart Failure, Hx Hypercholesterolemia, Hx Hypertension Denies: Hx Coronary Artery Disease, Hx DVT, Hx Heart Attack, Hx Pulmonary Emb olism Pulmonary Medical History: Reports: Hx Sleep Apnea - Uncertain settings on home CPAP Denies: Hx Asthma, Hx COPD Neurological Medical History: Denies: Hx Seizures Endocrine Medical History: Reports: Hx Hypothyroidism. Denies: Hx Diabetes Mellitus Type 1, Hx Diabetes Mellitus Type 2, Hx Hyperthyroidism Renal/ Medical History: Denies: Hx Peritoneal Dialysis GI Medical History: Reports: Hx Diverticulitis - Status post segmental colectomy for same., Hx Gastroesophageal Reflux Disease, Hx Hiatal Hernia. Denies: Hx Cirrhosis Musculoskeltal Medical History: Reports Hx Arthritis, Reports Hx Gout Psychiatric Medical History: Denies: Hx Depression Past Surgical History: Reports: Hx Abdominal Surgery - bowel resection, Hx Cardiac Surgery - watchmans procedure, Hx Herniorrhaphy, Hx Orthopedic Surgery - right and left hand surgeries, Other - Segmental colectomy for diverticulitis - Immunizations Immunizations up to date: Yes Hx Diphtheria, Pertussis, Tetanus Vaccination: Yes Physical Exam - Vital signs Vitals: Pulse Resp Pulse Ox 71 24 H 100 06/30/19 19:34 06/30/19 19:34 06/30/19 19:34 Course - Vital Signs Vital signs: Temp Pulse Resp BP Pulse Ox 71 24 H 100 06/30/19 19:34 06/30/19 19:34 06/30/19 19:34 Doctor's Discharge - Discharge Referrals: PASQUALE GOETZ MD [Primary Care Provider] - Follow up as needed
--- NOTE | 2019-06-30 20:24 | ER Document Report ---
ED General - General Chief Complaint: Shortness Of Breath Stated Complaint: Breathing Difficulty Time Seen by Provider: 06/30/19 19:37 Primary Care Provider: PASQUALE GOETZ MD [ACTIVE STAFF] - Follow up as needed Mode of Arrival: Ambulatory TRAVEL OUTSIDE OF THE [place] IN LAST 30 DAYS: No - HPI Notes: Patient is a 73-year-old male with a history of congestive heart failure presents emergency department for evaluation of weakness and shortness of breath with exertion. He states is been ongoing for for about a week, gradually worsening, but was acutely worse today. He has had some swelling for that same period of time, but according to it is acutely worse today. He denies any orthopnea or paroxysmal nocturnal dyspnea. He denies any associated chest pain. He has been taking his medications as prescribed. Recently he started losarta n. He normally checks his blood pressure at home, but has not checked his blood pressure at home since starting this new medication. He states he has had a minimal cough, nonproductive. On further questioning, the patient eventually asked me if I could look at his medication list, tell him what medicines might be causing his stool to be black. He really cannot give me a time period regarding how long he has had this. - Related Data Allergies/Adverse Reactions: allopurinol Allergy (Verified 06/30/19 19:32) colchicine Allergy (Verified 06/30/19 19:32) Sulfa (Sulfonamide Antibiotics) Allergy (Verified 06/30/19 19:32) valdecoxib [From Bextra] Allergy (Verified 06/30/19 19:32) Home Medications: Lipitor 20mg. Colace. Vitamins. Lasix 40mg. [place]. synthroid. Magnesium oxide. Nitro patch every night. Propanolol 10mg BID. Spironolactone 100mg. Losartan 25mg BID. Aspirin 81mg once daily. Clopidogrel 75mg once daily Past Medical History - General Information source: Patient - Social History Smoking Status: Former Smoker Family History: Hypertension Patient has suicidal ideation: No Patient has homicidal ideation: No - Past Medical History Cardiac Medical History: Reports: Hx Atrial Fibrillation, Hx Congestive Heart Failure, Hx Hypercholesterolemia, Hx Hypertension Denies: Hx Coronary Artery Disease, Hx DVT, Hx Heart Attack, Hx Pulmonary Embolism Pulmonary Medical History: Reports: Hx Sleep Apnea - Uncertain settings on home CPAP Denies: Hx Asthma, Hx COPD Neurological Medical History: Denies: Hx Seizures Endocrine Medical History: Reports: Hx Hypothyroidism. Denies: Hx Diabetes Mellitus Type 1, Hx Diabetes Mellitus Type 2, Hx Hyperthyroidism Renal/ Medical History: Denies: Hx Peritoneal Dialysis GI Medical History: Reports: Hx Cirrhosis, Hx Diverticulitis - Status post segmental colectomy for same., Hx Gastroesophageal Reflux Disease, Hx Hiatal Hernia, Hx Endoscopy, Other - Esophageal varices Musculoskeletal Medical History: Reports Hx Arthritis, Reports Hx Gout Psychiatric Medical History: Denies: Hx Depression Past Surgical History: Reports: Hx Abdominal Surgery - bowel resection, Hx Cardiac Surgery - watchmans procedure, Hx Herniorrhaphy, Hx Orthopedic Surgery - right and left hand surgeries, Other - Segmental colectomy for diverticulitis - Immunizations Immunizations up to date: Yes Hx Diphtheria, Pertussis, Tetanus Vaccination: Yes Hx Pneumococcal Vaccination: 07/22/16 Review of Systems - Review of Systems Constitutional: See HPI EENT: No symptoms reported Cardiovascular: See HPI Respiratory: See HPI Gastrointestinal: No symptoms reported Physical Exam - Vital signs Vitals: Pulse Resp Pulse Ox 71 24 H 100 06/30/19 19:34 06/30/19 19:34 06/30/19 19:34 - Notes Notes: Vital signs reviewed, please refer to chart. Head is normocephalic, atraumatic. Pupils equal round, reactive to light. Neck is supple without meningismus. Heart is regular rate and rhythm. Lungs are clear to auscultation bilaterally. Abdomen is soft, nontender, normoactive bowel sounds throughout. Extremities without cyanosis, clubbing. 3+ pitting edema to bilateral lower extremities. Posterior calves are nontender. Peripheral pulses are equal. Skin is warm and dry. Patient is awake, alert, neurological exam is nonfocal. Course - Re-evaluation Re-evalutation: 06/30/19 20:23 Patient presents emergency department for evaluation. At the time of my initial evaluation, patient is moderately hypertensive, with a systolic blood pressure of 89. He is not dizzy or symptomatic with this. I am not inclined to give this patient any sort of IV fluids to bolster this pressure at this time, especially as he is asymptomatic and he has significant heart failure. He is told he needs to remain in bed. Otherwise, he is oxygenating well. Labs ordered, we will continue to monitor. 06/30/19 22:09 Laboratory investigations revealed significant anemia. At that point I did do his Hemoccult, which was found to be positive. He was started on Protonix, typed and crossed for 2 units of blood to be transfused. Given his history of multiple transfusions, I did go ahead and order Tylenol, Benadryl, Lasix. I was then notified of this patient's significant hyperkalemia. He was given dextrose, 10 units of IV insulin. I did order Kayexalate as well. Without any sort of intervention, this patient's blood pressure remained borderline but not hypotensive. Last systolic pressure was 106. I spoke with Dr. Reaves in regards to this patient, he accepted him for further care. - Vital Signs Vital signs: Temp Pulse Resp BP Pulse Ox 71 19 89/51 L 100 06/30/19 19:34 06/30/19 20:31 06/30/19 20:31 06/30/19 20:31 - Laboratory Result Diagrams: 06/30/19 20:03 06/30/19 20:03 Laboratory results interpreted by me: 06/30/19 06/30/19 06/30/19 20:03 20:03 20:03 RBC 2.03 L Hgb 5.7 L Hct 17.9 L MCHC 31.7 L RDW 15.1 H Lymph % (Auto) 12.8 L VBG pCO2 VBG HCO3 Sodium 133.6 L Potassium 6.4 H* Carbon Dioxide 17 L BUN 57 H Creatinine 2.91 H Est GFR ( Amer) 26 L Est GFR (MDRD) Non-Af 21 L NT-Pro-B Natriuret Pep 2370 H Crossmatch 06/30/19 06/30/19 20:09 20:39 RBC Hgb Hct MCHC RDW Lymph % (Auto) VBG pCO2 29.7 L VBG HCO3 16.3 L Sodium Potassium Carbon Dioxide BUN Creatinine Est GFR ( Amer) Est GFR (MDRD) Non-Af NT-Pro-B Natriuret Pep Crossmatch See Detail - Diagnostic Test Radiology reviewed: Reports reviewed - EKG Interpretation by Me Additional EKG results interpreted by me: 06/30/19 20:24 Ventricular paced at a rate of 70 bpm. Critical Care Note - Critical Care Note Total time excluding time spent on procedures (mins): 20 Discharge - Discharge Clinical Impression: Hyperkalemia, Upper GI bleeding, Blood loss anemia Condition: Stable Disposition: ADMITTED INPATIENT Admitting Provider: Jelly (Hospitalist) Unit Admitted: IMCU Referrals: PASQUALE GOETZ MD [ACTIVE STAFF] - Follow up as needed
[2019-06-30 20:30] LABS: ABSOLUTE MONOCYTES (AUTO) 0.9 10^3/uL (0.1-1.4); ABSOLUTE NEUT (AUTO) 5.9 10^3/uL (1.7-8.2); BASOPHILS % (AUTO) 0.6 % (0-2); EOSINOPHILS % (AUTO) 0.2 % (0-6); HEMATOCRIT 17.9 % (37.9-51.0); LYMPHOCYTES % (AUTO) 12.8 % (13-45); MEAN CORPUSCULAR HGB CONC 31.7 g/dL (32.0-36.0); MEAN CORPUSCULAR VOLUME 88 fl (80-97); MONOCYTES % (AUTO) 11.2 % (3-13); PLATELET COUNT 268 10^3/uL (150-450); RED BLOOD COUNT 2.03 10^6/uL (4.35-5.55); RED CELL DISTRIBUTION WIDTH 15.1 % (11.5-14.0); SEGMENTED NEUTROPHILS % (AUTO) 75.2 % (42-78); TOTAL CELLS COUNTED % (AUTO) 100 %; WHITE BLOOD COUNT 7.8 10^3/uL (4.0-10.5)
[2019-06-30 20:33] LABS: HEMOGLOBIN 5.7 g/dL (13.5-17.0)
[2019-06-30] MEDS ORDERED: NORMAL SALINE 250 ML IV PRN ×2 (20:35)
[2019-06-30] MEDS ORDERED: DIPHENHYDRAMINE HCL 25 MG CAPSULE PO PRN (20:35)
[2019-06-30] MEDS ORDERED: ACETAMINOPHEN 325 MG TABLET PO PRN ×2 (20:35→23:04)
[2019-06-30] MEDS ORDERED: PANTOPRAZOLE SODIUM 40 MG VIAL IV ONE (20:36)
[2019-06-30 20:42] LABS: ALBUMIN 3.8 g/dL (3.5-5.0); ALKALINE PHOSPHATASE 83 U/L (38-126); ANION GAP 15 (5-19); ASPARTATE AMINO TRANSFERASE 18 U/L (17-59); BILIRUBIN,DIRECT 0.1 mg/dL (0.0-0.4); BILIRUBIN,TOTAL 0.3 mg/dL (0.2-1.3); BLOOD UREA NITROGEN 57 mg/dL (7-20); CALCIUM 9.1 mg/dL (8.4-10.2); CARBON DIOXIDE 17 mmol/L (22-30); CHLORIDE 102 mmol/L (98-107); GLUCOSE 82 mg/dL (75-110)
[2019-06-30 20:48] LABS: POTASSIUM 6.4 mmol/L (3.6-5.0)
[2019-06-30] MEDS ORDERED: INSULIN REG, HUMAN 100 UNIT/ML 3 ML VIAL (PYX) IV ONE (20:48)
[2019-06-30] MEDS ORDERED: DEXTROSE 50%-WATER 25 GM/50 ML DISP.SYRIN IV ONE (20:49)
[2019-06-30 20:53] LABS: VENOUS BLOOD BASE EXCESS -8.3 mmol/L; VENOUS BLOOD HCO3 16.3 mmol/L (20-32); VENOUS BLOOD PCO2 29.7 mmHg (35-63); VENOUS BLOOD PH 7.36 (7.30-7.42)
[2019-06-30 21:08] LABS: TROPONIN I 0.039 ng/mL
[2019-06-30] MEDS: PANTOPRAZOLE SODIUM 40 MG VIAL IV PRN (21:20)
--- NOTE | 2019-06-30 21:33 | RADIOLOGY REPORT (SQ) ---
EXAM DESCRIPTION: [facility]: XR CHEST 1 VIEW CLINICAL HISTORY: 73 years Male, sob COMPARISON: None. FINDINGS: There is elevation of left hemidiaphragm. No focal acute infiltrate. No pneumothorax or pleural effusion. Pacemaker is noted, with intact leads extending into the right ventricle. No mediastinal widening or shift. Bony structures are unremarkable. IMPRESSION: 1. No acute pulmonary findings. 2. Pacemaker
[2019-06-30] MEDS ORDERED: FUROSEMIDE INJ/PF 40 MG/4 ML SDV IV ONE (21:49)
[2019-06-30] MEDS ORDERED: SODIUM POLYSTYRENE SULFONATE 15 GM/60 ML PO ONE (21:50)
[2019-06-30] MEDS ORDERED: LEVALBUTEROL HCL NEB 0.63 MG/3 ML AMPUL NEB PRN (22:57)
[2019-06-30] MEDS ORDERED: MAG HYDROX/AL HYDROX/SIMETH SUSP 30 ML UDCUP PO PRN (22:57)
[2019-06-30] MEDS ORDERED: MAGNESIUM HYDROXIDE SUSP 30 ML UDCUP PO PRN (22:57)
[2019-06-30] MEDS ORDERED: PROMETHAZINE HCL INJ 25 MG/1 ML VIAL IV PRN (22:57)
[2019-06-30] MEDS ORDERED: CHLORPROMAZINE HCL INJ 25 MG/1 ML AMPULE IV PRN (23:04)
[2019-06-30] MEDS ORDERED: DIAZEPAM INJ 10 MG/2 ML DISP.SYRIN IV PRN (23:04)
[2019-06-30] MEDS ORDERED: ACETAMINOPHEN 650 MG SUPP.RECT PR PRN (23:04)
[2019-06-30 23:31] LABS: INTERNATIONAL RATION (INR) 1.16; PROTHROMBIN TIME 14.9 SEC (11.4-15.4)
[2019-07-01] MEDS ORDERED: FUROSEMIDE INJ/PF 40 MG/4 ML SDV IV ONE (01:15)
[2019-07-01] MEDS: PANTOPRAZOLE SODIUM 40 MG VIAL IV PRN (04:50)
--- NOTE | 2019-07-01 05:35 | PDOC H&P ---
History of Present Illness Admission Date/PCP: 06/30/19 22:25 BRITTANY CROSS MD Patient complains of: Dyspnea History of Present Illness: ELEANOR STODDARD is a 73 year old male who presented to the emergency room with a one-week history of dyspnea. He admits progressively worsening dyspnea, i ncreased on exertion and associated with orthopnea and swelling of his bilateral lower extremities over the last week. He denies other associated or accompanying signs and symptoms. He admits that his dyspnea has not improved despite taking additional doses of his diuretic medications. He admits prior similar episodes associated with his congestive heart failure. He has not identified any additional aggravating or ameliorating factors for his dyspnea. In the emergency room he was found to have a hemoglobin of 5.7 with a creatinine of 2.91 and a potassium of 6.4. He was subsequently admitted to the hospital for further evaluation and treatment. Past Medical History Cardiac Medical History: Reports: Atrial Fibrillation, Congestive Heart Failure, Hyperlipidema, Hypertension Denies: Coronary Artery Disease, DVT, Myocardial Infarction, Pulmonary Embolism Pulmonary Medical History: Reports: Sleep Apnea - Uncertain settings on home CPAP Denies: Asthma, Chronic Obstructive Pulmonary Disease (COPD), Respiratory Failure EENT Medical History: Denies: Cataracts, Ears - Hearing aids Neurological Medical History: Denies: Hemorrhagic CVA, Ischemic CVA, Seizures Endocrine Medical History: Reports: Hypothyroidism Denies: Diabetes Mellitus Type 1, Diabetes Mellitus Type 2, Hyperthyroidism Renal/ Medical History: Reports: Chronic Kidney Disease Denies: Nephrolithiasis Malignancy Medical History: Reports: None GI Medical History: Reports: Cirrhosis - Alcoholic cirrhosis, Diverticulitis - Status post segmental colectomy for same., Gastroesophageal Reflux Disease, Hiatal Hernia, Other - Esophageal varices Denies: Crohn's Disease, Peptic Ulcer Disease, Ulcerative Colitis Musculoskeltal Medical History: Reports: Arthritis, Gout Skin Medical History: Denies: Eczema, Psoriasis Psychiatric Medical History: Reports: Alcohol Dependency, Tobacco Dependency Denies: Depression, Substance Abuse Traumatic Medical History: Reports: None Hematology: Reports: Anemia, Bleeding Tendencies - Due to anticoagulants Infectious Medical History: Reports: None Past Surgical History Past Surgical History: Reports: Herniorrhaphy, Orthopedic Surgery - right and left hand surgeries, Pacemaker, Vascular Surgery - Watchman device placement, Other - Segmental colectomy for diverticulitis Social History Information Source: Patient Lives with: Friend Smoking Status: Former Smoker Electronic Cigarette use?: No Frequency of Alcohol Use: Heavy - History of heavy alcohol abuse in the past but states he has completely stopped drinking for more than a year. Hx Recreational Drug Use: No Drugs: None Hx Prescription Drug Abuse: No - Advance Directive Resuscitation Status: Full Code Surrogate healthcare decision maker:: Naomi Barrios Family History Family History: CAD, COPD, DM, Hypertension, Malignancy Parental Family History Reviewed: Yes Children Family History Reviewed: No Sibling(s) Family History Reviewed.: Yes Medication/Allergy Home Medications: Atorvastatin Calcium [Lipitor 20 mg Tablet] 20 mg PO DAILY 08/20/18 Folic Acid [Folvite 1 mg Tablet] 1 mg PO DAILY 08/20/18 Furosemide [Lasix 40 mg Tablet] 80 mg PO BID 08/20/18 Hydrocodone/Acetaminophen [Pilot 5-325 mg Tablet] 1 tab PO Q6HP PRN 08/20/18 Levothyroxine Sodium [Synthroid] 125 mcg PO Q6AM 08/20/18 Magnesium Oxide [Magnesium] 400 mg PO DAILY 08/20/18 Methocarbamol [Robaxin 750 mg Tablet] 750 mg PO TID 08/20/18 Omeprazole Magnesium [Prilosec Otc] 20 mg PO DAILY 08/20/18 Potassium Chloride 20 meq PO DAILY 08/20/18 Vitamin B Complex [Vitamin B-100 Complex] 100 mg PO DAILY 08/20/18 Acetaminophen [Tylenol 325 mg Tablet] 650 mg PO Q4HP PRN tablet 08/28/18 Atenolol [Tenormin 50 mg Tablet] 25 mg PO DAILY 30 Days #15 tablet 08/28/18 Docusate Sodium [Colace 100 mg Capsule] 100 mg PO DAILY capsule 08/28/18 Folic Acid [Folvite 1 mg Tablet] 1 mg PO DAILY tablet 08/28/18 Iron Polysaccharides Complex [Nu-Iron 150 Capsule] 150 mg PO DAILY 30 Days #30 capsule 08/28/18 Nitroglycerin [Nitro-Dur 5 mg (0.2 mg/Hr) Transdermal Patch] 1 each TD QHS 30 Days #30 patch.td24 08/28/18 Prednisone [Deltasone 5 mg Tablet] 5 mg PO DAILY 20 Days #20 tablet 08/28/18 Cephalexin Monohydrate [Keflex 500 mg Capsule] 500 mg PO Q6H 7 Days capsule 09/11/18 Capsaicin [Arthritis Pain Relief] 1 applic TP TID PRN #42.5 cream..g. 09/21/18 Allergies/Adverse Reactions: allopurinol Allergy (Verified 06/30/19 19:32) colchicine Allergy (Verified 06/30/19 19:32) Sulfa (Sulfonamide Antibiotics) Allergy (Verified 06/30/19 19:32) valdecoxib [From Bextra] Allergy (Verified 06/30/19 19:32) Review of Systems Constitutional: ABSENT: chills, fever(s) Eyes: ABSENT: visual disturbances, other - Eye pain Ears: ABSENT: hearing changes, other - Ear pain Nose, Mouth, and Throat: ABSENT: mouth pain, sore throat Cardiovascular: PRESENT: as per HPI, dyspnea on exertion, edema, orthropnea. ABSENT: chest pain, palpitations Respiratory: PRESENT: dyspnea. ABSENT: cough Gastrointestinal: PRESENT: melena - History of black stool for several months. ABSENT: abdominal pain, constipation, diarrhea, nausea, vomiting Genitourinary: ABSENT: dysuria, hematuria Musculoskeletal: ABSENT: back pain, joint swelling, muscle weakness Integumentary: ABSENT: pruritus, rash Neurological: ABSENT: confusion, convulsions, focal weakness, memory loss, syncope Endocrine: ABSENT: cold intolerance, heat intolerance Hematologic/Lymphatic: ABSENT: easy bleeding, easy bruising Allergic/Immunologic: ABSENT: seasonal rhinorrhea Physical Exam Vital Signs: Temp Pulse Resp BP Pulse Ox 98.0 F 74 19 99/54 L 100 06/30/19 22:25 06/30/19 22:25 06/30/19 22:25 06/30/19 22:25 06/30/19 22:25 Intake & Output 06/28/19 06/29/19 06/30/19 23:59 23:59 23:59 Intake Total 0 Balance 0 General appearance: PRESENT: no acute distress, cooperative Head exam: PRESENT: atraumatic, normocephalic Eye exam: PRESENT: conjunctiva pale. ABSENT: conjunctival injection, scleral icterus Ear exam: PRESENT: normal external ear exam. ABSENT: bleeding, drainage Mouth exam: PRESENT: dry mucosa, neck supple Neck exam: ABSENT: thyromegaly, tracheal deviation Respiratory exam: PRESENT: clear to auscultation sigifredo, symmetrical, unlabored Cardiovascular exam: PRESENT: RRR. ABSENT: clicks, gallop, rubs Pulses: PRESENT: normal radial pulses, normal dorsalis pedis pul Vascular exam: PRESENT: normal capillary refill, pallor - Mild pallor noted GI/Abdominal exam: PRESENT: normal bowel sounds, soft Rectal exam: PRESENT: deferred Extremities exam: ABSENT: joint swelling, pedal edema Musculoskeletal exam: ABSENT: deformity, dislocation Neurological exam: PRESENT: alert, oriented to person, oriented to place, oriented to time, oriented to situation, CN II-XII grossly intact. ABSENT: motor sensory deficit Psychiatric exam: PRESENT: appropriate affect, normal mood Skin exam: PRESENT: dry, intact, warm. ABSENT: jaundice, rash, urticaria Results Laboratory Results: 06/30/19 20:03 06/30/19 20:03 06/30/19 06/30/19 06/30/19 20:03 20:03 20:09 WBC 7.8 RBC 2.03 L Hgb 5.7 L Hct 17.9 L MCV 88 MCH 28.0 MCHC 31.7 L RDW 15.1 H Plt Count 268 Seg Neutrophils % 75.2 VBG pH 7.36 VBG pCO2 29.7 L VBG HCO3 16.3 L VBG Base Excess -8.3 Sodium 133.6 L Potassium 6.4 H* Chloride 102 Carbon Dioxide 17 L Anion Gap 15 BUN 57 H Creatinine 2.91 H Est GFR ( Amer) 26 L Glucose 82 Calcium 9.1 Total Bilirubin 0.3 AST 18 Alkaline Phosphatase 83 Total Protein 7.0 Albumin 3.8 Blood Type Antibody Screen 06/30/19 20:39 WBC RBC Hgb Hct MCV MCH MCHC RDW Plt Count Seg Neutrophils % VBG pH VBG pCO2 VBG HCO3 VBG Base Excess Sodium Potassium Chloride Carbon Dioxide Anion Gap BUN Creatinine Est GFR ( Amer) Glucose Calcium Total Bilirubin AST Alkaline Phosphatase Total Protein Albumin Blood Type O POSITIVE Antibody Screen NEGATIVE 06/30/19 20:03 Troponin I 0.039 NT-Pro-B Natriuret Pep 2370 H Impressions: Chest X-Ray 06/30/19 19:46 IMPRESSION: 1. No acute pulmonary findings. 2. Pacemaker Assessment and Plan - Diagnosis (1) Upper GI bleeding Is this a current diagnosis for this admission?: Yes (2) Blood loss anemia Is this a current diagnosis for this admission?: Yes (3) Chronic diastolic congestive heart failure Is this a current diagnosis for this admission?: Yes (4) Paroxysmal atrial fibrillation Is this a current diagnosis for this admission?: Yes (5) Acute on chronic kidney failure Qualifiers: Acute renal failure type: unspecified Chronic kidney disease stage: stage 3 (moderate) Qualified Code(s): N17.9 - Acute kidney failure, unspecified; N18.3 - Chronic kidney disease, stage 3 (moderate) Is this a current diagnosis for this admission?: Yes (6) Esophageal varices determined by endoscopy Is this a current diagnosis for this admission?: Yes (7) Hyperkalemia Is this a current diagnosis for this admission?: Yes (8) HEAVEN (obstructive sleep apnea) Is this a current diagnosis for this admission?: Yes (9) Hypothyroid Qualifiers: Hypothyroidism type: unspecified Qualified Code(s): E03.9 - Hypothyroidism, unspecified Is this a current diagnosis for this admission?: Yes (10) HLD (hyperlipidemia) Qualifiers: Hyperlipidemia type: unspecified Qualified Code(s): E78.5 - Hyperlipidemia, unspecified Is this a current diagnosis for this admission?: Yes - Plan Summary Summary: Patient is admitted to [facility] [place] will he will be observed closely and receive the usual supportive and symptomatic treatments. He will receive blood transfusions as previously ordered in the emergency room. He will have frequent laboratory evaluations of his metabolic profile and CBC. A nephrology consultation will be obtained as well as a cardiology consultation, a surgical consultation will be considered though with the patient's history of esophageal varices it is unlikely that an upper endoscopy would be performed here. He will be continued on her current Protonix infusion as started in the ER. Due to his borderline hypotensive blood pressure and his history of congestive heart failure his fluids will be managed very carefully. Patient will likely require evaluation by gastroenterology at some time in the near future. Due to his history of chronic heavy alcohol usage, Valium 10 mg IV nightly hour will be available for use in the event of acute withdrawal symptoms. - Time Time Spent with patient: 25-34 minutes Medications reviewed and adjusted accordingly: Yes Anticipated discharge: Home with Homehealth - Inpatient Certification Based on my medical assessment, after consideration of the patient's com orbidities, presenting symptoms, or acuity I expect that the services needed warrant INPATIENT care.: Yes I certify that my determination is in accordance with my understanding of Medicare's requirements for reasonable and necessary INPATIENT services [42 CFR 412.3e].: Yes Medical Necessity: Significant Comorbidiites Make Outpatient Treatment Too Risky, Need Close Monitoring Due to Risk of Patient Decompensation, Need For IV Fluids, Need For Continuous Telemetry Monitoring, Risk of Complication if Not Cared For in Hospital, Risk of Diagnosis Which Will Require Inpatient Eval/Care/Monitoring
[2019-07-01] MEDS ORDERED: LEVOTHYROXINE SODIUM 0.05 MG TABLET PO SCH (06:00)
[2019-07-01 06:58] LABS: HEMATOCRIT 20.2 % (37.9-51.0); MEAN CORPUSCULAR HEMOGLOBIN 28.4 pg (27.0-33.4); MEAN CORPUSCULAR HGB CONC 32.8 g/dL (32.0-36.0); MEAN CORPUSCULAR VOLUME 87 fl (80-97); PLATELET COUNT 215 10^3/uL (150-450); RED BLOOD COUNT 2.33 10^6/uL (4.35-5.55); RED CELL DISTRIBUTION WIDTH 14.9 % (11.5-14.0); WHITE BLOOD COUNT 5.5 10^3/uL (4.0-10.5)
[2019-07-01 07:02] LABS: HEMOGLOBIN 6.6 g/dL (13.5-17.0)
[2019-07-01 07:16] LABS: ANION GAP 14 (5-19); BLOOD UREA NITROGEN 56 mg/dL (7-20); CALCIUM 9.2 mg/dL (8.4-10.2); CARBON DIOXIDE 18 mmol/L (22-30); CHLORIDE 103 mmol/L (98-107); CHOLESTEROL 85.51 mg/dL (0-200); GLUCOSE 94 mg/dL (75-110); TRIGLYCERIDES 66 mg/dL (<150)
[2019-07-01 07:27] LABS: DIRECT LDL 45 mg/dL (<100)
[2019-07-01 07:38] LABS: POTASSIUM 4.6 mmol/L (3.6-5.0)
--- NOTE | 2019-07-01 07:46 | EKG REPORT ---
SEVERITY:- ABNORMAL ECG - VENTRICULAR-PACED RHYTHM : Confirmed by: Emiliano Guerrero MD 01-Jul-2019 07:46:13
[2019-07-01 08:05] LABS: APPEARANCE,URINE CLEAR; BILIRUBIN,URINE NEGATIVE (NEGATIVE); COLOR,URINE STRAW; GLUCOSE, URINE NEGATIVE (NEGATIVE); KETONES,URINE NEGATIVE (NEGATIVE); LEUKOCYTE ESTERASE,URINE NEGATIVE (NEGATIVE); NITRITE,URINE NEGATIVE (NEGATIVE); PROTEIN,URINE NEGATIVE (NEGATIVE); URINE SPECIFIC GRAVITY 1.006; UROBILINOGEN,URINE NEGATIVE mg/dL (<2.0)
[2019-07-01] MEDS ORDERED: NORMAL SALINE 250 ML IV PRN ×2 (08:54)
--- NOTE | 2019-07-01 09:02 | PDOC PROGRESS REPORT ---
Subjective Progress Note for:: 07/01/19 Subjective:: 07/01/2019-shortness of breath Reason For Visit: ACUTE GASTROINTESTINAL HEMORRHAGE Physical Exam Vital Signs: Temp Pulse Resp BP Pulse Ox 97.7 F 72 18 132/64 H 100 07/01/19 06:56 07/01/19 07:00 07/01/19 06:56 07/01/19 06:56 07/01/19 06:56 Intake & Output 06/30/19 07/01/19 07/02/19 06:59 06:59 06:59 Intake Total 600 Output Total 2 Balance 598 Weight 102.3 kg General appearance: PRESENT: no acute distress, well-developed, well-nourished Neck exam: ABSENT: carotid bruit, JVD, lymphadenopathy, thyromegaly Respiratory exam: PRESENT: clear to auscultation sigifredo. ABSENT: rales, rhonchi, wheezes Cardiovascular exam: PRESENT: RRR. ABSENT: diastolic murmur, rubs, systolic murmur Pulses: PRESENT: normal dorsalis pedis pul Vascular exam: PRESENT: normal capillary refill GI/Abdominal exam: PRESENT: normal bowel sounds, soft. ABSENT: distended, guar ding, mass, organolmegaly, rebound, tenderness Extremities exam: PRESENT: full ROM. ABSENT: calf tenderness, clubbing, pedal edema Neurological exam: PRESENT: alert, awake, oriented to person, oriented to place, oriented to time, oriented to situation, CN II-XII grossly intact. ABSENT: motor sensory deficit Psychiatric exam: PRESENT: appropriate affect, normal mood. ABSENT: homicidal ideation, suicidal ideation Skin exam: PRESENT: dry, intact, warm. ABSENT: cyanosis, rash Results Laboratory Results: 07/01/19 06:14 07/01/19 06:14 06/30/19 06/30/19 06/30/19 20:03 20:03 20:09 WBC 7.8 RBC 2.03 L Hgb 5.7 L Hct 17.9 L MCV 88 MCH 28.0 MCHC 31.7 L RDW 15.1 H Plt Count 268 Seg Neutrophils % 75.2 VBG pH 7.36 VBG pCO2 29.7 L VBG HCO3 16.3 L VBG Base Excess -8.3 Sodium 133.6 L Potassium 6.4 H* Chloride 102 Carbon Dioxide 17 L Anion Gap 15 BUN 57 H Creatinine 2.91 H Est GFR ( Amer) 26 L Glucose 82 Calcium 9.1 Magnesium Total Bilirubin 0.3 AST 18 Alkaline Phosphatase 83 Total Protein 7.0 Albumin 3.8 Triglycerides Cholesterol LDL Cholesterol Direct VLDL Cholesterol HDL Cholesterol TSH Urine Color Urine Appearance Urine pH Ur Specific [place] Urine Protein Urine Glucose (UA) Urine Ketones Urine Blood Urine Nitrite Ur Leukocyte Esterase Urine WBC (Auto) Urine RBC (Auto) Blood Type Antibody Screen 06/30/19 07/01/19 07/01/19 20:39 06:14 06:14 WBC 5.5 RBC 2.33 L Hgb 6.6 L Hct 20.2 L MCV 87 MCH 28.4 MCHC 32.8 RDW 14.9 H Plt Count 215 Seg Neutrophils % VBG pH VBG pCO2 VBG HCO3 VBG Base Excess Sodium 135.4 L Potassium 4.6 D Chloride 103 Carbon Dioxide 18 L Anion Gap 14 BUN 56 H Creatinine 2.92 H Est GFR ( Amer) 26 L Glucose 94 Calcium 9.2 Magnesium 2.5 H Total Bilirubin AST Alkaline Phosphatase Total Protein Albumin Triglycerides 66 Cholesterol 85.51 LDL Cholesterol Direct 45 VLDL Cholesterol 13.0 HDL Cholesterol 35 L TSH Urine Color Urine Appearance Urine pH Ur Specific [place] Urine Protein Urine Glucose (UA) Urine Ketones Urine Blood Urine Nitrite Ur Leukocyte Esterase Urine WBC (Auto) Urine RBC (Auto) Blood Type O POSITIVE Antibody Screen NEGATIVE 07/01/19 07/01/19 06:14 06:55 WBC RBC Hgb Hct MCV MCH MCHC RDW Plt Count Seg Neutrophils % VBG pH VBG pCO2 VBG HCO3 VBG Base Excess Sodium Potassium Chloride Carbon Dioxide Anion Gap BUN Creatinine Est GFR ( Amer) Glucose Calcium Magnesium Total Bilirubin AST Alkaline Phosphatase Total Protein Albumin Triglycerides Cholesterol LDL Cholesterol Direct VLDL Cholesterol HDL Cholesterol TSH 2.82 Urine Color STRAW Urine Appearance CLEAR Urine pH 5.0 Ur Specific [place] 1.006 Urine Protein NEGATIVE Urine Glucose (UA) NEGATIVE Urine Ketones NEGATIVE Urine Blood NEGATIVE Urine Nitrite NEGATIVE Ur Leukocyte Esterase NEGATIVE Urine WBC (Auto) 0 Urine RBC (Auto) 1 Blood Type Antibody Screen 06/30/19 20:03 Troponin I 0.039 NT-Pro-B Natriuret Pep 2370 H Impressions: Chest X-Ray 06/30/19 19:46 IMPRESSION: 1. No acute pulmonary findings. 2. Pacemaker Assessment and Plan - Diagnosis (1) Upper GI bleeding Is this a current diagnosis for this admission?: Yes Plan: 07/01/2019-not currently actively bleeding. We will continue Protonix 40 mg IV twice daily. Will give patient 1 unit of packed cells further to total 3 as his hemoglobin still 6.6 issue and some shortness of breath. We will continue to follow his hospital stay. If he shows any signs of acute bleed will arrange transfer to tertiary center for continued care. (2) Blood loss anemia Is this a current diagnosis for this admission?: Yes Plan: 07/01/2019-see #1 (3) Paroxysmal atrial fibrillation Is this a current diagnosis for this admission?: Yes Plan: 07/01/2019-stable at the time continue to follow (4) Chronic diastolic congestive heart failure Is this a current diagnosis for this admission?: Yes Plan: 07/01/2019-not in acute exacerbation. Continue to follow (5) Esophageal varices determined by endoscopy Is this a current diagnosis for this admission?: Yes Plan: 07/01/2019-if patient starts show acute bleed will transfer to tertiary center for further evaluation treatment (6) HLD (hyperlipidemia) Qualifiers: Hyperlipidemia type: unspecified Qualified Code(s): E78.5 - Hyperlipidemia, unspecified Is this a current diagnosis for this admission?: Yes Plan: 07/01/2019-stable continue to follow (7) Hypothyroid Qualifiers: Hypothyroidism type: unspecified Qualified Code(s): E03.9 - Hypothyroidism, unspecified Is this a current diagnosis for this admission?: Yes Plan: 07/01/2019-stable continue to follow (8) HEAVEN (obstructive sleep apnea) Is this a current diagnosis for this admission?: Yes Plan: 07/01/2019-stable - Plan Summary Summary: Patient is admitted to [facility] will he will be observed closely and receive the usual supportive and symptomatic treatments. He will receive blood transfusions as previously ordered in the emergency room. He will have frequent laboratory evaluations of his metabolic profile and CBC. A nephrology consultation will be obtained as well as a cardiology consultation, a surgical consultation will be considered though with the patient's history of esophageal varices it is unlikely that an upper endoscopy would be performed here. He will be continued on her current Protonix infusion as started in the ER. Due to his borderline hypotensive blood pressure and his history of congestive heart failure his fluids will be managed very carefully. Patient will likely require evaluation by gastroenterology at some time in the near future. Due to his history of chronic heavy alcohol usage, Valium 10 mg IV nightly hour will be available for use in the event of acute withdrawal symptoms. - Time Time Spent with patient: 15-24 minutes - Inpatient Certification Based on my medical assessment, after consideration of the patient's comorbidi ties, presenting symptoms, or acuity I expect that the services needed warrant INPATIENT care.: Yes I certify that my determination is in accordance with my understanding of [place] [facility] requirements for reasonable and necessary INPATIENT services [42 CFR 412.3e].: Yes Medical Necessity: Significant Comorbidiites Make Outpatient Treatment Too Risky, Need Close Monitoring Due to Risk of Patient Decompensation
[2019-07-01] MEDS ORDERED: FUROSEMIDE INJ/PF 40 MG/4 ML SDV IV SCH (10:00)
[2019-07-01] MEDS ORDERED: PANTOPRAZOLE SODIUM 40 MG VIAL IV SCH ×2 (10:00)
[2019-07-01] MEDS ORDERED: DOCUSATE SODIUM 100 MG CAPSULE PO SCH (10:00)
[2019-07-01] MEDS ORDERED: PANTOPRAZOLE SODIUM 40 MG VIAL IV PRN (11:14)
[2019-07-01] MEDS ORDERED: NORMAL SALINE 100 ML with PANTOPRAZOLE SODIUM 80 MG IV PRN ×2 (11:17)
--- NOTE | 2019-07-01 11:35 | PDOC TRANSFER SUMMARY ---
General Admission Date/PCP: 06/30/19 22:25 BRITTANY CROSS MD Admission Date: 06/30/19 Transfer Date: 07/01/19 Accepting Facility: [facility] Resuscitation Status: Full Code - Transfer Diagnosis (1) Upper GI bleeding Is this a current diagnosis for this admission?: Yes (2) Blood loss anemia Is this a current diagnosis for this admission?: Yes (3) Paroxysmal atrial fibrillation Is this a current diagnosis for this admission?: Yes (4) Chronic diastolic congestive heart failure Is this a current diagnosis for this admission?: Yes (5) Esophageal varices determined by endoscopy Is this a current diagnosis for this admission?: Yes (6) HLD (hyperlipidemia) Is this a current diagnosis for this admission?: Yes (7) Hypothyroid Is this a current diagnosis for this admission?: Yes (8) HEAVEN (obstructive sleep apnea) Is this a current diagnosis for this admission?: Yes - Transfer Medications Home Medications: Atorvastatin Calcium [Lipitor 20 mg Tablet] 20 mg PO QAM 07/01/19 Docusate Sodium [Colace 100 mg Capsule] 100 mg PO QHS 07/01/19 Folic Acid [Folvite 1 mg Tablet] 1 mg PO QAM 07/01/19 Furosemide [Lasix 40 mg Tablet] 40 mg PO Q12 07/01/19 Hydrocodone/Acetaminophen [[place] 7.5-325 mg Tablet] 1 tab PO Q6HP PRN 07/01/19 Iron Polysaccharide Complex [Poly-Iron] 150 mg PO QAM 07/01/19 Levothyroxine Sodium [Synthroid] 125 mcg PO Q6AM 07/01/19 Losartan Potassium [Cozaar 25 mg Tablet] 25 mg PO Q12 07/01/19 Magnesium Oxide [Mag-Ox 400 mg Tablet] 400 mg PO QAM 07/01/19 Nitroglycerin [Nitro-Dur 5 mg (0.2 mg/Hr) Transdermal Patch] 1 each TD QHS 07/01/19 Omeprazole 20 mg PO DAILY 07/01/19 Propranolol HCl [Inderal 10 mg Tablet] 10 mg PO BID 07/01/19 Spironolactone [Aldactone] 100 mg PO QAM 07/01/19 Vitamin B Complex [B Complex] 1 each PO QAM 07/01/19 Transfer Medications: Current Medications Acetaminophen (Tylenol 325 Mg Tablet) 650 mg PO .BEFORE TRANSFUSION PRN PRN Reason: THIS MED IS NOT "PRN" Stop: 07/01/19 20:34 Last Admin: 06/30/19 22:01 Dose: 650 mg Documented by: Acetaminophen (Tylenol 325 Mg Tablet) 650 mg PO Q4HP PRN PRN Reason: For headache, pain or fever Stop: 07/30/19 23:03 Acetaminophen (Tylenol 650 Mg Supp) 650 mg [place] Q4HP PRN PRN Reason: For headache, pain or fever Stop: 07/30/19 23:03 Al Hydrox/Mg Hydrox/Simethicone (Maalox Plus Susp 30 Udcup) 30 ml PO Q6HP PRN PRN Reason: HEARTBURN Stop: 07/30/19 22:56 Chlorpromazine HCl (Thorazine Inj 25 Mg/1 Ml Ampule) 25 mg IV Q8HP PRN PRN Reason: Nausea/Agitation/Tremor Stop: 07/30/19 23:03 Diazepam (Valium Inj 10 Mg/2 Ml Disp.Syrin) 10 mg IV Q1HP PRN PRN Reason: WITHDRAWAL SYMPTOMS Stop: 07/07/19 23:03 Diphenhydramine HCl (Benadryl 25 Mg Capsule) 25 mg PO .BEFORE TRANSFUSION PRN PRN Reason: THIS MED IS NOT "PRN" Stop: 07/01/19 20:34 Last Admin: 06/30/19 22:01 Dose: 25 mg Documented by: Docusate Sodium (Colace 100 Mg Capsule) 100 mg PO BID [facility] Stop: 07/31/19 09:59 Furosemide (Lasix Inj/Pf 40 Mg/4 Ml Sdv) 40 mg IV DAILY [facility] Stop: 07/31/19 09:59 Last Admin: 07/01/19 09:54 Dose: 40 mg Documented by: Sodium Chloride (Nacl 0.9% 250 Ml Iv Soln) 250 mls @ 30 mls/hr IV .DURING TRANSFUSION PRN PRN Reason: THIS MED IS NOT "PRN" Stop: 07/01/19 20:34 Sodium Chloride (Nacl 0.9% 250 Ml Iv Soln) 250 mls @ 0 mls/hr IV CONTINUOUS PRN PRN Reason: AFTER EACH UNIT Stop: 07/01/19 20:34 Sodium Chloride (Nacl 0.9% 250 Ml Iv Soln) 250 mls @ 30 mls/hr IV .DURING TRANSFUSION PRN PRN Reason: THIS MED IS NOT "PRN" Stop: 07/02/19 08:53 Sodium Chloride (Nacl 0.9% 250 Ml Iv Soln) 250 mls @ 0 mls/hr IV CONTINUOUS PRN PRN Reason: AFTER EACH UNIT Stop: 07/02/19 08:53 Octreotide Acetate 500 mcg/ (Sodium Chloride) 500 mls @ 50 mls/hr IV CONTINUOUS PRN PRN Reason: THIS MED IS NOT "PRN" Stop: 07/31/19 12:29 Pantoprazole Sodium 80 mg/ (Sodium Chloride) 100 mls @ 10 mls/hr IV CONTINUOUS PRN PRN Reason: THIS MED IS NOT "PRN" Stop: 07/08/19 11:16 Levalbuterol HCl (Xopenex Neb 0.63 Mg/3 Ml Ampul) 0.63 mg NEB RTQ2HP PRN PRN Reason: SHORTNESS OF BREATH Stop: 07/30/19 22:56 Levothyroxine Sodium (Synthroid 0.05 Mg Tablet) 0.125 mg PO Q6AM [facility] Stop: 07/31/19 05:59 Last Admin: 07/01/19 06:53 Dose: 0.125 mg Documented by: Magnesium Hydroxide (Milk Of Magnesia 30 Ml Udcup) 30 ml PO HSP PRN PRN Reason: FOR CONSTIPATION Stop: 07/30/19 22:56 Pantoprazole Sodium (Protonix Iv Inj 40 Mg Vial) 40 mg IV Q12 [facility] Stop: 07/04/19 09:59 Promethazine HCl (Phenergan Inj 25 Mg/1 Ml Vial) 12.5 mg IV Q4HP PRN PRN Reason: FOR NAUSEA/VOMITING Stop: 07/30/19 22:56 Sodium Chloride (Saline Flush 2.5 Ml Monoject Prefil Syrin) 2.5 ml IV Q8 [facility] Stop: 07/31/19 05:59 Last Admin: 07/01/19 06:56 Dose: 2.5 ml Documented by: - Allergies Allergies/Adverse Reactions: allopurinol Allergy (Verified 06/30/19 19:32) colchicine Allergy (Verified 06/30/19 19:32) Sulfa (Sulfonamide Antibiotics) Allergy (Verified 06/30/19 19:32) valdecoxib [From Bextra] Allergy (Verified 06/30/19 19:32) - Diet/Activity Discharge Diet: As Tolerated Hospital Course Hospital Course: Patient presented to ER with complaints of shortness of breath. Patient states his shortness breath occurred for approximately 1 week and progressively worsened with dyspnea on exertion. Patient also noted orthopnea swelling of bilateral lower extremities and does have a history of diastolic congestive heart failure. He was found to be severely anemic with a hemoglobin of 5.5 and he does have a known history of esophageal varices. Patient was placed on IMCU was given 2 units packed red cells. His initial hemoglobin status post was 6.6 I have ordered another unit of packed red cells and given 40 mg of Lasix IV x1. Patient does have chronic renal insufficiency with a creatinine to 2.92 and is followed by nephrology. Patient is not actively bleeding at this time he is hemodynamically stable I have added Sandostatin IV along with Protonix drip. I have talked to Dr. naranjo at [facility] in [place] and he is accepted patient in transfer. Patient be transferred with the above-mentioned IV drips and followed closely. Physical Exam Vital Signs: Temp Pulse Resp BP Pulse Ox 97.7 F 71 18 132/64 H 100 07/01/19 06:56 07/01/19 09:35 07/01/19 09:35 07/01/19 06:56 07/01/19 09:35 Intake & Output 06/30/19 07/01/19 07/02/19 06:59 06:59 06:59 Intake Total 600 480 Output Total 2 1300 Balance 598 -820 Weight 102.3 kg General appearance: PRESENT: no acute distress, well-developed, well-nourished Neck exam: ABSENT: carotid bruit, JVD, lymphadenopathy, thyromegaly Respiratory exam: PRESENT: clear to auscultation sigifredo. ABSENT: rales, rhonchi, wheezes Cardiovascular exam: PRESENT: RRR. ABSENT: diastolic murmur, rubs, systolic murmur Pulses: PRESENT: normal dorsalis pedis pul Vascular exam: PRESENT: normal capillary refill GI/Abdominal exam: PRESENT: normal bowel sounds, soft. ABSENT: distended, guarding, mass, organolmegaly, rebound, tenderness Extremities exam: PRESENT: full ROM. ABSENT: calf tenderness, clubbing, pedal edema Neurological exam: PRESENT: alert, awake, oriented to person, oriented to place, oriented to time, oriented to situation, CN II-XII grossly intact. ABSENT: motor sensory deficit Psychiatric exam: PRESENT: appropriate affect, normal mood. ABSENT: homicidal ideation, suicidal ideation Skin exam: PRESENT: dry, intact, warm. ABSENT: cyanosis, rash Results Laboratory Results: 07/01/19 06:14 07/01/19 06:14 06/30/19 06/30/19 06/30/19 20:03 20:03 20:09 WBC 7.8 RBC 2.03 L Hgb 5.7 L Hct 17.9 L MCV 88 MCH 28.0 MCHC 31.7 L RDW 15.1 H Plt Count 268 Seg Neutrophils % 75.2 VBG pH 7.36 VBG pCO2 29.7 L VBG HCO3 16.3 L VBG Base Excess -8.3 Sodium 133.6 L Potassium 6.4 H* Chloride 102 Carbon Dioxide 17 L Anion Gap 15 BUN 57 H Creatinine 2.91 H Est GFR ( Amer) 26 L Glucose 82 Calcium 9.1 Magnesium Total Bilirubin 0.3 AST 18 Alkaline Phosphatase 83 Total Protein 7.0 Albumin 3.8 Triglycerides Cholesterol LDL Cholesterol Direct VLDL Cholesterol HDL Cholesterol TSH Urine Color Urine Appearance Urine pH Ur Specific [place] Urine Protein Urine Glucose (UA) Urine Ketones Urine Blood Urine Nitrite Ur Leukocyte Esterase Urine WBC (Auto) Urine RBC (Auto) Blood Type Antibody Screen 06/30/19 07/01/19 07/01/19 20:39 06:14 06:14 WBC 5.5 RBC 2.33 L Hgb 6.6 L Hct 20.2 L MCV 87 MCH 28.4 MCHC 32.8 RDW 14.9 H Plt Count 215 Seg Neutrophils % VBG pH VBG pCO2 VBG HCO3 VBG Base Excess Sodium 135.4 L Potassium 4.6 D Chloride 103 Carbon Dioxide 18 L Anion Gap 14 BUN 56 H Creatinine 2.92 H Est GFR ( Amer) 26 L Glucose 94 Calcium 9.2 Magnesium 2.5 H Total Bilirubin AST Alkaline Phosphatase Total Protein Albumin Triglycerides 66 Cholesterol 85.51 LDL Cholesterol Direct 45 VLDL Cholesterol 13.0 HDL Cholesterol 35 L TSH Urine Color Urine Appearance Urine pH Ur Specific [place] Urine Protein Urine Glucose (UA) Urine Ketones Urine Blood Urine Nitrite Ur Leukocyte Esterase Urine WBC (Auto) Urine RBC (Auto) Blood Type O POSITIVE Antibody Screen NEGATIVE 07/01/19 07/01/19 06:14 06:55 WBC RBC Hgb Hct MCV MCH MCHC RDW Plt Count Seg Neutrophils % VBG pH VBG pCO2 VBG HCO3 VBG Base Excess Sodium Potassium Chloride Carbon Dioxide Anion Gap BUN Creatinine Est GFR ( Amer) Glucose Calcium Magnesium Total Bilirubin AST Alkaline Phosphatase Total Protein Albumin Triglycerides Cholesterol LDL Cholesterol Direct VLDL Cholesterol HDL Cholesterol TSH 2.82 Urine Color STRAW Urine Appearance CLEAR Urine pH 5.0 Ur Specific [place] 1.006 Urine Protein NEGATIVE Urine Glucose (UA) NEGATIVE Urine Ketones NEGATIVE Urine Blood NEGATIVE Urine Nitrite NEGATIVE Ur Leukocyte Esterase NEGATIVE Urine WBC (Auto) 0 Urine RBC (Auto) 1 Blood Type Antibody Screen 06/30/19 20:03 Troponin I 0.039 NT-Pro-B Natriuret Pep 2370 H Impressions: Chest X-Ray 06/30/19 19:46 IMPRESSION: 1. No acute pulmonary findings. 2. Pacemaker Plan Time Spent: Greater than 30 Minutes
[2019-07-01] MEDS ORDERED: NORMAL SALINE 500 ML with OCTREOTIDE ACETATE 500 MCG IV PRN ×2 (12:30)
[2019-07-01 13:24] VITALS: BP 128/61
--- NOTE | 2019-07-01 18:59 | PDOC CONSULTATION ---
Consultation Consult Date: 07/01/19 Provider Consulted: BERT BOYCE Consult reason:: I was asked to see the patient because of acute worsening of kidney function in a patient with history of chronic kidney disease. History of Present Illness Admission Date/PCP: 06/30/19 22:25 BRITTANY CROSS MD History of Present Illness: ELEANOR STODDARD is a 73 year old male with history of atrial fibrillation on anticoagulation, status post pacemaker placement and watchman procedure, congestive heart failure, hypertension sleep apnea, chronic kidney disease stage III and alcoholic liver cirrhosis who presented and was admitted progressive shortness of breath. The patient started to be short of breath about 1 week prior to admission and has progressed since associated with increased lower extremity swelling. He has been on furosemide 40 mg twice daily, and spironolactone 100 mg daily. He was seen by Dr. Saravia on June 24 and was started on losartan 25 mg daily. A recent echocardiogram from Dr. Saravia in the emergency room the patient was noted to have a hemoglobin of 5.7,, BUN of 57 and creatinine of 2.91. He was given 2 units of packed RBC in the emergency room as was subsequently admitted in IMCU for further management. Another unit of packed RBC is ordered today. He was hypotensive and he presented with lowest blood pressure of 87/47. He is on Plavix and aspirin upon presentation. He admits decrease in appetite nausea. According to the at bedside he was noted to have black stools in the emergency room but has not been noted while he is in IMCU. Patient denies any chest pains, vomiting, and diarrhea. So far clinically the patient has no signs of bleeding. The mentioned that the patient had episode of bleeding diverticulosis/diverticulitis about couple of years ago for which he had abdominal surgery for. He remains to be hemodynamically stable. In terms of the kidney function patient's baseline creatinine usually ranges anywhere between 1.5-1.6. 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 Blood work on June [address] Saravia revealed a creatinine of 2.08 with a EGFR of 31. Today he has a BUN of 56 and a creatinine of 2.92 with EGFR of 21. That he made a urine output of 1300 mL since he got up here in the IMCU. His potassium is improved from 6.4- 4.6. His bicarbonate is a little bit low at 18. Past Medical History Cardiac Medical History: Reports: Atrial Fibrillation, CHF-Diastolic, Hyperlipidemia, Hypertension-primary Pulmonary Medical History: Reports: Sleep Apnea - Uncertain settings on home CPAP Endocrine Medical History: Reports: Hypothyroidism Renal/ Medical History: Reports: Chronic Kidney Disease Stage III GI Medical History: Reports: Cirrhosis - Alcoholic cirrhosis, Diverticulitis - Status post segmental colectomy for same. Question if he has diverticulosi, Gastroesophageal Reflux Disease, Hiatal Hernia, Other - Esophageal/Gastric varices Musculoskeltal Medical History: Reports: Arthritis, Gout Psychiatric Medical History: Reports: Alcohol Dependency, Tobacco Dependency Past Surgical History Past Surgical History: Reports: Herniorrhaphy, Orthopedic Surgery - right and left hand surgeries, Pacemaker, Vascular Surgery - Watchman device placement, Other - Segmental colectomy for diverticulitis Social History Information Source: Patient, [facility] Records Lives with: Spouse/Significant other Smoking Status: Former Smoker Cigarettes Packs Per Day: 1 Electronic Cigarette use?: No Number of Years Smokin Last Time Smoked: 1978 Frequency of Alcohol Use: Heavy - History of heavy alcohol abuse in the past but states he has completely stopped drinking for more than a year. Amount of Alcoholic Beverages Per Day: Allegedly quit alcohol drinking 2 months ago. Hx Recreational Drug Use: No Drugs: None Hx Prescription Drug Abuse: No - Advance Directive Resuscitation Status: Full Code Family History Family History: CAD, DM, Hypertension, Malignancy, Other - COPD Family History: Denies family history of kidney disease. Parental Family History Reviewed: Yes Children Family History Reviewed: Yes Sibling(s) Family History Reviewed.: Yes Medication/Allergy Home Medications: Atorvastatin Calcium [Lipitor 20 mg Tablet] 20 mg PO QAM 07/01/19 Docusate Sodium [Colace 100 mg Capsule] 100 mg PO QHS 07/01/19 Folic Acid [Folvite 1 mg Tablet] 1 mg PO QAM 07/01/19 Furosemide [Lasix 40 mg Tablet] 40 mg PO Q12 07/01/19 Hydrocodone/Acetaminophen [[place] 7.5-325 mg Tablet] 1 tab PO Q6HP PRN 07/01/19 Iron Polysaccharide Complex [Poly-Iron] 150 mg PO QAM 07/01/19 Levothyroxine Sodium [Synthroid] 125 mcg PO Q6AM 07/01/19 Losartan Potassium [Cozaar 25 mg Tablet] 25 mg PO Q12 07/01/19 Magnesium Oxide [Mag-Ox 400 mg Tablet] 400 mg PO QAM 07/01/19 Nitroglycerin [Nitro-Dur 5 mg (0.2 mg/Hr) Transdermal Patch] 1 each TD QHS 07/01/19 Omeprazole 20 mg PO DAILY 07/01/19 Propranolol HCl [Inderal 10 mg Tablet] 10 mg PO BID 07/01/19 Spironolactone [Aldactone] 100 mg PO QAM 07/01/19 Vitamin B Complex [B Complex] 1 each PO QAM 07/01/19 Allergies/Adverse Reactions: allopurinol Allergy (Verified 06/30/19 19:32) colchicine Allergy (Verified 06/30/19 19:32) Sulfa (Sulfonamide Antibiotics) Allergy (Verified 06/30/19 19:32) valdecoxib [From Bextra] Allergy (Verified 06/30/19 19:32) Review of Systems All systems: reviewed and no additional remarkable complaints except as stated Review of Systems: Constitutional: ABSENT: chills, fatigue, fever(s), headache(s), weight gain, weight loss Eyes: ABSENT: visual disturbances Ears: ABSENT: hearing changes Cardiovascular: ABSENT: chest pain, palpitations; admits dyspnea on exertion, orthopnea and progressive leg swelling. Respiratory: ABSENT: cough, hemoptysis Gastrointestinal: ABSENT: abdominal pain, constipation, diarrhea, hematemesis, hematochezia, vomiting; admits nausea and note of melena Genitourinary: ABSENT: dysuria, hematuria Musculoskeletal: ABSENT: joint swelling Integumentary: ABSENT: rash, wounds Neurological: ABSENT: abnormal gait, abnormal speech, confusion, dizziness, focal weakness, numbness, syncope Psychiatric: ABSENT: anxiety, depression Endocrine: ABSENT: cold intolerance, heat intolerance, polydipsia, polyuria Hematologic/Lymphatic: ABSENT: easy bleeding, easy bruising, lymphadenopathy Physical Exam Vital Signs: Temp Pulse Resp BP Pulse Ox 97.7 F 71 18 132/64 H 100 07/01/19 06:56 07/01/19 09:35 07/01/19 09:35 07/01/19 06:56 07/01/19 09:35 Intake & Output 06/30/19 07/01/19 07/02/19 06:59 06:59 06:59 Intake Total 600 480 Output Total 2 1300 Balance 598 -820 Weight 102.3 kg Exam: General appearance: No acute distress, cooperative, well-developed, well-nou rished Head exam: PRESENT: atraumatic, normocephalic Eye exam: PRESENT: Conjunctiva slightly pale, EOMI, PERRLA. ABSENT: conjunctival injection, scleral icterus Mouth exam: PRESENT: moist, neck supple, tongue midline Neck exam: PRESENT: full ROM. ABSENT: carotid bruit, JVD, lymphadenopathy, thyromegaly Respiratory exam: PRESENT: clear to auscultation bilaterally. ABSENT: rales, rhonchi, stridor, wheezes Cardiovascular exam: PRESENT: RRR, +S1, +S2. ABSENT: systolic murmur Pulses: PRESENT: normal radial pulses, normal dorsalis pedis pulses GI/Abdominal exam: PRESENT: normal bowel sounds, soft. ABSENT: guarding, mass, tenderness Rectal exam: Deferred Extremities exam: PRESENT: full ROM. Grade 1 bilateral pitting lower extremity edema ABSENT: calf tenderness Musculoskeletal: PRESENT: full ROM. ABSENT: deformity Neurological exam: PRESENT: alert, Awake, Oriented to person, Oriented to place, Oriented to time, reflexes normal, CN II-XII grossly intact. ABSENT: motor sensory deficit Psychiatric exam: PRESENT: appropriate affect, normal mood. ABSENT: homicidal ideation, suicidal ideation Skin exam: PRESENT: intact, dry, warm. ABSENT: rash Results Laboratory Results: 07/01/19 06:14 07/01/19 06:14 06/30/19 06/30/19 06/30/19 20:03 20:03 20:09 WBC 7.8 RBC 2.03 L Hgb 5.7 L Hct 17.9 L MCV 88 MCH 28.0 MCHC 31.7 L RDW 15.1 H Plt Count 268 Seg Neutrophils % 75.2 VBG pH 7.36 VBG pCO2 29.7 L VBG HCO3 16.3 L VBG Base Excess -8.3 Sodium 133.6 L Potassium 6.4 H* Chloride 102 Carbon Dioxide 17 L Anion Gap 15 BUN 57 H Creatinine 2.91 H Est GFR ( Amer) 26 L Glucose 82 Calcium 9.1 Magnesium Total Bilirubin 0.3 AST 18 Alkaline Phosphatase 83 Total Protein 7.0 Albumin 3.8 Triglycerides Cholesterol LDL Cholesterol Direct VLDL Cholesterol HDL Cholesterol TSH Urine Color Urine Appearance Urine pH Ur Specific [place] Urine Protein Urine Glucose (UA) Urine Ketones Urine Blood Urine Nitrite Ur Leukocyte Esterase Urine WBC (Auto) Urine RBC (Auto) Blood Type Antibody Screen 06/30/19 07/01/19 07/01/19 20:39 06:14 06:14 WBC 5.5 RBC 2.33 L Hgb 6.6 L Hct 20.2 L MCV 87 MCH 28.4 MCHC 32.8 RDW 14.9 H Plt Count 215 Seg Neutrophils % VBG pH VBG pCO2 VBG HCO3 VBG Base Excess Sodium 135.4 L Potassium 4.6 D Chloride 103 Carbon Dioxide 18 L Anion Gap 14 BUN 56 H Creatinine 2.92 H Est GFR ( Amer) 26 L Glucose 94 Calcium 9.2 Magnesium 2.5 H Total Bilirubin AST Alkaline Phosphatase Total Protein Albumin Triglycerides 66 Cholesterol 85.51 LDL Cholesterol Direct 45 VLDL Cholesterol 13.0 HDL Cholesterol 35 L TSH Urine Color Urine Appearance Urine pH Ur Specific [place] Urine Protein Urine Glucose (UA) Urine Ketones Urine Blood Urine Nitrite Ur Leukocyte Esterase Urine WBC (Auto) Urine RBC (Auto) Blood Type O POSITIVE Antibody Screen NEGATIVE 07/01/19 07/01/19 06:14 06:55 WBC RBC Hgb Hct MCV MCH MCHC RDW Plt Count Seg Neutrophils % VBG pH VBG pCO2 VBG HCO3 VBG Base Excess Sodium Potassium Chloride Carbon Dioxide Anion Gap BUN Creatinine Est GFR ( Amer) Glucose Calcium Magnesium Total Bilirubin AST Alkaline Phosphatase Total Protein Albumin Triglycerides Cholesterol LDL Cholesterol Direct VLDL Cholesterol HDL Cholesterol TSH 2.82 Urine Color STRAW Urine Appearance CLEAR Urine pH 5.0 Ur Specific [place] 1.006 Urine Protein NEGATIVE Urine Glucose (UA) NEGATIVE Urine Ketones NEGATIVE Urine Blood NEGATIVE Urine Nitrite NEGATIVE Ur Leukocyte Esterase NEGATIVE Urine WBC (Auto) 0 Urine RBC (Auto) 1 Blood Type Antibody Screen 06/30/19 20:03 Troponin I 0.039 NT-Pro-B Natriuret Pep 2370 H Impressions: Chest X-Ray 06/30/19 19:46 IMPRESSION: 1. No acute pulmonary findings. 2. Pacemaker Assessment & Plan - Diagnosis (1) GI bleed Is this a current diagnosis for this admission?: Yes Plan: Patient is most likely having an internal GI bleed because the hemoglobin to go down as low as 5.7 initially. This happens with the patient taking aspirin and Plavix as well. History of either diverticulitis or diverticulosis requiring intestinal bowel resection a couple of years ago. Patient had 2 units of packed RBC transfusion ordered. Due to the patient's complicated history the patient is currently being arranged for transfer to a tertiary care facility which I think is appropriate. (2) Blood loss anemia Is this a current diagnosis for this admission?: Yes (3) Acute kidney injury superimposed on CKD Is this a current diagnosis for this admission?: Yes Plan: This is most likely secondary to prerenal azotemia due to GI bleed and hypotension causing decreased renal perfusion. Discussed this with the patient and the . At this time the patient does not need any renal replacement therapy. The priority for management is to determine the source of bleeding which would eventually patient's overall clinical condition improved including kidney function hopefully. Patient needs volume resuscitation including blood transfusion to improve kidney function. (4) Atrial fibrillation Qualifiers: Atrial fibrillation type: unspecified Qualified Code(s): I48.91 - Unspecified atrial fibrillation Is this a current diagnosis for this admission?: Yes Plan: Patient was on aspirin and Plavix. He also had a watchman's procedure done. Anticoagulation currently held. (5) Chronic diastolic congestive heart failure Is this a current diagnosis for this admission?: Yes Plan: This is most likely exacerbated by severe anemia causing high output congestive heart failure. (6) Metabolic acidosis Is this a current diagnosis for this admission?: Yes Plan: Secondary to ELROY and CKD. (7) Edema Qualifiers: Edema type: unspecified Qualified Code(s): R60.9 - Edema, unspecified Is this a current diagnosis for this admission?: Yes Plan: Due to worsening kidney function and exacerbation of CHF. - Notes Notes: Thank you very much for this consultation. Agree with Transfer to tertiary care for further management of GI Bleed. - Time Time Spent: 50 to 70 Minutes
== END 2019-07-01 13:22 | disposition short-term general hospital (02) | DRG 378 ==
LOC: ER 19:15 → EH 22:25 → 3N 07-01 05:08
PROVIDERS: ADMIT Emergency Medicine; ATTEND Emergency Medicine
PROC: 30233N1 Transfusion of Nonautologous Red Blood Cells into Peripheral Vein, Percutaneous Approach (ICD-10-PCS; principal; 2019-06-30)
DX: K92.2 Gastrointestinal hemorrhage, unspecified (principal); I13.0 Hypertensive heart and chronic kidney disease with heart failure and stage 1 through stage 4 chronic kidney disease, or unspecified chronic kidney disease; I50.32 Chronic diastolic (congestive) heart failure; E87.2 Acidosis; D50.0 Iron deficiency anemia secondary to blood loss (chronic); E87.5 Hyperkalemia; N18.3 Chronic kidney disease, stage 3 (moderate); I48.0 Paroxysmal atrial fibrillation; E78.00 Pure hypercholesterolemia, unspecified; E03.9 Hypothyroidism, unspecified; K70.30 Alcoholic cirrhosis of liver without ascites; F10.20 Alcohol dependence, uncomplicated; G47.33 Obstructive sleep apnea (adult) (pediatric); Y90.9 Presence of alcohol in blood, level not specified; Z87.891 Personal history of nicotine dependence; Z79.52 Long term (current) use of systemic steroids; Z79.899 Other long term (current) drug therapy
CPT/HCPCS: 36415; 36430; 71045; 80048; 80053; 80061; 81001; 82803; 83605; 83735; 83880; 84443; 84484; 85025; 85027; 85610; 86850; 86900; 86901; 86920; 87040; 93005; 93010; 96374; 96375; 99285; C9113; J1815; J1940; J2354; J3490; J7040; P9016

== ENCOUNTER → 2019-07-06 | Outpatient (CLI) | payer MEDICARE ==
[2019-07-06 17:56] LABS: HEMATOCRIT 25.9 % (37.9-51.0); HEMOGLOBIN 8.5 g/dL (13.5-17.0); MEAN CORPUSCULAR HEMOGLOBIN 28.9 pg (27.0-33.4); MEAN CORPUSCULAR HGB CONC 32.9 g/dL (32.0-36.0); MEAN CORPUSCULAR VOLUME 88 fl (80-97); PLATELET COUNT 188 10^3/uL (150-450); RED BLOOD COUNT 2.96 10^6/uL (4.35-5.55); RED CELL DISTRIBUTION WIDTH 15.5 % (11.5-14.0); WHITE BLOOD COUNT 7.5 10^3/uL (4.0-10.5)
[2019-07-06 18:08] LABS: ALBUMIN 4.2 g/dL (3.5-5.0); ALKALINE PHOSPHATASE 83 U/L (38-126); ANION GAP 16 (5-19); ASPARTATE AMINO TRANSFERASE 20 U/L (17-59); BILIRUBIN,DIRECT 0.2 mg/dL (0.0-0.4); BILIRUBIN,TOTAL 0.5 mg/dL (0.2-1.3); BLOOD UREA NITROGEN 24 mg/dL (7-20); CALCIUM 9.2 mg/dL (8.4-10.2); CARBON DIOXIDE 23 mmol/L (22-30); CHLORIDE 96 mmol/L (98-107); GLUCOSE 73 mg/dL (75-110); POTASSIUM 3.4 mmol/L (3.6-5.0); TOTAL PROTEIN 7.6 g/dL (6.3-8.2)
== END ==
LOC: OD 16:13
PROVIDERS: ATTEND Specialist
DX: D64.9 Anemia, unspecified (principal); K74.60 Unspecified cirrhosis of liver
CPT/HCPCS: 36415; 80053; 83735; 85027

== ENCOUNTER 2019-07-25 08:35 | Emergency (ER) | payer MEDICARE ==
--- NOTE | 2019-07-25 09:19 | ER Document Report ---
ED Medical Screen (RME) - General Chief Complaint: Foot Pain Stated Complaint: FOOT PAIN/SWELLING Primary Care Provider: BRITTANY CROSS MD [Primary Care Provider] - Follow up as needed TRAVEL OUTSIDE OF THE [place] IN LAST 30 DAYS: No - HPI Notes: 07/25/19 09:18 Patient is a 74-year-old male who presents complaint of left lower leg/ankle swelling and pain over the past 4 to 5 days without precipitating event or injury. Denies fever. I have treated and performed a rapid initial assessment of this patient. A comprehensive ED assessment and evaluation of the patient, analysis of test results and completion of medical decision making process will be conducted by additional ED providers. PHYSICAL EXAMINATION: GENERAL: Well-appearing, well-nourished and in no acute distress. A&Ox4. Answers questions appropriately. Left leg: There is 1+ pitting edema to the ankle and the lower leg. Mild tenderness palpation to the ankle area. - Related Data Allergies/Adverse Reactions: allopurinol Allergy (Verified 07/25/19 09:01) colchicine Allergy (Verified 07/25/19 09:01) Sulfa (Sulfonamide Antibiotics) Allergy (Verified 07/25/19 09:01) valdecoxib [From Bextra] Allergy (Verified 07/25/19 09:01) Home Medications: arthritis. chf. htn. thyroid. potassium. anemia. kidney. afib. pacemaker Past Medical History - Social History Chew tobacco use (# tins/day): No Frequency of alcohol use: None Drug Abuse: None - Past Medical History Cardiac Medical History: Reports: Hx Atrial Fibrillation, Hx Congestive Heart Failure, Hx Hypercholesterolemia, Hx Hypertension Denies: Hx Coronary Artery Disease, Hx DVT, Hx Heart Attack, Hx Pulmonary Embolism Pulmonary Medical History: Reports: Hx Sleep Apnea - Uncertain settings on home CPAP Denies: Hx Asthma, Hx COPD, Hx Respiratory Failure Neurological Medical History: Denies: Hx Seizures Endocrine Medical History: Reports: Hx Hypothyroidism. Denies: Hx Diabetes Mellitus Type 1, Hx Diabetes Mellitus Type 2, Hx Hyperthyroidism Renal/ Medical History: Denies: Hx Peritoneal Dialysis GI Medical History: Reports: Hx Cirrhosis - Alcoholic cirrhosis, Hx Diverticulitis - Status post segmental colectomy for same. Question if he has diverticulosi, Hx Gastroesophageal Reflux Disease, Hx Hiatal Hernia, Hx Endoscopy. Denies: Hx Crohn's Disease, Hx Ulcerative Colitis Musculoskeltal Medical History: Reports Hx Arthritis, Reports Hx Gout Skin Medical History: Denies Hx Eczema, Denies Hx Psoriasis Psychiatric Medical History: Denies: Hx Depression Past Surgical History: Reports: Hx Abdominal Surgery - bowel resection, Hx Cardiac Surgery - watchmans procedure, Hx Herniorrhaphy, Hx Orthopedic Surgery - right and left hand surgeries, Hx Pacemaker, Hx Vascular Surgery - Watchman device placement, Other - Segmental colectomy for diverticulitis - Immunizations Immunizations up to date: Yes Hx Diphtheria, Pertussis, Tetanus Vaccination: Yes Physical Exam - Vital signs Vitals: Temp Pulse Resp BP Pulse Ox 97.5 F 84 20 134/83 H 98 07/25/19 08:38 07/25/19 08:38 07/25/19 08:38 07/25/19 08:38 07/25/19 08:38 Course - Vital Signs Vital signs: Temp Pulse Resp BP Pulse Ox 97.5 F 84 20 134/83 H 98 07/25/19 08:38 07/25/19 08:38 07/25/19 08:38 07/25/19 08:38 07/25/19 08:38 Doctor's Discharge - Discharge Referrals: BRITTANY CROSS MD [Primary Care Provider] - Follow up as needed
[2019-07-25 09:35] LABS: ABSOLUTE EOSINOPHILS # (AUTO) 0.1 10^3/uL (0.0-0.6); ABSOLUTE LYMPHOCYTES (AUTO) 0.8 10^3/uL (0.5-4.7); ABSOLUTE MONOCYTES (AUTO) 0.6 10^3/uL (0.1-1.4); ABSOLUTE NEUT (AUTO) 5.9 10^3/uL (1.7-8.2); BASOPHILS % (AUTO) 0.6 % (0-2); HEMATOCRIT 25.9 % (37.9-51.0); HEMOGLOBIN 8.4 g/dL (13.5-17.0); LYMPHOCYTES % (AUTO) 11.3 % (13-45); MEAN CORPUSCULAR HEMOGLOBIN 28.1 pg (27.0-33.4); MEAN CORPUSCULAR HGB CONC 32.5 g/dL (32.0-36.0); MEAN CORPUSCULAR VOLUME 87 fl (80-97); MONOCYTES % (AUTO) 7.9 % (3-13); PLATELET COUNT 247 10^3/uL (150-450); RED CELL DISTRIBUTION WIDTH 16.4 % (11.5-14.0); SEGMENTED NEUTROPHILS % (AUTO) 79.2 % (42-78); TOTAL CELLS COUNTED % (AUTO) 100 %; WHITE BLOOD COUNT 7.4 10^3/uL (4.0-10.5)
[2019-07-25 09:53] LABS: ALBUMIN 3.9 g/dL (3.5-5.0); ALKALINE PHOSPHATASE 125 U/L (38-126); ANION GAP 12 (5-19); ASPARTATE AMINO TRANSFERASE 23 U/L (17-59); BILIRUBIN,DIRECT 0.3 mg/dL (0.0-0.4); BILIRUBIN,TOTAL 0.5 mg/dL (0.2-1.3); BLOOD UREA NITROGEN 20 mg/dL (7-20); CALCIUM 9.3 mg/dL (8.4-10.2); CARBON DIOXIDE 21 mmol/L (22-30); CHLORIDE 104 mmol/L (98-107); GLUCOSE 113 mg/dL (75-110); POTASSIUM 4.6 mmol/L (3.6-5.0); TOTAL PROTEIN 7.6 g/dL (6.3-8.2)
--- NOTE | 2019-07-25 10:26 | RADIOLOGY REPORT (SQ) ---
EXAM DESCRIPTION: ANKLE LEFT COMPLETE COMPLETED DATE/TIME: 07/25/2019 9:42 am REASON FOR STUDY: left ankle pain COMPARISON: None. NUMBER OF VIEWS: Three views. TECHNIQUE: AP, lateral, and oblique radiographic images acquired of the left ankle. LIMITATIONS: None. FINDINGS: MINERALIZATION: Normal. BONES: No acute fracture or dislocation. No worrisome bone lesions. JOINTS: Tibiotalar joint effusion is present. SOFT TISSUES: Diffuse medial and lateral soft tissue swelling. Arterial vascular calcifications. OTHER: Small dorsal and plantar calcaneal spurs IMPRESSION: Diffuse soft tissue swelling. Ankle joint effusion. No acute displaced fracture. TECHNICAL DOCUMENTATION: JOB ID: [id number] [employer] All Rights Reserved Reading location - IP/workstation name: [email or web address]
--- NOTE | 2019-07-25 13:41 | ER Document Report ---
HPI - HPI Patient complains to provider of: Left ankle pain Time Seen by Provider: 07/25/19 12:18 Onset: Other - 5 days Onset/Duration: Persistent Quality of pain: Achy Pain Level: 4 Context: Patient presents with left ankle and foot pain for the past 5 days. Patient does complain of swelling as well. Patient denies any injury. Patient does have a history of gout. Associated Symptoms: Other - Left foot and ankle pain. denies: Fever, Nausea, Vomiting Exacerbated by: Standing, Movement, Walking Relieved by: Denies Similar symptoms previously: Yes Recently seen / treated by doctor: No - ROS ROS below otherwise negative: Yes Systems Reviewed and Negative: Yes All other systems reviewed and negative - CONSTITUTIONAL Constitutional: DENIES: Fever, Chills - NEURO Neurology: DENIES: Weakness - RESPIRATORY Respiratory: DENIES: Trouble Breathing, Coughing - GASTROINTESTINAL Gastrointestinal: DENIES: Nausea, Patient vomiting - REPRODUCTIVE Reproductive: DENIES: : - MUSCULOSKELETAL Musculoskeletal: REPORTS: Extremity pain - LLE, Swelling - DERM Skin Color: Normal Skin Problems: None Past Medical History - General Information source: Patient - Social History Smoking Status: Never Smoker Chew tobacco use (# tins/day): No Frequency of alcohol use: None Drug Abuse: None Occupation: None Family History: CAD, COPD, DM, Hypertension, Malignancy Patient has suicidal ideation: No Patient has homicidal ideation: No - Past Medical History Cardiac Medical History: Reports: Hx Atrial Fibrillation, Hx Congestive Heart Failure, Hx Hypercholesterolemia, Hx Hypertension Pulmonary Medical History: Reports: Hx Sleep Apnea - Uncertain settings on home CPAP Neurological Medical History: Denies: Hx Seizures Endocrine Medical History: Reports: Hx Hypothyroidism Renal/ Medical History: Denies: Hx Peritoneal Dialysis GI Medical History: Reports: Hx Cirrhosis - Alcoholic cirrhosis, Hx Diverticulitis - Status post segmental colectomy for same. Question if he has diverticulosi, Hx Gastroesophageal Reflux Disease, Hx Hiatal Hernia, Hx Endoscopy. Denies: Hx Crohn's Disease, Hx Ulcerative Colitis Musculoskeletal Medical History: Reports Hx Arthritis, Reports Hx Gout Skin Medical History: Denies Hx Eczema, Denies Hx Psoriasis Psychiatric Medical History: Denies: Hx Depression Past Surgical History: Reports: Hx Abdominal Surgery - bowel resection, Hx Cardiac Surgery - watchmans procedure, Hx Herniorrhaphy, Hx Orthopedic Surgery - right and left hand surgeries, Hx Pacemaker, Hx Vascular Surgery - Watchman device placement, Other - Segmental colectomy for diverticulitis - Immunizations Immunizations up to date: Yes Hx Diphtheria, Pertussis, Tetanus Vaccination: Yes Hx Pneumococcal Vaccination: 07/22/16 Vertical Provider Document - CONSTITUTIONAL Agree With Documented VS: Yes Exam Limitations: No Limitations General Appearance: WD/WN, No Apparent Distress - INFECTION CONTROL TRAVEL OUTSIDE OF THE [place] IN LAST 30 DAYS: No - HEENT HEENT: Atraumatic, Normocephalic - NECK Neck: Normal Inspection, Supple. negative: Lymphadenopathy-Left, Lymphadenopathy-Right - RESPIRATORY Respiratory: Breath Sounds Normal, No Respiratory Distress - CARDIOVASCULAR Cardiovascular: Regular Rate, Regular Rhythm, No Murmur Pulses: Normal: Dorsalis pedis - BACK Back: Normal Inspection - MUSCULOSKELETAL/EXTREMETIES Musculoskeletal/Extremeties: MAEW, FROM, Tender - Left ankle and midfoot tenderness with 1+ edema, very faint erythema, Edema. negative: Eccymosis - NEURO Level of Consciousness: Awake, Alert, Appropriate Motor/Sensory: No Motor Deficit - DERM Integumentary: Warm, Dry Course - Re-evaluation Re-evalutation: 07/25/19 13:37 Patient presents with gout-like symptoms. No leukocytosis, no fever, no evidence of DVT based on Doppler report. Patient with recent GI bleed 2 weeks ago that he is still being evaluated for. Patient with H&H of 8.4 and 25.9. Will avoid prescribing steroids or NSAIDs at this time. Patient is allergic to allopurinol and colchicine. Will give patient short course of pain medication and encourage outpatient follow-up with his primary doctor for recheck. Consulted with Dr. Ambrose who is in agreement with this discharge plan of care. - Vital Signs Vital signs: Temp Pulse Resp BP Pulse Ox 97.5 F 84 20 134/83 H 98 07/25/19 08:38 07/25/19 08:38 07/25/19 08:38 07/25/19 08:38 07/25/19 08:38 - Laboratory Result Diagrams: 07/25/19 09:21 07/25/19 09:21 Laboratory results interpreted by me: 07/25/19 07/25/19 09:21 09:21 RBC 3.00 L Hgb 8.4 L Hct 25.9 L RDW 16.4 H Lymph % (Auto) 11.3 L Seg Neutrophils % 79.2 H Carbon Dioxide 21 L Creatinine 1.61 H Est GFR ( Amer) 51 L Est GFR (MDRD) Non-Af 42 L Glucose 113 H 07/25/19 13:38 Labs- Entire Visit 07/25/19 07/25/19 09:21 09:21 WBC 7.4 RBC 3.00 L Hgb 8.4 L Hct 25.9 L MCV 87 MCH 28.1 MCHC 32.5 RDW 16.4 H Plt Count 247 Lymph % (Auto) 11.3 L [place] % (Auto) 7.9 Eos % (Auto) 1.0 Baso % (Auto) 0.6 Absolute Neuts (auto) 5.9 Absolute Lymphs (auto) 0.8 Absolute Monos (auto) 0.6 Absolute Eos (auto) 0.1 Absolute Basos (auto) 0.0 Seg Neutrophils % 79.2 H Sodium 137.1 Potassium 4.6 Chloride 104 Carbon Dioxide 21 L Anion Gap 12 BUN 20 Creatinine 1.61 H Est GFR ( Amer) 51 L Est GFR (MDRD) Non-Af 42 L Glucose 113 H Calcium 9.3 Total Bilirubin 0.5 Direct Bilirubin 0.3 Neonat Total Bilirubin Not Reportable Neonat Direct Bilirubin Not Reportable Neonat Indirect Bili Not Reportable AST 23 ALT 13 Alkaline Phosphatase 125 Total Protein 7.6 Albumin 3.9 - Diagnostic Test Radiology reviewed: Reports reviewed Discharge - Discharge Clinical Impression: Left foot pain Left ankle pain Qualifiers: Chronicity: acute Qualified Code(s): M25.572 - Pain in left ankle and joints of left foot Gout Qualifiers: Gout site: unspecified site Encounter type: initial encounter Chronicity: unspecified Condition: Stable Disposition: HOME, SELF-CARE Instructions: Gout ([facility]), Gout Diet ([facility]), Oral Narcotic Medication ([facility]) Additional Instructions: Return immediately for any new or worsening symptoms Followup with your primary care provider, call tomorrow to make a followup appointment Limit foods high in purine in your diet Prescriptions: Hydrocodone/Acetaminophen [[place] 5-325 mg Tablet] 1 tab PO Q6 PRN #15 tablet PRN Reason: Referrals: BRITTANY CROSS MD [Primary Care Provider] - Follow up as needed
[2019-07-25 14:49] VITALS: BP 136/74
--- NOTE | 2019-07-25 15:34 | RADIOLOGY REPORT (SQ) ---
EXAM DESCRIPTION: VENOUS UNILATERAL LOWER COMPLETED DATE/TIME: 07/25/2019 2:35 pm REASON FOR STUDY: LLE swelling COMPARISON: None. TECHNIQUE: Dynamic and static marie scale and color images acquired of the left leg venous system. Se lected spectral images acquired with additional compression and augmentation maneuvers. The contralat eral common femoral vein and saphenofemoral junction were also imaged. Images stored on PACS. LIMITATIONS: None. FINDINGS: LEFT COMMON FEMORAL: Normal phasicity, compression and augmentation. No visualized echogenic material on g ray scale. No defects on color images. FEMORAL: Normal compression and augmentation. No visualized echogenic material on marie scale. No defe cts on color images. POPLITEAL: Normal compression, augmentation. No visualized echogenic material on marie scale. No defec ts on color images. CALF VESSELS: Normal compression, augmentation. No visualized echogenic material on marie scale. No de fects on color images. GSV and SSV: Normal compression, augmentation. No visualized echogenic material on marie scale. No def ects on color images. ANY DEEP VENOUS INSUFFICIENCY: Not evaluated. ANY EVIDENCE OF POPLITEAL CYST: No. OTHER: No other significant finding. RIGHT COMMON FEMORAL VEIN AND SAPHENOFEMORAL JUNCTION: Normal phasicity, compression and augmentation. No visualized echogenic material on marie scale. No de fects on color images. IMPRESSION: NO EVIDENCE OF DVT OR SVT IN THE LEFT LEG. TECHNICAL DOCUMENTATION: JOB ID: [id number] [employer]- All Rights Reserved Reading location - IP/workstation name: [email or web address]
== END 2019-07-25 14:49 | disposition home or self-care (01) ==
LOC: ER 08:35
DX: M25.572 Pain in left ankle and joints of left foot (principal); M79.672 Pain in left foot; M79.89 Other specified soft tissue disorders; I50.9 Heart failure, unspecified; I11.0 Hypertensive heart disease with heart failure; I48.91 Unspecified atrial fibrillation
CPT/HCPCS: 36415; 80053; 85025; 93971; 99284

== ENCOUNTER 2019-09-02 10:01 | Observation (INO) | payer MEDICARE ==
--- NOTE | 2019-09-02 10:12 | ER Document Report ---
ED Medical Screen (RME) - General Stated Complaint: POSSIBLE STROKE/CONFUSION Time Seen by Provider: 09/02/19 10:04 Primary Care Provider: BRITTANY CROSS MD [Primary Care Provider] - Follow up as needed Mode of Arrival: Wheelchair Information source: Patient, Relative - spouse Notes: 74-year-old male with history of congestive heart failure pacemaker with watchman device presents to the emergency department with confusion that started yesterday. reports he started having confusion yesterday when he was coughing really bad. 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 She contacted Dr. Melendez and he said to come to the ED for CT scan possible stroke. She reports he has been coughing a lot more lately. No other complaint such as fever vomiting diarrhea. Patient is answering all questions appropriately but admits he has been very confused lately. I have greeted and performed a rapid initial assessment of this patient. A comprehensive ED assessment and evaluation of the patient, analysis of test results and completion of the medical decision making process will be conducted by additional ED providers. TRAVEL OUTSIDE OF THE [place] IN LAST 30 DAYS: No - Related Data Allergies/Adverse Reactions: allopurinol Allergy (Verified 09/02/19 10:09) colchicine Allergy (Verified 09/02/19 10:09) Sulfa (Sulfonamide Antibiotics) Allergy (Verified 09/02/19 10:09) valdecoxib [From Bextra] Allergy (Verified 09/02/19 10:09) Past Medical History - Past Medical History Cardiac Medical History: Reports: Hx Atrial Fibrillation, Hx Congestive Heart Failure, Hx Hypercholesterolemia, Hx Hypertension Denies: Hx Coronary Artery Disease, Hx DVT, Hx Heart Attack, Hx Pulmonary Embolism Pulmonary Medical History: Reports: Hx Sleep Apnea - Uncertain settings on home CPAP Denies: Hx Asthma, Hx COPD, Hx Respiratory Failure Neurological Medical History: Denies: Hx Seizures Endocrine Medical History: Reports: Hx Hypothyroidism. Denies: Hx Diabetes Mellitus Type 1, Hx Diabetes Mellitus Type 2, Hx Hyperthyroidism Renal/ Medical History: Denies: Hx Peritoneal Dialysis GI Medical History: Reports: Hx Cirrhosis - Alcoholic cirrhosis, Hx Diverticulitis - Status post segmental colectomy for same. Question if he has diverticulosi, Hx Gastroesophageal Reflux Disease, Hx Hiatal Hernia, Hx Endoscopy. Denies: Hx Crohn's Disease, Hx Ulcerative Colitis Musculoskeltal Medical History: Reports Hx Arthritis, Reports Hx Gout Skin Medical History: Denies Hx Eczema, Denies Hx Psoriasis Psychiatric Medical History: Denies: Hx Depression Past Surgical History: Reports: Hx Abdominal Surgery - bowel resection, Hx Cardiac Surgery - watchmans procedure, Hx Herniorrhaphy, Hx Orthopedic Surgery - right and left hand surgeries, Hx Pacemaker, Hx Vascular Surgery - Watchman device placement, Other - Segmental colectomy for diverticulitis - Immunizations Immunizations up to date: Yes Hx Diphtheria, Pertussis, Tetanus Vaccination: Yes Doctor's Discharge - Discharge Referrals: BRITTANY CROSS MD [Primary Care Provider] - Follow up as needed
[2019-09-02 10:58] LABS: INTERNATIONAL RATION (INR) 1.24
[2019-09-02 10:59] LABS: ABSOLUTE BASOPHILS # (AUTO) 0.1 10^3/uL (0.0-0.2); ABSOLUTE LYMPHOCYTES (AUTO) 0.7 10^3/uL (0.5-4.7); ABSOLUTE MONOCYTES (AUTO) 0.6 10^3/uL (0.1-1.4); ABSOLUTE NEUT (AUTO) 5.2 10^3/uL (1.7-8.2); BASOPHILS % (AUTO) 1.3 % (0-2); EOSINOPHILS % (AUTO) 0.4 % (0-6); HEMATOCRIT 25.2 % (37.9-51.0); HEMOGLOBIN 8.1 g/dL (13.5-17.0); LYMPHOCYTES % (AUTO) 11.1 % (13-45); MEAN CORPUSCULAR HEMOGLOBIN 25.5 pg (27.0-33.4); MEAN CORPUSCULAR HGB CONC 32.1 g/dL (32.0-36.0); MEAN CORPUSCULAR VOLUME 80 fl (80-97); MONOCYTES % (AUTO) 8.4 % (3-13); PARTIAL THROMBOPLASTIN TIME 31.9 SEC (23.5-35.8); RED BLOOD COUNT 3.18 10^6/uL (4.35-5.55); RED CELL DISTRIBUTION WIDTH 17.2 % (11.5-14.0); SEGMENTED NEUTROPHILS % (AUTO) 78.8 % (42-78); TOTAL CELLS COUNTED % (AUTO) 100 %; WHITE BLOOD COUNT 6.6 10^3/uL (4.0-10.5)
[2019-09-02 11:04] LABS: PROTHROMBIN TIME 15.7 SEC (11.4-15.4)
--- NOTE | 2019-09-02 11:04 | ER Document Report ---
ED NIH Stroke Scale - NIH Stroke Scale When completed:: Before Alteplase *: 1. NIH scale should be completed with appropriate accompanying assessment tools. *: 2. The NIH should reflect what the patient is capable of doing and should not be coached by the clinician. 1a. Level of Consciousness: 0=Alert;keenly responsive -: 1=Drowsy -: 2=Obtunded -: 3=Coma/unresponsive or reflex to noxious stimuli. 1a. Responses: 0 1b. Orientation Questions: a. What month is it? -: b. How old are you? -: 0=Answers both questions correctly. -: 1=Answers one question correctly or patient is intubated or has orotracheal trauma. -: 2=Answers neither question correctly. 1b. Responses: 0 1c. Response to commands: a. Open and close eyes? -: b. Sheriffs Officer and release hand? -: Credit is given despite weakness. Demonstration of task is permitted. Substitute command if hands cannot be used. -: 0=Performs both tasks correctly -: 1=Performs one task correctly -: 2=Performs neither task correctly 1c. Responses: 0 2. Gaze: Establish eye contact and instruct patient to "Follow my finger" -: 0=Normal -: 1=Partial gaze palsy. Gaze is abnormal in one or both eyes, but where forced deviation or total gaze paresis is not present. -: 2=Forced deviation or total gaze paresis. 2. Responses: 0 3. Visual Wagner: Sees fingers in all four quadrants. -: 0=No visual loss. -: 1=Partial hemianopsia. -: 2=Complete hemianopsia. -: 3=Bilateral hemianopsia (including Cortical blindness) 3. Responses: 0 4. Facial Movement: Instruct patient to: -: a. Show me your teeth -: b. Raise your eyebrows -: c. Close your eyes -: d. Smile -: 0=Normal symmetrical movement -: 1=Minor paralysis (flattened nasolabial fold, asymmetry on smiling). -: 2=Partial paralysis (total or near total paralysis of lower face). -: 3=Complete paralysis of upper and lower face 4. Responses: 0 5. Motor functions (left arm): Alternate sides and extend each arm with palms down (90 degrees if sitting or 45 degrees for supine). -: 0=No drift;limb holds for full 10 seconds. -: 1=Drift; limb holds but drifts down before full 10 seconds, but does not hit bed. -: 2=Some effort against gravity; limb cannot get to or maintain position. -: 3=No effort against gravity; limb falls. -: 4=No movement. -: UN=Amputation, joint fusion, explain in comments. 5. Responses (left arm): 0 5. Motor Functions (right arm): Alternate sides and extend each arm with palms down (90 degrees if sitting or 45 degrees for supine). -: 0=No drift;limb holds for full 10 seconds. -: 1=Drift; limb holds but drifts down before full 10 seconds, but does not hit bed. -: 2=Some effort against gravity; limb cannot get to or maintain position. -: 3=No effort against gravity; limb falls. -: 4=No movement. -: UN=Amputation, joint fusion, explain in comments. 5. Responses (right arm): 0 6. Motor Functions (left leg): With patient lying supine, alternate sides and extend each leg (30 degrees always while supine). -: 0=No drift, leg holds position for full 5 seconds -: 1=Drift; leg falls before full 5 seconds but does not hit bed. -: 2=Some effort against gravity, leg falls to bed but some effort against gravity. -: 3=No effort against gravity, leg falls to bed immediately. -: 4=No movement. -: UN=Amputation, joint fusion; explain in comments. 6. Responses (left leg): 0 6. Motor Functions (right leg): With patient lying supine, alternate sides and extend each leg (30 degrees always while supine). -: 0=No drift, leg holds position for full 5 seconds -: 1=Drift; leg falls before full 5 seconds but does not hit bed. -: 2=Some effort against gravity, leg falls to bed but some effort against gravity. -: 3=No effort against gravity, leg falls to bed immediately. -: 4=No movement. -: UN=Amputation, joint fusion; explain in comments. 6. Responses (right leg): 0 7. Limb Ataxia: With eyes open instruct patient to: -: a. "Touch your finger to your nose". -: b. "Touch your heel to your paz" -: 0=Absent -: 1=Present in one limb. -: 2=Present in two limbs. -: UN=Amputation or joint fusion; explain in comments. 7. Responses: 0 8. Sensory: Test sensation using pinprick or noxious stimuli. Test as many body parts as possible. -: 0=Normal;no sensory loss -: 1=Mile to moderate sensory loss (patient feels pin prick but is less sharp on affected side). -: 2=Severe or total sensory loss. 8. Responses: 0 9. Best Language: Instruct patient to: -: a. "Describe what you see in this picture." -: b. "Name the items in this picture." -: c. "Read these sentences." -: 0=No aphasia, normal -: 1=Mild to moderate aphasia. -: 2=Severe aphasia -: 3=Mute, global aphasia, no usable speech or auditory comprehension. 9. Responses: 0 10. Articulation, Dysarthia: Instruct patient to: -: "Read these words" or "Repeat these words" -: 0=Normal -: 1=Mild to moderate; patient may slur some words but can be understood without difficulty. -: 2=Severe; patients speech so slurred as to be unintelligible in the absence of dysphasia. -: UN=Intubated or other physical barrier, explain in comments. 10. Responses: 0 11. Extinction or inattention: 0=No abnormality -: 1= Visual, tactile, auditory, spatial, or personal inattention or extinction to bilateral simulation in one or the sensory modalities. -: 2=Profound pancho-inattention or pancho-inattention to more than one modality; does not recognize own hand. 11. Responses: 1 Total Score: 1
--- NOTE | 2019-09-02 11:07 | RADIOLOGY REPORT (SQ) ---
EXAM DESCRIPTION: CT HEAD WITHOUT COMPLETED DATE/TIME: 09/02/2019 10:33 am REASON FOR STUDY: confusion, possible stroke COMPARISON: 03/23/2018 TECHNIQUE: Axial images acquired through the brain without intravenous contrast. Images reviewed wi th bone, brain and subdural windows. Additional sagittal and coronal reconstructions were generated. Images stored on PACS. All CT scanners at this facility use dose modulation, iterative reconstruction, and/or weight based d osing when appropriate to reduce radiation dose to as low as reasonably achievable (ALARA). [facility]: Dose Right [facility]: CareDose [facility]: Dose Right [facility]: Teradose 4D [facility]: Smart [employer] RADIATION DOSE: CT Rad equipment meets quality standard of care and radiation dose reduction techniq ues were employed. CTDIvol: 53.2 - 55.2 mGy. DLP: 2128 mGy-cm.mGy. LIMITATIONS: None. FINDINGS: VENTRICLES: Appropriate for age CEREBRUM: No masses. No hemorrhage. No midline shift. Areas of low density in the white matter mos t likely due to chronic micro-vascular ischemic change. More focal areas of hypoattenuation within t he bilateral basal ganglia compatible with prior lacunar infarcts, stable. No evidence for acute lar ge vascular territory infarction. CEREBELLUM: No masses. No hemorrhage. No alteration of density. No evidence for acute infarction. EXTRAAXIAL SPACES: Age-related involutional change. No fluid collections. No masses. ORBITS AND GLOBE: No intra- or extraconal masses. Normal contour of globe without masses. CALVARIUM: No fracture. PARANASAL SINUSES: Minimal mucosal thickening within the left maxillary sinus. Remaining sinuses and mastoid air cell are clear. SOFT TISSUES: No mass or hematoma. OTHER: No other significant finding. IMPRESSION: 1. NO EVIDENCE OF ACUTE INTRACRANIAL HEMORRHAGE OR LARGE VASCULAR TERRITORY INFARCT. 2. CHRONIC CHANGES OF ATROPHY AND MICROVASCULAR ISCHEMIA. NO ACUTE PROCESS. EVIDENCE OF ACUTE STROKE: NO. Pertinent positive or negative findings of the imaging study reported as a CRITICAL EXAM to Patrick Quarles at11:00 on 09/02/2019. Category of Critical Exam: Negative code stroke TECHNICAL DOCUMENTATION: JOB ID: [id number] Quality ID # [id number]: Final reports with documentation of one or more dose reduction techniques (e.g., Au tomated exposure control, adjustment of the mA and/or kV according to patient size, use of iterative reconstruction technique) 2010 [employer]- All Rights Reserved Reading location - IP/workstation name: [email or web address]
--- NOTE | 2019-09-02 11:07 | ER Document Report ---
ED Dizziness/Weakness - General Chief Complaint: General Weakness Stated Complaint: POSSIBLE STROKE/CONFUSION Time Seen by Provider: 09/02/19 10:04 Primary Care Provider: BRITTNAY CROSS MD [Primary Care Provider] - Follow up as needed Mode of Arrival: Wheelchair Information source: Patient, Relative TRAVEL OUTSIDE OF THE [place] IN LAST 30 DAYS: No - HPI Notes: Patient is brought in by . states the patient has been confused and running into things on his left side and falling to the left. She states this seemed to start yesterday approximately at lunchtime 11 AM. She states patient has been confused and patient admits to having some confusion. Patient denies being currently confused. Patient denies any pain or shortness of breath. Patient denies any weakness or abnormal sensations. He denies any vision changes. He states he has been having some trouble judging distances. He drove his car onto the sidewalk this morning when driving to the restaurant. His states he is also been more agitated than usual. - Related Data Allergies/Adverse Reactions: allopurinol Allergy (Verified 09/02/19 10:09) colchicine Allergy (Verified 09/02/19 10:09) Sulfa (Sulfonamide Antibiotics) Allergy (Verified 09/02/19 10:09) valdecoxib [From Bextra] Allergy (Verified 09/02/19 10:09) Past Medical History - General Information source: Patient, Relative - spouse - Social History Smoking Status: Never Smoker Chew tobacco use (# tins/day): No Frequency of alcohol use: HX OF ALCOHOLISM Drug Abuse: None Family History: CAD, COPD, DM, Hypertension, Malignancy Patient has suicidal ideation: No Patient has homicidal ideation: No - Past Medical History Cardiac Medical History: Reports: Hx Atrial Fibrillation, Hx Congestive Heart Failure, Hx Hypercholesterolemia, Hx Hypertension Denies: Hx Coronary Artery Disease, Hx DVT, Hx Heart Attack, Hx Pulmonary Embolism Pulmonary Medical History: Reports: Hx Sleep Apnea - Uncertain settings on home CPAP Denies: Hx Asthma, Hx COPD, Hx Respiratory Failure Neurological Medical History: Denies: Hx Seizures Endocrine Medical History: Reports: Hx Hypothyroidism. Denies: Hx Diabetes Mellitus Type 1, Hx Diabetes Mellitus Type 2, Hx Hyperthyroidism Renal/ Medical History: Denies: Hx Peritoneal Dialysis GI Medical History: Reports: Hx Cirrhosis - Alcoholic cirrhosis, Hx Diverticulitis - Status post segmental colectomy for same. Question if he has diverticulosi, Hx Gastroesophageal Reflux Disease, Hx Hiatal Hernia, Hx Endoscopy. Denies: Hx Crohn's Disease, Hx Ulcerative Colitis Musculoskeletal Medical History: Reports Hx Arthritis, Reports Hx Gout Skin Medical History: Denies Hx Eczema, Denies Hx Psoriasis Psychiatric Medical History: Denies: Hx Depression Past Surgical History: Reports: Hx Abdominal Surgery - bowel resection, Hx Cardiac Surgery - watchmans procedure, Hx Herniorrhaphy, Hx Orthopedic Surgery - right and left hand surgeries, Hx Pacemaker, Hx Vascular Surgery - Watchman device placement, Other - Segmental colectomy for diverticulitis - Immunizations Immunizations up to date: Yes Hx Diphtheria, Pertussis, Tetanus Vaccination: Yes Hx Pneumococcal Vaccination: 07/22/16 Review of Systems - Review of Systems Constitutional: denies: Chills, Fever Cardiovascular: denies: Chest pain, Palpitations Respiratory: Cough - states patient has been coughing since yesterday. denies: Short of breath -: Yes All other systems reviewed and negative Physical Exam - Vital signs Vitals: Pulse Ox 100 09/02/19 10:09 Interpretation: Normal - General General appearance: Appears well, Alert - HEENT Head: Normocephalic, Atraumatic Eyes: Normal Pupils: PERRL - Respiratory Respiratory status: No respiratory distress Chest status: Nontender Breath sounds: Normal Chest palpation: Normal - Cardiovascular Rhythm: Regular Heart sounds: Normal auscultation Murmur: No - Abdominal Inspection: Normal Distension: No distension Bowel sounds: Normal Tenderness: Nontender Organomegaly: No organomegaly - Back Back: Normal, Nontender - Extremities General upper extremity: Normal inspection, Nontender, Normal color, Normal ROM, Normal temperature General lower extremity: Normal inspection, Nontender, Normal color, Normal ROM, Normal temperature, Normal weight bearing. No: Angel's sign - Neurological Neuro grossly intact: Yes Cognition: Normal Orientation: AAOx4 [place] Coma Scale Eye Opening: Spontaneous [place] Coma Scale Verbal: Oriented [place] Coma Scale Motor: Obeys Commands [place] Coma Scale Total: 15 Speech: Normal Cranial nerves: Normal Cerebellar coordination: Normal Motor strength normal: LUE, RUE, LLE, RLE Additional motor exam normals: Equal nail kegger. No: Pronator drift Sensory: Normal - Psychological Associated symptoms: Normal affect, Normal mood - Skin Skin Temperature: Warm Skin Moisture: Dry Skin Color: Normal Course - Re-evaluation Re-evalutation: 09/02/19 12:52 Patient presents with altered mental status confusion and falling to the left since yesterday at 11:00. Patient is not a TPA candidate since his last known well time is 12 hours before arrival. He is also not within the intervention window. He has no evidence of large vessel occlusion at this time. I am concerned that he may have a CVA that has not been detected by CT scan. I have discussed admission with the hospitalist for further evaluation of this. Patient is also had cough and congestion for the last day or 2. Patient has edema versus atelectasis on x-ray and a moderately elevated BNP. However patient does not have fever or white counts so i have not treated the patient with antibiotics at this time. - Vital Signs Vital signs: Temp Pulse Resp BP Pulse Ox 98.2 F 76 18 118/67 100 09/02/19 10:32 09/02/19 12:00 09/02/19 12:00 09/02/19 12:00 09/02/19 12:00 - Laboratory Result Diagrams: 09/02/19 10:40 09/02/19 10:40 Laboratory results interpreted by me: 09/02/19 09/02/19 09/02/19 10:40 10:40 10:40 RBC 3.18 L Hgb 8.1 L Hct 25.2 L MCH 25.5 L RDW 17.2 H Lymph % (Auto) 11.1 L Seg Neutrophils % 78.8 H PT 15.7 H Sodium 136.9 L BUN 29 H Creatinine 1.46 H Est GFR ( Amer) 57 L Est GFR (MDRD) Non-Af 47 L NT-Pro-B Natriuret Pep 09/02/19 10:40 RBC Hgb Hct MCH RDW Lymph % (Auto) Seg Neutrophils % PT Sodium BUN Creatinine Est GFR ( Amer) Est GFR (MDRD) Non-Af NT-Pro-B Natriuret Pep 2450 H - Diagnostic Test Radiology reviewed: Image reviewed, Reports reviewed - EKG Interpretation by Me Rate: Normal - 73 Rhythm: Other - paced [place]/QRS: IVCD Discharge - Discharge Clinical Impression: Confusion Condition: Stable Disposition: ADMITTED INPATIENT Admitting Provider: Renzo (Hospitalist) Unit Admitted: Medical Floor Referrals: BRITTANY CROSS MD [Primary Care Provider] - Follow up as needed
--- NOTE | 2019-09-02 11:08 | RADIOLOGY REPORT (SQ) ---
EXAM DESCRIPTION: CHEST SINGLE VIEW COMPLETED DATE/TIME: 09/02/2019 10:28 am REASON FOR STUDY: confusion, possible stroke COMPARISON: None. EXAM PARAMETERS: NUMBER OF VIEWS: One view. TECHNIQUE: Single frontal radiographic view of the chest acquired. RADIATION DOSE: NA LIMITATIONS: None. FINDINGS: LUNGS AND PLEURA: Fluffy interstitial opacities bilaterally. No focal consolidation. No large effusion. No pneumothorax. MEDIASTINUM AND HILAR STRUCTURES: No masses. Contour normal. HEART AND VASCULAR STRUCTURES: Enlarged, stable. BONES: No acute findings. HARDWARE: Left-sided cardiac pacer with lead overlying right ventricle. OTHER: No other significant finding. IMPRESSION: Enlarged cardiac silhouette with bilateral interstitial opacities, possibly edema. No s ignificant effusion. TECHNICAL DOCUMENTATION: JOB ID: [id number] 2010 [employer]- All Rights Reserved Reading location - IP/workstation name: [email or web address]
[2019-09-02 11:18] LABS: ALBUMIN 4.5 g/dL (3.5-5.0); ALKALINE PHOSPHATASE 104 U/L (38-126); ANION GAP 13 (5-19); ASPARTATE AMINO TRANSFERASE 24 U/L (17-59); BILIRUBIN,DIRECT 0.1 mg/dL (0.0-0.4); BILIRUBIN,TOTAL 0.7 mg/dL (0.2-1.3); BLOOD UREA NITROGEN 29 mg/dL (7-20); CALCIUM 9.4 mg/dL (8.4-10.2); CARBON DIOXIDE 23 mmol/L (22-30); CHLORIDE 101 mmol/L (98-107); CREATINE KINASE 58 U/L (55-170); GLUCOSE 105 mg/dL (75-110); POTASSIUM 4.2 mmol/L (3.6-5.0)
[2019-09-02 11:31] LABS: CREATINE KINASE MB 1.51 ng/mL (<4.55); TROPONIN I 0.014 ng/mL
[2019-09-02 11:42] LABS: PLATELET COUNT 259 10^3/uL (150-450)
--- NOTE | 2019-09-02 12:59 | EKG REPORT ---
SEVERITY:- ABNORMAL ECG - VENTRICULAR-PACED RHYTHM : Confirmed by: Emiliano Guerrero MD 02-Sep-2019 12:58:23
[2019-09-02] MEDS ORDERED: OXYCODONE-ACETAMINOPHEN 5-325 MG TABLET PO PRN (14:36)
[2019-09-02] MEDS ORDERED: IPRATROPIUM/ALBUTEROL 0.5-2.5 MG/3 ML AMPUL NEB PRN (14:36)
[2019-09-02] MEDS ORDERED: ONDANSETRON HCL INJ/PF 4 MG/2 ML SDV IV PRN (14:36)
[2019-09-02] MEDS ORDERED: ACETAMINOPHEN 325 MG TABLET PO PRN (14:36)
[2019-09-02] MEDS ORDERED: MAG HYDROX/AL HYDROX/SIMETH SUSP 30 ML UDCUP PO PRN (14:36)
[2019-09-02] MEDS ORDERED: TEMAZEPAM 7.5 MG CAPSULE PO PRN (14:36)
[2019-09-02 15:41] LABS: APPEARANCE,URINE CLEAR; BILIRUBIN,URINE NEGATIVE (NEGATIVE); COLOR,URINE YELLOW; GLUCOSE, URINE NEGATIVE (NEGATIVE); KETONES,URINE NEGATIVE (NEGATIVE); LEUKOCYTE ESTERASE,URINE NEGATIVE (NEGATIVE); NITRITE,URINE NEGATIVE (NEGATIVE); PROTEIN,URINE NEGATIVE (NEGATIVE); URINE SPECIFIC GRAVITY 1.013; UROBILINOGEN,URINE NEGATIVE mg/dL (<2.0)
[2019-09-02 16:47] LABS: URINE AMPHETAMINES SCREEN NEGATIVE; URINE BARBITURATES SCREEN NEGATIVE; URINE BENZODIAZEPINES SCREEN NEGATIVE; URINE COCAINE SCREEN NEGATIVE; URINE MARIJUANA (THC) SCREEN NEGATIVE; URINE METHADONE SCREEN NEGATIVE; URINE PHENCYCLIDINE SCREEN NEGATIVE
--- NOTE | 2019-09-02 17:13 | PDOC H&P ---
History of Present Illness Admission Date/PCP: 09/02/19 13:05 BRITTANY CROSS MD History of Present Illness: ELEANOR STODDARD is a 74 year old male past medical history of A. fib status post ablation and watchman placement, CHF, CKD, dyslipidemia, brought to ED by his . Patient is alert and oriented however does not provide much history due to acute confusion except for saying that he is fine. . Source of history is his was present at the room, she is stating that yesterday around 6 PM she noted that she was complaining of cough and shortness of breath upon walking 10 to lean to the left side and running into things, overnight she was very restless and agitated. This morning he had gotten into his car and went into a sidewalk while driving to the restroom. When asked what happened he had a stated that he did not know what he was doing. As per at baseline patient is alert oriented x4, independent and does all his daily ADLs. Has not been sick lately, and has not been hospitalized. Patient denies any headache, numbness, tingling, focal neurological symptoms, fever, chills, nausea, vomiting, diarrhea, constipation or any urinary symptoms. Patient alert and oriented x3 however cannot follow complex commands. In ED CT head was negative and patient was not found to be a candidate for TPA. Hospital was consulted for admission. Past Medical History Cardiac Medical History: Reports: Atrial Fibrillation, Congestive Heart Failure, Hyperlipidema, Hypertension Denies: Coronary Artery Disease, DVT, Myocardial Infarction, Pulmonary Embolism Pulmonary Medical History: Reports: Sleep Apnea - Uncertain settings on home CPAP Denies: Asthma, Chronic Obstructive Pulmonary Disease (COPD), Respiratory Failure Neurological Medical History: Denies: Seizures Endocrine Medical History: Reports: Hypothyroidism Denies: Diabetes Mellitus Type 1, Diabetes Mellitus Type 2, Hyperthyroidism GI Medical History: Reports: Cirrhosis - Alcoholic cirrhosis, Diverticulitis - Status post segmental colectomy for same. Question if he has diverticulosi, Gastroesophageal Reflux Disease, Hiatal Hernia Denies: Crohn's Disease, Ulcerative Colitis Musculoskeltal Medical History: Reports: Arthritis, Gout Skin Medical History: Denies: Eczema, Psoriasis Psychiatric Medical History: Denies: Depression Hematology: Reports: Anemia, Bleeding Tendencies - Due to anticoagulants Past Surgical History Past Surgical History: Reports: Herniorrhaphy, Orthopedic Surgery - right and left hand surgeries, Pacemaker, Vascular Surgery - Watchman device placement, Other - Segmental colectomy for diverticulitis Social History Smoking Status: Former Smoker Cigarettes Packs Per Day: 2 Electronic Cigarette use?: No Number of Years Smokin Frequency of Alcohol Use: Rare Hx Recreational Drug Use: No Drugs: None Hx Prescription Drug Abuse: No Family History Family History: CAD, COPD, DM, Hypertension, Malignancy Parental Family History Reviewed: Yes Children Family History Reviewed: Yes Sibling(s) Family History Reviewed.: Yes Medication/Allergy Home Medications: Atorvastatin Calcium [Lipitor 20 mg Tablet] 20 mg PO DAILY 07/01/19 Docusate Sodium [Colace 100 mg Capsule] 100 mg PO QHS 07/01/19 Folic Acid [Folvite 1 mg Tablet] 1 mg PO DAILY 07/01/19 Furosemide [Lasix 40 mg Tablet] 40 mg PO Q12 07/01/19 Levothyroxine Sodium [Synthroid] 125 mcg PO DAILY 07/01/19 Magnesium Oxide [Mag-Ox 400 mg Tablet] 400 mg PO DAILY 07/01/19 Propranolol HCl [Inderal 10 mg Tablet] 10 mg PO DAILY 07/01/19 Spironolactone [Aldactone] 100 mg PO DAILY 07/01/19 Vitamin B Complex [B Complex] 1 each PO DAILY 07/01/19 Clopidogrel Bisulfate [Plavix 75 mg Tablet] 75 mg PO DAILY 09/02/19 Hydrocodone/Acetaminophen [[place] 5-325 mg Tablet] 1 tab PO Q6HP PRN 09/02/19 Pantoprazole Sodium [Protonix [address] Tablet] 40 mg PO BID 09/02/19 Allergies/Adverse Reactions: allopurinol Allergy (Verified 09/02/19 10:09) colchicine Allergy (Verified 09/02/19 10:09) Sulfa (Sulfonamide Antibiotics) Allergy (Verified 09/02/19 10:09) valdecoxib [From Bextra] Allergy (Verified 09/02/19 10:09) Review of Systems Review of Systems: as per hpi Physical Exam Vital Signs: Temp Pulse Resp BP Pulse Ox 97.3 F 76 22 H 126/60 H 100 09/02/19 16:24 09/02/19 16:24 09/02/19 16:24 09/02/19 16:24 09/02/19 16:24 Intake & Output 09/01/19 09/02/19 09/03/19 06:59 06:59 06:59 Weight 94.801 kg General appearance: PRESENT: no acute distress, well-developed, well-nourished Head exam: PRESENT: atraumatic, normocephalic Respiratory exam: PRESENT: clear to auscultation sigifredo. ABSENT: rales, rhonchi, wheezes Cardiovascular exam: PRESENT: RRR. ABSENT: diastolic murmur, rubs, systolic murmur GI/Abdominal exam: PRESENT: normal bowel sounds, soft. ABSENT: distended, guarding, mass, organolmegaly, rebound, tenderness Neurological exam: PRESENT: alert, altered - Does not follow three-step command., awake, oriented to person, oriented to place, CN II-XII grossly intact. ABSENT: motor sensory deficit Psychiatric exam: PRESENT: agitated Results Laboratory Results: 09/02/19 10:40 09/02/19 10:40 09/02/19 09/02/19 09/02/19 10:40 10:40 15:10 WBC 6.6 RBC 3.18 L Hgb 8.1 L Hct 25.2 L MCV 80 MCH 25.5 L MCHC 32.1 RDW 17.2 H Plt Count 259 Seg Neutrophils % 78.8 H Sodium 136.9 L Potassium 4.2 Chloride 101 Carbon Dioxide 23 Anion Gap 13 BUN 29 H Creatinine 1.46 H Est GFR ( Amer) 57 L Glucose 105 Calcium 9.4 Total Bilirubin 0.7 AST 24 Alkaline Phosphatase 104 Ammonia Total Protein 8.0 Albumin 4.5 Urine Color YELLOW Urine Appearance CLEAR Urine pH 7.0 Ur Specific [place] 1.013 Urine Protein NEGATIVE Urine Glucose (UA) NEGATIVE Urine Ketones NEGATIVE Urine Blood NEGATIVE Urine Nitrite NEGATIVE Ur Leukocyte Esterase NEGATIVE Urine WBC (Auto) 0 09/02/19 16:02 WBC RBC Hgb Hct MCV MCH MCHC RDW Plt Count Seg Neutrophils % Sodium Potassium Chloride Carbon Dioxide Anion Gap BUN Creatinine Est GFR ( Amer) Glucose Calcium Total Bilirubin AST Alkaline Phosphatase Ammonia < 8.7 L Total Protein Albumin Urine Color Urine Appearance Urine pH Ur Specific [place] Urine Protein Urine Glucose (UA) Urine Ketones Urine Blood Urine Nitrite Ur Leukocyte Esterase Urine WBC (Auto) 09/02/19 09/02/19 10:40 10:40 Creatine Kinase 58 CK-MB (CK-2) 1.51 Troponin I 0.014 NT-Pro-B Natriuret Pep 2450 H Impressions: Chest X-Ray 09/02/19 10:09 IMPRESSION: Enlarged cardiac silhouette with bilateral interstitial opacities, possibly edema. No significant effusion. Head CT 09/02/19 10:09 IMPRESSION: 1. NO EVIDENCE OF ACUTE INTRACRANIAL HEMORRHAGE OR LARGE VASCULAR TERRITORY INFARCT. 2. CHRONIC CHANGES OF ATROPHY AND MICROVASCULAR ISCHEMIA. NO ACUTE PROCESS. EVIDENCE OF ACUTE STROKE: NO. Pertinent positive or negative findings of the imaging study reported as a CRITICAL EXAM to Patrick FRYE at11:00 on 09/02/2019. Category of Critical Exam: Negative code stroke Assessment and Plan - Diagnosis (1) Acute encephalopathy Is this a current diagnosis for this admission?: Yes Plan: Acute encephalopathy likely due to acute CVA. CBC CMP WNL. Ammonia WNL. SPO2 WNL. CT head negative. UDS negative. Admit to IMCU. MRI brain. PT OT ST. Neurochecks. Antiplatelets. Statins. Optimize BP. (2) Loss of balance Is this a current diagnosis for this admission?: Yes Plan: Plan as per #1. (3) CKD (chronic kidney disease) stage 3, GFR 30-59 ml/min Is this a current diagnosis for this admission?: Yes Plan: Creatinine 1.46. Baseline 1-2. Chloride WNL. Appears euvolemic. Monitor volume status and electrolytes replace as needed. Avoid nephrotoxic meds. Outpatient PCP and nephrology follow-up. (4) History of atrial fibrillation Is this a current diagnosis for this admission?: Yes Plan: History of chronic persistent A. fib. Status post ablation or watchman placement and pacemaker placement. Controlled. Paced rhythm. Not anticoagulated. Outpatient cardiology follow-up. (5) Chronic diastolic congestive heart failure Is this a current diagnosis for this admission?: Yes Plan: Appears euvolemic. proBNP at baseline. Cardiac diet. Restart beta-blockers JUNIOR. (6) HEAVEN (obstructive sleep apnea) Is this a current diagnosis for this admission?: Yes Plan: Nocturnal CPAP.
[2019-09-02] MEDS: DOCUSATE SODIUM 100 MG CAPSULE PO SCH ×2 (17:54→22:22)
[2019-09-02] MEDS: GUAIFENESIN SYRP 200 MG/10 ML UDC PO PRN (20:45)
[2019-09-02] MEDS: FAMOTIDINE 20 MG TABLET PO SCH (22:22)
[2019-09-02] MEDS: FUROSEMIDE 40 MG TABLET PO SCH (22:22)
--- NOTE | 2019-09-03 00:39 | RADIOLOGY REPORT (SQ) ---
EXAM DESCRIPTION: US CAROTID DOPPLER BILATERAL COMPLETED DATE/TME: 09/02/2019 14:45 CLINICAL HISTORY: 74 years, Male, tia COMPARISON: None. TECHNIQUE: Real time multiplanar ultrasonographic marie scale, color Doppler, and spectral Doppler imaging. 46 images LIMITATIONS: None. FINDINGS: Right: Moderate plaque is identified. Peak systolic and diastolic velocities within the common carotid, internal carotid, and external carotid arteries measure 129/26, 169/53, and 92 respectively. Antegrade flow is seen within the vertebral artery. ICA/CCA ratio 1.6 Left: Mild plaque is identified. Peak systolic and diastolic velocities within the common carotid, internal carotid, and external carotid arteries measure 135/30, 123/34, and 97 respectively. Antegrade flow is seen within the vertebral artery. ICA/CCA ratio 1.3 Impression: No evidence of hemodynamically significant stenosis of the extracranial carotid or vertebral systems. Internal carotid artery stenosis quantification and significance is defined utilizing the methods of [place] Symptomatic Carotid Endarterectomy Trial (NASCET). copyright 2010 [employer]- All Rights Reserved
[2019-09-03 05:47] LABS: ABSOLUTE LYMPHOCYTES (AUTO) 0.8 10^3/uL (0.5-4.7); TOTAL CELLS COUNTED % (AUTO) 100 %
[2019-09-03 05:55] LABS: ABSOLUTE BASOPHILS # (AUTO) 0.1 10^3/uL (0.0-0.2); ABSOLUTE EOSINOPHILS # (AUTO) 0.1 10^3/uL (0.0-0.6); ABSOLUTE MONOCYTES (AUTO) 0.7 10^3/uL (0.1-1.4); ABSOLUTE NEUT (AUTO) 4.4 10^3/uL (1.7-8.2); BASOPHILS % (AUTO) 0.9 % (0-2); HEMATOCRIT 21.8 % (37.9-51.0); LYMPHOCYTES % (AUTO) 12.7 % (13-45); MEAN CORPUSCULAR HEMOGLOBIN 25.3 pg (27.0-33.4); MEAN CORPUSCULAR HGB CONC 32.2 g/dL (32.0-36.0); MEAN CORPUSCULAR VOLUME 79 fl (80-97); MONOCYTES % (AUTO) 11.9 % (3-13); PLATELET COUNT 202 10^3/uL (150-450); RED BLOOD COUNT 2.78 10^6/uL (4.35-5.55); RED CELL DISTRIBUTION WIDTH 17.6 % (11.5-14.0); SEGMENTED NEUTROPHILS % (AUTO) 73.5 % (42-78)
[2019-09-03] MEDS: LEVOTHYROXINE SODIUM 0.025 MG TABLET PO SCH (06:05)
[2019-09-03] MEDS: LEVOTHYROXINE SODIUM 0.1 MG TABLET PO SCH (06:05)
[2019-09-03 06:09] LABS: ALBUMIN 3.7 g/dL (3.5-5.0); ALKALINE PHOSPHATASE 101 U/L (38-126); ANION GAP 13 (5-19); ASPARTATE AMINO TRANSFERASE 19 U/L (17-59); BILIRUBIN,DIRECT 0.3 mg/dL (0.0-0.4); BILIRUBIN,TOTAL 0.7 mg/dL (0.2-1.3); BLOOD UREA NITROGEN 24 mg/dL (7-20); CARBON DIOXIDE 21 mmol/L (22-30); CHLORIDE 102 mmol/L (98-107); GLUCOSE 89 mg/dL (75-110); TOTAL PROTEIN 7.2 g/dL (6.3-8.2)
[2019-09-03 08:18] LABS: ABSOLUTE RETICS # 0.031 10^6/uL (0.028-0.122); RETICULOCYTE COUNT (AUTO) 1.09 % (0.66-2.85)
[2019-09-03 08:48] LABS: IRON(TIBC) 23.4 ug/dL (49-181)
[2019-09-03 09:24] LABS: FERRITIN 8.65 ng/mL (17.9-464.0)
[2019-09-03] MEDS: FUROSEMIDE 40 MG TABLET PO SCH ×2 (09:50→21:37)
[2019-09-03] MEDS: MAGNESIUM OXIDE 400 MG TABLET PO SCH (09:51)
[2019-09-03] MEDS: DOCUSATE SODIUM 100 MG CAPSULE PO SCH ×2 (09:51→17:42)
[2019-09-03] MEDS: FAMOTIDINE 20 MG TABLET PO SCH ×2 (09:51→21:37)
[2019-09-03] MEDS: PROPRANOLOL HCL 10 MG TABLET PO SCH (09:51)
[2019-09-03] MEDS: ENOXAPARIN SODIUM INJ 30 MG/0.3 ML DISP.SYRIN SUBCUT SCH (09:52)
[2019-09-03] MEDS: FOLIC ACID 1 MG TABLET PO SCH (09:52)
[2019-09-03] MEDS: SPIRONOLACTONE 25 MG TABLET PO SCH (09:52)
[2019-09-03] MEDS ORDERED: CLOPIDOGREL BISULFATE 75 MG TABLET PO SCH (10:00)
[2019-09-03] MEDS ORDERED: (PENDING PHARMACY ID) (Levothyroxine Sodium [Synthroid] 125 MCG) PO SCH (10:00)
[2019-09-03] MEDS ORDERED: (PENDING PHARMACY ID) (Spironolactone [Aldactone 100 Mg Tablet] 100 MG) PO SCH (10:00)
[2019-09-03] MEDS ORDERED: ATORVASTATIN CALCIUM 20 MG TABLET PO SCH (10:00)
[2019-09-03] MEDS ORDERED: FERRIC CARBOXYMALTOSE INJ 750 MG/15 ML VIAL IV SCH (11:00)
[2019-09-03 11:31] LABS: FOLATE > 20.00 ng/mL (>2.76)
[2019-09-03] MEDS ORDERED: FERRIC CARBOXYMALTOSE 750 MG in NORMAL SALINE 250 ML IV ONE (12:00)
[2019-09-03] MEDS ORDERED: NORMAL SALINE 250 ML IV PRN ×2 (12:37)
--- NOTE | 2019-09-03 14:43 | PDOC PROGRESS REPORT ---
Subjective Progress Note for:: 09/03/19 Subjective:: ELEANOR STODDARD is a 74 year old male past medical history of A. fib status post ablation and watchman placement, CHF, CKD, dyslipidemia, brought to ED by his . Patient is alert and oriented however does not provide much history due to acute confusion except for saying that he is fine. . Source of history is his was present at the room, she is stating that yesterday around 6 PM she noted that she was complaining of cough and shortness of breath upon walking 10 to lean to the left side and running into things, overnight she was very restless and agitated. This morning he had gotten into his car and went into a sidewalk while driving to the restroom. When asked what happened he had a stated that he did not know what he was doing. As per at baseline patient is alert oriented x4, independent and does all his daily ADLs. Has not been sick lately, and has not been hospitalized. Patient denies any headache, numbness, tingling, focal neurological symptoms, fever, chills, nausea, vomiting, diarrhea, constipation or any urinary symptoms. Patient alert and oriented x3 however cannot follow complex commands. In ED CT head was negative and patient was not found to be a candidate for TPA. Hospital was consulted for admission. 09/03/2019. No acute events overnight. Patient currently resting in bed no apparent distress. Accompanied by his . Patient is alert and oriented x4. Denies any headache, vision changes, numbness, tingling, weakness, any focal neurological symptoms, nausea, vomiting, diarrhea, constipation, chest pain, shortness of breath, or any urinary symptoms. As per who is at the bedside patient is back at baseline. Reason For Visit: AMS Physical Exam Vital Signs: Temp Pulse Resp BP Pulse Ox 98.2 F 73 16 122/60 100 09/03/19 10:51 09/03/19 14:29 09/03/19 14:29 09/03/19 10:51 09/03/19 14:29 Intake & Output 09/02/19 09/03/19 09/04/19 06:59 06:59 06:59 Intake Total 150 915 Output Total 1450 700 Balance -1300 215 Weight 97 kg General appearance: PRESENT: no acute distress, well-developed, well-nourished Head exam: PRESENT: atraumatic, normocephalic Respiratory exam: PRESENT: clear to auscultation sigifredo. ABSENT: rales, rhonchi, wheezes Cardiovascular exam: PRESENT: RRR. ABSENT: diastolic murmur, rubs, systolic murmur GI/Abdominal exam: PRESENT: normal bowel sounds, soft. ABSENT: distended, guarding, mass, organolmegaly, rebound, tenderness Extremities exam: PRESENT: full ROM. ABSENT: calf tenderness, clubbing, pedal edema Neurological exam: PRESENT: alert, awake, oriented to person, oriented to place, oriented to time, oriented to situation, CN II-XII grossly intact. ABSENT: motor sensory deficit Psychiatric exam: PRESENT: appropriate affect, normal mood. ABSENT: homicidal ideation, suicidal ideation Results Laboratory Results: 09/03/19 05:03 09/03/19 05:03 09/02/19 09/02/19 09/03/19 15:10 16:02 05:03 WBC 6.0 RBC 2.78 L Hgb 7.0 L Hct 21.8 L MCV 79 L MCH 25.3 L MCHC 32.2 RDW 17.6 H Plt Count 202 Seg Neutrophils % 73.5 Retic Count (auto) Sodium Potassium Chloride Carbon Dioxide Anion Gap BUN Creatinine Est GFR ( Amer) Glucose Calcium Magnesium Iron TIBC % Saturation Ferritin Total Bilirubin AST Alkaline Phosphatase Ammonia < 8.7 L Total Protein Albumin Vitamin B12 Folate Urine Color YELLOW Urine Appearance CLEAR Urine pH 7.0 Ur Specific [place] 1.013 Urine Protein NEGATIVE Urine Glucose (UA) NEGATIVE Urine Ketones NEGATIVE Urine Blood NEGATIVE Urine Nitrite NEGATIVE Ur Leukocyte Esterase NEGATIVE Urine WBC (Auto) 0 Blood Type Antibody Screen 09/03/19 09/03/19 09/03/19 05:03 05:03 05:03 WBC RBC Hgb Hct MCV MCH MCHC RDW Plt Count Seg Neutrophils % Retic Count (auto) 1.09 Sodium 136.2 L Potassium 4.0 Chloride 102 Carbon Dioxide 21 L Anion Gap 13 BUN 24 H Creatinine 1.31 H Est GFR ( Amer) > 60 Glucose 89 Calcium 9.0 Magnesium 1.9 Iron 23.4 L TIBC 413 % Saturation 6 Ferritin 8.65 L Total Bilirubin 0.7 AST 19 Alkaline Phosphatase 101 Ammonia Total Protein 7.2 Albumin 3.7 Vitamin B12 217.0 L Folate > 20.00 Urine Color Urine Appearance Urine pH Ur Specific [place] Urine Protein Urine Glucose (UA) Urine Ketones Urine Blood Urine Nitrite Ur Leukocyte Esterase Urine WBC (Auto) Blood Type Antibody Screen 09/03/19 13:11 WBC RBC Hgb Hct MCV MCH MCHC RDW Plt Count Seg Neutrophils % Retic Count (auto) Sodium Potassium Chloride Carbon Dioxide Anion Gap BUN Creatinine Est GFR ( Amer) Glucose Calcium Magnesium Iron TIBC % Saturation Ferritin Total Bilirubin AST Alkaline Phosphatase Ammonia Total Protein Albumin Vitamin B12 Folate Urine Color Urine Appearance Urine pH Ur Specific [place] Urine Protein Urine Glucose (UA) Urine Ketones Urine Blood Urine Nitrite Ur Leukocyte Esterase Urine WBC (Auto) Blood Type O POSITIVE Antibody Screen NEGATIVE 09/02/19 09/02/19 10:40 10:40 Creatine Kinase 58 CK-MB (CK-2) 1.51 Troponin I 0.014 NT-Pro-B Natriuret Pep 2450 H Impressions: Chest X-Ray 09/02/19 10:09 IMPRESSION: Enlarged cardiac silhouette with bilateral interstitial opacities, possibly edema. No significant effusion. Head CT 09/02/19 10:09 IMPRESSION: 1. NO EVIDENCE OF ACUTE INTRACRANIAL HEMORRHAGE OR LARGE VASCULAR TERRITORY INFARCT. 2. CHRONIC CHANGES OF ATROPHY AND MICROVASCULAR ISCHEMIA. NO ACUTE PROCESS. EVIDENCE OF ACUTE STROKE: NO. Pertinent positive or negative findings of the imaging study reported as a CRITICAL EXAM to Patrick FRYE at11:00 on 09/02/2019. Category of Critical Exam: Negative code stroke Assessment and Plan - Diagnosis (1) TIA (transient ischemic attack) Is this a current diagnosis for this admission?: Yes Plan: Resolved. Patient back at baseline. Acute encephalopathy likely due to TIA. CBC CMP WNL. Ammonia WNL. SPO2 WNL. CT head negative. UDS negative. Unfortunately MRI/MRA head could not be performed here at [facility] as patient has a pacemaker, even though it is MRI compatible but as per MRI staff [facility] is not a staffed do MRI outpatient with MRI compatible pacemakers. Patient may benefit from outpatient MRI/MRA. Continue PT OT ST. Neurochecks. As per Plavix was DC'd due to chronic GI bleed. We will start on aspirin, high intensity statins, optimize BP. (2) Chronic blood loss anemia Is this a current diagnosis for this admission?: Yes Plan: Patient denies any nosebleeds, hematemesis, hemoptysis, melena, hematochezia or hematuria. Patient has history of GI bleed and has had several hospitalizations in the past, last hospitalization at [facility] patient was transferred to [facility] [place] and as per upper and lower GI endoscopy did not show any source of bleeding except for diverticulosis. Patient used to be on chronic anticoagulation for his A. fib RVR which was DC'd. His Plavix was also DC'd for the same reason. Used to weekly supplemental ferrous sulfate which was also DC'd in his previous hospitalization at [facility]. Patient noted to have dropped first hemoglobin from 8.1-7.0 with no apparent cause. Iron panel suggestive of severe iron deficiency anemia as well as low B12. Stool guaiac pending at the time of dictation. We will transfuse 2 units. Started on Injectafer infusion and subcutaneous B12 and p.o. folic acid. (3) Acute encephalopathy Is this a current diagnosis for this admission?: Yes Plan: Resolved. Patient back at baseline. Acute encephalopathy likely due to TIA. CBC CMP WNL. Ammonia WNL. SPO2 WNL. CT head negative. UDS negative. Unfortunately MRI/MRA head could not be performed here at [facility] as patient has a pacemaker, even though it is MRI compatible but as per MRI staff [facility] is not a staffed do MRI outpatient with MRI compatible pacemakers. Patient may benefit from outpatient MRI/MRA. Continue PT OT ST. Neurochecks. Antiplatelets. Statins. Optimize BP. (4) Loss of balance Is this a current diagnosis for this admission?: Yes Plan: Plan as per #1. (5) CKD (chronic kidney disease) stage 3, GFR 30-59 ml/min Is this a current diagnosis for this admission?: Yes Plan: Creatinine 1.46. Baseline 1-2. Chloride WNL. Appears euvolemic. Monitor volume status and electrolytes replace as needed. Avoid nephrotoxic meds. Outpatient PCP and nephrology follow-up. (6) History of atrial fibrillation Is this a current diagnosis for this admission?: Yes Plan: History of chronic persistent A. fib. Status post ablation watchman placement and pacemaker placement. Not chronically anticoagulated due to recurrent GI bleeds. Controlled. Paced rhythm. Not anticoagulated. Outpatient cardiology follow-up. (7) Chronic diastolic congestive heart failure Is this a current diagnosis for this admission?: Yes Plan: Appears euvolemic. proBNP at baseline. Cardiac diet. Restart beta-blockers JUNIOR. (8) HEAVEN (obstructive sleep apnea) Is this a current diagnosis for this admission?: Yes Plan: Nocturnal CPAP.
[2019-09-03] MEDS: GUAIFENESIN SYRP 200 MG/10 ML UDC PO PRN (18:41)
[2019-09-04 00:44] LABS: HEMOGLOBIN 8.7 g/dL (13.5-17.0); MEAN CORPUSCULAR HEMOGLOBIN 26.5 pg (27.0-33.4); MEAN CORPUSCULAR HGB CONC 33.3 g/dL (32.0-36.0); MEAN CORPUSCULAR VOLUME 80 fl (80-97); PLATELET COUNT 193 10^3/uL (150-450); RED BLOOD COUNT 3.27 10^6/uL (4.35-5.55); RED CELL DISTRIBUTION WIDTH 17.3 % (11.5-14.0); WHITE BLOOD COUNT 6.4 10^3/uL (4.0-10.5)
[2019-09-04] MEDS: DOCUSATE SODIUM 100 MG CAPSULE PO SCH ×2 (03:20→09:15)
[2019-09-04] MEDS: LEVOTHYROXINE SODIUM 0.1 MG TABLET PO SCH (05:32)
[2019-09-04] MEDS: LEVOTHYROXINE SODIUM 0.025 MG TABLET PO SCH (05:32)
[2019-09-04 06:05] LABS: ABSOLUTE LYMPHOCYTES (AUTO) 0.9 10^3/uL (0.5-4.7); ABSOLUTE MONOCYTES (AUTO) 0.7 10^3/uL (0.1-1.4); ABSOLUTE NEUT (AUTO) 4.5 10^3/uL (1.7-8.2); BASOPHILS % (AUTO) 0.5 % (0-2); EOSINOPHILS % (AUTO) 0.7 % (0-6); HEMOGLOBIN 9.2 g/dL (13.5-17.0); LYMPHOCYTES % (AUTO) 14.5 % (13-45); MEAN CORPUSCULAR HEMOGLOBIN 26.4 pg (27.0-33.4); MEAN CORPUSCULAR VOLUME 80 fl (80-97); MONOCYTES % (AUTO) 11.9 % (3-13); PLATELET COUNT 202 10^3/uL (150-450); RED BLOOD COUNT 3.51 10^6/uL (4.35-5.55); RED CELL DISTRIBUTION WIDTH 17.2 % (11.5-14.0); SEGMENTED NEUTROPHILS % (AUTO) 72.4 % (42-78); TOTAL CELLS COUNTED % (AUTO) 100 %; WHITE BLOOD COUNT 6.1 10^3/uL (4.0-10.5)
[2019-09-04 06:17] LABS: ANION GAP 12 (5-19); BLOOD UREA NITROGEN 28 mg/dL (7-20); CALCIUM 8.9 mg/dL (8.4-10.2); CARBON DIOXIDE 22 mmol/L (22-30); CHLORIDE 102 mmol/L (98-107); GLUCOSE 94 mg/dL (75-110); POTASSIUM 4.2 mmol/L (3.6-5.0)
[2019-09-04] MEDS: FOLIC ACID 1 MG TABLET PO SCH (09:15)
[2019-09-04] MEDS: FAMOTIDINE 20 MG TABLET PO SCH (09:15)
[2019-09-04] MEDS: SPIRONOLACTONE 25 MG TABLET PO SCH (09:15)
[2019-09-04] MEDS: PROPRANOLOL HCL 10 MG TABLET PO SCH (09:15)
[2019-09-04] MEDS: MAGNESIUM OXIDE 400 MG TABLET PO SCH (09:15)
[2019-09-04] MEDS: FUROSEMIDE 40 MG TABLET PO SCH (09:15)
[2019-09-04] MEDS: ENOXAPARIN SODIUM INJ 30 MG/0.3 ML DISP.SYRIN SUBCUT SCH (09:16)
[2019-09-04 09:59] VITALS: BP 127/64
[2019-09-04] MEDS ORDERED: CYANOCOBALAMIN (VITAMIN B-12) INJ 1000 MCG/1 ML VIAL IM SCH (10:00)
[2019-09-04] MEDS ORDERED: ATORVASTATIN CALCIUM 20 MG TABLET PO SCH (10:00)
--- NOTE | 2019-09-04 16:45 | PDOC DISCHARGE SUMMARY ---
Impression - Admit/DC Date/PCP Admission Date/Primary Care Provider: 09/02/19 13:05 BRITTANY CROSS MD Discharge Date: 09/04/19 - Discharge Diagnosis (1) TIA (transient ischemic attack) Is this a current diagnosis for this admission?: Yes (2) Chronic blood loss anemia Is this a current diagnosis for this admission?: Yes (3) Acute encephalopathy Is this a current diagnosis for this admission?: Yes (4) Loss of balance Is this a current diagnosis for this admission?: Yes (5) CKD (chronic kidney disease) stage 3, GFR 30-59 ml/min Is this a current diagnosis for this admission?: Yes (6) History of atrial fibrillation Is this a current diagnosis for this admission?: Yes (7) Chronic diastolic congestive heart failure Is this a current diagnosis for this admission?: Yes (8) HEAVEN (obstructive sleep apnea) Is this a current diagnosis for this admission?: Yes - Additional Information Discharge Diet: As Tolerated Discharge Activity: Activity As Tolerated Referrals: BRITTANY CROSS MD [Primary Care Provider] - 09/14/19 10:00 am Prescriptions: Cyanocobalamin (Vitamin B-12) [B-12] 2,500 mcg SL DAILY 15 Days #15 tab.subl Atorvastatin Calcium [Lipitor 80 mg Tablet] 80 mg PO QHS 30 Days #30 tablet Home Medications: Docusate Sodium [Colace 100 mg Capsule] 100 mg PO QHS 07/01/19 Folic Acid [Folvite 1 mg Tablet] 1 mg PO DAILY 07/01/19 Furosemide [Lasix 40 mg Tablet] 40 mg PO Q12 07/01/19 Levothyroxine Sodium [Synthroid] 125 mcg PO DAILY 07/01/19 Magnesium Oxide [Mag-Ox 400 mg Tablet] 400 mg PO DAILY 07/01/19 Propranolol HCl [Inderal 10 mg Tablet] 10 mg PO DAILY 07/01/19 Spironolactone [Aldactone 100 mg Tablet] 100 mg PO DAILY 07/01/19 Vitamin B Complex [B Complex] 1 each PO DAILY 07/01/19 Clopidogrel Bisulfate [Plavix 75 mg Tablet] 75 mg PO DAILY 09/02/19 Hydrocodone/Acetaminophen [Mathis 5-325 mg Tablet] 1 tab PO Q6HP PRN 09/02/19 Pantoprazole Sodium [Protonix [address] Tablet] 40 mg PO BID 09/02/19 Atorvastatin Calcium [Lipitor 80 mg Tablet] 80 mg PO QHS 30 Days #30 tablet 09/04/19 Cyanocobalamin (Vitamin B-12) [B-12] 2,500 mcg SL DAILY 15 Days #15 tab.subl 09/04/19 History of Present Illiness History of Present Illness: ELEANOR STODDARD is a 74 year old male past medical history of A. fib status post ablation and watchman placement, CHF, CKD, dyslipidemia, brought to ED by his . Patient is alert and oriented however does not provide much history due to acute confusion except for saying that he is fine. . Source of history is his was present at the room, she is stating that yesterday around 6 PM she noted that she was complaining of cough and shortness of breath upon walking 10 to lean to the left side and running into things, overnight she was very restless and agitated. This morning he had gotten into his car and went into a sidewalk while driving to the restroom. When asked what happened he had a stated that he did not know what he was doing. As per at baseline patient is alert oriented x4, independent and does all his daily ADLs. Has not been sick lately, and has not been hospitalized. Patient denies any headache, numbness, tingling, focal neurological symptoms, fever, chills, nausea, vomiting, diarrhea, constipation or any urinary symptoms. Patient alert and oriented x3 however cannot follow complex commands. In ED CT head was negative and patient was not found to be a candidate for TPA. Hospital was consulted for admission. Hospital Course Hospital Course: (1) TIA (transient ischemic attack) Resolved. Patient back at baseline. Acute encephalopathy likely due to TIA. CBC CMP WNL. Ammonia WNL. SPO2 WNL. CT head negative. UDS negative. Unfortunately MRI/MRA head could not be performed here at [facility] as patient has a pacemaker, even though it is MRI compatible but as per MRI staff [facility] is not a staffed do MRI outpatient with MRI compatible pacemakers. Patient may benefit from outpatient MRI/MRA. Continued on PT ST OT and neurochecks. No rehab indicated. As per Plavix was DC'd due to chronic GI bleed. Was a started on high intensity statins, optimize BP. Discharged home atorvastatin 80 mg p.o. daily. (2) Chronic blood loss anemia Multifactorial. History of diverticulosis and nonalcoholic cirrhosis. Guaiac negative. Patient denies any nosebleeds, hematemesis, hemoptysis, melena, hematochezia or hematuria. Patient has history of nonalcoholic cirrhosis and GI bleed and has had several hospitalizations in the past, last hospitalization at [facility] patient was transferred to [facility] [place] and as per upper and lower GI endoscopy did not show any source of bleeding except for diverticulosis. Patient used to be on chronic anticoagulation for his A. fib RVR which was DC'd. His Plavix was also DC'd for the same reason. Used to take supplemental ferrous sulfate which was also DC'd in his previous hospitalization at [facility]. Patient noted to have dropped first hemoglobin from 8.1-7.0 with no apparent cause. Iron panel suggestive of severe iron deficiency anemia as well as low B12. Was transfused 2 PRBC and was given 1 infusion of Injectafer. Was also given 1 dose of subcutaneous B12. Discharged on sublingual B12, folic acid. Advised to follow-up with PCP and hematology for possible continuous iron infusion if cannot tolerate oral ferrous sulfate. (3) Acute encephalopathy Resolved. Patient back at baseline. Acute encephalopathy likely due to TIA. CBC CMP WNL. Ammonia WNL. SPO2 WNL. CT head negative. UDS negative. Unfortunately MRI/MRA head could not be performed here at [facility] as patient has a pacemaker, even though it is MRI compatible but as per MRI staff [facility] is not a staffed do MRI outpatient with MRI compatible pacemakers. Patient may benefit from outpatient MRI/MRA. (4) Loss of balance PT OT consulted. No rehab or PT recommended. Plan as per #1. (5) CKD (chronic kidney disease) stage 3, GFR 30-59 ml/min Creatinine 1.46. Baseline 1-2. Electrolytes WNL. Appears euvolemic. Monitor volume status and electrolytes replace as needed. Avoided nephrotoxic meds. Outpatient PCP and nephrology follow-up. (6) History of atrial fibrillation History of chronic persistent A. fib. Status post ablation watchman placement and pacemaker placement. Not chronically anticoagulated due to recurrent GI bleeds. Controlled. Paced rhythm. Not anticoagulated. Outpatient cardiology follow-up. (7) Chronic diastolic congestive heart failure Appears euvolemic. proBNP at baseline. Cardiac diet. Restarted beta-blockers JUNIOR. (8) HEAVEN (obstructive sleep apnea) Nocturnal CPAP. Physical Exam Vital Signs: Temp Pulse Resp BP Pulse Ox 98.0 F 70 16 127/64 H 99 09/04/19 09:57 09/04/19 09:57 09/04/19 09:57 09/04/19 09:57 09/04/19 09:57 Intake & Output 09/03/19 09/04/19 09/05/19 06:59 06:59 06:59 Intake Total 150 2415 Output Total 1450 2100 Balance -1300 315 Weight 97 kg 96.7 kg General appearance: PRESENT: no acute distress, well-developed, well-nourished Head exam: PRESENT: atraumatic, normocephalic Respiratory exam: PRESENT: clear to auscultation sigifredo. ABSENT: rales, rhonchi, wheezes Cardiovascular exam: PRESENT: RRR. ABSENT: diastolic murmur, rubs, systolic murmur GI/Abdominal exam: PRESENT: normal bowel sounds, soft. ABSENT: distended, guarding, mass, organolmegaly, rebound, tenderness Neurological exam: PRESENT: alert, awake, oriented to person, oriented to place, oriented to time, oriented to situation, CN II-XII grossly intact. ABSENT: motor sensory deficit Results Laboratory Results: WBC 6.1 10^3/uL (4.0-10.5) 09/04/19 05:15 RBC 3.51 10^6/uL (4.35-5.55) L 09/04/19 05:15 Hgb 9.2 g/dL (13.5-17.0) L 09/04/19 05:15 Hct 28.0 % (37.9-51.0) L 09/04/19 05:15 MCV 80 fl (80-97) 09/04/19 05:15 MCH 26.4 pg (27.0-33.4) L 09/04/19 05:15 MCHC 33.0 g/dL (32.0-36.0) 09/04/19 05:15 RDW 17.2 % (11.5-14.0) H 09/04/19 05:15 Plt Count 202 10^3/uL (150-450) 09/04/19 05:15 Lymph % (Auto) 14.5 % (13-45) 09/04/19 05:15 [place] % (Auto) 11.9 % (3-13) 09/04/19 05:15 Eos % (Auto) 0.7 % (0-6) 09/04/19 05:15 Baso % (Auto) 0.5 % (0-2) 09/04/19 05:15 Reticulocyte # 0.031 10^6/uL (0.028-0.122) 09/03/19 05:03 Absolute Neuts (auto) 4.5 10^3/uL (1.7-8.2) 09/04/19 05:15 Absolute Lymphs (auto) 0.9 10^3/uL (0.5-4.7) 09/04/19 05:15 Absolute Monos (auto) 0.7 10^3/uL (0.1-1.4) 09/04/19 05:15 Absolute Eos (auto) 0.0 10^3/uL (0.0-0.6) 09/04/19 05:15 Absolute Basos (auto) 0.0 10^3/uL (0.0-0.2) 09/04/19 05:15 Seg Neutrophils % 72.4 % (42-78) 09/04/19 05:15 Retic Count (auto) 1.09 % (0.66-2.85) 09/03/19 05:03 PT 15.7 SEC (11.4-15.4) H 09/02/19 10:40 INR 1.24 09/02/19 10:40 APTT 31.9 SEC (23.5-35.8) 09/02/19 10:40 Sodium 135.8 mmol/L (137-145) L 09/04/19 05:15 Potassium 4.2 mmol/L (3.6-5.0) 09/04/19 05:15 Chloride 102 mmol/L (98-107) 09/04/19 05:15 Carbon Dioxide 22 mmol/L (22-30) 09/04/19 05:15 Anion Gap 12 (5-19) 09/04/19 05:15 BUN 28 mg/dL (7-20) H 09/04/19 05:15 Creatinine 1.47 mg/dL (0.52-1.25) H 09/04/19 05:15 Est GFR ( Amer) 57 (>60) L 09/04/19 05:15 Est GFR (MDRD) Non-Af 47 (>60) L 09/04/19 05:15 Glucose 94 mg/dL (75-110) 09/04/19 05:15 POC Glucose 105 mg/dL (70-110) 09/02/19 10:29 Calcium 8.9 mg/dL (8.4-10.2) 09/04/19 05:15 Magnesium 1.9 mg/dL (1.6-2.3) 09/03/19 05:03 Iron 23.4 ug/dL (49-181) L 09/03/19 05:03 TIBC 413 ug/dL (250-450) 09/03/19 05:03 % Saturation 6 % 09/03/19 05:03 Ferritin 8.65 ng/mL (17.9-464.0) L 09/03/19 05:03 Total Bilirubin 0.7 mg/dL (0.2-1.3) 09/03/19 05:03 Direct Bilirubin 0.3 mg/dL (0.0-0.4) 09/03/19 05:03 Neonat Total Bilirubin Not Reportable 09/03/19 05:03 Neonat Direct Bilirubin Not Reportable 09/03/19 05:03 Neonat Indirect Bili Not Reportable 09/03/19 05:03 AST 19 U/L (17-59) 09/03/19 05:03 ALT 11 U/L (<50) 09/03/19 05:03 Alkaline Phosphatase 101 U/L (38-126) 09/03/19 05:03 Ammonia < 8.7 umol/L (9-33) L 09/02/19 16:02 Creatine Kinase 58 U/L (55-170) 09/02/19 10:40 CK-MB (CK-2) 1.51 ng/mL (<4.55) 09/02/19 10:40 Troponin I 0.014 ng/mL 09/02/19 10:40 NT-Pro-B Natriuret Pep 2450 pg/mL (<125) H 09/02/19 10:40 Total Protein 7.2 g/dL (6.3-8.2) 09/03/19 05:03 Albumin 3.7 g/dL (3.5-5.0) 09/03/19 05:03 Vitamin B12 217.0 pg/mL (239-931) L 09/03/19 05:03 Folate > 20.00 ng/mL (>2.76) 09/03/19 05:03 Urine Color YELLOW 09/02/19 15:10 Urine Appearance CLEAR 09/02/19 15:10 Urine pH 7.0 (5.0-9.0) 09/02/19 15:10 Ur Specific [place] 1.013 09/02/19 15:10 Urine Protein NEGATIVE mg/dL (NEGATIVE) 09/02/19 15:10 Urine Glucose (UA) NEGATIVE mg/dL (NEGATIVE) 09/02/19 15:10 Urine Ketones NEGATIVE mg/dL (NEGATIVE) 09/02/19 15:10 Urine Blood NEGATIVE (NEGATIVE) 09/02/19 15:10 Urine Nitrite NEGATIVE (NEGATIVE) 09/02/19 15:10 Urine Bilirubin NEGATIVE (NEGATIVE) 09/02/19 15:10 Urine Urobilinogen NEGATIVE mg/dL (<2.0) 09/02/19 15:10 Ur Leukocyte Esterase NEGATIVE (NEGATIVE) 09/02/19 15:10 Urine WBC (Auto) 0 /HPF 09/02/19 15:10 Urine Ascorbic Acid NEGATIVE (NEGATIVE) 09/02/19 15:10 Stool Occult Blood NEGATIVE (NEGATIVE) 09/03/19 14:28 Urine Opiates Screen NEGATIVE 09/02/19 15:10 Urine Methadone Screen NEGATIVE 09/02/19 15:10 Ur Barbiturates Screen NEGATIVE 09/02/19 15:10 Ur Phencyclidine Scrn NEGATIVE 09/02/19 15:10 Ur Amphetamines Screen NEGATIVE 09/02/19 15:10 U Benzodiazepines Scrn NEGATIVE 09/02/19 15:10 Urine Cocaine Screen NEGATIVE 09/02/19 15:10 U Marijuana (THC) Screen NEGATIVE 09/02/19 15:10 Blood Type O POSITIVE 09/03/19 13:11 Antibody Screen NEGATIVE 09/03/19 13:11 Crossmatch See Detail 09/03/19 13:11 09/02/19 10:40 CK-MB (CK-2) 1.51 Troponin I 0.014 NT-Pro-B Natriuret Pep 2450 H Impressions: Chest X-Ray 09/02/19 10:09 IMPRESSION: Enlarged cardiac silhouette with bilateral interstitial opacities, possibly edema. No significant effusion. Head CT 09/02/19 10:09 IMPRESSION: 1. NO EVIDENCE OF ACUTE INTRACRANIAL HEMORRHAGE OR LARGE VASCULAR TERRITORY INFARCT. 2. CHRONIC CHANGES OF ATROPHY AND MICROVASCULAR ISCHEMIA. NO ACUTE PROCESS. EVIDENCE OF ACUTE STROKE: NO. Pertinent positive or negative findings of the imaging study reported as a CRITICAL EXAM to Patrick FRYE at11:00 on 09/02/2019. Category of Critical Exam: Negative code stroke Stroke Is this a Stroke Patient?: No Acute Heart Failure - Is this a Heart Failure Patient?: No
[2019-09-04] MEDS ORDERED: ATORVASTATIN CALCIUM 80 MG TABLET PO SCH (22:00)
== END 2019-09-04 10:24 | disposition home or self-care (01) ==
LOC: ER 10:01 → INTOOBSV 13:05 → EH 13:05 → 3S 16:18
PROVIDERS: ADMIT Internal Medicine; ATTEND Internal Medicine
DX: G45.9 Transient cerebral ischemic attack, unspecified (principal); D50.0 Iron deficiency anemia secondary to blood loss (chronic); G93.40 Encephalopathy, unspecified; R27.8 Other lack of coordination; N18.3 Chronic kidney disease, stage 3 (moderate); G47.33 Obstructive sleep apnea (adult) (pediatric); I50.32 Chronic diastolic (congestive) heart failure; E78.5 Hyperlipidemia, unspecified; R45.1 Restlessness and agitation; E03.9 Hypothyroidism, unspecified; R05 Cough; K74.60 Unspecified cirrhosis of liver; K21.9 Gastro-esophageal reflux disease without esophagitis; Z86.79 Personal history of other diseases of the circulatory system; Z95.0 Presence of cardiac pacemaker; Z95.818 Presence of other cardiac implants and grafts; Z90.49 Acquired absence of other specified parts of digestive tract; Z87.891 Personal history of nicotine dependence; Z79.899 Other long term (current) drug therapy; Z98.890 Other specified postprocedural states; Z82.49 Family history of ischemic heart disease and other diseases of the circulatory system; Z87.19 Personal history of other diseases of the digestive system
CPT/HCPCS: 93005; 99285; 86900; 86901; 36415 ×3; 82553; 36430; 86850; 82962; 82140; 82607; 82550; 82728; 82746; 83540; 83550; 83735; 85025 ×3; 85610; 85730; 82272; 85045; 80048; 80053 ×2; 81001; 84484; 80307; 86920; 83880; 93880; 71045; 70450; 93010; 97116; 97161; 97165; P9016; A9270 ×24; J3420; J7050; J1439; J3490

== ENCOUNTER → 2019-10-07 | Outpatient (CLI) | payer MEDICARE ==
--- NOTE | 2019-10-07 08:43 | RADIOLOGY REPORT (SQ) ---
EXAM DESCRIPTION: U/S ABDOMEN LIMITED W/O DOP COMPLETED DATE/TIME: 10/07/2019 7:18 am REASON FOR STUDY: (K74.69)OTHER CIRRHOSIS OF LIVER K74.69 OTHER CIRRHOSIS OF LIVER COMPARISON: None. TECHNIQUE: Dynamic and static grayscale images acquired of the abdomen and recorded on PACS. Additio nal selected color Doppler and spectral images recorded. LIMITATIONS: Limited exam secondary to body habitus and bowel gas. FINDINGS: PANCREAS: Not well visualized. LIVER: Cirrhotic morphology with nodular contour. No intrahepatic ductal dilation. LIVER VASCULATURE: Normal directional flow of the main portal vein and hepatic veins. GALLBLADDER: No discrete stones. Dependent sludge within the gallbladder lumen. No wall thickening (3 mm). ULTRASOUND-DETECTED CUEVAS'S SIGN: Negative. INTRAHEPATIC DUCTS AND COMMON DUCT: CBD and intrahepatic ducts normal caliber. No filling defects. INFERIOR VENA CAVA: Normal flow. AORTA: No aneurysm. RIGHT KIDNEY: Normal size measuring 11.3 cm. Normal echogenicity. No solid or suspicious masses. Si mple cyst along the interpolar region measuring up to 2.3 cm. No hydronephrosis. No calcifications. PERITONEAL AND RIGHT PLEURAL SPACE: No ascites or effusions. OTHER: No other significant findings. IMPRESSION: 1. Cirrhotic hepatic morphology. No ascites. 2.Gallbladder sludge without evidence of acute cholecystitis. TECHNICAL DOCUMENTATION: JOB ID: [id number] 2010 [employer]- All Rights Reserved Reading location - IP/workstation name: [email or web address]
== END ==
LOC: RAD 06:44
PROVIDERS: ATTEND Internal Medicine Gastroenterology
DX: K74.69 Other cirrhosis of liver (principal); K82.9 Disease of gallbladder, unspecified
CPT/HCPCS: 76705

== ENCOUNTER 2019-11-09 13:01 | Emergency (ER) | payer MEDICARE ==
[2019-11-09] MEDS ORDERED: ACETAMINOPHEN 325 MG TABLET PO ONE (13:17)
--- NOTE | 2019-11-09 13:19 | ER Document Report ---
ED Hand/Wrist Injury - General Chief Complaint: Hand Injury Stated Complaint: LEFT HAND INJURY Time Seen by Provider: 11/09/19 13:17 Primary Care Provider: BRITTANY CROSS MD [Primary Care Provider] - Follow up as needed ELEANOR PATE DO [ACTIVE STAFF] - Follow up as needed Mode of Arrival: Ambulatory Information source: Patient Notes: 74-year-old male presented to ED for complaint of hand injury on Saturday. He states he was trying to put a bar door up when the door fell and hit his hand. He states he thought it would get better but it is continuing to hurt. He states the pain is a 5 out of 5. He states his doctor is Dr. Tucker Ambrose and his business services specialist sales is in [place] and he has not called or spoken with either of these. Patient is alert oriented respirations regular nonlabored speaking in full sentences. He states he does not smoke drink or use any drugs. He states he lives with his significant other. TRAVEL OUTSIDE OF THE [place] IN LAST 30 DAYS: No - HPI Injury to: Hand Onset: Other - Saturday Where: Public place Timing: Still present, Worse Quality of pain: Sharp, Throbbing Severity: Severe Pain Level: 5 Context: Other - Bar door fell on his hand - Related Data Allergies/Adverse Reactions: allopurinol Allergy (Verified 09/02/19 10:09) colchicine Allergy (Verified 09/02/19 10:09) Sulfa (Sulfonamide Antibiotics) Allergy (Verified 09/02/19 10:09) valdecoxib [From Bextra] Allergy (Verified 09/02/19 10:09) Past Medical History - General Information source: Patient - Social History Smoking Status: Never Smoker Frequency of alcohol use: None Drug Abuse: None Lives with: Spouse/Significant other Family History: CAD, COPD, DM, Hypertension, Malignancy Patient has suicidal ideation: No Patient has homicidal ideation: No - Past Medical History Cardiac Medical History: Reports: Hx Atrial Fibrillation, Hx Congestive Heart Failure, Hx Hypercholesterolemia, Hx Hypertension Pulmonary Medical History: Reports: Hx Sleep Apnea - Uncertain settings on home CPAP EENT Medical History: Reports: None Neurological Medical History: Reports: None. Denies: Hx Seizures Endocrine Medical History: Reports: Hx Hypothyroidism Renal/ Medical History: Reports: None Malignancy Medical History: Reports None GI Medical History: Reports: Hx Cirrhosis - Alcoholic cirrhosis, Hx Diverticulitis - Status post segmental colectomy for same. Question if he has diverticulosi, Hx Gastroesophageal Reflux Disease, Hx Hiatal Hernia, Hx Endoscopy Musculoskeletal Medical History: Reports Hx Arthritis, Reports Hx Gout Skin Medical History: Reports None Psychiatric Medical History: Reports: None Traumatic Medical History: Reports: None Infectious Medical History: Reports: None Past Surgical History: Reports: Hx Abdominal Surgery - bowel resection, Hx Cardiac Surgery - watchmans procedure, Hx Herniorrhaphy, Hx Orthopedic Surgery - right and left hand surgeries, Hx Pacemaker, Hx Vascular Surgery - Watchman device placement, Other - Segmental colectomy for diverticulitis - Immunizations Immunizations up to date: Yes Hx Diphtheria, Pertussis, Tetanus Vaccination: Yes Hx Pneumococcal Vaccination: 07/22/16 Review of Systems - Review of Systems Constitutional: No symptoms reported EENT: No symptoms reported Cardiovascular: No symptoms reported Respiratory: No symptoms reported Gastrointestinal: No symptoms reported Genitourinary: No symptoms reported Male Genitourinary: No symptoms reported Musculoskeletal: Other - Left hand bruising pain swelling Skin: Other - Left hand bruising pain swelling Hematologic/Lymphatic: No symptoms reported Neurological/Psychological: No symptoms reported -: Yes All other systems reviewed and negative Physical Exam - Vital signs Vitals: Temp Pulse Resp BP Pulse Ox 97.8 F 88 17 149/74 H 100 11/09/19 13:05 11/09/19 13:05 11/09/19 13:05 11/09/19 13:05 11/09/19 13:05 Interpretation: Normal - General General appearance: Appears well, Alert - HEENT Head: Normocephalic, Atraumatic Eyes: Normal Pupils: PERRL - Respiratory Respiratory status: No respiratory distress Chest status: Nontender Breath sounds: Normal Chest palpation: Normal - Cardiovascular Rhythm: Regular Heart sounds: Normal auscultation Murmur: No - Abdominal Inspection: Normal Distension: No distension Bowel sounds: Normal Tenderness: Nontender Organomegaly: No organomegaly - Back Back: Normal, Nontender - Extremities General upper extremity: Normal inspection, Nontender, Normal color, Normal ROM, Normal temperature General lower extremity: Normal inspection, Nontender, Normal color, Normal ROM, Normal temperature, Normal weight bearing. No: Angel's sign - Neurological Neuro grossly intact: Yes Cognition: Normal Orientation: AAOx4 [place] Coma Scale Eye Opening: Spontaneous [place] Coma Scale Verbal: Oriented [place] Coma Scale Motor: Obeys Commands [place] Coma Scale Total: 15 Speech: Normal Motor strength normal: LUE, RUE, LLE, RLE Sensory: Normal - Psychological Associated symptoms: Normal affect, Normal mood - Skin Skin Temperature: Warm Skin Moisture: Dry Skin Color: Normal, Ecchymosis Location of irregularity: Extremities - 10 Irregularity with: Swelling, Tenderness Course - Re-evaluation Re-evalutation: 11/09/19 17:36 Discussed with patient and written report as well as CD of the x-ray given the patient to follow-up with primary care. He did have some redness and warmth to the area so he was treated with Keflex after cleaning the hand well with soap rinsing well applying bacitracin Telfa and Kerlix. He was then treated with a cock-up splint for his discomfort. He was instructed please to return to his orthopedic surgeon or the local business services specialist sales. Patient was able to verbalize understanding and agreement with treatment plan. I did consult Dr. Boyd who came and examined the patient as well. He did agree with this treatment plan. - Vital Signs Vital signs: Temp Pulse Resp BP Pulse Ox 98.1 F 85 20 128/76 H 100 11/09/19 14:27 11/09/19 14:27 11/09/19 14:27 11/09/19 14:27 11/09/19 14:27 - Diagnostic Test Radiology reviewed: Image reviewed, Reports reviewed Discharge - Discharge Clinical Impression: Injury of left hand Qualifiers: Encounter type: initial encounter Qualified Code(s): S69.92XA - Unspecified injury of left wrist, hand and finger(s), initial encounter Contusion of left hand including fingers Qualifiers: Encounter type: initial encounter Qualified Code(s): S60.222A - Contusion of left hand, initial encounter Condition: Stable Disposition: HOME, SELF-CARE Additional Instructions: You were seen today for reinjury to your left hand. Your hand is swollen and bruised but there is no obvious new fractures to your hand. I have given you a written report of your x-rays of your hand. It does show multiple degenerative and surgical changes to your hand. I have given you the name and number for the local business services specialist sales but he will probably request that you follow-up with the surgeon who did your previous surgery to your hand. I have given you a written report as well as a CD of your x-ray to follow-up with your previous surgeon or you can follow-up with a local business services specialist sales. CELLULITIS: You have an infection of your skin and underlying soft tissues called cellulitis. This is due to bacteria, which can enter through any break in the skin, or even through an irritated hair follicle. Untreated, cellulitis will usually worsen. Antibiotics are required. Usually, warm packs or warm soaks, and elevation of the infected area are recommended. You should start getting better within 24 to 36 hours. Most infections respond quickly to the right medication. Follow-up care is important, however, to check for abscess (boil) formation, unsuspected foreign body, or resistant infection. If you develop fever, chills, or if the area of infection is becoming rapidly more swollen or painful, call the doctor at once. Cephalexin The antibiotic you've been prescribed is a member of the cephalosporin class. This type of antibiotic covers a wide variety of infections, including those of the skin, lungs, and urinary tract. It's useful for staph infections. This antibiotic is slightly similar to the penicillin family. In rare cases, a person who is allergic to penicillin will also be allergic to this medication. If you have had a severe allergic reaction to penicillin, and have not taken this antibiotic since that time, notify your doctor. Antibiotics which cover many germs ("broad spectrum" antibiotics) are more likely to cause diarrhea or "yeast" infections. Women prone to vaginal yeast problems may suffer an attack after taking this antibiotic. In infants, oral th costa (white spots "stuck" on the cheek) or yeast diaper rash may result. See your doctor if these problems occur. Call at once if you develop itching, hives, shortness of breath, or lightheadedness. Acetaminophen Acetaminophen may be taken for pain relief or fever control. It's much safer than aspirin, offering a wider range of "safe" dosages. It is safe during . Some brand names are Tylenol, Panadol, Datril, Anacin 3, Tempra, and Liquiprin. Acetaminophen can be repeated every four hours. The following are maximum recommended dosages: WEIGHT Dose Drops Elixir Chewable(80mg) (LBS.) drprs=droppers tsp=teaspoon 6 40 mg .4 ml (1/2) 6-11 80 mg .8 ml (full) 1/2 tsp 1 tab 12-16 120 mg 1 1/2 drprs 3/4 tsp 1 1/2 tabs 17-23 160 mg 2 drprs 1 tsp 2 tabs 24-30 240 mg 3 drprs 1 1/2 tsp 3 tabs 30-35 320 mg 2 tsp 4 tabs 36-41 360 mg 2 1/4 tsp 4 1/2 tabs 42-47 400 mg 2 1/2 tsp 5 tabs 48-53 480 mg 3 tsp 6 tabs 54-59 520 mg 3 1/4 tsp 6 1/2 tabs 60-64 560 mg 3 1/2 tsp 7 tabs 65-70 600 mg 3 3/4 tsp 7 1/2 tabs 71-76 640 mg 4 tsp 8 tabs 77-82 720 mg 4 1/2 tsp 9 tabs 83-88 800 mg 5 tsp 10 tabs >89 pounds or adults 650 mg to 900 mg Acetaminophen can be repeated every four hours. Maximum daily dose not to exceed 4000 mg. These maximum recommended dosages are slightly higher than the dosages written on the product container, but these dosages are very safe and well below the toxic dosage for acetaminophen. Oral Narcotic Medication You have been given a prescription for pain control. This medication is a narcotic. It's best taken with food, as nausea can result if taken on an empty stomach. Don't operate machinery or drive within six hours of taking this medication. Do not combine this medicine with alcohol, or with any medication which can cause sedation (such as cold tablets or sleeping pills) unless you get permission from the physician. Narcotics tend to cause constipation. If possible, drink plenty of fluids and eat a diet high in fiber and fruits. FOLLOW-UP CARE: If you have been referred to a physician for follow-up care, call the physicians office for an appointment as you were instructed or within the next two days. If you experience worsening or a significant change in your symptoms, notify the physician immediately or return to the Emergency Department at any time for re-evaluation. Prescriptions: Hydrocodone/Acetaminophen [[place] 5-325 mg Tablet] 1 tab PO Q6HP PRN #7 tablet PRN Reason: Cephalexin Monohydrate [Keflex 500 mg Capsule] 500 mg PO Q6H 5 Days #20 capsule Referrals: BRITTANY CROSS MD [Primary Care Provider] - Follow up as needed ELEANOR PATE DO [ACTIVE STAFF] - Follow up as needed
--- NOTE | 2019-11-09 14:09 | RADIOLOGY REPORT (SQ) ---
EXAM DESCRIPTION: HAND LEFT 3 VIEWS IMAGES COMPLETED DATE/TIME: 11/09/2019 1:51 pm REASON FOR STUDY: pain injury COMPARISON: 10/18/2012 EXAM PARAMETERS: NUMBER OF VIEWS: Three views. TECHNIQUE: AP, lateral and oblique radiographic images acquired of the left hand. LIMITATIONS: None. FINDINGS: MINERALIZATION: Decreased. BONES: No definite acute fracture or dislocation. Extensive post surgical and degenerative changes w ith Karen wire fixation at the 2nd proximal interphalangeal joint, plate and screw fixation hardw are at the 3rd proximal interphalangeal joint and cancellous screw hardware at the distal 5th interph alangeal joint. Posttraumatic changes from prior 4th metacarpal and proximal phalanx fracture. Dege nerative changes at multiple joint spaces with joint space loss, subchondral sclerosis and osteophyto sis. JOINTS: As above. SOFT TISSUES: No soft tissue swelling. No foreign body. Vascular calcifications. OTHER: No other significant finding. IMPRESSION: 1. No definite acute bony abnormality. 2. Extensive postsurgical/posttraumatic and degenerative changes as above. TECHNICAL DOCUMENTATION: JOB ID: [id number] 2010 [employer]- All Rights Reserved Reading location - IP/workstation name: [email or web address]
[2019-11-09 14:27] VITALS: BP 128/76
[2019-11-09] MEDS ORDERED: CEPHALEXIN 500 MG CAPSULE PO ONE (14:44)
== END 2019-11-09 14:50 | disposition home or self-care (01) ==
LOC: ER 13:01
DX: S60.222A Contusion of left hand, initial encounter (principal); W20.8XXA Other cause of strike by thrown, projected or falling object, initial encounter; Y93.89 Activity, other specified; I10 Essential (primary) hypertension; Z88.8 Allergy status to other drugs, medicaments and biological substances; Z88.2 Allergy status to sulfonamides
CPT/HCPCS: 99283; 73130; A9270

== ENCOUNTER → 2020-03-09 | Outpatient (CLI) | payer MEDICARE ==
[2020-03-09 14:29] LABS: FREE T3 3.12 pg/mL (2.77-5.27); FREE T4 (FREE THYROXINE) 1.7 ng/dL (0.78-2.19)
[2020-03-09 14:42] LABS: THYROID STIMULATING HORMONE 0.4 uIU/mL (0.47-4.68)
== END ==
LOC: OD 12:38
PROVIDERS: ATTEND Specialist
DX: I48.20 Chronic atrial fibrillation, unspecified (principal); I12.9 Hypertensive chronic kidney disease with stage 1 through stage 4 chronic kidney disease, or unspecified chronic kidney disease; N18.9 Chronic kidney disease, unspecified; E78.49 Other hyperlipidemia; I27.20 Pulmonary hypertension, unspecified; Z95.0 Presence of cardiac pacemaker; R06.00 Dyspnea, unspecified; Z79.899 Other long term (current) drug therapy
CPT/HCPCS: 36415; 84439; 84443; 84481; 84484